=== PATIENT | female | born 1985 | race African-American/Black ===

== ENCOUNTER → 2022-03-29 14:30 | Outpatient (BNVA) | payer OTHER, SELFPAY | PROVIDERS: PCP Physician Assistant Medical; Visit Provider Nurse Practitioner Family | DX: G47.19 Other hypersomnia (principal); R06.83 Snoring; G47.9 Sleep disorder, unspecified; G43.709 Chronic migraine without aura, not intractable, without status migrainosus | CPT/HCPCS: 99202 ==

== ENCOUNTER → 2022-04-18 13:45 | Outpatient (REF) | payer OTHER, SELFPAY | LOC: HO.SL 13:45 | PROVIDERS: PCP Physician Assistant Medical; Visit Provider Nurse Practitioner Family | DX: Z13.89 Encounter for screening for other disorder (principal) ==

== ENCOUNTER → 2022-07-05 14:36 | Outpatient (BNVA) | payer OTHER, SELFPAY | PROVIDERS: PCP Physician Assistant Medical; Visit Provider Nurse Practitioner Family | DX: G43.709 Chronic migraine without aura, not intractable, without status migrainosus (principal); G47.9 Sleep disorder, unspecified; G47.19 Other hypersomnia; R06.83 Snoring | CPT/HCPCS: 99212 ==

== ENCOUNTER 2022-07-12 10:15 | Outpatient (RCR) | payer OTHER, SELFPAY ==
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
[2022-07-05 12:34] VITALS: BP 138/90; PULSE 96; TEMP 37.3
[2022-07-05 12:39] VITALS: BMI 38.0
--- NOTE | 2022-07-05 13:18 | PC.ADMIT ---
Patient is a 36 year old single female who identifies as a black [place] of [employer]. She was referred to PHP by her prescriber d/t increased depression with passive SI, increased anxiety, and OCD sxs. She is currently unemployed d/t mental health issues. See integrative assessment for more information. Patient denied any substance use. Reports she has been withdrawing from others. Currently live with her parents who she reports are, somewhat supportive and her 8 siblings. Patient reports many health issues including diabetes which she stated is being monitored with appointments every two weeks at a diabetes clinic as she is using newer technology. Reports she is using a Thompson 2 sensor(previously used Thompson 1) to manage her diabetes. Reports BS range from 100's-200's. She also stated her blood pressure is being monitored as well as she stated her blood pressures have been running high. She also goes to PT twice a week and is currently awaiting for results today of a sleep study she had done. Patient is alert and oriented x4. Calm and cooperative. Presented with depressed mood, anxious affect. Denied SI or thoughts to harm self. Medications reconciled with patient and patient's pharmacy. reports taking medications as prescribed.
--- NOTE | 2022-07-06 15:57 | HO.PHP ---
The client case was reviewed and opened in treatment team
--- NOTE | 2022-07-11 10:58 | HO.PHP ---
The client called out because she over slept. She is safe and will be here tomorrow
--- NOTE | 2022-07-12 11:15 | HO.PHPPROGNO ---
Subjective Subjective Date of Service: 07/12/22 Reason For Visit: PTSD,OCD,depression,anxiety,panic d/o Medical Problems Affecting Mental Status: No Interim History: Continues with depressed, anxious mood/affect. Finding program helpful. No SI, no safety concerns. Poor sleep, difficulty falling asleep, with multiple awakenings. History of using a CPAP in the past, last use 2016 after adenoid removal. Providers are planning for a new sleep study. Medication Compliance: Yes Side effects from medications: No Attending Groups: Yes Review of Systems Acute medical concerns: No Medical Review of Systems: changed Review of Systems: poor sleep Review of Systems Review of Systems Yes all other systems are reviewed and are negative Constitutional: Reports difficulty sleeping Mental Status Exam Mental Status Exam Narrative: Well-developed, well-nourished, in NAD. 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 in Activity, Feelings of Worthlessness, Increased Fatigue, Low Self Esteem, Loss of Energy and Difficulty Concentrating Judgement: Fair Diagnostics Vital Signs (24Hr): BMI result Body Mass Index 38.0 Assessment & Plan Assessment & Plan (1) Major depressive disorder, recurrent severe without psychotic features: Status: Acute Code(s): F33.2 - Major depressive disorder, recurrent severe without psychotic features Assessment and Plan: Continues with depressed, anxious mood an affect. No SI, no safety concerns. Reports having a difficult morning, feeling better now. No SI/HI, no safety concerns. Does report having some sleep difficulties, which she feels is adding to her mood. Working with medical providers, plan is to have repeat sleep study. Review of sleep hygiene and anxiety reduction techniques reviewed with patient. No concerns with current medication, satisfied with current medication regimen. Discussed possibility of adding low-dose trazodone or hydroxyzine to assist with sleep. Patient given information regarding both medications, will rule research both before making any type of decision. (2) Anxiety: Status: Acute Code(s): F41.9 - Anxiety disorder, unspecified (3) OCD (obsessive compulsive disorder): Status: Acute Code(s): F42.9 - Obsessive-compulsive disorder, unspecified (4) Post-traumatic stress disorder, unspecified: Status: Acute Code(s): F43.10 - Post-traumatic stress disorder, unspecified Plan 1. Continue with current PHP plan of care. 2. Continue with current medication regimen as prescribed. 3. Follow-up as per protocol. Patient educated on: diagnosis, medication risk/benefits and therapeutic strategies Informed Consent: understands Reason for contiued partial hosp. stay Substantial Risk for: inability to function, rapid decompensation and med/psych decompensation Certification I certify that partial hospital treatment is medically necessary due to the symptoms and problems resulting from the patient's mental illness and the failure to treat the patient at the partial hospital level of care would likely result in the patient requiring inpatient psychiatric care which could not be prevented at a less intensive level of care. Total time managing care of this patient today __20__ minutes. Discharge Plan Discharge Attending provider: Paddy Adhikari Medications: No Action multivitamin with folic acid [Daily-Devon (with folic acid)] 400 mcg tablet 1 tab PO DAILY oxcarbazepine 300 mg tablet 1 tab PO BID estradiol 2 mg tablet 1 tab PO QAM diclofenac sodium 75 mg tablet,delayed release (DR/EC) 1 tab PO BID PRN (Reason: pain) albuterol sulfate [Ventolin HFA] 90 mcg/actuation HFA aerosol inhaler 2 puff inhalation Q6H PRN (Reason: wheezing) duloxetine 60 mg capsule,delayed release(DR/EC) 1 cap PO DAILY Jardiance 10 mg tablet 10 mg PO QAM insulin glargine [Lantus Solostar U-100 Insulin] 100 unit/mL (3 mL) insulin pen 25 unit subcut BEDTIME Label Comments: Patient stated her dose decreased to 25 units at bedtime. fexofenadine 60 mg tablet 60 mg PO DAILY (DME) FreeStyle Thompson 2 Sensor Kit See Rx Instructions .ROUTE DIRECTED Qty: 1 Rx Instructions: As directed (DME) lancets [FreeStyle Lancets] 28 gauge misc See Rx Instructions .ROUTE .MEDSUPPLY Qty: 100 Rx Instructions: As directed buspirone 15 mg tablet 15 mg PO BID fluticasone propionate [Flovent HFA] 220 mcg/actuation HFA aerosol inhaler 1 puff inhalation BID Label Comments: Patient stated she tried Advair inhaler however was getting oral thrush thus was changed back to Flovent inhaler. atorvastatin 10 mg tablet 10 mg PO DAILY fluticasone propionate 50 mcg/actuation spray,suspension 1 spray intranasal BID (DME) pen needle, diabetic [BD Ultra-Fine Mini Pen Needle] 31 gauge x 3/16 needle See Rx Instructions .ROUTE .MEDSUPPLY Qty: 50 Rx Instructions: As directed (DME) FreeStyle Lite Strips Strip See Rx Instructions .ROUTE BID Qty: 10 Rx Instructions: As directed Humalog U-100 Insulin 100 unit/mL cartridge 60 unit subcut DAILY insulin aspart U-100 100 unit/mL (3 mL) insulin pen See Rx Instructions .ROUTE .COMPLEX Label Comments: Patient stated she alternates with Humalog insulin (does not use Insulin Aspart and Humalog insulin at the same time) depending if she is staying at home or leaving her home. Rx Instructions: Sliding scale TID before meals SQ with maximum 24 units daily. omeprazole 40 mg capsule,delayed release(DR/EC) 40 mg PO DAILY cholecalciferol (vitamin D3) 50 mcg (2,000 unit) capsule 50 mcg PO DAILY magnesium oxide 400 mg (241.3 mg magnesium) tablet 400 mg PO BEDTIME 30 Days Qty: 30 6RF Rx Instructions: may hold for loose stools melatonin 5 mg tablet 10 mg PO DAILY PRN (Reason: insomnia) Label Comments: Patient stated she was told to take 1-2 tabs prn at bedtime. diclofenac sodium 1 % gel topical Ubrelvy 100 mg tablet 100 mg PO PRN Botox 200 unit recon soln 155 unit IM ONCE 84 Days Qty: 1 3RF Rx Instructions: inject 155 units IM across forehead, scalp, and neck
--- NOTE | 2022-07-13 11:40 | PC.NURSE ---
Patient did not show up to the program this morning. Spoke to her at 11:40 and she stated she just woke up and she overslept. Plans on coming to the program tomorrow.
--- NOTE | 2022-07-14 09:37 | HO.PHP ---
I called Sonya to check in after she called out. She states that she has been having difficulty sleeping at night and overslept again this morning. We discussed how participating in group has impacted her and she states that she is going to be here on Sunday. She reports that she is safe.
--- NOTE | 2022-07-17 16:18 | HO.PHP ---
I spoke with the client after she had called out. She states that she finds groups too difficult because she feels guilty when she speaks about her family and feels that she knows coping skills already. She has decided that she will just continue with her outpatient therapist.
--- NOTE | 2022-07-18 15:32 | HO.PHP ---
Addendum entered by Reina Hernandez [facility] 07/18/22 15:48: The clients therapist requested a fax of her meds and I faxed it over. Original Note: A call was made to the clients therapist to inform of discharge
== END 2022-07-14 23:59 | disposition home or self-care (01) ==
LOC: HO.PHPA 10:15
PROVIDERS: Visit Provider Psychiatry & Neurology Psychiatry
DX: F33.2 Major depressive disorder, recurrent severe without psychotic features (principal); F42.9 Obsessive-compulsive disorder, unspecified; F43.10 Post-traumatic stress disorder, unspecified; F41.9 Anxiety disorder, unspecified
CPT/HCPCS: 90791; 90853

== ENCOUNTER → 2022-09-26 13:29 | Outpatient (BNVA) | payer OTHER, SELFPAY | PROVIDERS: PCP Physician Assistant Medical; Visit Provider Nurse Practitioner Family | DX: G43.709 Chronic migraine without aura, not intractable, without status migrainosus (principal); G47.19 Other hypersomnia; R06.83 Snoring; E11.9 Type 2 diabetes mellitus without complications; Z79.4 Long term (current) use of insulin | CPT/HCPCS: 99212 ==

== ENCOUNTER → 2022-10-19 14:33 | Outpatient (REF) | payer OTHER, SELFPAY | LOC: HO.SL 14:33 | PROVIDERS: PCP Physician Assistant Medical; Visit Provider Nurse Practitioner Family | DX: G47.19 Other hypersomnia (principal); G47.9 Sleep disorder, unspecified; R06.83 Snoring | CPT/HCPCS: 95806 ==

== ENCOUNTER 2023-01-08 14:57 | Outpatient (AMB) | payer MEDICAID, SELFPAY ==
--- NOTE | 2023-01-08 14:59 | MHC.OFFVIS ---
Intake Vital Signs 01/08/23 15:00 Height 5 ft 7 in Weight 242 lb 8 oz BMI 38.0 Position Sitting Pulse 92 Pulse Source Pulse Oximeter Pulse Oximetry (%) 97 Oxygen Delivery Method Room Air Intake Visit Reasons: 3m follow up headaches/sleep issues Intake Note: Pt presents as a 3 month f/u for headaches and sleep issues. Pt states Things are pretty much the same. Utilization Reviewer Required: No Allergies dulaglutide [From [facility]] Allergy (Unknown, Verified 01/08/23 15:05) Unknown lisinopril Allergy (Unknown, Verified 01/08/23 15:05) Cough metformin Allergy (Unknown, Verified 01/08/23 15:05) Stomach Upset enviromental Allergy (Mild, Uncoded 01/08/23 15:05) Unknown Medication List - Last Reconciled 01/08/23 by WILLIAM Agrawal albuterol sulfate 90 mcg/actuation (Ventolin HFA) 2 puffs inhalation Q6H PRN atorvastatin 10 mg PO DAILY blood sugar diagnostic (FreeStyle Lite Strips) As directed buspirone 15 mg PO BID cholecalciferol (vitamin D3) 50 mcg PO DAILY diclofenac sodium 1% grams topical duloxetine 1 cap PO DAILY empagliflozin (Jardiance) 10 mg PO QAM estradiol 1 tab PO QAM flash glucose sensor (FreeStyle Thompson 2 Sensor kit) As directed fluconazole 75 mg PO BID PRN fluticasone propionate 220 mcg/actuation (Flovent HFA) 1 puff inhalation BID hydrocortisone 2.5% topical insulin aspart U-100 Sliding scale TID before meals SQ with maximum 24 units daily. insulin glargine (Lantus Solostar U-100 Insulin) 24 units subcut BEDTIME insulin lispro 1 sliding scale dose subcut USEASDIRECTD lancets (FreeStyle Lancets) As directed loratadine 10 mg PO DAILY magnesium oxide 400 mg PO BEDTIME 30 days melatonin 5 mg PO DAILY PRN montelukast 10 mg PO QPM multivitamin with folic acid 400 mcg (Daily-Devon (with folic acid)) 1 tab PO DAILY omeprazole 40 mg PO DAILY onabotulinumtoxinA (Botox) 155 units IM ONCE 12 weeks oxcarbazepine 1 tab PO BID oxcarbazepine 150 mg PO BID trazodone 50 mg PO BEDTIME ubrogepant (Ubrelvy) 100 mg PO PRN HPI HPI Comments History of Present Illness Details 37-yr-old female presents for f/u visit. Pt denies any significant interval medical changes. She was not able to complete her partial day program d/t transportation issues- but she plans to resume later this month. She reports a daily mild-moderate headcahe, with 3 moderate-severe headache days per week w/ one w/ increased severity per week. She is noticing more mid-frontal pressure- wonders if this is r/t allergies but denies any other allergy s/s- no watery eyes. More prone to dry eyes. The Ubrelvy is helpful as needed. HST revealed AHI 0.5/hr and O2 ximena She is still having snoring, fragmented sleep, leg cramps, restless sleep. She is taking Magnesium - not helping leg cramps. She has a h/o anemia- ued to take iron but not now. She also concerned about risk for pituitary adenoma as her sister had a symptomatic pituitary adenoma requiring surgical intervention. Pt endorses diplopia- neida with vision changing from distance to near or when driving; bilateral facial droop, difficulty swallowing liquids/saliva, bilateral hands and feet paresthesias, hot/cold intolerance- . Denies peripheral vision loss or nipple discharge. [facility] Medical History (Updated 01/08/23 @ 16:02 by WILLIAM Agrawal) Anemia Arthritis Asthma Carpal tunnel syndrome Depression Eczema Fibromyalgia GERD (gastroesophageal reflux disease) HTN (hypertension) IBS (irritable bowel syndrome) Migraines Mobitz (type) I (Wenckebach's) atrioventricular block Osteoporosis Psoriasis Type II diabetes mellitus Surgical History H/O adenoidectomy History of hysterectomy History of nasal septoplasty Social History Household Members: Family Alcohol intake: never Patient Tobacco Use Status: Former Tobacco user Tobacco use type: Pipe Years Smoked: 15 years ago. Review of Systems Const All systems reviewed & are unremarkable except as noted in HPI and below Physical Exam Vital Signs: Last Vital Signs Pulse 92 01/08/23 15:00 Pulse Ox 97 01/08/23 15:00 Oxygen Delivery Method Room Air 01/08/23 15:00 BMI result Body Mass Index 38.0 Const General: cooperative and no acute distress Orientation/consciousness: patient oriented x3 HEENT Head: Yes normocephalic Resp Effort & Inspection: normal respiratory effort and able to speak in complete sentences Neuro Other: EOM intact Sustained upward eye gaze- no fatigability observed. General: patient oriented x3, gait normal and CN's II-XI intact bilaterally Cognition (Neuro): normal cognition Motor exam (neuro): 5/5 motor strength present throughout Psych Appearance: grossly normal Mental Status: mental status grossly normal Speech and movement: Normal speech and movement present Affect: normal affect Attitude: cooperative Thought process: Normal thought process present Assessment & Plan Assessment & Plan (1) Chronic migraine: (2) Sleep disorder: Code(s): G47.9 - Sleep disorder, unspecified (3) Excessive daytime sleepiness: Comment: ESS 12 Code(s): G47.19 - Other hypersomnia (4) Snoring: Code(s): R06.83 - Snoring Plan Pt advised to undergo brain MRI w/wo- to assess for etiologies of worsening headcahe, diplopia, swallowing diff, facial weakness- such as any pituitary or posterior fossa processes Monitor swallowing, diplopia- consider dilplopia/dysphagi eval, MG work-up. For sleep- Reviewed HST- inconclusive. Pt advised to undergo in-lab PSG. Continue Magnesium for leg cramps/RLS. Will check labs for common etiologies RLS/restlessness/cramps. Future considerations- referral for CBTi For chronic migraine- Will schedule pt to resume Botox tx- PA has been approved. Try tear gtts for dry eyes- dry eyes may exacerbate headcahes/diplopia/eey strain. Previous preventative medication use: amitriptyline, nortriptyline- ineffective, topamax- ineffective, propranolol- caused hypotension For acute migraine tx: Continue prn Ubrelvy. Previous acute medication use: sumatriptan- ineffective, naratriptan- ineffective Orders: Orders RT PSG in-lab sleep study Today G47.19 - Other hypersomnia, G47.9 - Sleep disorder, unspecified, R06.83 - Snoring Comprehensive Met. Panel Today D64.9 - Anemia, unspecified, E11.9 - Type 2 diabetes mellitus without complications, F41.9 - Anxiety disorder, unspecified Complete Blood Count Auto Diff Today D64.9 - Anemia, unspecified, E11.9 - Type 2 diabetes mellitus without complications, F41.9 - Anxiety disorder, unspecified Vitamin B12 and Folate Today D64.9 - Anemia, unspecified, E11.9 - Type 2 diabetes mellitus without complications, F41.9 - Anxiety disorder, unspecified TSH reflex Free T4 Today D64.9 - Anemia, unspecified, E11.9 - Type 2 diabetes mellitus without complications, F41.9 - Anxiety disorder, unspecified Ferritin Today D64.9 - Anemia, unspecified, E11.9 - Type 2 diabetes mellitus without complications, F41.9 - Anxiety disorder, unspecified IRON PROFILE Today D64.9 - Anemia, unspecified, E11.9 - Type 2 diabetes mellitus without complications, F41.9 - Anxiety disorder, unspecified Transferrin Today D64.9 - Anemia, unspecified, E11.9 - Type 2 diabetes mellitus without complications, F41.9 - Anxiety disorder, unspecified Erythrocyte Sedimentation Rate Today D64.9 - Anemia, unspecified, E11.9 - Type 2 diabetes mellitus without complications, F41.9 - Anxiety disorder, unspecified MR head/brain wo/w con Today H53.2 - Diplopia, R20.2 - Paresthesia of skin, R29.810 - Facial weakness, R51.9 - Headache, unspecified Medications: New propylene glycol (PF) 0.6% (Systane Complete PF) 2 drops into the eye(s) to each eye BID; 30 days 20 mL 3RF Coding Level of Care Code Est Pt Level 4 (23205) Diagnoses Chronic migraine Sleep disorder G47.9 Excessive daytime sleepiness G47.19 Snoring R06.83
[2023-01-08 15:00] VITALS: PULSE 92; O2SAT 97; BMI 38.0
== END 2023-01-08 16:07 | disposition home or self-care (01) ==
PROVIDERS: Visit Provider Nurse Practitioner Family
DX: G47.9 Sleep disorder, unspecified (principal); G47.19 Other hypersomnia; R06.83 Snoring
CPT/HCPCS: 99214

== ENCOUNTER → 2023-01-08 14:57 | Outpatient (BNVA) | payer OTHER, SELFPAY | PROVIDERS: Visit Provider Nurse Practitioner Family | DX: G43.809 Other migraine, not intractable, without status migrainosus (principal); G47.19 Other hypersomnia; R06.83 Snoring; Z79.899 Other long term (current) drug therapy | CPT/HCPCS: 99212 ==

== ENCOUNTER 2023-01-15 13:01 | Outpatient (AMB) | payer OTHER, SELFPAY ==
--- NOTE | 2023-01-15 13:04 | A.OFFVIS_ITS ---
Intake Vital Signs 01/15/23 13:09 BP 114/98 H Blood Pressure Location Rt brachial Position Sitting Pulse 95 Pulse Source Pulse Oximeter Pulse Oximetry (%) 98 Oxygen Delivery Method Room Air Intake Visit Reasons: botox-confirmed Intake Note: Patient presents for botox injection . Allergies dulaglutide [From [facility]] Allergy (Unknown, Verified 01/15/23 13:06) Unknown lisinopril Allergy (Unknown, Verified 01/15/23 13:06) Cough metformin Allergy (Unknown, Verified 01/15/23 13:06) Stomach Upset enviromental Allergy (Mild, Uncoded 01/15/23 13:06) Unknown Medication List - Last Reconciled 01/15/23 by Bessie Ramirez MD albuterol sulfate 90 mcg/actuation (Ventolin HFA) 2 puffs inhalation Q6H PRN ascorbate calcium (vitamin C) 500 mg PO DAILY 30 days ascorbic acid (vitamin C) 500 mg PO DAILY atorvastatin 10 mg PO DAILY blood sugar diagnostic (FreeStyle Lite Strips) As directed buspirone 15 mg PO BID cholecalciferol (vitamin D3) 50 mcg PO DAILY diclofenac sodium 1% grams topical duloxetine 1 cap PO DAILY empagliflozin (Jardiance) 10 mg PO QAM estradiol 1 tab PO QAM ferrous sulfate 325 mg PO DAILY 30 days ferrous sulfate 300 mg PO DAILY flash glucose sensor (FreeStyle Thompson 2 Sensor kit) As directed fluconazole 75 mg PO BID PRN fluticasone propionate 220 mcg/actuation (Flovent HFA) 1 puff inhalation BID hydrocortisone 2.5% topical insulin aspart U-100 Sliding scale TID before meals SQ with maximum 24 units daily. insulin glargine (Lantus Solostar U-100 Insulin) 24 units subcut BEDTIME insulin lispro 1 sliding scale dose subcut USEASDIRECTD lancets (FreeStyle Lancets) As directed loratadine 10 mg PO DAILY magnesium oxide 400 mg PO BEDTIME 30 days melatonin 5 mg PO DAILY PRN montelukast 10 mg PO QPM multivitamin with folic acid 400 mcg (Daily-[place] (with folic acid)) 1 tab PO DAILY omeprazole 40 mg PO DAILY onabotulinumtoxinA (Botox) 155 units IM ONCE 12 weeks oxcarbazepine 1 tab PO BID oxcarbazepine 150 mg PO BID propylene glycol (PF) 0.6% (Systane Complete PF) 2 drops into the eye(s) to each eye BID; 30 days trazodone 50 mg PO BEDTIME ubrogepant (Ubrelvy) 100 mg PO PRN HPI HPI Comments History of Present Illness Details ? 37y/o female comes for treatment of migraines with botox. ??? Most frequent reported adverse reactions following injection of botox for chronic migraine include neck pain (9%), headache(5%), eyelid ptosis(4%), migraine(4%), muscular weakness(4%), musculuskeletal stiffness(4%), bronchitis(3%), injection site pain (3%), musculoskeletal pain(3%), myalgia(3%), facial paresis(2%), HTN(2%) and muscle spasms(2%) were discussed in detail. ??? Botulinum toxin typeA 200units Lot no [id number] expiration Jul 2025 was diluted with 4 cc of normal saline . ??? Muscles injected- ??? Frontalis 4 sites ??? Procerus 1 site ??? Dipper Clock And Watch Hands- 2 sites ??? Temporalis- 8 sites ??? Occipitalis- 6 sites ??? Cervical paraspinals- 4 sites ??? Trapezius- 6 sites- 10 units each ??? 5 units each in 31 site ??? Total use- 185units ??? Discarded-15units [facility] Medical History Anemia Arthritis Asthma Carpal tunnel syndrome Depression Eczema Fibromyalgia GERD (gastroesophageal reflux disease) HTN (hypertension) IBS (irritable bowel syndrome) Migraines Mobitz (type) I (Wenckebach's) atrioventricular block Osteoporosis Psoriasis Type II diabetes mellitus Surgical History H/O adenoidectomy History of hysterectomy History of nasal septoplasty Family History Mother Heart disease Lupus Diabetes Father Diabetes Social History Household Members: Family Alcohol intake: never Patient Tobacco Use Status: Former Tobacco user Tobacco use type: Pipe Years Smoked: 15 years ago. Physical Exam Vital Signs: Last Vital Signs Pulse 95 01/15/23 13:09 BP 114/98 H 01/15/23 13:09 Pulse Ox 98 01/15/23 13:09 Oxygen Delivery Method Room Air 01/15/23 13:09 Const General: cooperative and no acute distress Orientation/consciousness: patient oriented x3 HEENT Head: Yes normocephalic Resp Effort & Inspection: normal respiratory effort and able to speak in complete sentences Neuro Other: EOM intact Sustained upward eye gaze- no fatigability observed. General: patient oriented x3, gait normal and CN's II-XI intact bilaterally Cognition (Neuro): normal cognition Motor exam (neuro): 5/5 motor strength present throughout Psych Appearance: grossly normal Mental Status: mental status grossly normal Speech and movement: Normal speech and movement present Affect: normal affect Attitude: cooperative Thought process: Normal thought process present Office Procedures Botulinum toxin Injection 78069 - Migraine Procedure code (CPT) selection complete Office Meds onabotulinumtoxinA Performing Provider: Bessie Ramirez MD Administered by: Bessie Ramirez MD on 01/15/23 14:42 Dose Route Admin Location Lot Number Expiration Date NDC [employer] 185 unit subcut [id number] 07/05/25 0745-8768-58 [employer]ER[employer]/BOTOX Comments: see HPI Assessment & Plan Assessment & Plan (1) Chronic migraine without aura, not intractable, without status migrainosus: Code(s): G43.709 - Chronic migraine without aura, not intractable, without status migrainosus Plan Patient tolerated the procedure well She will call with any side effects Orders: Orders AMB Botulinum toxin Injection Today G43.709 - Chronic migraine without aura, not intractable, without status migrainosus Coding Level of Care Code Est Pt Level 1 (29769) Diagnoses Chronic migraine without aura, not intractable, without status migrainosus G43.709 CPT Codes Botox Injection - Botox 3: 78120 - Migraine ([id number])
[2023-01-15 13:09] VITALS: BP 114/98; PULSE 95; O2SAT 98
== END 2023-01-15 13:26 | disposition home or self-care (01) ==
PROVIDERS: PCP Physician Assistant Medical; Visit Provider Psychiatry & Neurology Neurology
DX: G43.709 Chronic migraine without aura, not intractable, without status migrainosus (principal)
CPT/HCPCS: 64615

== ENCOUNTER → 2023-01-15 13:01 | Outpatient (BNVA) | payer OTHER, SELFPAY | PROVIDERS: PCP Physician Assistant Medical; Visit Provider Psychiatry & Neurology Neurology | DX: G43.709 Chronic migraine without aura, not intractable, without status migrainosus (principal); M79.7 Fibromyalgia | CPT/HCPCS: 64615; 99211; J0585 ==

== ENCOUNTER → 2023-01-21 20:30 | Outpatient (REF) | payer OTHER, SELFPAY | LOC: HO.SL 20:30 | PROVIDERS: PCP Physician Assistant Medical; Visit Provider Nurse Practitioner Family | DX: G47.19 Other hypersomnia (principal); G47.9 Sleep disorder, unspecified; R06.83 Snoring | CPT/HCPCS: 95810 ==

== ENCOUNTER → 2023-01-21 22:40 | Outpatient (BNV) | payer OTHER, SELFPAY | PROVIDERS: PCP Physician Assistant Medical; Visit Provider Psychiatry & Neurology Neurology | DX: G47.61 Periodic limb movement disorder (principal) | CPT/HCPCS: 95810 ==

== ENCOUNTER 2023-02-01 16:08 | Outpatient (REF) | payer OTHER, SELFPAY ==
--- NOTE | ~2023-02-01 | MR_ITS ---
EXAMINATION: MR BRAIN WITHOUT AND WITH CONTRAST MR CERVICAL SPINE WITHOUT AND WITH CONTRAST CLINICAL INFORMATION: Headaches. Facial weakness. COMPARISON: None available. TECHNIQUE: Multiplanar, multisequence imaging of the brain and cervical spine was performed before and after the intravenous administration of 10 mL of Gadavist. Slightly limited study with motion artifacts. FINDINGS: BRAIN: No diffusion abnormalities are identified to suggest an acute or subacute infarct. The ventricles are normal in size. No mass effect or midline shift is seen. No brain parenchymal signal abnormality is noted. No extra-axial fluid collections are seen. The brainstem and cerebellum are normal. On postcontrast imaging, there is no abnormal parenchymal or leptomeningeal enhancement. The gradient refocused acquisition demonstrates no pathologic magnetic susceptibility artifact to indicate underlying acute or chronic blood products. The craniovertebral junction, marrow signal, and midline structures are normal. The major intracranial flow voids at the level of the [place] are preserved. The dural venous sinus flow voids are maintained. The mastoid air cells and paranasal sinuses are well aerated. CERVICAL SPINE: The marrow signal is homogeneous. No abnormal enhancement is seen. There are no compression fractures or subluxations. The discs are well hydrated. No cord signal abnormality or syrinx is seen. The central canal and neural foramina are widely patent. At the C6-C7 level, there is a small central disc protrusion and mild disc bulge without central canal stenosis or foraminal narrowing. The remaining disc spaces are normal. The facet joints are normal. The paraspinal soft tissues are unremarkable. The vertebral artery flow voids are maintained. The imaged lung apices are grossly clear. MR/MR cervical spine wo/w con IMPRESSION: Normal MRI of the brain. Small central disc protrusion and mild disc bulge at the C6-C7 level. No central canal stenosis or foraminal narrowing. No abnormal enhancement. No cord signal abnormality.
--- NOTE | ~2023-02-01 | MR_ITS ---
EXAMINATION: MR BRAIN WITHOUT AND WITH CONTRAST MR CERVICAL SPINE WITHOUT AND WITH CONTRAST CLINICAL INFORMATION: Headaches. Facial weakness. COMPARISON: None available. TECHNIQUE: Multiplanar, multisequence imaging of the brain and cervical spine was performed before and after the intravenous administration of 10 mL of Gadavist. Slightly limited study with motion artifacts. FINDINGS: BRAIN: No diffusion abnormalities are identified to suggest an acute or subacute infarct. The ventricles are normal in size. No mass effect or midline shift is seen. No brain parenchymal signal abnormality is noted. No extra-axial fluid collections are seen. The brainstem and cerebellum are normal. On postcontrast imaging, there is no abnormal parenchymal or leptomeningeal enhancement. The gradient refocused acquisition demonstrates no pathologic magnetic susceptibility artifact to indicate underlying acute or chronic blood products. The craniovertebral junction, marrow signal, and midline structures are normal. The major intracranial flow voids at the level of the [place] are preserved. The dural venous sinus flow voids are maintained. The mastoid air cells and paranasal sinuses are well aerated. CERVICAL SPINE: The marrow signal is homogeneous. No abnormal enhancement is seen. There are no compression fractures or subluxations. The discs are well hydrated. No cord signal abnormality or syrinx is seen. The central canal and neural foramina are widely patent. At the C6-C7 level, there is a small central disc protrusion and mild disc bulge without central canal stenosis or foraminal narrowing. The remaining disc spaces are normal. The facet joints are normal. The paraspinal soft tissues are unremarkable. The vertebral artery flow voids are maintained. The imaged lung apices are grossly clear. MR/MR head/brain wo/w con IMPRESSION: Normal MRI of the brain. Small central disc protrusion and mild disc bulge at the C6-C7 level. No central canal stenosis or foraminal narrowing. No abnormal enhancement. No cord signal abnormality.
[2023-02-01] MEDS: gadobutroL 10 ML VIAL IVPUSH (17:23)
== END 2023-02-01 16:09 | disposition home or self-care (01) ==
LOC: HO.MRI 16:08
PROVIDERS: PCP Physician Assistant Medical; Visit Provider Nurse Practitioner Family
DX: R29.810 Facial weakness (principal); H53.2 Diplopia; F41.9 Anxiety disorder, unspecified; R51.9 Headache, unspecified; R20.2 Paresthesia of skin
CPT/HCPCS: 70553; 72156; A9585

== ENCOUNTER 2023-02-19 11:30 | Outpatient (RCR) | payer OTHER, SELFPAY ==
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
[2023-02-19 13:27] VITALS: BP 118/78; PULSE 92; TEMP 36.9
[2023-02-19 13:31] VITALS: BMI 37.6
--- NOTE | 2023-02-19 14:14 | PC.ADMIT ---
Patient is a 37 year old female who identified as a black [place]. She was referred to [facility] by Jakob crisis advised by her therapist who wanted her to be evaluated d/t increased depression with passive SI and struggling with poor eating habits as patient has Type II insulin dependent diabetes. Patient told this procedure writer that her appetite fluctuates as she sometimes does not eat or overeats. Patient told this procedure writer she is struggling with a lot of depressive sxs and anxiety. Patient presented with depressed mood and affect. Reports passive SI denied plan or intent to kill herself. She is calm and cooperative. I gave her a copy of her safety plan and I reviewed this with her. 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 Medications reconciled with patient at this time. Awaiting for faxed information from pharmacy to complete reconciliation.
--- NOTE | 2023-02-21 17:10 | HO.PHP ---
[facility] staff contacted Sonya and encouraged her to take care of her health at this time by following up with a PCP. [facility] staff noted that we will be discharging her from services at this time and when she is feeling well, she can call [facility] to schedule an intake. Sonya was receptive.
== END 2023-02-21 23:59 | disposition home or self-care (01) ==
LOC: HO.PHPA 11:30
PROVIDERS: Visit Provider Psychiatry & Neurology Psychiatry
DX: F33.2 Major depressive disorder, recurrent severe without psychotic features (principal); F42.9 Obsessive-compulsive disorder, unspecified; Z79.899 Other long term (current) drug therapy
CPT/HCPCS: 90791; 90853

== ENCOUNTER → 2023-02-19 11:30 | Outpatient (BNV) | payer OTHER, SELFPAY | PROVIDERS: Visit Provider Psychiatry & Neurology Psychiatry | DX: F33.2 Major depressive disorder, recurrent severe without psychotic features (principal); F42.9 Obsessive-compulsive disorder, unspecified | CPT/HCPCS: 90792 ==

== ENCOUNTER 2023-04-24 14:26 | Outpatient (AMB) | payer OTHER, SELFPAY ==
--- NOTE | 2023-04-24 14:30 | MHC.OFFVIS ---
Intake Vital Signs 04/24/23 14:32 Height 5 ft 7 in Weight 245 lb 4 oz BMI 38.4 BP 128/76 Blood Pressure Location Rt brachial Position Sitting Respiration 7 L Pulse 95 Pulse Source Pulse Oximeter Pulse Oximetry (%) 100 Oxygen Delivery Method Room Air Intake Visit Reasons: botox - Conf t/CW Intake Note: Pt presents to the office for Botox injections. Car Groomer Required: No Allergies dulaglutide [From Trulicity] Allergy (Unknown, Verified 04/24/23 14:35) Unknown lisinopril Allergy (Unknown, Verified 04/24/23 14:35) Cough metformin Allergy (Unknown, Verified 04/24/23 14:35) Stomach Upset enviromental Allergy (Mild, Uncoded 04/24/23 14:35) Unknown Medication List - Last Reconciled 04/24/23 by Bessie Ramirez MD albuterol sulfate 90 mcg/actuation (Ventolin HFA) 2 puffs inhalation Q6H PRN ascorbate calcium (vitamin C) 500 mg PO DAILY 30 days atorvastatin 10 mg PO BEDTIME blood sugar diagnostic (FreeStyle Lite Strips) As directed buspirone 15 mg PO BID carboxymethylcellulose sodium 1% (Artificial Tears (carboxymethylcellulose)) 1 drp ophthalmic (eye) BID 14 days cholecalciferol (vitamin D3) 50 mcg PO DAILY diclofenac sodium 75 mg PO BID diclofenac sodium 1% 1 - 2 grams topical BID docusate sodium 100 - 200 mg (1 - 2 x 100 mg) PO DAILY PRN 30 days duloxetine 1 cap PO DAILY duloxetine 40 mg PO DAILY empagliflozin (Jardiance) 10 mg PO QAM estradiol 1 tab PO QAM ferrous sulfate 325 mg PO DAILY 30 days flash glucose sensor (FreeStyle Thompson 2 Sensor kit) As directed fluoxetine 20 mg PO BID gabapentin 100 - 300 mg (1 - 3 x 100 mg) PO BEDTIME 30 days hydroxyzine HCl 25 mg PO BID PRN ibuprofen 800 mg PO BID PRN insulin aspart U-100 Sliding scale TID before meals SQ with maximum 24 units daily. insulin glargine (Lantus Solostar U-100 Insulin) 40 units subcut BEDTIME lancets (FreeStyle Lancets) As directed loratadine 10 mg PO DAILY magnesium oxide 400 mg PO BEDTIME 30 days melatonin 5 mg PO DAILY PRN metoprolol succinate ER 12.5 mg PO DAILY metoprolol tartrate 12.5 mg PO BID montelukast 10 mg PO QPM multivitamin with folic acid 400 mcg (Daily-Devon (with folic acid)) 1 tab PO DAILY omeprazole 40 mg PO DAILY onabotulinumtoxinA (Botox) 155 units IM ONCE 12 weeks oxcarbazepine 1 tab PO BID oxcarbazepine 150 mg PO BID polyethylene glycol 3350 (Miralax) 17 grams PO DAILY PRN 30 days propylene glycol (PF) 0.6% (Systane Complete PF) 2 drops into the eye(s) to each eye BID; 30 days trazodone 200 mg PO BEDTIME tretinoin 0.05% (Retin-A) Apply peas sized amount to skin nightly. ubrogepant (Ubrelvy) Take one tab for migraine h/a. If ineffective in one hour take another tab. HPI HPI Comments History of Present Illness Details ? 37y/o female comes for treatment of migraines with botox. SHe had a good response after her last treatment with botox. He headaches /migraine shave decreased from daily migraines to 1-4.month and the headaches are less intense and lasts less than 2 hrs ??? Most frequent reported adverse reactions following injection of botox for chronic migraine include neck pain (9%), headache(5%), eyelid ptosis(4%), migraine(4%), muscular weakness(4%), musculuskeletal stiffness(4%), bronchitis(3%), injection site pain (3%), musculoskeletal pain(3%), myalgia(3%), facial paresis(2%), HTN(2%) and muscle spasms(2%) were discussed in detail. ??? Botulinum toxin typeA 200units Lot no [id number] expiration September 2025 was diluted with 4 cc of normal saline . ??? Muscles injected- ??? Frontalis 4 sites ??? Procerus 1 site ??? Hot Pond Operator- 2 sites ??? Temporalis- 8 sites ??? Occipitalis- 6 sites ??? Cervical paraspinals- 4 sites ??? Trapezius- 6 sites- 10 units each ??? 5 units each in 31 site ??? Total use- 185units ??? Discarded-15units PFSH Medical History Restless leg syndrome Eczema Psoriasis IBS (irritable bowel syndrome) Carpal tunnel syndrome Mobitz (type) I (Wenckebach's) atrioventricular block Migraines Fibromyalgia Type II diabetes mellitus Anemia Arthritis Asthma HTN (hypertension) GERD (gastroesophageal reflux disease) Osteoporosis Depression Surgical History H/O adenoidectomy History of hysterectomy History of nasal septoplasty Family History Mother Heart disease Lupus Diabetes Father Diabetes Household Members: Family Alcohol intake: never Patient Tobacco Use Status: Former Tobacco user Tobacco use type: Pipe Years Smoked: 15 years ago. Physical Exam Vital Signs: Last Vital Signs Pulse 95 04/24/23 14:32 Resp 7 L 04/24/23 14:32 BP 128/76 04/24/23 14:32 Pulse Ox 100 04/24/23 14:32 Oxygen Delivery Method Room Air 04/24/23 14:32 BMI result Body Mass Index 38.4 Const General: cooperative and no acute distress Orientation/consciousness: patient oriented x3 HEENT Head: Yes normocephalic Resp Effort & Inspection: normal respiratory effort and able to speak in complete sentences Neuro Other: EOM intact Sustained upward eye gaze- no fatigability observed. General: patient oriented x3, gait normal and CN's II-XI intact bilaterally Cognition (Neuro): normal cognition Motor exam (neuro): 5/5 motor strength present throughout Psych Appearance: grossly normal Mental Status: mental status grossly normal Speech and movement: Normal speech and movement present Affect: normal affect Attitude: cooperative Thought process: Normal thought process present Office Procedures Botulinum toxin Injection 30451 - Migraine Procedure code (CPT) selection complete Office Meds onabotulinumtoxinA 200 unit solution for injection Performing Provider: Bessie Ramirez MD Performing Location: [facility] Administered by: Bessie Ramirez MD on 04/24/23 15:46 Dose Route Admin Location Dispensed Lot Number Expiration Date [facility] [place] [employer] Chair 185 unit subcut 200 units [id number] 09/02/25 0322-3053-98 ALLERGAN/BOTOX Comments: see HPI Assessment & Plan Assessment & Plan (1) Chronic migraine without aura, not intractable, without status migrainosus: Code(s): G43.709 - Chronic migraine without aura, not intractable, without status migrainosus Plan Patient tolerated the procedure well She will call with any side effects Orders: Orders AMB Botulinum toxin Injection Today G43.709 - Chronic migraine without aura, not intractable, without status migrainosus Coding Level of Care Code Est Pt Level 1 (77015) Diagnoses Chronic migraine without aura, not intractable, without status migrainosus G43.709 CPT Codes Botox Injection - Botox 3: 22513 - Migraine ([id number])
[2023-04-24 14:32] VITALS: BP 128/76; PULSE 95; RESP 7; O2SAT 100; BMI 38.4
== END 2023-04-24 14:56 | disposition home or self-care (01) ==
PROVIDERS: PCP Physician Assistant Medical; Visit Provider Psychiatry & Neurology Neurology
DX: G43.709 Chronic migraine without aura, not intractable, without status migrainosus (principal)
CPT/HCPCS: 64615

== ENCOUNTER → 2023-04-24 14:26 | Outpatient (BNVA) | payer OTHER, SELFPAY | PROVIDERS: PCP Physician Assistant Medical; Visit Provider Psychiatry & Neurology Neurology | DX: G43.709 Chronic migraine without aura, not intractable, without status migrainosus (principal) | CPT/HCPCS: 64615; 99211; J0585 ==

== ENCOUNTER 2023-05-02 13:01 | Outpatient (AMB) | payer OTHER, SELFPAY ==
[2023-05-02 13:14] VITALS: BP 134/88; PULSE 83; O2SAT 100; BMI 38.1
--- NOTE | 2023-05-02 13:14 | MHC.OFFVIS ---
Intake Vital Signs 05/02/23 13:14 Height 5 ft 7 in Weight 243 lb 2 oz BMI 38.1 BP 134/88 Blood Pressure Location Rt brachial Position Sitting Pulse 83 Pulse Source Pulse Oximeter Pulse Oximetry (%) 100 Oxygen Delivery Method Room Air Intake Visit Reasons: 3m f/u headaches/sleep issues - conf Intake Note: Pt presents to the office today for a 3 month follow up for headaches and sleep issues. Allergies [facility] Allergy (Unknown, Verified 05/02/23 13:15) Unknown lisinopril Allergy (Unknown, Verified 05/02/23 13:15) Cough metformin Allergy (Unknown, Verified 05/02/23 13:15) Stomach Upset enviromental Allergy (Mild, Uncoded 05/02/23 13:15) Unknown Medication List - Last Reconciled 05/02/23 by WILLIAM Agrawal albuterol sulfate 90 mcg/actuation (Ventolin HFA) 2 puffs inhalation Q6H PRN ascorbate calcium (vitamin C) 500 mg PO DAILY 30 days atorvastatin 10 mg PO BEDTIME blood sugar diagnostic (FreeStyle Lite Strips) As directed buspirone 15 mg PO BID cholecalciferol (vitamin D3) 50 mcg PO DAILY diclofenac sodium 75 mg PO BID diclofenac sodium 1% 1 - 2 grams topical BID docusate sodium 100 - 200 mg (1 - 2 x 100 mg) PO DAILY PRN 30 days duloxetine 1 cap PO DAILY duloxetine 40 mg PO DAILY empagliflozin (Jardiance) 10 mg PO QAM estradiol 1 tab PO QAM ferrous sulfate 325 mg PO DAILY 30 days flash glucose sensor (FreeStyle Thompson 2 Sensor kit) As directed fluoxetine 20 mg PO BID gabapentin 100 - 300 mg (1 - 3 x 100 mg) PO BEDTIME 30 days hydroxyzine HCl 25 mg PO BID PRN ibuprofen 800 mg PO BID PRN insulin aspart U-100 Sliding scale TID before meals SQ with maximum 24 units daily. insulin glargine (Lantus Solostar U-100 Insulin) 40 units subcut BEDTIME lancets (FreeStyle Lancets) As directed loratadine 10 mg PO DAILY magnesium oxide 400 mg PO BEDTIME 30 days melatonin 5 mg PO DAILY PRN metoprolol succinate ER 12.5 mg PO DAILY metoprolol tartrate 12.5 mg PO BID montelukast 10 mg PO QPM multivitamin with folic acid 400 mcg (Daily-Devon (with folic acid)) 1 tab PO DAILY omeprazole 40 mg PO DAILY onabotulinumtoxinA (Botox) 155 units IM ONCE 12 weeks oxcarbazepine 1 tab PO BID oxcarbazepine 150 mg PO BID trazodone 200 mg PO BEDTIME tretinoin 0.05% (Retin-A) Apply peas sized amount to skin nightly. ubrogepant (Ubrelvy) Take one tab for migraine h/a. If ineffective in one hour take another tab. HPI HPI Comments History of Present Illness Details 37-yr-old female presents for f/u visit. Pt reports she had not been feeling as well in the last week. Denies fever, ear pain, congestion, cold/flu s/s. However she has been more tired, nauseous, low grade headaches, more dizzy (lightheaded, spinning) especially with head turn and getting up quickly and scroolling/looking down at her phone. Her sleep study did not show sleep apnea, but rather PLMS w/ an arousal index of 15/hr. She continues to have restlessness in her legs- even when trying to go to sleep. Gabapentin 100mg does not seem to help, but taking more makes it too difficult to wake up in the am. Her ferritin was 75. She is still taking iron supplement. She recently resumed Trazodone 100mg- per psychiatry, she can take both Gabapentin and Trazodone. She previously did try Pregabalin- did not help her sleep or fibromyalgia. Migraines are reduced on Botox. [facility] Medical History (Updated 05/02/23 @ 18:52 by WILLIAM Agrawal) Restless leg syndrome Eczema Psoriasis IBS (irritable bowel syndrome) Carpal tunnel syndrome Mobitz (type) I (Wenckebach's) atrioventricular block Migraines Fibromyalgia Type II diabetes mellitus Anemia Arthritis Asthma HTN (hypertension) GERD (gastroesophageal reflux disease) Osteoporosis Depression Surgical History H/O adenoidectomy History of hysterectomy History of nasal septoplasty Family History Mother Heart disease Lupus Diabetes Father Diabetes Social History Household Members: Family Alcohol intake: never Patient Tobacco Use Status: Former Tobacco user Tobacco use type: Pipe Years Smoked: 15 years ago. Review of Systems Const All systems reviewed & are unremarkable except as noted in HPI and below Physical Exam Vital Signs: Last Vital Signs Pulse 83 05/02/23 13:14 BP 134/88 05/02/23 13:14 Pulse Ox 100 05/02/23 13:14 Oxygen Delivery Method Room Air 05/02/23 13:14 BMI result Body Mass Index 38.1 Const General: cooperative and no acute distress Orientation/consciousness: patient oriented x3 HEENT Head: Yes normocephalic Resp Effort & Inspection: normal respiratory effort and able to speak in complete sentences Neuro General: patient oriented x3, gait normal and CN's II-XI intact bilaterally Cognition (Neuro): normal cognition Motor exam (neuro): 5/5 motor strength present throughout Psych Appearance: grossly normal Mental Status: mental status grossly normal Speech and movement: Normal speech and movement present Affect: normal affect Attitude: cooperative Thought process: Normal thought process present Thought content: Normal thought content present Insight: Good insight present (Psych) Judgement: Good judgement present (Psych) Assessment & Plan Assessment & Plan (1) Vertigo: Code(s): R42 - Dizziness and giddiness (2) Restless leg syndrome: Code(s): G25.81 - Restless legs syndrome (3) Chronic migraine: (4) Periodic limb movement disorder (PLMD): Code(s): G47.61 - Periodic limb movement disorder Plan Brain MRI w/wo- normal Monitor swallowing, diplopia- consider dilplopia/dysphagi eval, MG work-up. For dizziness- PT for vestibular tx- order slip given to pt ? For sleep, RLS, PLMS- Reviewed in-lab PSG- results c/w PLMS Continue Magnesium for leg cramps/RLS. Will recheck iron studies- if WNL, hold iron. Trial Horizant 300mg qhs. Once available, hold Gabapentin- ineffective and not tolerated at higher dose. Pregabalin- previously ineffective x's yrs. I would advsie holding Trazodone again- may worsen headcahe and RLS/PLMS s/s- and has not helped sleep. Future considerations- referral for CBTi ? For chronic migraine- Continue Botox tx as pt has good clinical effect from use. Try tear gtts for dry eyes- dry eyes may exacerbate headcahes/diplopia/eey strain. Previous preventative medication use: amitriptyline, nortriptyline- ineffective, topamax- ineffective, propranolol- caused hypotension ? For acute migraine tx: Continue prn Ubrelvy. Previous acute medication use: sumatriptan- ineffective, naratriptan- ineffective f/u in 3-4 months ro sooner prn. Orders: Orders PT Evaluation and Treatment Today R42 - Dizziness and giddiness Medications: New gabapentin enacarbil ER (Horizant ER) 300 mg PO DAILY 30 days 30 tabs 3RF G25.81 - Restless legs syndrome Coding Level of Care Code Est Pt Level 4 (46924) Diagnoses Vertigo R42 Restless leg syndrome G25.81 Chronic migraine Periodic limb movement disorder (PLMD) G47.61
== END 2023-05-02 14:00 | disposition home or self-care (01) ==
PROVIDERS: PCP Physician Assistant Medical; Visit Provider Nurse Practitioner Family
DX: G43.709 Chronic migraine without aura, not intractable, without status migrainosus (principal); R42 Dizziness and giddiness; G25.81 Restless legs syndrome; G47.61 Periodic limb movement disorder
CPT/HCPCS: 99024

== ENCOUNTER → 2023-05-02 13:01 | Outpatient (BNVA) | payer OTHER, SELFPAY | PROVIDERS: PCP Physician Assistant Medical; Visit Provider Nurse Practitioner Family | DX: G43.809 Other migraine, not intractable, without status migrainosus (principal); R42 Dizziness and giddiness; G25.81 Restless legs syndrome; G47.61 Periodic limb movement disorder | CPT/HCPCS: 99212 ==

== ENCOUNTER 2023-08-07 11:25 | Outpatient (AMB) | payer OTHER, SELFPAY ==
--- NOTE | 2023-08-07 11:32 | MHC.OFFVIS ---
Intake Vital Signs 08/07/23 11:33 Height 5 ft 7 in Weight 240 lb BMI 37.6 BP 136/76 Blood Pressure Location Rt brachial Position Sitting Respiration 17 Pulse 94 Pulse Source Pulse Oximeter Pulse Oximetry (%) 99 Oxygen Delivery Method Room Air Intake Visit Reasons: Botox-Conf Intake Note: Pt presents to the office for Botox injecions. Import Export Clerk Required: No Allergies dulaglutide [From Trulicity] Allergy (Unknown, Verified 08/07/23 11:33) Unknown lisinopril Allergy (Unknown, Verified 08/07/23 11:33) Cough metformin Allergy (Unknown, Verified 08/07/23 11:33) Stomach Upset enviromental Allergy (Mild, Uncoded 08/07/23 11:33) Unknown Medication List - Last Reconciled 08/07/23 by Bessie Ramirez MD albuterol sulfate 90 mcg/actuation (Ventolin HFA) 2 puffs inhalation Q6H PRN ascorbic acid (vitamin C) (Vitamin C) 500 mg PO DAILY 90 days atorvastatin 10 mg PO BEDTIME blood sugar diagnostic (FreeStyle Lite Strips) As directed buspirone 15 mg PO BID cholecalciferol (vitamin D3) 50 mcg PO DAILY diclofenac sodium 75 mg PO BID diclofenac sodium 1% 1 - 2 grams topical BID docusate sodium 100 - 200 mg (1 - 2 x 100 mg) PO DAILY PRN 30 days duloxetine 1 cap PO DAILY duloxetine 40 mg PO DAILY empagliflozin (Jardiance) 10 mg PO QAM estradiol 1 tab PO QAM ferrous sulfate 325 mg PO DAILY 30 days flash glucose sensor (FreeStyle Thompson 2 Sensor kit) As directed fludrocortisone 0.1 mg PO DAILY fluoxetine 20 mg PO BID gabapentin 100 - 300 mg (1 - 3 x 100 mg) PO BEDTIME 30 days gabapentin enacarbil ER (Horizant ER) 300 mg PO DAILY 30 days hydroxyzine HCl 25 mg PO BID PRN ibuprofen 800 mg PO BID PRN insulin aspart U-100 Sliding scale TID before meals SQ with maximum 24 units daily. insulin glargine (Lantus Solostar U-100 Insulin) 40 units subcut BEDTIME lancets (FreeStyle Lancets) As directed loratadine 10 mg PO DAILY magnesium oxide 400 mg PO BEDTIME 30 days melatonin 5 mg PO DAILY PRN metoprolol succinate ER 12.5 mg PO DAILY metoprolol tartrate 12.5 mg PO BID midodrine 2.5 mg PO BID montelukast 10 mg PO QPM multivitamin with folic acid 400 mcg (Daily-Devon (with folic acid)) 1 tab PO DAILY omeprazole 40 mg PO DAILY onabotulinumtoxinA (Botox) 155 units IM ONCE 12 weeks oxcarbazepine 1 tab PO BID oxcarbazepine 150 mg PO BID pramipexole 1 tab 1 hr before bed, and 1-2 tabs at bedtime orally .; 90 days MDD 3 tabs trazodone 200 mg PO BEDTIME tretinoin 0.05% (Retin-A) Apply peas sized amount to skin nightly. ubrogepant (Ubrelvy) 50 - 100 mg (0.5 - 1 x 100 mg) PO ONCE PRN 30 days HPI HPI Comments History of Present Illness Details ? 37y/o female comes for treatment of migraines with botox. How many migraine days prior to botox- 20 days How long do the migraines last- 1-2 days Intensity of migraine 5-03/13 ER visits related to migraine - none Effectiveness of botox from last two treatment(s) How many migraine days since receiving treatment: 4-5 days Change? in intensity of migraine?decreased Change in frequency of migraine?decreased Change in use of acute medication for migraine?decreased Change in quality of life?improved ER visits related to migraine? none Have at least three months elapsed since last treatment (Last botox date - frequency of injections) 04/24/23 SHe had a good response after her last treatment with botox. He headaches /migraine shave decreased from daily migraines to 1-4.month and the headaches are less intense and lasts less than 2 hrs ??? Most frequent reported adverse reactions following injection of botox for chronic migraine include neck pain (9%), headache(5%), eyelid ptosis(4%), migraine(4%), muscular weakness(4%), musculuskeletal stiffness(4%), bronchitis(3%), injection site pain (3%), musculoskeletal pain(3%), myalgia(3%), facial paresis(2%), HTN(2%) and muscle spasms(2%) were discussed in detail. ??? Botulinum toxin typeA 200units Lot no [id number] expiration November 2025 was diluted with 4 cc of normal saline . ??? Muscles injected- ??? Frontalis 4 sites ??? Procerus 1 site ??? Business Management Specialist- 2 sites ??? Temporalis- 8 sites ??? Occipitalis- 6 sites ??? Cervical paraspinals- 4 sites ??? Trapezius- 6 sites- 10 units each ??? 5 units each in 31 site ??? Total use- 185units ??? Discarded-15units [facility] Medical History Restless leg syndrome Eczema Psoriasis IBS (irritable bowel syndrome) Carpal tunnel syndrome Mobitz (type) I (Wenckebach's) atrioventricular block Migraines Fibromyalgia Type II diabetes mellitus Anemia Arthritis Asthma HTN (hypertension) GERD (gastroesophageal reflux disease) Osteoporosis Depression Surgical History H/O adenoidectomy History of hysterectomy History of nasal septoplasty Family History Mother Heart disease Lupus Diabetes Father Diabetes Social History Household Members: Family Alcohol intake: never Patient Tobacco Use Status: Former Tobacco user Tobacco use type: Pipe Years Smoked: 15 years ago. Physical Exam Vital Signs: Last Vital Signs Pulse 94 08/07/23 11:33 Resp 17 08/07/23 11:33 BP 136/76 08/07/23 11:33 Pulse Ox 99 08/07/23 11:33 Oxygen Delivery Method Room Air 08/07/23 11:33 BMI result Body Mass Index 37.6 Const General: cooperative and no acute distress Orientation/consciousness: patient oriented x3 HEENT Head: Yes normocephalic Resp Effort & Inspection: normal respiratory effort and able to speak in complete sentences Neuro Other: EOM intact Sustained upward eye gaze- no fatigability observed. General: patient oriented x3, gait normal and CN's II-XI intact bilaterally Cognition (Neuro): normal cognition Motor exam (neuro): 5/5 motor strength present throughout Psych Appearance: grossly normal Mental Status: mental status grossly normal Speech and movement: Normal speech and movement present Affect: normal affect Attitude: cooperative Thought process: Normal thought process present Office Procedures Botulinum toxin Injection 11503 - Migraine Procedure code (CPT) selection complete Office Meds onabotulinumtoxinA 200 unit solution for injection Performing Provider: Bessie Ramirez MD Per[place] [facility] Administered by: Bessie Ramirez MD on 08/07/23 12:02 Dose Route Admin Location Dispensed Lot Number Expiration Date [facility] Strategic Communications Specialist 200 unit subcut 200 units [id number] 11/02/25 9897-9718-91 ALLERGAN/BOTOX Assessment & Plan Assessment & Plan (1) Chronic migraine without aura, not intractable, without status migrainosus: Code(s): G43.709 - Chronic migraine without aura, not intractable, without status migrainosus Plan Patient tolerated the procedure well She will call with any side effects Orders: Orders AMB Botulinum toxin Injection Today G43.709 - Chronic migraine without aura, not intractable, without status migrainosus Coding Level of Care Code Est Pt Level 1 (26164) Diagnoses Chronic migraine without aura, not intractable, without status migrainosus G43.709 CPT Codes Botox Injection - Botox 3: 22615 - Migraine ([id number])
[2023-08-07 11:33] VITALS: BP 136/76; PULSE 94; RESP 17; O2SAT 99; BMI 37.6
== END 2023-08-07 11:57 | disposition home or self-care (01) ==
LOC: HO.HSMS 11:26
PROVIDERS: PCP Physician Assistant Medical; Visit Provider Psychiatry & Neurology Neurology
DX: G43.709 Chronic migraine without aura, not intractable, without status migrainosus (principal)
CPT/HCPCS: 64615

== ENCOUNTER → 2023-08-07 11:25 | Outpatient (BNVA) | payer OTHER, SELFPAY | PROVIDERS: PCP Physician Assistant Medical; Visit Provider Psychiatry & Neurology Neurology | DX: G43.709 Chronic migraine without aura, not intractable, without status migrainosus (principal) | CPT/HCPCS: 64615; 99211; J0585 ==

== ENCOUNTER 2023-08-28 13:58 | Outpatient (AMB) | payer OTHER, SELFPAY ==
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
[2023-08-28 14:06] VITALS: BMI 37.6
== END 2023-08-28 15:01 | disposition home or self-care (01) ==
PROVIDERS: PCP Physician Assistant Medical; Visit Provider Nurse Practitioner Family
DX: G43.709 Chronic migraine without aura, not intractable, without status migrainosus (principal); G47.61 Periodic limb movement disorder; G25.81 Restless legs syndrome; G90.A Postural orthostatic tachycardia syndrome [POTS]
CPT/HCPCS: 99214

== ENCOUNTER → 2023-08-28 13:58 | Outpatient (BNVA) | payer OTHER, SELFPAY | PROVIDERS: PCP Physician Assistant Medical; Visit Provider Nurse Practitioner Family | DX: G43.709 Chronic migraine without aura, not intractable, without status migrainosus (principal); G47.61 Periodic limb movement disorder; G25.81 Restless legs syndrome; G90.A Postural orthostatic tachycardia syndrome [POTS] | CPT/HCPCS: 99212 ==

== ENCOUNTER 2023-11-08 07:35 | Outpatient (AMB) | payer OTHER, SELFPAY ==
--- NOTE | 2023-11-08 07:36 | A.OFFVIS_ITS ---
Vital Signs 11/08/23 07:37 Height 5 ft 7 in Weight 239 lb BMI 37.4 BP 146/90 H Blood Pressure Location Rt brachial Position Sitting Respiration 16 Pulse 104 H Pulse Source Pulse Oximeter Pulse Oximetry (%) 96 Oxygen Delivery Method Room Air Intake Visit Reasons: Botox - LVM w/add Intake Note: Pt presents to the office for Botox injections. Clinical Orthoptist Required: No Allergies dulaglutide [From Trulicity] Allergy (Unknown, Verified 11/08/23 07:37) Unknown lisinopril Allergy (Unknown, Verified 11/08/23 07:37) Cough metformin Allergy (Unknown, Verified 11/08/23 07:37) Stomach Upset enviromental Allergy (Mild, Uncoded 11/08/23 07:37) Unknown Medication List - Last Reconciled 11/08/23 by Bessie Ramirez MD albuterol sulfate 90 mcg/actuation (Ventolin HFA) 2 puffs inhalation Q6H PRN atorvastatin 10 mg PO BEDTIME blood sugar diagnostic (FreeStyle Lite Strips) As directed buspirone 15 mg PO BID cholecalciferol (vitamin D3) 50 mcg PO DAILY diclofenac sodium 75 mg PO BID diclofenac sodium 1% 1 - 2 grams topical BID duloxetine 1 cap PO DAILY duloxetine 40 mg PO DAILY empagliflozin (Jardiance) 10 mg PO QAM estradiol 1 tab PO QAM flash glucose sensor (FreeStyle Thompson 2 Sensor kit) As directed fludrocortisone 0.1 mg PO DAILY ibuprofen 800 mg PO BID PRN insulin aspart U-100 Sliding scale TID before meals SQ with maximum 24 units daily. insulin glargine (Lantus Solostar U-100 Insulin) 40 units subcut BEDTIME lancets (FreeStyle Lancets) As directed loratadine 10 mg PO DAILY lurasidone (Latuda) 40 mg PO DAILY melatonin 5 mg PO DAILY PRN metoprolol succinate ER 12.5 mg PO DAILY metoprolol tartrate 12.5 mg PO BID midodrine 2.5 mg PO BID montelukast 10 mg PO QPM multivitamin with folic acid 400 mcg (Daily-Devon (with folic acid)) 1 tab PO DAILY omeprazole 40 mg PO DAILY onabotulinumtoxinA (Botox) 155 units IM ONCE 12 weeks oxcarbazepine 1 tab PO BID tretinoin 0.05% (Retin-A) Apply peas sized amount to skin nightly. ubrogepant (Ubrelvy) 50 - 100 mg (0.5 - 1 x 100 mg) PO ONCE PRN 30 days HPI Comments Details: ? 38y/o female comes for treatment of migraines with botox. How many migraine days prior to botox- 20 days How long do the migraines last- 1-2 days Intensity of migraine 5-10/10 ER visits related to migraine - none Effectiveness of botox from last two treatment(s) How many migraine days since receiving treatment: 4-5 days Change? in intensity of migraine?decreased Change in frequency of migraine?decreased Change in use of acute medication for migraine?decreased Change in quality of life?improved ER visits related to migraine? none Have at least three months elapsed since last treatment- yes SHe had a good response after her last treatment with botox. He headaches /migraine shave decreased from daily migraines to 1-4.month and the headaches are less intense and lasts less than 2 hrs ??? Most frequent reported adverse reactions following injection of botox for chronic migraine include neck pain (9%), headache(5%), eyelid ptosis(4%), migraine(4%), muscular weakness(4%), musculuskeletal stiffness(4%), bronchitis(3%), injection site pain (3%), musculoskeletal pain(3%), myalgia(3%), facial paresis(2%), HTN(2%) and muscle spasms(2%) were discussed in detail. ??? Botulinum toxin typeA 200units Lot no [id number] expiration November 2025 was diluted with 4 cc of normal saline . ??? Muscles injected- ??? Frontalis 4 sites ??? Procerus 1 site ??? Larry Operator- 2 sites ??? Temporalis- 8 sites ??? Occipitalis- 6 sites ??? Cervical paraspinals- 4 sites ??? Trapezius- 6 sites- 10 units each ??? 5 units each in 31 site ??? Total use- 185units ??? Discarded-15units [facility] Medical History Restless leg syndrome Eczema Psoriasis IBS (irritable bowel syndrome) Carpal tunnel syndrome Mobitz (type) I (Wenckebach's) atrioventricular block Migraines Fibromyalgia Type II diabetes mellitus Anemia Arthritis Asthma HTN (hypertension) GERD (gastroesophageal reflux disease) Osteoporosis Depression Surgical History H/O adenoidectomy History of hysterectomy History of nasal septoplasty Family History Mother Heart disease Lupus Diabetes Father Diabetes Social History Household Members: Family Alcohol intake: never Patient Tobacco Use Status: Former Tobacco user Tobacco use type: Pipe Years Smoked: 15 years ago. Physical Exam Vital Signs: Last Vital Signs Pulse 104 H 11/08/23 07:37 Resp 16 11/08/23 07:37 BP 146/90 H 11/08/23 07:37 Pulse Ox 96 11/08/23 07:37 Oxygen Delivery Method Room Air 11/08/23 07:37 BMI result Body Mass Index 37.4 Const General: cooperative and no acute distress Orientation/consciousness: patient oriented x3 Resp Effort & Inspection: normal respiratory effort and able to speak in complete sentences Neuro General: patient oriented x3 Cranial nerves: Yes CN's II-XII intact bilaterally Cognition (Neuro): normal cognition Psych Appearance: grossly normal Mental Status: mental status grossly normal Speech and movement: Normal speech and movement present Affect: normal affect Attitude: cooperative Office Procedures Botulinum toxin Injection 83555 - Migraine Procedure code (CPT) selection complete Office Meds onabotulinumtoxinA 200 unit solution for injection Performing Provider: Bessie Ramirez MD Performing Location: [facility] [place] [facility] Administered by: Bessie Ramirez MD on 11/08/23 08:15 2 Dose Route Admin Location Dispensed Lot Number Expiration Date [facility] Transactional Attorney 185 unit IM 200 units [id number] 11/02/25 1262-1903-48 ALLERGAN/BOTOX Comments: see HPI Assessment & Plan Assessment & Plan (1) Chronic migraine without aura, not intractable, without status migrainosus: Code(s): G43.709 - Chronic migraine without aura, not intractable, without status migrainosus Category: Medical Plan Patient tolerated the procedure well She will call with any side effects Orders: Orders AMB Botulinum toxin Injection Today G43.709 - Chronic migraine without aura, not intractable, without status migrainosus Medications: New onabotulinumtoxinA 200 units IM ONCE 1 ea 0RF migraine G43.709 - Chronic migraine without aura, not intractable, without status migrainosus Coding Level of Care Code Est Pt Level 1 (66635) Diagnoses Chronic migraine without aura, not intractable, without status migrainosus G43.709 CPT Codes Botox Injection - Botox 3: 57320 - Migraine ([id number])
[2023-11-08 07:37] VITALS: BP 146/90; PULSE 104; RESP 16; O2SAT 96; BMI 37.4
== END 2023-11-08 08:05 | disposition home or self-care (01) ==
PROVIDERS: PCP Physician Assistant Medical; Visit Provider Psychiatry & Neurology Neurology
DX: G43.709 Chronic migraine without aura, not intractable, without status migrainosus (principal)
CPT/HCPCS: 64615

== ENCOUNTER → 2023-11-08 07:35 | Outpatient (BNVA) | payer OTHER, SELFPAY | PROVIDERS: PCP Physician Assistant Medical; Visit Provider Psychiatry & Neurology Neurology | DX: G43.709 Chronic migraine without aura, not intractable, without status migrainosus (principal) | CPT/HCPCS: 64615; 99211; J0585 ==

== ENCOUNTER → 2024-01-22 09:30 | Outpatient (BNV) | payer OTHER, SELFPAY | PROVIDERS: Visit Provider Psychiatry & Neurology Psychiatry | DX: F31.30 Bipolar disorder, current episode depressed, mild or moderate severity, unspecified (principal); R41.89 Other symptoms and signs involving cognitive functions and awareness; F45.42 Pain disorder with related psychological factors; F43.10 Post-traumatic stress disorder, unspecified; F41.9 Anxiety disorder, unspecified; Z86.59 Personal history of other mental and behavioral disorders; M79.7 Fibromyalgia | CPT/HCPCS: 90837; 99213; 99214 ==

== ENCOUNTER 2024-01-29 13:49 | Outpatient (AMB) | payer OTHER, SELFPAY ==
--- NOTE | 2024-01-29 13:58 | MHC.OFFVIS ---
Vital Signs 01/29/24 13:59 Height 5 ft 7 in Weight 238 lb BMI 37.3 BP 122/76 Blood Pressure Location Rt brachial Position Sitting Respiration 16 Pulse 102 H Pulse Source Pulse Oximeter Pulse Oximetry (%) 97 Oxygen Delivery Method Room Air Intake Visit Reasons: follow up Headaches-LVM Intake Note: Pt presents to the office for a 2 month follow up for migraines. Filling Machine Operator Required: No Allergies dulaglutide [[facility]] Allergy (Unknown, Verified 01/29/24 13:59) Unknown lisinopril Allergy (Unknown, Verified 01/29/24 13:59) Cough metformin Allergy (Unknown, Verified 01/29/24 13:59) Stomach Upset enviromental Allergy (Mild, Uncoded 01/29/24 13:59) Unknown Medication List - Last Reconciled 01/29/24 by WILLIAM Agrawal albuterol sulfate 90 mcg/actuation (Ventolin HFA) 2 puffs inhalation Q6H PRN atorvastatin 10 mg PO BEDTIME blood sugar diagnostic (FreeStyle Lite Strips) As directed buspirone 15 mg PO BID cholecalciferol (vitamin D3) 50 mcg PO DAILY diclofenac sodium 75 mg PO BID diclofenac sodium 1% 1 - 2 grams topical BID estradiol 1 tab PO QAM fludrocortisone 0.1 mg PO DAILY insulin aspart U-100 Sliding scale TID before meals SQ with maximum 24 units daily. insulin glargine (Lantus Solostar U-100 Insulin) 30 units subcut BEDTIME lancets (FreeStyle Lancets) As directed loratadine 10 mg PO DAILY meclizine 25 mg PO TID melatonin 5 mg PO DAILY PRN metoprolol succinate ER 25 mg PO DAILY midodrine 2.5 mg PO BID montelukast 10 mg PO QPM multivitamin with folic acid 400 mcg (Daily-Devon (with folic acid)) 1 tab PO DAILY omeprazole 40 mg PO DAILY onabotulinumtoxinA (Botox) 155 units IM ONCE 12 weeks risperidone 3 mg PO DAILY semaglutide (Ozempic) 0.25 mg subcut QWEEK ubrogepant (Ubrelvy) 50 - 100 mg (0.5 - 1 x 100 mg) PO ONCE PRN 30 days HPI Comments Details: 38-yr-old female presents for f/u visit. Pt reports she has been feeling not right in space dizziness, increased heaviness, soreness, fatigue, and needing to put effort into talking (more so saying the words, her thoughts feel slower. The speech issues started prior to the dizziness and other s/s. This started about 1 month ago. She had an ER eval- labs, CXR- WNL except potassium was low. Dx- dizziness. Given prn Meclizine. Saw her PCP yesterday who ordered a head CT and advised her to discuss w/ us- ? if r/t migraine. She states she has not been having migraines. Has had some right neck tension- feels it r/t's to her recent body posture. She continues to have bothersome RLS s/s and hypersomnia. She did not start Horizant, insurance required a new trial of Gabapentin. Pt tried Gabapentin 1200mg per day x's > 6 weeks, without significant benefit. She reports she can feel weak- facial lag- w/ strong emtion. Denies h/o early onset REM. [facility] Medical History Restless leg syndrome Eczema Psoriasis IBS (irritable bowel syndrome) Carpal tunnel syndrome Mobitz (type) I (Wenckebach's) atrioventricular block Migraines Fibromyalgia Type II diabetes mellitus Anemia Arthritis Asthma HTN (hypertension) GERD (gastroesophageal reflux disease) Osteoporosis Depression Surgical History H/O adenoidectomy History of hysterectomy History of nasal septoplasty Family History Mother Heart disease Lupus Diabetes Father Diabetes Social History Household Members: Family Alcohol intake: never Comment: Pt will be extended until 02-06-23 Patient Tobacco Use Status: Former Tobacco user Tobacco use type: Pipe Years Smoked: 15 years ago. Physical Exam Vital Signs: Last Vital Signs Pulse 102 H 01/29/24 13:59 Resp 16 01/29/24 13:59 BP 122/76 01/29/24 13:59 Pulse Ox 97 01/29/24 13:59 Oxygen Delivery Method Room Air 01/29/24 13:59 BMI result Body Mass Index 37.3 Const General: cooperative and no acute distress Orientation/consciousness: patient oriented x3 Resp Effort & Inspection: normal respiratory effort and able to speak in complete sentences Neuro Other: Bilateral posterior cervical tightness. DTRs dulled, symmetric throughout. General: patient oriented x3 Cranial nerves: Yes CN's II-XII intact bilaterally Cognition (Neuro): normal cognition Coordination: [id number] test normal Romberg Test: Negative Psych Appearance: grossly normal Mental Status: mental status grossly normal Speech and movement: Normal speech and movement present Affect: normal affect Attitude: cooperative Assessment & Plan Assessment & Plan (1) Vertigo: Code(s): R42 - Dizziness and giddiness Category: Medical (2) Restless leg syndrome: Code(s): G25.81 - Restless legs syndrome Category: Medical (3) Chronic migraine without aura, not intractable, without status migrainosus: Code(s): G43.709 - Chronic migraine without aura, not intractable, without status migrainosus Category: Medical Plan For dizziness- Vestibular eval & tx. For sleep, RLS, PLMS- Reviewed in-lab PSG- results c/w PLMS Magnesium Ferrous sulfate supplement. Stop Gabapentin 1200mg/day- ineffective. Again trial Horizant 300mg qhs. Once available, hold Previous trials- Gabapentin- ineffective. Pregabalin- previously ineffective x's yrs. Pramipexole 0/375mg/day- ineffective after months of tx- and dose should not be elevated d/t POTs dx. Future considerations- referral for CBTi, MSLT/CSF orexin level. ? For chronic migraine- Continue Botox tx as pt has good clinical effect from use. Try tear gtts for dry eyes- dry eyes may exacerbate headaches/diplopia/eye strain. Previous preventative medication use: amitriptyline, nortriptyline- ineffective, topamax- ineffective, propranolol- caused hypotension ? For acute migraine tx: Continue prn Ubrelvy. Previous acute medication use: sumatriptan- ineffective, naratriptan- ineffective ? ? f/u in 3-4 months ro sooner prn. Orders: Orders PT Evaluation and Treatment 01/29/24 R42 - Dizziness and giddiness Medications: New magnesium oxide may hold for loose stools 400 mg PO BEDTIME 30 days 30 tabs 6RF Coding Level of Care Code Est Pt Level 4 (64318) Diagnoses Vertigo R42 Restless leg syndrome G25.81 Chronic migraine without aura, not intractable, without status migrainosus G43.152
[2024-01-29 13:59] VITALS: BP 122/76; PULSE 102; RESP 16; O2SAT 97; BMI 37.3
== END 2024-01-29 15:07 | disposition home or self-care (01) ==
PROVIDERS: PCP Physician Assistant Medical; Visit Provider Nurse Practitioner Family
DX: R42 Dizziness and giddiness (principal); G25.81 Restless legs syndrome; G43.709 Chronic migraine without aura, not intractable, without status migrainosus
CPT/HCPCS: 99214

== ENCOUNTER → 2024-01-29 13:49 | Outpatient (BNVA) | payer OTHER, SELFPAY | PROVIDERS: PCP Physician Assistant Medical; Visit Provider Nurse Practitioner Family | DX: G25.81 Restless legs syndrome (principal); G43.709 Chronic migraine without aura, not intractable, without status migrainosus; R42 Dizziness and giddiness | CPT/HCPCS: 99212 ==

== ENCOUNTER 2024-02-07 08:41 | Outpatient (REF) | payer OTHER, SELFPAY ==
[2024-02-07 09:28] LABS: MANUAL DIFF FLAG NO
[2024-02-07 09:34] LABS: Basophils Percent Auto 0.1 % (0-2); Hematocrit 42.8 % (37.0-47.0); Hemoglobin 14.4 g/dl (12.0-16.0); Imm Gran Abs Auto 0.11 X10*3/uL (0.00-0.03); Imm Gran Pct Auto 0.6 % (0.0-0.4); Lymphocytes Absolute Auto 1.8 X10*3/uL (1.2-4.9); Lymphocytes Percent Auto 10.3 % (20-40); Mean Corpuscular HGB Conc 33.6 g/dl (31.0-35.0); Mean Corpuscular Hemoglobin 31.7 pg (27.0-33.0); Mean Corpuscular Volume 94.3 fL (80.0-98.0); Mean Platelet Volume 10.3 fL (9.4-12.3); Monocytes Absolute Auto 0.5 X10*3/uL (0.1-1.2); Neutrophils Absolute Auto 14.8 x10*3/uL (2.0-8.3); Platelet Count 215 X10*3/uL (160-400); Red Blood Count 4.54 X10*6/uL (4.20-5.50); Red Cell Distribution Width 13.2 % (11.0-16.0); White Blood Count 17.2 X10*3/uL (4.8-10.8)
[2024-02-07 09:41] LABS: Ammonia 48 umol/L (13-55)
[2024-02-07 09:49] LABS: Estimated Average Glucose 220 mg/dL; Hemoglobin A1c % 9.3 % (<6.0)
[2024-02-07 10:22] LABS: Erythrocyte Sedimentation Rate 4 MM/HR (0-20)
[2024-02-07 10:23] LABS: Parathyroid Hormone Intact 52.5 pg/mL (8.7-77.1)
[2024-02-07 10:36] LABS: HIV AB/AG Nonreactive (Nonreactive); HIV Num 1 0.04 S/CO (0.00-0.99)
[2024-02-07 10:37] LABS: Syphilis Screen Nonreactive (Nonreactive)
[2024-02-07 10:37] LABS: Appearance Urine Cloudy; Color Urine Dark Yellow; Glucose Urine UA 100 mg/dL (Negative); Leukocyte Esterase Urine Trace (Negative); Nitrite Urine Negative (Negative); PH 6.5 (5.0-9.0); Specific Gravity - Urine >= 1.030 (1.005-1.025); UMIC TRIGGER UA YES; Urine Blood Negative (Negative); Urine Ketones 15 mg/dL (Negative); Urine Protein 30 (1+) mg/dL (Neg-Trace)
[2024-02-07 10:53] LABS: Folate 13.6 ng/mL (> or = 4.0); Vitamin B12 > 2000 pg/mL (200-900)
[2024-02-07 11:04] LABS: Rheumatoid Factor < 13.0 IU/mL (<15.0)
[2024-02-07 11:09] LABS: Bacteria Urine 2+ (None Seen); RBC Urine 0-2 /HPF (0-2); WBC Urine 0-5 /HPF (0-5)
[2024-02-07 13:56] LABS: Alanine Aminotransferase 69 U/L (0-31); Albumin Level 3.8 g/dL (3.5-5.0); Alkaline Phosphatase 71 U/L (39-117); Anion Gap 15 (12-20); Aspartate Amino Transferase 49 U/L (5-31); Bilirubin Total 0.7 mg/dL (0.0-1.0); Blood Urea Nitrogen 8 mg/dL (9-16); C Reactive Protein 0.47 mg/dL (< or = 0.50); Calcium 9.7 mg/dL (8.4-10.2); Carbon Dioxide 22 mmol/L (22-29); Chloride 104 mmol/L (96-108); Cholesterol 178 mg/dL (<200); Estimated Glomerular Filt Rate > 60; Gamma Glutamyl Transpeptidase 234 U/L (7-33); Glucose Fasting 241 mg/dL (60-99); HDL Cholesterol 52 mg/dL (>40); Iron 100 mcg/dL (30-160); LDL Cholesterol Calculated 113 mg/dL (<100); Lactate Dehydrogenase 202 U/L (122-220); Magnesium 1.7 mg/dL (1.6-2.6); Percent Iron Saturation 34 % (15-50); Phosphorus 2.6 mg/dL (2.7-4.5); Potassium 4.1 mmol/L (3.3-5.1); Sodium 137 mmol/L (135-145); Total Iron Binding Capacity 297 mcg/dL (228-428); Total Protein 6.5 g/dL (6.5-8.0); Triglycerides 65 mg/dL (<150); Unsaturated Iron Binding 197 ug/dL
[2024-02-07 14:11] LABS: Ferritin 114 ng/mL (10-122); Free T4 (Free Thyroxine) 1.12 ng/dL (0.71-1.85); Thyroid Stimulating Hormone 0.38 uIU/mL (0.32-4.0)
[2024-02-08 07:43] LABS: Prolactin 122.9 ng/mL; Triiodothyronine T3 Total 127 ng/dL (76-181)
[2024-02-08 09:33] LABS: Thyroid Peroxidase Antibodies <1 IU/mL (<9)
[2024-02-08 16:47] LABS: Lyme Abs Screen <0.90 index
[2024-02-08 20:44] LABS: Homocysteine 3.1 umol/L (<10.4)
[2024-02-13 10:38] LABS: Anti Nuclear Antibody Screen POSITIVE (NEGATIVE)
[2024-02-15 12:38] LABS: Vitamin B1 10 nmol/L (8-30)
== END 2024-02-07 08:42 | disposition home or self-care (01) ==
LOC: HO.LAB 08:41
PROVIDERS: PCP Physician Assistant Medical; Visit Provider Psychiatry & Neurology Psychiatry
DX: F33.2 Major depressive disorder, recurrent severe without psychotic features (principal); R41.89 Other symptoms and signs involving cognitive functions and awareness; D64.9 Anemia, unspecified
CPT/HCPCS: 36415; 80053; 80061; 81001; 82140; 82550; 82607; 82728; 82746; 82977; 83036; 83090; 83540; 83615; 83735; 83970; 84100; 84146; 84425; 84439; 84443; 84480; 84481; 85025; 85652; 86038; 86039; 86140; 86376; 86431; 86617; 86618; 86780; 87389

== ENCOUNTER 2024-02-11 12:25 | Outpatient (AMB) | payer OTHER, SELFPAY ==
--- NOTE | 2024-02-11 12:28 | A.OFFVIS_ITS ---
Vital Signs 02/11/24 12:30 Height 5 ft 7 in Weight 238 lb BMI 37.3 BP 128/78 Blood Pressure Location Rt brachial Position Sitting Respiration 16 Pulse 85 Pulse Source Pulse Oximeter Pulse Oximetry (%) 98 Oxygen Delivery Method Room Air Intake Visit Reasons: Botox Intake Note: Pt presents to the office for Botox injections for chronic migraines. Contact Center Rep Required: No Allergies dulaglutide [From Trulicity] Allergy (Unknown, Verified 02/11/24 12:29) Unknown lisinopril Allergy (Unknown, Verified 02/11/24 12:29) Cough metformin Allergy (Unknown, Verified 02/11/24 12:29) Stomach Upset enviromental Allergy (Mild, Uncoded 02/11/24 12:29) Unknown Medication List - Last Reconciled 02/11/24 by Bessie Ramirez MD albuterol sulfate 90 mcg/actuation (Ventolin HFA) 2 puffs inhalation Q6H PRN atorvastatin 10 mg PO BEDTIME blood sugar diagnostic (FreeStyle Lite Strips) As directed buspirone 15 mg PO BID cholecalciferol (vitamin D3) 50 mcg PO DAILY diclofenac sodium 75 mg PO BID diclofenac sodium 1% 1 - 2 grams topical BID estradiol 1 tab PO QAM fludrocortisone 0.1 mg PO DAILY insulin aspart U-100 Sliding scale TID before meals SQ with maximum 24 units daily. insulin glargine (Lantus Solostar U-100 Insulin) 30 units subcut BEDTIME lamotrigine 25 mg PO DAILY 14 days lancets (FreeStyle Lancets) As directed loratadine 10 mg PO DAILY magnesium oxide 400 mg PO BEDTIME 30 days meclizine 25 mg PO TID 15 days melatonin 5 mg PO DAILY PRN midodrine 2.5 mg PO BID montelukast 10 mg PO QPM multivitamin with folic acid 400 mcg (Daily-Devon (with folic acid)) 1 tab PO DAILY omeprazole 40 mg PO DAILY onabotulinumtoxinA (Botox) 155 units IM ONCE 12 weeks propranolol 20 mg PO BID risperidone 1 mg PO BID risperidone 3 mg PO DAILY semaglutide (Ozempic) 0.25 mg subcut QWEEK ubrogepant (Ubrelvy) 50 - 100 mg (0.5 - 1 x 100 mg) PO ONCE PRN 30 days HPI Comments Details: ? 38y/o female comes for treatment of migraines with botox. How many migraine days prior to botox- 20 days How long do the migraines last- 1-2 days Intensity of migraine 5-10/10 ER visits related to migraine - none Effectiveness of botox from last two treatment(s) How many migraine days since receiving treatment: 4-5 days Change? in intensity of migraine?decreased Change in frequency of migraine?decreased Change in use of acute medication for migraine?decreased Change in quality of life?improved ER visits related to migraine? none Have at least three months elapsed since last treatment- yes SHe had a good response after her last treatment with botox. He headaches /migraine shave decreased from daily migraines to 1-4.month and the headaches are less intense and lasts less than 2 hrs ??? Most frequent reported adverse reactions following injection of botox for chronic migraine include neck pain (9%), headache(5%), eyelid ptosis(4%), migraine(4%), muscular weakness(4%), musculuskeletal stiffness(4%), bronchitis(3%), injection site pain (3%), musculoskeletal pain(3%), myalgia(3%), facial paresis(2%), HTN(2%) and muscle spasms(2%) were discussed in detail. ??? Botulinum toxin typeA 200units Lot no [id number] expiration November 2025 was diluted with 4 cc of normal saline . ??? Muscles injected- ??? Frontalis 4 sites ??? Procerus 1 site ??? Food Service Associate- 2 sites ??? Temporalis- 8 sites ??? Occipitalis- 6 sites ??? Cervical paraspinals- 4 sites ??? Trapezius- 6 sites- 10 units each ??? 5 units each in 31 site ??? Total use- 185units ??? Discarded-15units [facility] Medical History (Updated 02/11/24 @ 13:42 by Bessie Ramirez MD) Chronic migraine without aura, intractable, without status migrainosus Restless leg syndrome Eczema Psoriasis IBS (irritable bowel syndrome) Carpal tunnel syndrome Mobitz (type) I (Wenckebach's) atrioventricular block Migraines Fibromyalgia Type II diabetes mellitus Anemia Arthritis Asthma HTN (hypertension) GERD (gastroesophageal reflux disease) Osteoporosis Depression Surgical History H/O adenoidectomy History of hysterectomy History of nasal septoplasty Family History Mother Heart disease Lupus Diabetes Father Diabetes Social History Household Members: Family Alcohol intake: never Comment: Pt's discharge date has been extended until 02/11/24. Patient Tobacco Use Status: Former Tobacco user Tobacco use type: Pipe Years Smoked: 15 years ago. Physical Exam Vital Signs: Last Vital Signs Pulse 85 02/11/24 12:30 Resp 16 02/11/24 12:30 BP 128/78 02/11/24 12:30 Pulse Ox 98 02/11/24 12:30 Oxygen Delivery Method Room Air 02/11/24 12:30 BMI result Body Mass Index 37.3 Const General: cooperative and no acute distress Orientation/consciousness: patient oriented x3 Resp Effort & Inspection: normal respiratory effort and able to speak in complete sentences Neuro Other: Bilateral posterior cervical tightness. DTRs dulled, symmetric throughout. General: patient oriented x3 Cranial nerves: Yes CN's II-XII intact bilaterally Cognition (Neuro): normal cognition Coordination: [id number] test normal Romberg Test: Negative Psych Appearance: grossly normal Mental Status: mental status grossly normal Speech and movement: Normal speech and movement present Affect: normal affect Attitude: cooperative Office Procedures Botulinum toxin Injection 23577 - Migraine Procedure code (CPT) selection complete Office Meds onabotulinumtoxinA 200 unit solution for injection Performing Provider: Bessie Ramirez MD Performing Location: [facility] Administered by: Bessie Ramirez MD on 02/11/24 13:48 Dose Route Admin Location Dispensed Lot Number Expiration Date [facility] Bilingual Nanny 185 unit subcut 200 units [id number] 05/04/26 4789-8148-01 ALLERGAN/BOTOX Comments: see HPI Assessment & Plan Assessment & Plan (1) Chronic migraine without aura, intractable, without status migrainosus: Code(s): G43.719 - Chronic migraine without aura, intractable, without status migrainosus Category: Medical Plan Patient is tolerated the procedure well SHe will call with any side effects Orders: Orders AMB Botulinum toxin Injection Today G43.719 - Chronic migraine without aura, intractable, without status migrainosus Medications: New onabotulinumtoxinA 200 units subcut ONCE 1 ea 0RF migraine G43.719 - Chronic migraine without aura, intractable, without status migrainosus Coding Level of Care Code Est Pt Level 1 (48448) Diagnoses Chronic migraine without aura, intractable, without status migrainosus G43.719 CPT Codes Botox Injection - Botox 3: 94783 - Migraine ([id number])
[2024-02-11 12:30] VITALS: BP 128/78; PULSE 85; RESP 16; O2SAT 98; BMI 37.3
== END 2024-02-11 13:01 | disposition home or self-care (01) ==
PROVIDERS: PCP Physician Assistant Medical; Visit Provider Psychiatry & Neurology Neurology
DX: G43.719 Chronic migraine without aura, intractable, without status migrainosus (principal)
CPT/HCPCS: 64615

== ENCOUNTER → 2024-02-11 12:25 | Outpatient (BNVA) | payer OTHER, SELFPAY | PROVIDERS: PCP Physician Assistant Medical; Visit Provider Psychiatry & Neurology Neurology | DX: G43.719 Chronic migraine without aura, intractable, without status migrainosus (principal) | CPT/HCPCS: 64615; 99211; J0585 ==

== ENCOUNTER 2024-02-14 08:00 | Outpatient (RCR) | payer OTHER, SELFPAY ==
[2024-01-22 16:12] VITALS: BP 139/92; PULSE 88; RESP 14; TEMP 36.1
--- NOTE | 2024-01-22 16:34 | PC.NURSE ---
Patient is a 38 y/o female, A&O x 4, pleasant, calm and cooperative. She is attentive with clear speech. PMH includes depression, anxiety, OCD, SI, SIB, IDDM, fibromyalgia , POTS, asthma. She reports recent ER visit for vertigo and dehydration where she received IV fluids and states potassium level is low. She reports increased depression and anxiety. She has a new psychiatric provider who started her on Risperdal 3mg approx 6 mo. ago with some effect. She denies SI/HI and no plan or intent. She reports compliance with medications but has a lot of medications which causes anxiety and her medical diagnosis have been affecting her mental health. She states I'm here for my mental well being and I want to feel like myself again . Safety plan reviewed and copy provided. VS 139/92, P-88, RR- 14, T-97.0
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
--- NOTE | 2024-01-24 15:02 | HO.PHP ---
Pt's case has been opened and reviewed in treatment team.
--- NOTE | 2024-01-24 16:46 | HO.PHP ---
Sonya was called at about 9:15 after not showing up at community meeting at 9am. She stated that she overslept and just woke up. Staff asked her if she would be able to make it by 9:30, and she stated that would not be possible. She told staff she would return to program tomorrow.
--- NOTE | 2024-01-31 10:48 | PC.NURSE ---
Patient c/o nausea and dizziness. She stated she went to [facility] ER on 01/16/24 for the same complaints and was dx with vertigo and was given a prescription of Meclizine. She stated she was also treated in the ER for low potassium. She stated she forgot to take the Meclizine this morning. She stated she feels a little better after drinking water. VS 140/92 P 80. She reports history of hypertension. BP on admission 139/92 P 88. No facial droop, no arm weakness or numbness, speech not slurred. She is alert and oriented x4. She stated she is able to get a ride home if needed. Dr Murguia is aware of above mentioned information.
--- NOTE | 2024-01-31 22:04 | P.PNPSP_ITS ---
Subjective Subjective Date of Service: 01/31/24 Reason For Visit: depression,PTSD,OCD,anxiety Interim History: I'm having a harder time letting loose and connecting . Complains of brain fog, forgetfulness, thougths are scattered, exective dysfunction. SHe notes this is not her baseline. She has a number of medical issues including being discharged from the ED in September and told to follow up with her therapeutic strategy lead Dr. Faheem Meeks however she has reportedly called and left messages in the interim and has not heard back form them. We tried calling during our appointment today [phone] but was put on hold for over 10 min before leaving the call. Risperdal had been helpful for OCD a bit better but is unclear if this dose is causing any cognitive blunting. She is exhausted but also says she can not sleep. I suggest moving the Buspar back from bedtime dosing to 5om, and She is agreeable to lowering the dose to 2 mg and starting on Lamcital. She may conitnue the 1 mg of risperidone on a PRN basis. Also conducted a MoCA today - patient scored 24/30 (particularly struggled with word fluency, calculations. DId not lose points on copying cube but took inefficient approach to drawing, also did not know date today Medication Compliance: Yes Side effects from medications: No Attending Groups: Yes Review of Systems Acute medical concerns: No Mental Status Exam Mental Status Exam Narrative: Alert, oriented, in no acute distress. Calm, cooperative, engaged. No psychomotor agitation or neurovegetative retardation. Eye contact maintained. Mood anxious, affect variable, mood congruent. Speech normal. Thought process linear, coherent. Thought content related to stressors, denies any hopelessness or SI. Denies any aggressive ideation or HI. No paranoia or delusional content elicited. No evidence of psychosis. Insight and judgment - fair but adequate. Assessment & Plan Assessment & Plan (1) Bipolar disorder: Status: Acute Code(s): F31.9 - Bipolar disorder, unspecified (2) Post-traumatic stress disorder, unspecified: Status: Acute Code(s): F43.10 - Post-traumatic stress disorder, unspecified (3) Anxiety disorder, unspecified: Status: Acute Code(s): F41.9 - Anxiety disorder, unspecified (4) History of OCD (obsessive compulsive disorder): Status: Acute Code(s): Z86.59 - Personal history of other mental and behavioral disorders Plan start lamotrigine 25 mg qd decrease Risperdal from 3 mg to 2 mg qhs patient stopped duloxetine 60 mg BID continue buspirone 15 mg BID (move HS dose to 5pm) continue other medications:meclizine 25 mg TID, midodrine 2.5 mg BID, atorvastatin 10 mg, metoprolol ER 25 mg, magnesium 400 mg, Vit D3 2000 mg, Lantus 30 units, Ozempic 0.25 mg subq, ubrogepant 100 mg, montelukast 10 mg, omeprazole DR 40 mg, estradiol, Ventolin inhaler ,diclofenac, melatonin fludrocortisone 0.1 mg qd (this was recently discontinued) discontinued: fluticosone, duloxetine, oxcarbazapine, MoCA 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 stay Substantial Risk for: inability to function and med/psych decompensation Certification I certify that partial hospital treatment is medically necessary due to the symptoms and problems resulting from the patient's mental illness and the failure to treat the patient at the partial hospital level of care would likely result in the patient requiring inpatient psychiatric care which could not be prevented at a less intensive level of care. Total time managing care of this patient today _40___ minutes. Discharge Plan Discharge Attending provider: Ofelia Murguia Medications: New lamotrigine 25 mg tablet 25 mg PO DAILY 14 Days Qty: 14 0RF risperidone 1 mg tablet 1 mg PO BID Qty: 30 0RF Continued Ubrelvy 100 mg tablet 50 - 100 mg PO ONCE PRN (Reason: migraine headache) 30 Days Qty: 16 6RF Rx Instructions: take at onset of migraine, may repeat in 2hrs (may take w/ Ibuprofen) estradiol 2 mg tablet 1 tab PO QAM albuterol sulfate [Ventolin HFA] 90 mcg/actuation HFA aerosol inhaler 2 puff inhalation Q6H PRN (Reason: wheezing) diclofenac sodium 75 mg tablet,delayed release (DR/EC) 75 mg PO BID risperidone 3 mg Tablet 3 mg PO DAILY Ozempic 0.25 mg or 0.5 mg (2 mg/3 mL) Pen Injector 0.25 mg SUBCUT QWEEK Rx Instructions: weekly meclizine 25 mg Tablet 25 mg PO TID 15 Days Qty: 45 0RF Rx Instructions: PRN (DME) lancets [FreeStyle Lancets] 28 gauge misc See Rx Instructions .ROUTE .MEDSUPPLY Qty: 100 Rx Instructions: As directed buspirone 15 mg tablet 15 mg PO BID atorvastatin 10 mg tablet 10 mg PO BEDTIME (DME) FreeStyle Lite Strips Strip See Rx Instructions .ROUTE BID Qty: 10 Rx Instructions: As directed insulin aspart U-100 100 unit/mL (3 mL) insulin pen See Rx Instructions .ROUTE .COMPLEX Patient Comments: Patient stated she alternates with Humalog insulin (does not use Insulin Aspart and Humalog insulin at the same time) depending if she is staying at home or leaving her home. Rx Instructions: Sliding scale TID before meals SQ with maximum 24 units daily. omeprazole 40 mg capsule,delayed release(DR/EC) 40 mg PO DAILY melatonin 5 mg tablet 5 mg PO DAILY PRN (Reason: insomnia) Patient Comments: Patient stated she was told to take 1-2 tabs prn at bedtime. Botox 200 unit recon soln 155 unit IM ONCE 84 Days Qty: 1 3RF Rx Instructions: inject 155 units IM across forehead, scalp, and neck metoprolol succinate 25 mg tablet extended release 24 hr 25 mg PO DAILY magnesium oxide 400 mg (241.3 mg magnesium) tablet 400 mg PO BEDTIME 30 Days Qty: 30 6RF Rx Instructions: may hold for loose stools loratadine 10 mg tablet 10 mg PO DAILY montelukast 10 mg tablet 10 mg PO QPM fludrocortisone 0.1 mg tablet 0.1 mg PO DAILY midodrine 2.5 mg tablet 2.5 mg PO BID Rx Instructions: do not give last dose of day after 6PM or within 4 hrs of bedtime No Action multivitamin with folic acid [Daily-Devon (with folic acid)] 400 mcg tablet 1 tab PO DAILY insulin glargine [Lantus Solostar U-100 Insulin] 100 unit/mL (3 mL) insulin pen 30 unit subcut BEDTIME diclofenac sodium 1 % gel 1 - 2 g topical BID cholecalciferol (vitamin D3) 50 mcg (2,000 unit) capsule 50 mcg PO DAILY Print Language: Yakut
--- NOTE | 2024-02-01 09:39 | PC.ADMIT ---
Sonya did not show up to the program this morning. I called and spoke to Sonya. She stated she overslept and she woke up several times during the night. She sounded like I just woke her up. She denied SI, no thoughts to harm herself. She stated she will be here on Sunday.
--- NOTE | 2024-02-01 09:58 | PC.NURSE ---
Sonya has an appointment with her forming process line worker Faheem Meeks at [address] 02/05/24 at 1:00pm to f/u after her ER visit on 01/16/24 after an episode of vertigo. Office #[phone]
--- NOTE | 2024-02-05 15:46 | HO.PHP ---
Sonya is not scheduled for program today due to having a medical appointment.
--- NOTE | 2024-02-06 09:56 | PC.NURSE ---
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 She stated Metoprolol was discontinued and Propranolol was started in relation to her heart rate. She was also told to increase her salt intake.
--- NOTE | 2024-02-08 14:34 | HO.PHP ---
Sonya was not scheduled due to a medical appointment and will be in attendance to program on Sunday.
--- NOTE | 2024-02-11 22:03 | HO.PHPPROGNO ---
Subjective Subjective Date of Service: 02/11/24 Reason For Visit: depression,PTSD,OCD,anxiety Interim History: Patient see for follow up today. She was last seen 01/30 and was unable to be seen last week due to not attending program 3 out of 5 days last week. We reviewed lab results which is noted for elevated FBS and HbA1c as well as elevated WBC which presumably is to hyperglycemia (neida since CRP, ESR are low and there's no other indications of active infection). She recently got a new glucometer and has started to get her blood sugars under control, noting it has been almost 2 months she has been neglecting this and her blood sugars which have been out of control for several weeks. She reports cutting back on the risperidone from 3 mg as planned, but realizes she has only been taking 1 mg at night (instead of 2 mg). She denies any worsening in anxiety or mood. In fact she feels it helped with feeling less tired and sluggish, that heavy feeling abated . She also adds that my OCD also seems to have improved , now at a 4 out of 10 in severity. She does seem to be mentating better today, she was more engageable and better able to provide medication and treatment history (previously was only able to recognize Wellbutrin as a previous medication, was unable to recall/recognize any other meds). Was recently seen by wood processing worker who switched her off metoprolol and onto propranolol (which she is only taking once a day - in the afternoon - although is prescribed twice a day). She is also on Buspar, which she also takes once daily in AM. She forgot to move her 2nd dose which she neglects to take at night due to causing insomnia, and is reminded to move this HS dose to 5 pm instead. She reports no major changes in mood, still feeling depressed, lack of motivation, denies any SI but still reporting ongoing cognitive and functional impairment. Today her main complaints centered around chronic pain and pain management, specifically fibromyalgia. She reports previously been treated with Cymbalta, Lyrica and gabapentin none of which helped with the fibromyalgia. She recalled our previous discussion about treatment options and says she is most eager to start on the Savella since she identifies pain as her main issue right now, and feels it is a huge part of her presentation and complicates her mood and negatively affects sleep and functioning. Attending Groups: Yes Review of Systems Acute medical concerns: No Mental Status Exam Mental Status Exam Narrative: Alert, oriented, in no acute distress. Calm, cooperative, engaged. No psychomotor agitation or neurovegetative retardation. Eye contact maintained. Mood depressed, anxious, affect flat. Speech normal. Thought process linear, coherent. Thought content related to stressors, transient hopelessness, denies SI. Denies any aggressive ideation or HI. No paranoia or delusional content elicited. No evidence of psychosis. Cognition noted for memory impairment, although mentating better today than last week. Insight and judgment - fair but adequate. Assessment & Plan Assessment & Plan (1) Bipolar affect, depressed: Status: Acute Code(s): F31.30 - Bipolar disorder, current episode depressed, mild or moderate severity, unspecified (2) Cognitive impairment: Status: Acute Code(s): R41.89 - Other symptoms and signs involving cognitive functions and awareness Assessment and Plan: r/o cognitive changes due to general medical condition vs other neurocognitive disorder r/o ADHD vs OCD (3) Pain disorder associated with psychological factors and medical condition: Status: Acute Code(s): F45.42 - Pain disorder with related psychological factors Assessment and Plan: Fibromyalgia per history (4) Post-traumatic stress disorder, unspecified: Status: Acute Code(s): F43.10 - Post-traumatic stress disorder, unspecified (5) Anxiety disorder, unspecified: Status: Acute Code(s): F41.9 - Anxiety disorder, unspecified (6) History of OCD (obsessive compulsive disorder): Status: Acute Code(s): Z86.59 - Personal history of other mental and behavioral disorders (7) Fibromyalgia: Status: Acute Code(s): M79.7 - Fibromyalgia Plan continue lamotrigine 25 mg qd, increase by 25 mg/d q2 weeks until 100 mg/d continue risperidone at 1 mg qhs start milnacipran 12.5 mg qd, if tolerated with increase to 25 mg qd continue buspirone 15 mg BID (patient taking only once daily in AM, but encouraged to take BID moving HS dose to 5pm) metoprolol ER 25 mg discontinued by cardiology switched to propranolol 20 mg BID (patient taking only once daily, but is encouraged to take BID) patient requests switching back to ibuprofen 800 mg as diclofenac is ineffective and she is struggling with managing pain continue other medications: meclizine 25 mg TID, midodrine 2.5 mg BID, atorvastatin 10 mg, magnesium 400 mg, Vit D3 2000 mg, Lantus 30 units, Ozempic 0.25 mg subq, ubrogepant 100 mg, montelukast 10 mg, omeprazole DR 40 mg, estradiol, Ventolin inhaler, melatonin discontinued: fluticosone, duloxetine, oxcarbazapine, fludrocortisone, metoprolol (per cardiology) [facility] (01/31/24) 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 stay Substantial Risk for: inability to function, rapid decompensation and med/psych decompensation Certification I certify that partial hospital treatment is medically necessary due to the symptoms and problems resulting from the patient's mental illness and the failure to treat the patient at the partial hospital level of care would likely result in the patient requiring inpatient psychiatric care which could not be prevented at a less intensive level of care. Total time managing care of this patient today ____ minutes. Discharge Plan Discharge Attending provider: Ofelia Murguia Medications: New lamotrigine 25 mg tablet 25 mg PO DAILY 14 Days Qty: 14 0RF milnacipran 25 mg tablet 25 mg PO DAILY Qty: 30 0RF Rx Instructions: *Take as directed* lorazepam 1 mg tablet 1 mg PO BEDTIME PRN (Reason: sleep) Qty: 14 0RF ibuprofen 800 mg tablet 800 mg PO Q8H PRN (Reason: pain, moderate-severe) Qty: 14 0RF lamotrigine 25 mg tablet See Rx Instructions .ROUTE .COMPLEX 30 Days Qty: 80 0RF Rx Instructions: take 2 tablets po daily for 2 weeks, then increase to 3 tablet po daily Continued Ubrelvy 100 mg tablet 50 - 100 mg PO ONCE PRN (Reason: migraine headache) 30 Days Qty: 16 6RF Rx Instructions: take at onset of migraine, may repeat in 2hrs (may take w/ Ibuprofen) estradiol 2 mg tablet 1 tab PO QAM albuterol sulfate [Ventolin HFA] 90 mcg/actuation HFA aerosol inhaler 2 puff inhalation Q6H PRN (Reason: wheezing) Ozempic 0.25 mg or 0.5 mg (2 mg/3 mL) Pen Injector 0.25 mg SUBCUT QWEEK Rx Instructions: weekly meclizine 25 mg Tablet 25 mg PO TID 15 Days Qty: 45 0RF Rx Instructions: PRN (DME) lancets [FreeStyle Lancets] 28 gauge misc See Rx Instructions .ROUTE .MEDSUPPLY Qty: 100 Rx Instructions: As directed buspirone 15 mg tablet 15 mg PO BID atorvastatin 10 mg tablet 10 mg PO BEDTIME (DME) FreeStyle Lite Strips Strip See Rx Instructions .ROUTE BID Qty: 10 Rx Instructions: As directed insulin aspart U-100 100 unit/mL (3 mL) insulin pen See Rx Instructions .ROUTE .COMPLEX Patient Comments: Patient stated she alternates with Humalog insulin (does not use Insulin Aspart and Humalog insulin at the same time) depending if she is staying at home or leaving her home. Rx Instructions: Sliding scale TID before meals SQ with maximum 24 units daily. omeprazole 40 mg capsule,delayed release(DR/EC) 40 mg PO DAILY melatonin 5 mg tablet 5 mg PO DAILY PRN (Reason: insomnia) Patient Comments: Patient stated she was told to take 1-2 tabs prn at bedtime. Botox 200 unit recon soln 155 unit IM ONCE 84 Days Qty: 1 3RF Rx Instructions: inject 155 units IM across forehead, scalp, and neck magnesium oxide 400 mg (241.3 mg magnesium) tablet 400 mg PO BEDTIME 30 Days Qty: 30 6RF Rx Instructions: may hold for loose stools loratadine 10 mg tablet 10 mg PO DAILY montelukast 10 mg tablet 10 mg PO QPM fludrocortisone 0.1 mg tablet 0.1 mg PO DAILY midodrine 2.5 mg tablet 2.5 mg PO BID Rx Instructions: do not give last dose of day after 6PM or within 4 hrs of bedtime Changed risperidone 1 mg tablet 1 mg PO DAILY Qty: 30 0RF Discontinued diclofenac sodium 75 mg tablet,delayed release (DR/EC) 75 mg PO BID risperidone 3 mg Tablet 3 mg PO DAILY No Action multivitamin with folic acid [Daily-Devon (with folic acid)] 400 mcg tablet 1 tab PO DAILY insulin glargine [Lantus Solostar U-100 Insulin] 100 unit/mL (3 mL) insulin pen 30 unit subcut BEDTIME diclofenac sodium 1 % gel 1 - 2 g topical BID propranolol 20 mg Tablet 20 mg PO BID cholecalciferol (vitamin D3) 50 mcg (2,000 unit) capsule 50 mcg PO DAILY Stand Alone Forms: Patient Portal Discharge page Print Language: Vietnamese
--- NOTE | 2024-02-14 22:33 | HO.PHPPROGNO ---
Subjective Subjective Date of Service: 02/14/24 Reason For Visit: depression,PTSD,OCD,anxiety Interim History: Patient seen for follow-up, anticipating discharge at the end of program today.? I'm doing a little better . Still having some depression but feeling more level and a little more hopeful. Energy still low. Chronic pain. She is tolerating the Savella and we discussed plan to continue totrating toward 50 mg/d. She has an upcoming with her psych provider Lynne Villegas on 02/20. Therapist on 02/18. She denies any acute issues or concerns. Medication compliant, medications well-tolerated. Denies any adverse effects.? Mood is still on the low side but improved.?Fatigue persists, but anxiety a little better. Denies any hopelessness or SI. Denies thoughts of harming self or others at this time. Denies any aggressive ideation or HI. Denies any paranoia or AH or VH. Sleep, appetite, energy stable. Medication Compliance: Yes Side effects from medications: No Attending Groups: Yes Review of Systems Acute medical concerns: No Mental Status Exam Mental Status Exam Narrative: Alert, oriented, in no acute distress. Calm, cooperative, engaged. Mood still depressed but stable, affect less constricted. Speech normal. Thought process linear, coherent. Thought content related to stressors, denies SI/i/u/p. Denies any aggressive ideation or HI. No paranoia or delusional content elicited. No evidence of psychosis. Cognition noted for memory impairment, although mentation improved. Insight and judgment - fair but adequate. Assessment & Plan Assessment & Plan (1) Bipolar affect, depressed: Status: Acute Code(s): F31.30 - Bipolar disorder, current episode depressed, mild or moderate severity, unspecified (2) Pain disorder associated with psychological factors and medical condition: Status: Acute Code(s): F45.42 - Pain disorder with related psychological factors Assessment and Plan: Fibromyalgia per history (3) Fibromyalgia: Status: Acute Code(s): M79.7 - Fibromyalgia (4) Cognitive impairment: Status: Acute Code(s): R41.89 - Other symptoms and signs involving cognitive functions and awareness Assessment and Plan: multifactorial contributions including medication side effects (improved with decrease in dose of risperidone from 3mg to 1 mg) and as related to general medical condition (metabolic/uncontrolled DM) r/o other neurocognitive disorder, inflammatory process or autoimmune disease r/o ADHD vs OCD (5) Post-traumatic stress disorder, unspecified: Status: Acute Code(s): F43.10 - Post-traumatic stress disorder, unspecified (6) Anxiety disorder, unspecified: Status: Acute Code(s): F41.9 - Anxiety disorder, unspecified (7) History of OCD (obsessive compulsive disorder): Status: Acute Code(s): Z86.59 - Personal history of other mental and behavioral disorders Plan [facility]charge from [facility] continue lamotrigine 25 mg qd, increase by 25 mg/d q2 weeks until 100 mg/d continue risperidone at 1 mg qhs continue milnacipran, currently at 25 mg qd, (plan to increase to BID in 4 days) continue buspirone 15 mg BID (in AM and 6pm) continue propranolol 20 mg BID (with buspirone) patient switched back to ibuprofen 800 mg (pt agrees to update PCP re: change in case any concerns) continue other medications: meclizine 25 mg TID, midodrine 2.5 mg BID, atorvastatin 10 mg, magnesium 400 mg, Vit D3 2000 mg, Lantus 30 units, Ozempic 0.25 mg subq, ubrogepant 100 mg, montelukast 10 mg, omeprazole DR 40 mg, estradiol, Ventolin inhaler, melatonin discontinued: fluticosone, duloxetine, oxcarbazapine, fludrocortisone, metoprolol (per cardiology) [facility] (01/31/24) Lab work reviewed with patient will defer further treatment management to outpatient provider Safety plan reviewed *Discharge diagnoses, treatment course, discharge plan have been reviewed with patient (including medication regime, medication management, potential side effects) as well as treatment rationale were also revisited *Discharge paperwork signed and given to patient, copy sent for scanning to chart Patient educated on: diagnosis and medication risk/benefits Informed Consent: understands Reason for contiued partial hosp. stay Substantial Risk for: stable for discharge Certification I certify that partial hospital treatment is medically necessary due to the symptoms and problems resulting from the patient's mental illness and the failure to treat the patient at the partial hospital level of care would likely result in the patient requiring inpatient psychiatric care which could not be prevented at a less intensive level of care. Total time managing care of this patient today _40___ minutes. Discharge Plan Discharge Attending provider: Ofelia Murguia Medications: New lamotrigine 25 mg tablet 25 mg PO DAILY 14 Days Qty: 14 0RF lorazepam 1 mg tablet 1 mg PO BEDTIME PRN (Reason: sleep) Qty: 14 0RF ibuprofen 800 mg tablet 800 mg PO Q8H PRN (Reason: pain, moderate-severe) Qty: 14 0RF lamotrigine 25 mg tablet See Rx Instructions .ROUTE .COMPLEX 30 Days Qty: 80 0RF Rx Instructions: take 2 tablets po daily for 2 weeks, then increase to 3 tablet po daily Continued Ubrelvy 100 mg tablet 50 - 100 mg PO ONCE PRN (Reason: migraine headache) 30 Days Qty: 16 6RF Rx Instructions: take at onset of migraine, may repeat in 2hrs (may take w/ Ibuprofen) multivitamin with folic acid [Daily-Devon (with folic acid)] 400 mcg tablet 1 tab PO DAILY estradiol 2 mg tablet 1 tab PO QAM albuterol sulfate [Ventolin HFA] 90 mcg/actuation HFA aerosol inhaler 2 puff inhalation Q6H PRN (Reason: wheezing) insulin glargine [Lantus Solostar U-100 Insulin] 100 unit/mL (3 mL) insulin pen 30 unit subcut BEDTIME Ozempic 0.25 mg or 0.5 mg (2 mg/3 mL) Pen Injector 0.25 mg SUBCUT QWEEK Rx Instructions: weekly meclizine 25 mg Tablet 25 mg PO TID 15 Days Qty: 45 0RF Rx Instructions: PRN propranolol 20 mg Tablet 20 mg PO BID (DME) lancets [FreeStyle Lancets] 28 gauge misc See Rx Instructions .ROUTE .MEDSUPPLY Qty: 100 Rx Instructions: As directed buspirone 15 mg tablet 15 mg PO BID atorvastatin 10 mg tablet 10 mg PO BEDTIME (DME) FreeStyle Lite Strips Strip See Rx Instructions .ROUTE BID Qty: 10 Rx Instructions: As directed insulin aspart U-100 100 unit/mL (3 mL) insulin pen See Rx Instructions .ROUTE .COMPLEX Patient Comments: Patient stated she alternates with Humalog insulin (does not use Insulin Aspart and Humalog insulin at the same time) depending if she is staying at home or leaving her home. Rx Instructions: Sliding scale TID before meals SQ with maximum 24 units daily. omeprazole 40 mg capsule,delayed release(DR/EC) 40 mg PO DAILY cholecalciferol (vitamin D3) 50 mcg (2,000 unit) capsule 50 mcg PO DAILY melatonin 5 mg tablet 5 mg PO DAILY PRN (Reason: insomnia) Patient Comments: Patient stated she was told to take 1-2 tabs prn at bedtime. Botox 200 unit recon soln 155 unit IM ONCE 84 Days Qty: 1 3RF Rx Instructions: inject 155 units IM across forehead, scalp, and neck magnesium oxide 400 mg (241.3 mg magnesium) tablet 400 mg PO BEDTIME 30 Days Qty: 30 6RF Rx Instructions: may hold for loose stools loratadine 10 mg tablet 10 mg PO DAILY montelukast 10 mg tablet 10 mg PO QPM fludrocortisone 0.1 mg tablet 0.1 mg PO DAILY midodrine 2.5 mg tablet 2.5 mg PO BID Rx Instructions: do not give last dose of day after 6PM or within 4 hrs of bedtime Changed risperidone 1 mg tablet 1 mg PO DAILY Qty: 30 0RF milnacipran 25 mg tablet 25 mg PO BID Qty: 30 0RF Rx Instructions: *Take as directed* Discontinued diclofenac sodium 75 mg tablet,delayed release (DR/EC) 75 mg PO BID risperidone 3 mg Tablet 3 mg PO DAILY No Action Horizant 300 mg tablet extended release 300 mg PO DAILY 30 Days Qty: 30 3RF diclofenac sodium 1 % gel 1 - 2 g topical BID Stand Alone Forms: Patient Portal Discharge page Patient Education: Bipolar Disorder (DC) Print Language: Moroccan
--- NOTE | 2024-02-15 11:01 | HO.PHPPROGNO ---
Subjective Subjective Date of Service: 02/15/24 Reason For Visit: depression,PTSD,OCD,anxiety Assessment & Plan Certification I certify that partial hospital treatment is medically necessary due to the symptoms and problems resulting from the patient's mental illness and the failure to treat the patient at the partial hospital level of care would likely result in the patient requiring inpatient psychiatric care which could not be prevented at a less intensive level of care. Total time managing care of this patient today ____ minutes. Discharge Plan Discharge Attending provider: Ofelia Murguia Medications: New lamotrigine 25 mg tablet 25 mg PO DAILY 14 Days Qty: 14 0RF lorazepam 1 mg tablet 1 mg PO BEDTIME PRN (Reason: sleep) Qty: 14 0RF ibuprofen 800 mg tablet 800 mg PO Q8H PRN (Reason: pain, moderate-severe) Qty: 14 0RF lamotrigine 25 mg tablet See Rx Instructions .ROUTE .COMPLEX 30 Days Qty: 80 0RF Rx Instructions: take 2 tablets po daily for 2 weeks, then increase to 3 tablet po daily Continued Ubrelvy 100 mg tablet 50 - 100 mg PO ONCE PRN (Reason: migraine headache) 30 Days Qty: 16 6RF Rx Instructions: take at onset of migraine, may repeat in 2hrs (may take w/ Ibuprofen) multivitamin with folic acid [Daily-Devon (with folic acid)] 400 mcg tablet 1 tab PO DAILY estradiol 2 mg tablet 1 tab PO QAM albuterol sulfate [Ventolin HFA] 90 mcg/actuation HFA aerosol inhaler 2 puff inhalation Q6H PRN (Reason: wheezing) insulin glargine [Lantus Solostar U-100 Insulin] 100 unit/mL (3 mL) insulin pen 30 unit subcut BEDTIME Ozempic 0.25 mg or 0.5 mg (2 mg/3 mL) Pen Injector 0.25 mg SUBCUT QWEEK Rx Instructions: weekly meclizine 25 mg Tablet 25 mg PO TID 15 Days Qty: 45 0RF Rx Instructions: PRN propranolol 20 mg Tablet 20 mg PO BID (DME) lancets [FreeStyle Lancets] 28 gauge misc See Rx Instructions .ROUTE .MEDSUPPLY Qty: 100 Rx Instructions: As directed buspirone 15 mg tablet 15 mg PO BID atorvastatin 10 mg tablet 10 mg PO BEDTIME (DME) FreeStyle Lite Strips Strip See Rx Instructions .ROUTE BID Qty: 10 Rx Instructions: As directed insulin aspart U-100 100 unit/mL (3 mL) insulin pen See Rx Instructions .ROUTE .COMPLEX Patient Comments: Patient stated she alternates with Humalog insulin (does not use Insulin Aspart and Humalog insulin at the same time) depending if she is staying at home or leaving her home. Rx Instructions: Sliding scale TID before meals SQ with maximum 24 units daily. omeprazole 40 mg capsule,delayed release(DR/EC) 40 mg PO DAILY cholecalciferol (vitamin D3) 50 mcg (2,000 unit) capsule 50 mcg PO DAILY melatonin 5 mg tablet 5 mg PO DAILY PRN (Reason: insomnia) Patient Comments: Patient stated she was told to take 1-2 tabs prn at bedtime. Botox 200 unit recon soln 155 unit IM ONCE 84 Days Qty: 1 3RF Rx Instructions: inject 155 units IM across forehead, scalp, and neck magnesium oxide 400 mg (241.3 mg magnesium) tablet 400 mg PO BEDTIME 30 Days Qty: 30 6RF Rx Instructions: may hold for loose stools loratadine 10 mg tablet 10 mg PO DAILY montelukast 10 mg tablet 10 mg PO QPM fludrocortisone 0.1 mg tablet 0.1 mg PO DAILY midodrine 2.5 mg tablet 2.5 mg PO BID Rx Instructions: do not give last dose of day after 6PM or within 4 hrs of bedtime Changed risperidone 1 mg tablet 1 mg PO DAILY Qty: 30 0RF milnacipran 25 mg tablet 25 mg PO BID Qty: 30 0RF Rx Instructions: *Take as directed* Discontinued diclofenac sodium 75 mg tablet,delayed release (DR/EC) 75 mg PO BID risperidone 3 mg Tablet 3 mg PO DAILY No Action diclofenac sodium 1 % gel 1 - 2 g topical BID Stand Alone Forms: Patient Portal Discharge page Patient Education: Bipolar Disorder (DC) Print Language: Albanian
== END 2024-02-14 23:59 | disposition home or self-care (01) ==
LOC: HO.PHPA 08:00
PROVIDERS: Visit Provider Psychiatry & Neurology Psychiatry
DX: F31.30 Bipolar disorder, current episode depressed, mild or moderate severity, unspecified (principal); F45.42 Pain disorder with related psychological factors; F43.10 Post-traumatic stress disorder, unspecified; F41.9 Anxiety disorder, unspecified; R41.89 Other symptoms and signs involving cognitive functions and awareness; M79.7 Fibromyalgia; Z86.59 Personal history of other mental and behavioral disorders; Z79.899 Other long term (current) drug therapy
CPT/HCPCS: 90791; 90853

== ENCOUNTER 2024-05-19 15:01 | Outpatient (AMB) | payer OTHER, SELFPAY ==
--- OUTSIDE RECORDS SUMMARY | 2024-05-19 15:03 | XMS_ITS ---
Author Name [facility] Organization Unknown History of Medication Use Medication Directions Dispensed Refills Start Date End Date [facility] guanFACINE (INTUNIV) 1 MG 24 hr tablet Take 1 tablet (1 mg total) by mouth nightly. 04/07/2024 9 active meclizine (ANTIVERT) 25 MG tablet TAKE 1 TABLET BY MOUTH 3 TIMES A DAY NEEDED FOR DIZZINESS FOR 14 DAYS 02/09/2024 active propranolol (INDERAL) 20 MG tablet Take 1 tablet (20 mg total) by mouth 2 (two) times a day. Dose one upon waking then dose 2 after 8 hours 02/09/2024 active nitrofurantoin monohydrate (MACROBID) 100 MG capsule Take 1 capsule (100 mg total) by mouth 2 (two) times a day. 06/01/2023 active Trulicity 0.75 MG/0.5ML prefilled pen injection PLEASE SEE ATTACHED FOR DETAILED DIRECTIONS 06/01/2023 aborted Asmanex HFA 50 MCG/ACT Aerosol INHALE 2 PUFFS BY MOUTH TWICE A DAY RINSE MOUTH AND THROAT AFTER USE 07/28/2023 active metoPROLOL TARTRATE (LOPRESSOR) 25 MG tablet TAKE 0.5 TABLET BY MOUTH 2 TIMES A DAY,X30 DAYS, TAKE A HALF TABLET BY MOUTH TWICE A DAY. 06/01/2023 aborted Continuous Blood Gluc Sensor (FreeStyle Thompson 3 Sensor) [facility] [place] USE DIRECTED. CHANGE EVERY 14 DAYS 04/08/2023 active midodrine (ProAmatine) 2.5 MG tablet Take 1 tablet (2.5 mg total) by mouth 3 (three) times a day. Take during daytime hours. 06/01/2023 active fluticasone (Flonase Allergy Relief) 50 mcg/spray nasal spray into each nostril. 06/01/2023 active semaglutide (Ozempic, 0.25 or 0.5 MG/DOSE,) (0.25 mg or 0.5 mg/dose pen) prefilled pen injection See Instructions, 0.25 mg Subcutaneous Injection Every week x 4 wks then .5 wkly x 4 wks, # 1 each, 1 Refills, Maintenance, 02/22/23 15:54:00 EDT, Solution, [facility]/pharmacy #[id number], Partial fill upon patient request if the prescription is for a schedule II... 06/01/2023 active Trulicity 3 MG/0.5ML prefilled pen injection 07/28/2023 active insulin lispro (HumaLOG/ADMELOG) 100 units/mL injection See Instructions, for pump 100 units a day , 3 fials a month, # 3 each, 12 Refills, Maintenance, 03/29/23 11:07:00 EDT, [facility]/pharmacy #[id number], Partial fill upon patient request if the prescription is for a schedule II opioid drug., 170, cm, 03/13/23 10:2... 06/01/2023 active lidocaine (LIDODERM) 5 % patch APPLY 1 PATCH TOPICALLY ONCE A DAY TO AFFECTED AREA. REMOVER AFTER 12 HOURS AND LEAVE OFF FOR 12 HRS 06/01/2023 active hydrocortisone 2.5 % cream Apply topically. 06/01/2023 active celeCOXIB (CeleBREX) 200 MG capsule DIRECTED TAKE ONE CAPSULE BY MOUTH DAILY. 06/01/2023 active FLUoxetine (PROzac) 20 MG capsule Take 1 capsule (20 mg total) by mouth. 06/01/2023 active OXcarbazepine (TRILEPTAL) 300 MG tablet Take 1 tablet (300 mg total) by mouth 2 (two) times a day. 06/01/2023 active diclofenac (VOLTAREN) 1 % gel 04/08/2023 active famotidine (PEPCID) 10 MG tablet Take 1 tablet (10 mg total) by mouth 2 (two) times a day. 06/01/2023 active ascorbic acid (VITAMIN C) 500 MG tablet TAKE 1 TABLET BY MOUTH DAILY FOR 30 DAYS TAKE WITH FERROUS SULFATE 04/08/2023 active fluconazole (diFLUcan) 100 MG tablet TAKE 1 TABLET BY MOUTH EVERY DAY FOR 5 DAYS 06/01/2023 active hydrocortisone 2.5 % cream Apply topically. 06/01/2023 active D3 Super Strength 50 MCG (2000 UT) Cap capsule Take by mouth daily. 04/08/2023 active atorvastatin (LIPITOR) 10 MG tablet Take 1 tablet (10 mg total) by mouth daily. 04/08/2023 active clotrimazole-betameth asone (LOTRISONE) cream APPLY 0.5 GRAM THREE TIMES A DAY TO AFFECTED AREA NEEDED FOR ITCHING 06/01/2023 active ubrogepant (Ubrelvy) 100 MG tablet Take 0.1 tablets (10 mg total) by mouth. 06/01/2023 active fludrocortisone (FLORINEF) 0.1 MG tablet Take 1 tablet (0.1 mg total) by mouth daily. 07/28/2023 active traZODone (DESYREL) 100 MG tablet TAKE 2 TABLET BY MOUTH AT BEDTIME MAY TAKE 1-2 TABS 06/01/2023 active magnesium oxide 400 (240 Mg) MG Tab tablet TAKE 1 TABLET BY MOUTH EVERY DAY BEDTIME FOR 30 DAYS MAY HOLD FOR LOOSE STOOLS 06/01/2023 active Ventolin HFA 108 (90 Base) MCG/ACT inhaler PLEASE SEE ATTACHED FOR DETAILED DIRECTIONS 07/28/2023 active estradiol (ESTRACE) 0.01 % vaginal cream PLEASE SEE ATTACHED FOR DETAILED DIRECTIONS 06/01/2023 active Lantus SoloStar 100 UNIT/ML prefilled pen injection INJECT 40 UNITS SUBCUTANEOUSLY DAILY 06/01/2023 active busPIRone (BUSPAR) 15 MG tablet Take 1 tablet (15 mg total) by mouth 2 (two) times a day. 04/08/2023 active fexofenadine (BHAVNA) 60 MG tablet Take 1 tablet (60 mg total) by mouth. 06/01/2023 active metoPROLOL SUCCINATE (TOPROL-XL) 25 MG 24 hr tablet Take 1 tablet (25 mg total) by mouth daily. 07/28/2023 active DULoxetine (CYMBALTA) 20 MG capsule Take 2 capsules (40 mg total) by mouth daily. 06/01/2023 active Multiple Vitamin (Daily-Devon Multivitamin) Tab Take 1 tablet by mouth daily. 06/01/2023 active melatonin 5 MG Tab tablet TAKE 1 TABLET BY MOUTH EVERY DAY NEEDED FOR INSOMNIA 06/01/2023 active Jardiance 10 MG tablet TAKE 1 TABLET BY MOUTH DAILY IN AM, TO PRELACE THE DDP MED - SITAGLIPTIN 06/01/2023 active pramipexole (miraPEx) 0.125 MG tablet 07/28/2023 active PEG 3350 17 GM/SCOOP powder 06/01/2023 active docusate sodium (COLACE) 100 MG capsule TAKE 1-2 CAPSULES ORALLY DAILY NEEDED FOR CONSTIPATION FOR 30 DAYS 04/08/2023 active DentaGel 1.1 % Gel APPLY THIN FILM TO ALL TEETH BEFORE BED. NO EATING OR RINSING FOR 30 MINUTES 06/01/2023 active OMEprazole (PriLOSEC) 40 MG capsule Take by mouth daily. 06/01/2023 active hydrOXYzine HCl (ATARAX) 10 MG tablet Take 1 tablet (10 mg total) by mouth 3 (three) times a day as needed. 06/01/2023 active ferrous sulfate 325 (65 FE) MG tablet TAKE 1 TABLET ORALLY DAILY FOR 30 DAYS TAKE W/ VITAMIN C 06/01/2023 active diclofenac enteric coated (VOLTAREN) 75 MG EC tablet Take 1 tablet (75 mg total) by mouth 2 (two) times a day. 06/01/2023 active DULoxetine (CYMBALTA) 60 MG capsule Take by mouth daily. 04/08/2023 active fluvoxaMINE (LUVOX) 50 MG tablet Take 1 tablet (50 mg total) by mouth 2 (two) times a day. 06/01/2023 active albuterol (PROAIR RESPICLICK) 108 (90 Base) MCG/ACT inhaler Inhale. 04/08/2023 act neo gabapentin (NEURONTIN) 100 MG capsule TAKE 1-3 CAPSULES ORALLY BEDTIME FOR 30 DAYS 06/01/2023 active OXcarbazepine (TRILEPTAL) 600 MG tablet Take 1 tablet (600 mg total) by mouth 2 (two) times a day. 07/28/2023 active ibuprofen (MOTRIN) 800 mg tablet Take 1 tablet (800 mg total) by mouth. 06/01/2023 active estradiol (ESTRACE) 2 MG tablet Take 1 tablet (2 mg total) by mouth every morning. 06/01/2023 active montelukast (Singulair) 10 MG tablet Take 1 tablet (10 mg total) by mouth. 06/01/2023 active loratadine (CLARITIN) 10 MG tablet Take 1 tablet (10 mg total) by mouth. 06/01/2023 active Problems Problem Status Onset Date Problem Type Date of Resoluti on Source Hyperlipidemia active 2018-01-[address] Fibromyalgia active 2018-03-01 ProblemAct [facility] Sleep paralysis active 2017-12-07 ProblemAct [facility] PCOS (polycystic ovarian syndrome) active 2023-06-22 ProblemAct [facility] Restless legs syndrome active 2017-12-07 ProblemAct [facility] GERD (gastroesophageal reflux disease) active 2018-03-01 ProblemAct [facility] Disorder of iron metabolism active 2023-06-22 ProblemAct [facility] Carpal tunnel syndrome, bilateral active 2020-06-27 ProblemAct [facility] Family history of breast cancer active 2023-06-22 ProblemAct [facility] Second degree AV block, Mobitz type I active 2017-12-07 ProblemAct [facility] Asthma active 2023-06-22 ProblemAct [facility] Orthostatic lightheadedness active 2023-07-24 ProblemAct [facility] Controlled type 2 diabetes mellitus without complication, with long-term current use of insulin active 2019-01-10 ProblemAct [facility] HTN (hypertension) active 2018-03-01 ProblemAct [facility] Anxiety active 2018-03-28 ProblemAct [facility] Mixed anxiety depressive disorder active 2023-06-22 ProblemAct [facility]
--- NOTE | 2024-05-19 15:05 | MHC.OFFVIS ---
Vital Signs 05/19/24 15:06 Height 5 ft 7 in Weight 262 lb BMI 41.0 BP 120/86 Blood Pressure Location Lt brachial Position Sitting Pulse 101 H Pulse Source Pulse Oximeter Pulse Oximetry (%) 98 Oxygen Delivery Method Room Air Intake Visit Reasons: Botox General Counsel Required: No Accompanied by: Self / Same As Patient Allergies [facility] Allergy (Unknown, Verified 05/19/24 15:11) Unknown lisinopril Allergy (Unknown, Verified 05/19/24 15:11) Cough metformin Allergy (Unknown, Verified 05/19/24 15:11) Stomach Upset enviromental Allergy (Mild, Uncoded 02/11/24 12:29) Unknown Medication List - Last Reconciled 05/19/24 by Bessie Ramirez MD albuterol sulfate 90 mcg/actuation (Ventolin HFA) 2 puffs inhalation Q6H PRN atorvastatin 10 mg PO BEDTIME blood sugar diagnostic (FreeStyle Lite Strips) As directed buspirone 15 mg PO BID cholecalciferol (vitamin D3) 50 mcg PO DAILY diclofenac sodium 1% 1 - 2 grams topical BID estradiol 1 tab PO QAM fludrocortisone 0.1 mg PO DAILY gabapentin enacarbil ER (Horizant ER) 300 mg PO DAILY 30 days ibuprofen 800 mg PO Q8H PRN insulin aspart U-100 Sliding scale TID before meals SQ with maximum 24 units daily. insulin glargine (Lantus Solostar U-100 Insulin) 30 units subcut BEDTIME lamotrigine take 2 tablets po daily for 2 weeks, then increase to 3 tablet po daily 30 days lamotrigine 100 mg PO DAILY lancets (FreeStyle Lancets) As directed loratadine 10 mg PO DAILY lorazepam 1 mg PO BEDTIME PRN magnesium oxide 400 mg PO BEDTIME 30 days meclizine 25 mg PO TID 15 days melatonin 5 mg PO DAILY PRN midodrine 2.5 mg PO BID milnacipran 25 mg PO BID montelukast 10 mg PO QPM multivitamin with folic acid 400 mcg (Daily-Devon (with folic acid)) 1 tab PO DAILY omeprazole 40 mg PO DAILY onabotulinumtoxinA (Botox) 155 units IM ONCE 12 weeks propranolol 20 mg PO BID risperidone 1 mg PO DAILY semaglutide (Ozempic) 0.25 mg subcut QWEEK ubrogepant (Ubrelvy) 50 - 100 mg (0.5 - 1 x 100 mg) PO ONCE PRN 30 days HPI Comments Details: ? 38y/o female comes for treatment of migraines with botox. How many migraine days prior to botox- 20 days How long do the migraines last- 1-2 days Intensity of migraine 5-10/10 ER visits related to migraine - none Effectiveness of botox from last two treatment(s) How many migraine days since receiving treatment: 4-5 days Change? in intensity of migraine?decreased Change in frequency of migraine?decreased Change in use of acute medication for migraine?decreased Change in quality of life?improved ER visits related to migraine? none Have at least three months elapsed since last treatment- yes SHe had a good response after her last treatment with botox. He headaches /migraine shave decreased from daily migraines to 1-4.month and the headaches are less intense and lasts less than 2 hrs ??? Most frequent reported adverse reactions following injection of botox for chronic migraine include neck pain (9%), headache(5%), eyelid ptosis(4%), migraine(4%), muscular weakness(4%), musculuskeletal stiffness(4%), bronchitis(3%), injection site pain (3%), musculoskeletal pain(3%), myalgia(3%), facial paresis(2%), HTN(2%) and muscle spasms(2%) were discussed in detail. ??? Botulinum toxin typeA 200units Lot no [id number] expiration Feb 2026 was diluted with 4 cc of normal saline . ??? Muscles injected- ??? Frontalis 4 sites ??? Procerus 1 site ??? Commercial Intelligence Manager- 2 sites ??? Temporalis- 8 sites ??? Occipitalis- 6 sites ??? Cervical paraspinals- 4 sites ??? Trapezius- 6 sites- 10 units each ??? 5 units each in 31 site ??? Total use- 185units ??? Discarded-15units [facility] Medical History Chronic migraine without aura, intractable, without status migrainosus Restless leg syndrome Eczema Psoriasis IBS (irritable bowel syndrome) Carpal tunnel syndrome Mobitz (type) I (Wenckebach's) atrioventricular block Migraines Fibromyalgia Type II diabetes mellitus Anemia Arthritis Asthma HTN (hypertension) GERD (gastroesophageal reflux disease) Osteoporosis Depression Surgical History H/O adenoidectomy History of hysterectomy History of nasal septoplasty Family History Mother Heart disease Lupus Diabetes Father Diabetes Social History Household Members: Family Alcohol intake: never Comment: Pt's discharge date has been extended until 02/11/24. Patient Tobacco Use Status: Former Tobacco user Tobacco use type: Pipe Years Smoked: 15 years ago. Physical Exam Vital Signs: Last Vital Signs Pulse 101 H 05/19/24 15:06 BP 120/86 05/19/24 15:06 Pulse Ox 98 05/19/24 15:06 Oxygen Delivery Method Room Air 05/19/24 15:06 BMI result Body Mass Index 41.0 Const General: cooperative and no acute distress Orientation/consciousness: patient oriented x3 Resp Effort & Inspection: normal respiratory effort and able to speak in complete sentences Neuro Other: Bilateral posterior cervical tightness. DTRs dulled, symmetric throughout. General: patient oriented x3 Cranial nerves: Yes CN's II-XII intact bilaterally Cognition (Neuro): normal cognition Coordination: [id number] test normal Romberg Test: Negative Psych Appearance: grossly normal Mental Status: mental status grossly normal Speech and movement: Normal speech and movement present Affect: normal affect Attitude: cooperative Office Procedures Botulinum toxin Injection 38953 - Migraine Procedure code (CPT) selection complete Office Meds onabotulinumtoxinA 200 unit solution for injection Performing Provider: Bessie Ramirez MD Performing Location: [facility] [facility] Administered by: Bessie Ramirez MD on 05/19/24 15:30 Dose Route Admin Location Dispensed Lot Number Expiration Date [facility] Salmon [place] Vessel Operator 185 unit IM 200 units [id number] ALLERGAN/BOTOX Comments: see hpi Assessment & Plan Assessment & Plan (1) Chronic migraine without aura, intractable, without status migrainosus: Code(s): G43.719 - Chronic migraine without aura, intractable, without status migrainosus Category: Medical Plan Patient is tolerated the procedure well SHe will call with any side effects Orders: Orders AMB Botulinum toxin Injection Today Bessie Ramirez MD G43.719 - Chronic migraine without aura, intractable, without status migrainosus Medications: New onabotulinumtoxinA 200 units IM ONCE 1 ea 0RF migraine Bessie Ramirez MD G43.719 - Chronic migraine without aura, intractable, without status migrainosus Changed From lamotrigine 25 mg PO DAILY 14 days 14 tabs 0RF To lamotrigine 100 mg PO DAILY Ofelia Murguia MD Coding Level of Care Code Est Pt Level 1 (59993) Diagnoses Chronic migraine without aura, intractable, without status migrainosus G43.719 CPT Codes Botox Injection - Botox 3: 58633 - Migraine ([id number])
[2024-05-19 15:06] VITALS: BP 120/86; PULSE 101; O2SAT 98; BMI 41.0
== END 2024-05-19 15:29 | disposition home or self-care (01) ==
PROVIDERS: PCP Physician Assistant Medical; Visit Provider Psychiatry & Neurology Neurology
DX: G43.719 Chronic migraine without aura, intractable, without status migrainosus (principal)
CPT/HCPCS: 64615

== ENCOUNTER → 2024-05-19 15:01 | Outpatient (BNVA) | payer OTHER, SELFPAY | PROVIDERS: PCP Physician Assistant Medical; Visit Provider Psychiatry & Neurology Neurology | DX: G43.719 Chronic migraine without aura, intractable, without status migrainosus (principal) | CPT/HCPCS: 64615; 99211; J0585 ==

== ENCOUNTER 2024-08-07 13:54 | Outpatient (AMB) | payer OTHER, SELFPAY ==
--- NOTE | 2024-08-07 13:59 | A.OFFVIS_ITS ---
Vital Signs 08/07/24 14:00 Height 5 ft 7 in Weight 270 lb BMI 42.3 BP 140/100 H Blood Pressure Location Rt brachial Position Sitting Pulse 97 Pulse Source Pulse Oximeter Pulse Oximetry (%) 97 Oxygen Delivery Method Room Air Intake Visit Reasons: Follow Up Intake Note: Patient presents follow up Vertigo/Migraine medication. PT eval in chart Anode Machine Operator Required: No Accompanied by: Self / Same As Patient Allergies dulaglutide [From [facility]] Allergy (Unknown, Verified 08/07/24 14:02) Unknown lisinopril Allergy (Unknown, Verified 08/07/24 14:02) Cough metformin Allergy (Unknown, Verified 08/07/24 14:02) Stomach Upset enviromental Allergy (Mild, Uncoded 02/11/24 12:29) Unknown Medication List - Last Reconciled 08/07/24 by WILLIAM Agrawal albuterol sulfate 90 mcg/actuation (Ventolin HFA) 2 puffs inhalation Q6H PRN atorvastatin 10 mg PO BEDTIME blood sugar diagnostic (FreeStyle Lite Strips) As directed buspirone 15 mg PO BID cholecalciferol (vitamin D3) 50 mcg PO DAILY diclofenac sodium 1% 1 - 2 grams topical BID estradiol 1 tab PO QAM fludrocortisone 0.1 mg PO DAILY gabapentin enacarbil ER (Horizant ER) 600 mg PO QPM 30 days ibuprofen 800 mg PO Q8H PRN insulin aspart U-100 Sliding scale TID before meals SQ with maximum 24 units daily. insulin glargine (Lantus Solostar U-100 Insulin) 30 units subcut BEDTIME lamotrigine take 2 tablets po daily for 2 weeks, then increase to 3 tablet po daily 30 days lamotrigine 100 mg PO DAILY lancets (FreeStyle Lancets) As directed loratadine 10 mg PO DAILY lorazepam 1 mg PO BEDTIME PRN magnesium oxide 400 mg PO BEDTIME 30 days meclizine 25 mg PO TID 15 days melatonin 5 mg PO DAILY PRN midodrine 2.5 mg PO BID milnacipran 25 mg PO BID montelukast 10 mg PO QPM multivitamin with folic acid 400 mcg (Daily-Devon (with folic acid)) 1 tab PO DAILY omeprazole 40 mg PO DAILY onabotulinumtoxinA (Botox) 155 units IM ONCE 12 weeks propranolol 20 mg PO BID risperidone 1 mg PO DAILY semaglutide (Ozempic) 0.25 mg subcut QWEEK ubrogepant (Ubrelvy) 50 - 100 mg (0.5 - 1 x 100 mg) PO ONCE PRN 30 days HPI Comments Details: The patient is a 39-year-old female presenting with a follow-up for migraines and restless leg syndrome. Interval History - Recent episodes of bronchitis led to hypoxia; patient hospitalized. - Experienced flu last month along with pneumonia; symptoms now resolved. - Botox treatment ongoing for migraines; which continues to be effective. - When she has an increase in headache frequency, it is often linked to stress and disrupted sleep. - Hydration: Patient ensures intake of fluids. - Fasting: Engaged in intermittent fasting during . - No specific reports on the presence of focal neurological symptoms. - however, she requests referral for Rheumatology consult, as she has been having rashes and joint pain. She has a family history of lupus. - Horizon for restless legs was not very effective. [facility] Medical History (Updated 08/07/24 @ 14:48 by WILLIAM Agrawal) Elevated CPK Low serum triiodothyronine (T3) Low phosphate levels Chronic migraine without aura, intractable, without status migrainosus Restless leg syndrome Eczema Psoriasis IBS (irritable bowel syndrome) Carpal tunnel syndrome Mobitz (type) I (Wenckebach's) atrioventricular block Migraines Fibromyalgia Type II diabetes mellitus Anemia Arthritis Asthma HTN (hypertension) GERD (gastroesophageal reflux disease) Osteoporosis Depression Surgical History H/O adenoidectomy History of hysterectomy History of nasal septoplasty Family History Mother Heart disease Lupus Diabetes Father Diabetes Social History Household Members: Family Alcohol intake: never Comment: Pt's discharge date has been extended until 02/11/24. Patient Tobacco Use Status: Former Tobacco user Tobacco use type: Pipe Years Smoked: 15 years ago. Physical Exam Vital Signs: Last Vital Signs Pulse 97 08/07/24 14:00 BP 140/100 H 08/07/24 14:00 Pulse Ox 97 08/07/24 14:00 Oxygen Delivery Method Room Air 08/07/24 14:00 BMI result Body Mass Index 42.3 Const General: cooperative and no acute distress Orientation/consciousness: patient oriented x3 Resp Effort & Inspection: normal respiratory effort and able to speak in complete sentences Neuro Other: Bilateral posterior cervical tightness. DTRs dulled, symmetric throughout. General: patient oriented x3 Cranial nerves: Yes CN's II-XII intact bilaterally Cognition (Neuro): normal cognition Coordination: clarxn-ue-ygnh test normal Psych Appearance: grossly normal Mental Status: mental status grossly normal Speech and movement: Normal speech and movement present Affect: normal affect Attitude: cooperative Assessment & Plan Assessment & Plan (1) Restless leg syndrome: Code(s): G25.81 - Restless legs syndrome Category: Medical (2) Vertigo: Code(s): R42 - Dizziness and giddiness Category: Medical (3) Chronic migraine without aura, not intractable, without status migrainosus: Code(s): G43.709 - Chronic migraine without aura, not intractable, without status migrainosus Category: Medical Plan Discussion Notes I discussed the management of migraines and restless leg syndrome with the patient. To manage migraines, continuation with Botox was confirmed as beneficial. We addressed lifestyle factors, including the impact of fasting during Ramadan, and emphasized pacing and adequate hydration to manage symptoms. For restless legs, I noted the previous ineffectiveness of Horizon and considered timing and dosing adjustments as potential strategies. I reviewed a study indicating increased migraines during Ramadan and discussed this with the patient for her awareness. We discussed ways to accommodate her fasting without exacerbating symptoms further. Additional discussions included the patient?s recent past health episodes of bronchitis and flu affecting her overall con dition. I encouraged the patient to maintain self-monitoring of symptoms and liaised options if symptoms exacerbate. Patient was informed and verbally consented to the use of an ambient scribe for clinic note documentation during this visit.Plan Plan: For dizziness- Monitor For sleep, RLS, PLMS- Reviewed in-lab PSG- results c/w PLMS Magnesium Ferrous sulfate supplement. Increase Horizant from 300mg to 600 mg daily at 17:00 with food- note this may need to be adjusted during Ramadan. Patient may benefit from reading ?navigating life with restless leg? by Dr. Das. Check labs to assess status of common etiologies We will request rheumatology consult, as joint pain and rash are present, and if autoimmune process is present, this may be exacerbating RLS symptoms Previous trials- Gabapentin- ineffective. Pregabalin- previously ineffective x's yrs. Pramipexole 0/375mg/day- ineffective after months of tx- and dose should not be elevated d/t POTs dx. Future considerations- referral for CBTi, MSLT/CSF orexin level. ? For chronic migraine- Continue Botox tx as pt has good clinical effect from use. Tear gtts for dry eyes- dry eyes may exacerbate headaches/diplopia/eye strain. Previous preventative medication use: amitriptyline, nortriptyline- ineffective, topamax- ineffective, propranolol- caused hypotension ? For acute migraine tx: Continue prn Ubrelvy. Previous acute medication use: sumatriptan- ineffective, naratriptan- ineffective ? Will follow-up upon review of above and patient to follow-up in clinic in 6 months or sooner prn. Orders: Orders Complete Blood Count Auto Diff 08/07/24 D64.9 - Anemia, unspecified, E11.9 - Type 2 diabetes mellitus without complications, E83.39 - Other disorders of phosphorus metabolism, F41.9 - Anxiety disorder, unspecified, R20.2 - Paresthesia of skin, R41.89 - Other symptoms and signs involving cognitive functions and awareness, R74.8 - Abnormal levels of other serum enzymes, R79.89 - Other specified abnormal findings of blood chemistry Vitamin B6 08/07/24 D64.9 - Anemia, unspecified, E11.9 - Type 2 diabetes mellitus without complications, E83.39 - Other disorders of phosphorus metabolism, F41.9 - Anxiety disorder, unspecified, R20.2 - Paresthesia of skin, R41.89 - Other symptoms and signs involving cognitive functions and awareness, R74.8 - Abnormal levels of other serum enzymes, R79.89 - Other specified abnormal findings of blood chemistry TSH reflex Free T4 08/07/24 D64.9 - Anemia, unspecified, E11.9 - Type 2 diabetes mellitus without complications, E83.39 - Other disorders of phosphorus metabolism, F41.9 - Anxiety disorder, unspecified, R20.2 - Paresthesia of skin, R41.89 - Other symptoms and signs involving cognitive functions and awareness, R74.8 - Abnormal levels of other serum enzymes, R79.89 - Other specified a bnormal findings of blood chemistry Triiodothyronine T3 Total 08/07/24 D64.9 - Anemia, unspecified, E11.9 - Type 2 diabetes mellitus without complications, E83.39 - Other disorders of phosphorus metabolism, F41.9 - Anxiety disorder, unspecified, R20.2 - Paresthesia of skin, R41.89 - Other symptoms and signs involving cognitive functions and awareness, R74.8 - Abnormal levels of other serum enzymes, R79.89 - Other specified abnormal findings of blood chemistry Prolactin 08/07/24 D64.9 - Anemia, unspecified, E11.9 - Type 2 diabetes mellitus without complications, E83.39 - Other disorders of phosphorus metabolism, F41.9 - Anxiety disorder, unspecified, R20.2 - Paresthesia of skin, R41.89 - Other symptoms and signs involving cognitive functions and awareness, R74.8 - Abnormal levels of other serum enzymes, R79.89 - Other specified abnormal findings of blood chemistry Erythrocyte Sedimentation Rate 08/07/24 D64.9 - Anemia, unspecified, E11.9 - Type 2 diabetes mellitus without complications, E83.39 - Other disorders of phosphorus metabolism, F41.9 - Anxiety disorder, unspecified, R20.2 - Paresthesia of skin, R41.89 - Other symptoms and signs involving cognitive functions and awareness, R74.8 - Abnormal levels of other serum enzymes, R79.89 - Other specified abnormal findings of blood chemistry Homocysteine 08/07/24 D64.9 - Anemia, unspecified, E11.9 - Type 2 diabetes mellitus without complications, E83.39 - Other disorders of phosphorus metabolism, F41.9 - Anxiety disorder, unspecified, R20.2 - Paresthesia of skin, R41.89 - Other symptoms and signs involving cognitive functions and awareness, R74.8 - Abnormal levels of other serum enzymes, R79.89 - Other specified abnor mal findings of blood chemistry Creatine Kinase Total 08/07/24 D64.9 - Anemia, unspecified, E11.9 - Type 2 diabetes mellitus without complications, E83.39 - Other disorders of phosphorus metabolism, F41.9 - Anxiety disorder, unspecified, R20.2 - Paresthesia of skin, R41.89 - Other symptoms and signs involving cognitive functions and awareness, R74.8 - Abnormal levels of other serum enzymes, R79.89 - Other specified abnormal findings of blood chemistry CRP High Sensitivity 08/07/24 D64.9 - Anemia, unspecified, E11.9 - Type 2 diabetes mellitus without complications, E83.39 - Other disorders of phosphorus metabolism, F41.9 - Anxiety disorder, unspecified, R20.2 - Paresthesia of skin, R41.89 - Other symptoms and signs involving cognitive functions and awareness, R74.8 - Abnormal levels of other serum enzymes, R79.89 - Other specified abnormal findings of blood chemistry Vitamin D 25-OH (D2 and D3) 08/07/24 D64.9 - Anemia, unspecified, E11.9 - Type 2 diabetes mellitus without complications, E83.39 - Other disorders of phosphorus metabolism, F41.9 - Anxiety disorder, unspecified, R20.2 - Paresthesia of skin, R41.89 - Other symptoms and signs involving cognitive functions and awareness, R74.8 - Abnormal levels of other serum enzymes, R79.89 - Other specified abnormal findings of blood chemistry Parathyroid Hormone Intact 08/07/24 D64.9 - Anemia, unspecified, E11.9 - Type 2 diabetes mellitus without complications, E83.39 - Other disorders of phosphorus metabolism, F41.9 - Anxiety disorder, unspecified, R20.2 - Paresthesia of skin, R41.89 - Other symptoms and signs involving cognitive functions and awareness, R74.8 - Abnormal levels of other serum enzymes, R79.89 - Other specified abnormal findings of blood chemistry Comprehensive Met. Panel 08/07/24 D64.9 - Anemia, unspecified, E11.9 - Type 2 diabetes mellitus without complications, E83.39 - Other disorders of phosphorus metabolism, F41.9 - Anxiety disorder, unspecified, R20.2 - Paresthesia of skin, R41.89 - Other symptoms and signs involving cognitive functions and awareness, R74.8 - Abnormal levels of other serum enzymes, R79.89 - Other specified abnormal findings of blood chemistry Vitamin B12 and Folate 08/07/24 D64.9 - Anemia, unspecified, E11.9 - Type 2 diabetes mellitus without complications, E83.39 - Other disorders of phosphorus metabolism, F41.9 - Anxiety disorder, unspecified, R20.2 - Paresthesia of skin, R41.89 - Other symptoms and signs involving cognitive functions and awareness, R74.8 - Abnormal levels of other serum enzymes, R79.89 - Other specified abnormal findings of blood chemistry Folate 08/07/24 D64.9 - Anemia, unspecified, E11.9 - Type 2 diabetes mellitus without complications, E83.39 - Other disorders of phosphorus metabolism, F41.9 - Anxiety disorder, unspecified, R20.2 - Paresthesia of skin, R41.89 - Other symptoms and signs involving cognitive functions and awareness, R74.8 - Abnormal levels of other serum enzymes, R79.89 - Other specified abnormal findings of blood chemistry Vitamin B1 08/07/24 D64.9 - Anemia, unspecified, E11.9 - Type 2 diabetes mellitus without complications, E83.39 - Other disorders of phosphorus metabolism, F41.9 - Anxiety disorder, unspecified, R20.2 - Paresthesia of skin, R41.89 - Other symptoms and signs involving cognitive functions and awareness, R74.8 - Abnormal levels of other serum enzymes, R79.89 - Other specified abnormal findings of blood chemistry Ferritin 08/07/24 D64.9 - Anemia, unspecified, E11.9 - Type 2 diabetes mellitus without complications, E83.39 - Other disorders of phosphorus metabolism, F41.9 - Anxiety disorder, unspecified, R20.2 - Paresthesia of skin, R41.89 - Other symptoms and signs involving cognitive functions and awareness, R74.8 - Abnormal levels of other serum enzymes, R79.89 - Other specified abnormal findings of blood chemistry Methylmalonic Acid 08/07/24 D64.9 - Anemia, unspecified, E11.9 - Type 2 diabetes mellitus without complications, E83.39 - Other disorders of phosphorus metabolism, F41.9 - Anxiety disorder, unspecified, R20.2 - Paresthesia of skin, R41.89 - Other symptoms and signs involving cognitive functions and awareness, R74.8 - Abnormal levels of other serum enzymes, R79.89 - Other specified abnormal findings of blood chemistry IRON PROFILE 08/07/24 D64.9 - Anemia, unspecified, E11.9 - Type 2 diabetes mellitus without complications, E83.39 - Other disorders of phosphorus metabolism, F41.9 - Anxiety disorder, unspecified, R20.2 - Paresthesia of skin, R41.89 - Other symptoms and signs involving cognitive functions and awareness, R74.8 - Abnormal levels of other serum enzymes, R79.89 - Other specified abnormal findings of blood chemistry Phosphorus 08/07/24 D64.9 - Anemia, unspecified, E11.9 - Type 2 diabetes mellitus without complications, E83.39 - Other disorders of phosphorus metabolism, F41.9 - Anxiety disorder, unspecified, R20.2 - Paresthesia of skin, R41.89 - Other symptoms and signs involving cognitive functions and awareness, R74.8 - Abnormal levels of other serum enzymes, R79.89 - Other specified abnormal findings of blood chemistry Referrals Rheumatology Referral M25.50 - Pain in unspecified joint, R21 - Rash and other nonspecific skin eruption Medications: New gabapentin enacarbil ER (Horizant ER) administer daily at approximately 5 PM with food/evening meal 600 mg PO QPM 30 days 30 tabs 6RF gabapentin enacarbil ER (Horizant ER) administer daily at approximately 5 PM with food/evening meal 600 mg PO QPM 30 days 30 tabs 6RF gabapentin enacarbil ER (Horizant ER) administer daily at approximately 5 PM with food/evening meal 600 mg PO QPM 30 days 30 tabs 6RF Discontinued gabapentin enacarbil ER Discontinued Reason: Doctor's Order 300 mg PO DAILY 30 days 30 tabs 3RF G25.81 - Restless legs syndrome Coding Level of Care Code Est Pt Level 4 (86594) Diagnoses Restless leg syndrome G25.81 Vertigo R42 Chronic migraine without aura, not intractable, without status migrainosus G43.709
[2024-08-07 14:00] VITALS: BP 140/100; PULSE 97; O2SAT 97; BMI 42.3
--- OUTSIDE RECORDS SUMMARY | 2024-08-07 16:57 | XMS_ITS | Encounter Summary ---
Author Organization [facility] Address [address] [place] [address] Care Team Providers Care Adventure Challenge Instructor Name Role Phone Easton Connor MD Primary Care Provider [phone] Lisa Post Primary Care Provider Unavailabl e Eliezer Carlson MD Primary Care Provider Unavaila ble Encounter Details Date Type Department Care Team Description 01/19/2020 Orders Only Adult Medicine - [address] [address] Trung Chu MD Social History Tobacco Use Types Packs/Day Years Used Date Smoking Tobacco: Never Smokeless Tobacco: Never Alcohol Use Standard Drinks/Week Comments No 0 (1 standard drink = 0.6 oz pur e alcohol) never Sex Assigned at Date Recorded Female 10/06/2021 10:12 AM EDT Job Start Date Occupation Industry Not on file Not on file Not on file documented as of this encounter Plan of Treatment Not on file documented as of this encounter Visit Diagnoses Not on filedocumented in this encounter Care Teams Adventure Challenge Instructor Relationship Specialty Start Date End Date Easton Connor MD PCP - General Internal Medicine 07/09/18 04/07/20 Lisa Post PCP - General Internal Medicine 04/08/20 04/26/20 Eliezer Carlson MD PCP - General Internal Medicine 04/27/20 documented as of this encounter
--- OUTSIDE RECORDS SUMMARY | 2024-08-07 16:57 | XMS_ITS | Clinical Summary ---
Author Organization [facility], Address [address] [place] [address] [place] [address] Phone Care Team Providers Care Deputy Building Guard Name Role Phone Lisa Post PA-C Primary Care Provider [phone] Allergies Active Allergy Reactions Criticality Noted Date Comments Lisinopril 09/12/2023 Metformin 09/12/2023 Liraglutide 09/12/2023 Medications midodrine (PROAMATINE) 10 MG tablet Take 1 tablet (10 mg total) by mouth in the morning and 1 tablet (10 mg total) in the evening and 1 tablet (10 mg total) before bedtime. 270 tablet 3 4 Active fludrocortisone 0.1 MG tablet Take 1 tablet (0.1 mg total) by mouth in the morning and 1 tablet (0.1 mg total) in the evening. 180 tablet 3 4 Active atorvastatin (LIPITOR) 10 MG tablet Take 10 mg by mouth 1 (one) time each day Active Trulicity 3 MG/0.5ML solution pen-injector INJECT 0.5 ML SUBCUTANEOUS INJECTION EVERY WEEK FOR 30 DAYS, ROTATE INJECTION SITES Active Insulin Lispro 100 UNIT/ML solution FOR PUMP 100 UNITS A DAY , 3 VIALS A MONTH Active Semaglutide,0.2 5 or 0.5MG/DOS, (Ozempic, 0.25 or 0.5 MG/DOSE,) 2 MG/1.5ML solution pen-injector See Instructions, 0.25 mg Subcutaneous Injection Every week x 4 wks then .5 wkly x 4 wks, # 1 each, 1 Refills, Maintenance, 02/22/23 15:54:00 EDT, Bernard, DAJA/pharmacy #[id number], Partial fill upon patient request if the prescription is for a schedule II... 3 Active omeprazole (PriLOSEC) [address] capsule TAKE 1 CAPSULE (40 MG TOTAL) BY MOUTH IN THE MORNING AND 1 CAPSULE (40 MG TOTAL) IN THE EVENING. DO NOT CRUSH OR CHEW.. 180 capsule 1 4 Active Active Problems Problem Noted Date Diagnosed Date History of decompression of median nerve 021 Overview (10/17/2023): Last Assessment & Plan: She is about 9 days out from left open carpal tunnel release. She is recovering well. Symptoms seem to be gradually improving. She is pleased with her progress. And function is good. I do not see the need for occupational therapy at this time. She may gradually increase activities as tolerated. In 2 weeks there will be no specific restrictions. Follow-up on a as needed basis for the left hand. Type 2 diabetes mellitus without complication Hypertensive disorder 03/01/2018 Hyperlipidemia 01/18/2018 Migraine 01/02/2018 Polycystic ovarian syndrome 12/07/2017 Obstructive sleep apnea syndrome 12/07/2017 Encounters Date Type Department Care Team Description 07/01/2024 3:20 PM EST Office Visit [facility] [address] [place] [address] Octavio Rangel MD Hypertensive disorder (Primary Dx) from Last 3 Months Social History Tobacco Use Types Packs/Day Years Used Date Smoking Tobacco: Never Assessed Comments Unknown Sex and Gender Information Value Date Recorded Sex Assigned at Not on file Legal Sex Female 1:15 PM EDT Gender Identity Not on file Sexual Orientation Not on file Plan of Treatment Health Maintenance Due Date Last Done Comments Pneumococcal Vaccine: Pediat rics (0 to 5 Years) and At-Risk Patients (6 to 64 Years) (2 of 2 - PCV) 01/29/2016 01/28/2015 Diabetes: Hemoglobin A1C 09/12/2023 Diabetes: Ophthalmology Exam 09/12/2023 01/29/2007 Diabetes: Pedal Pulse Checked 09/12/2023 Diabetes: Sensory Foot Exam 09/12/2023 Diabetes: Visual Foot Exam 09/12/2023 Influenza Vaccine (#1) 2024 2, 09/15/2021, 03/03/2020, Additional history exists Hepatitis B Vaccine Completed 01/26/1997, 08/28/1996, 07/31/1996 Procedures Procedure Name Priority Date/Time Associated Diagnosis Comments BASIC METABOLIC PANEL Routine 07/01/2024 3:58 PM EST Hypertensive disorder from Last 3 Months Results * (ABNORMAL) Basic metabolic panel (07/01/2024 3:58 PM EST) BUN 10 6 - 20 mg/dL [facility] Creatinine 1.02(H) 0.57 - 1.00 mg/dL [facility] eGFR CKD-EPI CR 2020 72 >59 mL/min/1.7 3 [facility] BUN/Creatinine Ratio 10 9 - 23 [facility] Sodium 140 134 - 144 mmol/L [facility] Potassium 4.2 3.5 - 5.2 mmol/L [facility] Chloride 100 96 - 106 mmol/L [facility] Bicarbonate (CO2) 23 20 - 29 mmol/L [facility] Calcium 9.2 8.7 - 10.2 mg/dL [facility] Glucose 136(H) 70 - 99 mg/dL [facility] Blood (Blood, Venous) 07/01/2024 3:58 PM EST 07/01/2024 us Octavio Rangel MD LAB BLOOD ORDERABLES Final Re sult [facility] [address] [place] [address] from Last 3 Months Insurance [employer] Care Teams Deputy Building Guard Relationship Specialty Start Date End Date Lisa Post PA-C [place] PCP - General Physician Electric Range Assembler 09/12/23
--- OUTSIDE RECORDS SUMMARY | 2024-08-07 16:57 | XMS_ITS | Encounter Summary ---
Author Organization [facility]ly [facility] Address [address] [place] [address] Care Team Providers Care Chemist Name Role Phone Easton Connor MD Primary Care Provider [phone] Lisa Post Primary Care Provider UnavailEliezer Franklin MD Primary Care Provider Unavaila ble Reason for Visit * Reason Onset Date Comments Faxed Order 12/26/2019 Encounter Details Date Type Department Care Team Description 12/26/2019 Refill Adult Med - [place] [address] [place] [address] Easton Connor MD [address] [place], [place] [id number] Faxed Order Social History Tobacco Use Types Packs/Day Years Used Date Smoking Tobacco: Never Smokeless Tobacco: Never Alcohol Use Standard Drinks/Week Comments No 0 (1 standard drink = 0.6 oz pur e alcohol) never Sex Assigned at Date Recorded Female 10/06/2021 10:12 AM EDT Job Start Date Occupation Industry Not on file Not on file Not on file documented as of this encounter Miscellaneous Notes * Telephone Encounter - Ashanti Hamilton - 12/31/2019 11:56 AM EDT esomeprazole (NEXIUM) 40 MG capsule was sent to the pharmacy. Patient needs Omeprazole sent * Telephone Encounter - Mary Ann Gee - 12/30/2019 2:18 PM EDT Patient needs omeprazole as Nexium is too expensive, please advise * Telephone Encounter - Anel Nevarez M.A. - 12/26/2019 3:40 PM EDT Lab Results Component Value Date NA 140 08/01/2019 K 3.8 08/01/2019 CO2 25 08/01/2019 CL 106 08/01/2019 BUN 10 08/01/2019 CREAT 0.70 08/01/2019 GLU 113 08/01/2019 ALB 3.6 01/13/2019 SGOT 13 01/13/2019 SGPT 15 01/13/2019 TBILI 0.4 01/13/2019 ALKPHOS 56 01/13/2019 TP 6.5 01/13/2019 CA 9.0 08/01/2019 GFR > 60 08/01/2019 * Telephone Encounter - Danna Florian - 12/26/2019 2:02 PM EDT GENARO: 12/10/19 NOV: lm for patient to call back and schedule 30day documented in this encounter Plan of Treatment Not on file documented as of this encounter Visit Diagnoses Not on filedocumented in this encounter Care Teams Chemist Relationship Specialty Start Date End Date Easton Connor MD PCP - General Internal Medicine 07/09/18 04/07/20 Lisa Post PCP - General Internal Medicine 04/08/20 04/26/20 Eliezer Carlson MD PCP - General Internal Medicine 04/27/20 documented as of this encounter
--- OUTSIDE RECORDS SUMMARY | 2024-08-07 16:57 | XMS_ITS | Encounter Summary ---
Author Organization [facility] Address [address] [place] [address] Care Team Providers Care Marketing Communications Specialist Name Role Phone Easton Connor MD Primary Care Provider Lisa Post Primary Care Provider Unavailabl e Eliezer Carlson MD Primary Care Provider Unavaila ble Encounter Details Date Type Department Care Team Description 06/13/2019 Cloth Colorer Report Medical Records [address] [place] [id number] Andrei Hall MD Social History Tobacco Use Types Packs/Day [...] on filedocumented in this encounter Care Teams Marketing Communications Specialist Relationship Specialty Start Date End Date Easton Connor MD PCP - General Internal Medicine 07/09/18 04/07/20 Lisa Post PCP - General Internal Medicine 04/08/20 04/26/20 Eliezer Carlson MD PCP - General Internal Medicine 04/27/20 documented as of this encounter
--- OUTSIDE RECORDS SUMMARY | 2024-08-07 16:57 | XMS_ITS | Encounter Summary ---
Author Organization [facility] Address [address] [place] [address] Care Team Providers Care Him Analyst Name Role Phone Easton Connor MD Primary Care Provider [phone] Lisa Post Primary Care Provider Unavailabl e Eilezer Carlson MD Primary Care Provider Unavaila ble Reason for Visit * Reason Onset Date Comments Error 10/22/2019 Encounter Details Date Type Department Care Team Description 10/22/2019 Refill Internal Medicine [address], [address] [place] [address] Easton Connor MD [address] [place], [place] [id number] Error Social History Tobacco Use Types Packs/Day Years [...] on filedocumented in this encounter Care Teams Him Analyst Relationship Specialty Start Date End Date Easton Connor MD PCP - General Internal Medicine 07/09/18 04/07/20 Lisa Post PCP - General Internal Medicine 04/08/20 04/26/20 Eliezer Carlson MD PCP - General Internal Medicine 04/27/20 documented as of this encounter
--- OUTSIDE RECORDS SUMMARY | 2024-08-07 16:57 | XMS_ITS | Clinical Summary ---
Author Organization [facility] Address [address] [place] [address] Care Team Providers Care Biological Technical Officer Name Role Phone Eliezer Carlson MD Primary Care Provider Unavaila ble Allergies Active Allergy Reactions Severity Noted Date Comments Liraglutide Hives/Urticaria Medium 04/08/2020 Lisinopril Cough 12/07/2017 Medications Medication Sig Dispensed Refills Start Date End Date Status hydrocortisone 2.5 % cream Apply topically 2 times daily. 0 Active Ascorbic Acid (VITAMIN C) 500 MG tablet Take 1 Tab by mouth daily. 30 Tab 11 04/11/2019 Active Melatonin 10 MG Tab Take 10 mg by mouth at bedtime. 90 Tab 2 09/05/2019 Active Glucose Blood (FREESTYLE LITE) Strip Check tid 100 Strip 5 10/01/2019 Active omeprazole (PRILOSEC) 40 MG capsule Take 1 Cap by mouth daily. 90 Cap 1 01/02/2020 Active Cholecalciferol (VITAMIN D3) 2000 units Tab Take 2,000 Units by mouth daily. 90 Tab 2 01/19/2020 Active Insulin Pen Needle 31G X 8 MM Misc Use one needle to inject BID for insulin Dx E11.9 180 Each 2 02/02/2020 Active Multiple Vitamins-Iron (MULTI-VITAMIN/IRON OR) Take by mouth. 0 Active insulin lispro (HUMALOG) 100 UNIT/ML injection HUMALOG or NOVOLOG SLIDING SCALE FOR GLUCOSE: INSULIN 100-149--> 2 UNITS 150-199--> 6 200-249--> 8 250-299--> 10 300-349--> 12 350-400--> 14 =/> 401-->16 Call MD for glucose > 401 10 mL 0 04/08/2020 Active Polysacchar Iron-FA-B12 (FERREX 150 FORTE) 150-1-25 MG-MG-MCG Cap Take 1 Tab by mouth daily. 90 Cap 1 07/26/2020 Active Insulin Glargine 100 UNIT/ML Solution Pen-injector Inject 34 Units into the skin at bedtime. Basaglar 45 mL 1 07/27/2020 Active sitagliptan (JANUVIA) 100 MG tablet Take 1 Tab by mouth daily. 30 Tab 5 07/27/2020 Active Fexofenadine HCl (BHAVNA ALLERGY OR) Take by mouth. 0 Active ibuprofen (ADVIL,MOTRIN) 800 MG tablet Take 800 mg by mouth at bedtime. 0 Active fluoxetine (PROZAC) 20 MG capsule Take 20 mg by mouth daily. 0 Active Ubrogepant 100 MG Tab Take 10 mg by mouth as needed for Migraine. 0 Active Albuterol Sulfate 108 (90 Base) MCG/ACT AEROSOL POWDER,BREATH ACTIVATED Inhale into the lungs. 0 Active Fluticasone Propionate HFA (FLOVENT HFA IN) Inhale into the lungs. 0 Active OnabotulinumtoxinA (BOTOX IJ) Inject as directed. 0 Active baclofen (LIORESAL) 10 MG tablet Take 1 tablet by mouth 2 times daily as needed (muscle spasm, may cause sedation). 60 tablet 3 12/16/2020 Active pregabalin (LYRICA) 225 MG capsule Take 1 capsule by mouth 2 times daily. 60 capsule 3 12/29/2020 Active triamcinolone acetonide (KENALOG-40) 40 MG/ML injection Inject 1 mL into the articular space once for 1 dose. 1 mL 0 11/28/2021 Active Active Problems Problem Noted Date Status post carpal tunnel release - LEFT 11/12/2020 Last Assessment & Plan: She is about [...] as needed basis for the left hand. Right carpal tunnel syndrome 11/12/2020 Last Assessment & Plan: She has right carpal tunnel syndrome. The symptoms are sufficiently severe to merit surgical intervention. She is due to have some gynecological surgery within the next couple of months. She wants to put off decisions about timing of surgery on the right until that surgical procedure is complete and she has recovered fully. She is not sure exactly how soon thereafter she might want to have the right hand treated. I think that this is perfectly acceptable. She should follow up with me on a as needed basis about the right hand when she is ready to start planning surgery on that side or if she has any issues/questions/problems of any sort. Carpal tunnel syndrome, bilateral 2020 Controlled type 2 diabetes m ellitus without complication, with long-term current use of insulin 01/10/2019 Anxiety 03/28/2018 Arthritis 03/01/2018 HTN (hypertension) 03/01/2018 GERD (gastroesophageal reflux disease) 0 03/01/2018 Fibromyalgia 03/01/2018 Iron deficiency anemia 02/12/2018 Acne 02/07/2018 Hyperlipidemia 01/18/2018 Low vitamin D level 01/18/2018 Migraine 01/02/2018 Allergic rhinitis 12/07/2017 Depression 12/07/2017 SEVERO (obstructive sleep apnea) 12/07/2017 PCOS (polycystic ovarian syndrome) 12/07 Restless legs syndrome 12/07/2017 Second degree AV block, Mobitz type I Uterine leiomyoma 12/07/2017 Sleep paralysis 12/07/2017 Immunizations Name Administration Dates Next Due COVID-19 (Moderna) PT Reported 09/13/2020 DTP 06/18/1986, 5,02/16/1985,10/07 Dt 02/24/1993 HIB 11/30/1986 Hepatitis A-2 dose (<19yrs) 04/19/1999, 9 Hepatitis B-3 Dose (<19yrs) 01/26/1997, 7,07/31/1996 Influenza Vaccine-preservati ve Free-quadrivalent 4 Years 03/03/2020 MMR (Abxqqql-Mybqz-Avalwvu) 03/01/1995, 6 Meningococcal (Menactra) 03/27/2006 PPD-RBMG 02/24/1993,06/18/1986,05/29/1985 Polio (OPV) 02/24/1993, 7,05/29/1985,02/16,1984 TETANUS/DIPTHERIA (ADULT) 03/28/2004 Typhoid 11/18/1998,10/18/1998 Family History Medical History Relation Name Comments heart problems Mother lupus Mother CAD Paternal Grandmother lupus Sister 1 pituitary tumor Sister 1 Diabetes Sister 2 cyclic vomiting Sister 2 Relation Name Status Comments Brother Alive x3 - G6PD defic iency Father Alive 1956 - DMII, Maternal Grandfather (Age 50s) L randi [place] Maternal Grandmother (Age 84) Br [place] Mother Alive b.1956 - DMII, HTN Paternal Grandfather (Age 70s) u nknown Paternal Grandmother (Age 82) he art problem - had pacemaker Sister 1 Alive x7 - DMII, Thierry rgies Sister 2 Social History Tobacco Use Types Packs/Day Years Used Date Smoking Tobacco: Never Smokeless Tobacco: Never Alcohol Use Standard Drinks/Week Comments No 0 (1 standard drink = 0.6 oz pur e alcohol) never Sex Assigned at Date Recorded Female 10/06/2021 10:12 AM EDT Job Start Date Occupation Industry Not on file Not on file Not on file Last Filed Vital Signs Vital Sign Reading Time Taken Comments Blood Pressure 126/80 11/21/2021 1:57 PM EDT Pulse 92 11/21/2021 1:57 PM EDT Temperature 36.6 ??C (97.9 ??F) 11/28/2021 11:32 AM E DT Respiratory Rate 17 11/28/2021 11:32 AM EDT Oxygen Saturation 98% 12/31/2019 10:44 AM EDT Inhaled Oxygen Concentration - - Weight 114.3 kg (252 lb) 11/28/2021 11:32 AM EDT Height 170.2 cm (5' 7 ) 11/28/2021 11:32 AM EDT Body Mass Index 39.47 11/28/2021 11:32 AM EDT Plan of Treatment Health Maintenance Due Date Last Done Comments DTAP/TDAP/TD (5 - Tdap) 08/08/1995 06/18/18 87, 05/29/1985, 02/16/1985, Additional history exists DIABETES: ANNUAL FOOT EXAM 2002 PNEUMOCOCCAL VACCINE FOR HIG H RISK PATIENTS (#1) 08/08/2003 CERVICAL CANCER SCREENING 2005 DIABETES: BLOOD SUGAR CONTRO L TEST (HGBA1C) 05/03/2020 02/02/2020, 08/01/2019, 01/13/2019, Additional history exists DIABETES/HEART DISEASE: KADI AL CHOLESTEROL (LDL) 02/01/2021 02/02/2020, 08/01/2019, 01/13/2019, Additional history exists DIABETES: ANNUAL URINE PROTE IN TEST (MICROALBUMIN) 03/03/2021 03/03/2020, 02/02/2020, 08/01/2019 DIABETES: ANNUAL EYE EXAM 05/05/20222020, 05/04/2020, 02/05/2019, Additional history exists Covid-19 Vaccine (2022-07 4 season) 2024 09/13/2020 INFLUENZA (#1) 2024 03/03/2020 BMI CHECK/ADVISE 06/04/2024 11/28/2021, , 07/18/2021, Additional history exists Care Teams Biological Technical Officer Relationship Specialty Start Date End Date Eliezer Carlson MD PCP - General Internal Medicine 04/27/20
--- OUTSIDE RECORDS SUMMARY | 2024-08-07 16:57 | XMS_ITS | Encounter Summary ---
Author Organization [facility] Address [address] [place] [address] Care Team Providers Care Executive Community Planning Name Role Phone Easton Connor MD Primary Care Provider [phone] Lisa Post Primary Care Provider Unavailabl Eliezer Pitts MD Primary Care Provider Unavaila ble Encounter Details Date Type Department Care Team Description 02/03/2020 Orders Only Internal Medicine - [address], [address] [place] [address] Easton Connor MD [address] [place], [place] [id number] Social History Tobacco Use Types Packs/Day Years [...] on filedocumented in this encounter Care Teams Executive Community Planning Relationship Specialty Start Date End Date Easton Connor MD PCP - General Internal Medicine 07/09/18 04/07/20 Lisa Post PCP - General Internal Medicine 04/08/20 04/26/20 Eliezer Carlson MD PCP - General Internal Medicine 04/27/20 documented as of this encounter
--- OUTSIDE RECORDS SUMMARY | 2024-08-07 16:57 | XMS_ITS | Encounter Summary ---
Author Organization [facility] Address [address] [place] [address] Care Team Providers Care Veterinary Poultry Inspector Name Role Phone Easton Connor MD Primary Care Provider Lisa Post Primary Care Provider Unavailabl e Eliezer Carlson MD Primary Care Provider Unavaila ble Encounter Details Date Type Department Care Team Description 01/31/2019 Single End Sewer Report Medical Records [address] [place] [id number] Andrei Hall MD Social History Tobacco Use [...] on filedocumented in this encounter Care Teams Veterinary Poultry Inspector Relationship Specialty Start Date End Date Easton Connor MD PCP - General Internal Medicine 07/09/18 04/07/20 Lisa Post PCP - General Internal Medicine 04/08/20 04/26/20 Eliezer Carlson MD PCP - General Internal Medicine 04/27/20 documented as of this encounter
--- OUTSIDE RECORDS SUMMARY | 2024-08-07 16:57 | XMS_ITS | Encounter Summary ---
Author Organization [facility] Address [address] [place] [address] Care Team Providers Care Design Painter Name Role Phone Eliezer Carlson MD Primary Care Provider Unavaila ble Reason for Visit * Reason Comments E-prescribe Rx Request Encounter Details Date Type Department Care Team Description 07/31/2020 Refill Internal Medicine - [address], [address] [place] [address] Easton Connor MD [address] [place] [address] E-prescribe Rx Request Social History Tobacco Use Types Packs/Day Years [...] on filedocumented in this encounter Care Teams Design Painter Relationship Specialty Start Date End Date Eliezer Carlson MD PCP - General Internal Medicine 04/27/20 documented as of this encounter
--- OUTSIDE RECORDS SUMMARY | 2024-08-07 16:57 | XMS_ITS | Encounter Summary ---
Author Organization [facility] Address [address] [place] [address] Care Team Providers Care Insurance Verifier Name Role Phone Easton Connor MD Primary Care Provider [phone] Lisa Post Primary Care Provider UnavailEliezer Franklin MD Primary Care Provider Unavaila amalia Encounter Details Date Type Department Care Team Description 02/10/2019 Stone Crusher Operator Report Medical Records [address] [place] [address] Yun Lara, PA-C [address] [place] [address] Social History Tobacco Use Types Packs/Day Years [...] on filedocumented in this encounter Care Teams Insurance Verifier Relationship Specialty Start Date End Date Easton Connor MD PCP - General Internal Medicine 07/09/18 04/07/20 Lisa Post PCP - General Internal Medicine 04/08/20 04/26/20 Eliezer Carlson MD PCP - General Internal Medicine 04/27/20 documented as of this encounter
--- OUTSIDE RECORDS SUMMARY | 2024-08-07 16:57 | XMS_ITS | Encounter Summary ---
Author Organization [facility] Address [address] [place] [address] Care Team Providers Care Public Health Program Manager Name Role Phone [place], [facility] Primary Care Provider + Derrick Sheriff PA-C Unavailable [phone] Encounter Details Date Type Department Care Team (Late st Contact Info) Description 07/17/2024 Refill [facility] Heart & Vascular [place] at [facility] - Cardiology [address] [place] [address] Derrick Sheriff PA-C [address] [place] [address] Social History Tobacco Use Types Packs/Day Years Used Date Smoking Tobacco: Never Smokeless Tobacco: Never Sex and Gender Information Value Date Recorded Sex Assigned at Female 03/19/2023 3:06 PM EDT Gender Identity Female 03/19/2023 3:06 PM EDT Sexual Orientation Heterosexual (straight) 04/03 10:25 PM EDT documented as of this encounter Miscellaneous Notes * Telephone Encounter - Laquita Dimas RN - 07/17/2024 12:01 PM EST Refill request Propranolol 20 mg, Guanfacine 1 mg. Review of patient chart completed. LV 07/04/24 [place] No appt scheduled documented in this encounter Plan of Treatment Not on file documented as of this encounter Visit Diagnoses Diagnosis Orthostatic lightheadedness documented in this encounter Care Teams Public Health Program Manager Relationship Specialty Start Date End Date [facility] [address] [place] [address] PCP - General 03/19/23 Derrick Sheriff PA-C [address] [place] [address] Physician Flower Grader Cardiac Electrophysiology 09/28/23 documented as of this encounter
--- OUTSIDE RECORDS SUMMARY | 2024-08-07 16:57 | XMS_ITS | Encounter Summary ---
Author Organization [facility] Address [address] [place] [address] Care Team Providers Care Racking Machine Operator Name Role Phone Easton Connor MD Primary Care Provider [phone] Lisa Post Primary Care Provider Unavailabl Eliezer Pitts MD Primary Care Provider Unavaila ble Reason for Visit * Reason Comments E-prescribe Rx Request Encounter Details Date Type Department Care Team Description 07/23/2019 Refill Adult Med - [place] [address] [place] [address] Nallely Estevez PA-C E-prescribe Rx Request Social History Tobacco Use [...] encounter Miscellaneous Notes * Telephone Encounter - Bhavna Maria - 07/25/2019 12:54 PM EST Patient calling about this medication * Telephone Encounter - Joya Acosta - 07/24/2019 10:46 AM EST Spoke to pharmacist Adrianne and she said the have not received the medication Lyrica you sent 07/21/2019. Can you resend. * Telephone Encounter - Bhavna Maria - 07/23/2019 12:55 PM EST Patient would like script to be: E-PRESCRIBED/FAXED TO PHARMACY WHEN WAS THE PATIENT'S LAST APPOINTMENT IN ADULT MEDICINE? 03/13/19 WHEN WAS THE LAST TIME THE PATIENT SAW THEIR PCP? Same as above Does patient have an upcoming appointment? Yes 08/01/2019 (THE MEDICATION REQUESTED IS ON THE MED LIST ABOVE) All of the medications requested were on the CURRENT MEDS list Did you check the Pharmacy information above?: YES Patient wants: 90 -day supply Is this a mail order prescription request ? NO If the refill is from a FAXED refill request what is the RX # listed on the fax? N/A Patients current insurance carrier is: Payor: A[employer]VIND / Plan: POS $20 WANDA [id number] / Product Type: POS [id number] documented in this encounter Plan of Treatment Not on file documented as of this encounter Visit Diagnoses Not on filedocumented in this encounter Care Teams Racking Machine Operator Relationship Specialty Start Date End Date Easton Connor MD PCP - General Internal Medicine 07/09/18 04/07/20 Lisa Post PCP - General Internal Medicine 04/08/20 04/26/20 Eliezer Carlson MD PCP - General Internal Medicine 04/27/20 documented as of this encounter
--- OUTSIDE RECORDS SUMMARY | 2024-08-07 16:57 | XMS_ITS | Encounter Summary ---
Author Organization [facility] Address [address] [place] [address] Care Team Providers Care Db2 Developer Name Role Phone Easton Connor MD Primary Care Provider [phone] Lisa Post Primary Care Provider UnavailEliezer Franklin MD Primary Care Provider Unavaila ble Encounter Details Date Type Department Care Team Description 03/10/2019 [facility] Medical Records [address] [place] [address] Abstract, Provider Social History Tobacco Use Types Packs/Day Years [...] on filedocumented in this encounter Care Teams Db2 Developer Relationship Specialty Start Date End Date Easton Connor MD PCP - General Internal Medicine 07/09/18 04/07/20 Lsia Post PCP - General Internal Medicine 04/08/20 04/26/20 Eliezer Carlson MD PCP - General Internal Medicine 04/27/20 documented as of this encounter
--- OUTSIDE RECORDS SUMMARY | 2024-08-07 16:57 | XMS_ITS | Encounter Summary ---
Author Organization [facility] Address [address] [place] [address] Care Team Providers Care Wood Experimental Mechanic Name Role Phone Easton Connor MD Primary Care Provider [phone] Lisa Post Primary Care Provider UnavailEliezer Franklin MD Primary Care Provider Unavaila amalia Encounter Details Date Type Department Care Team Description 03/27/2019 Welder Fitter Helper Report Medical Records [address] [place] [address] Yun Lara, PA-C [address] [place] [address] Social History Tobacco Use Types Packs/Day Years [...] on filedocumented in this encounter Care Teams Wood Experimental Mechanic Relationship Specialty Start Date End Date Easton Connor MD PCP - General Internal Medicine 07/09/18 04/07/20 Lisa Post PCP - General Internal Medicine 04/08/20 04/26/20 Eliezer Carlson MD PCP - General Internal Medicine 04/27/20 documented as of this encounter
--- OUTSIDE RECORDS SUMMARY | 2024-08-07 16:57 | XMS_ITS | Encounter Summary ---
Author Organization [facility] Address [address] [place] [address] Care Team Providers Care Assistant Oceanographer Name Role Phone Eliezer Carlson MD Primary Care Provider Yasir holland Encounter Details Date Type Department Care Team Description 06/06/2020 Pt. Non Urgent Medical Question Rheumatology - [address] [address] Micky Shah PA Social History Tobacco Use Types Packs/Day Years Used Date Smoking Tobacco: Never Smokeless Tobacco: Never Alcohol Use Standard Drinks/Week Comments No 0 (1 standard drink = 0.6 oz pur e alcohol) never Sex Assigned at Date Recorded Female 10/06/2021 10:12 AM EDT Job Start Date Occupation Industry Not on file Not on file Not on file documented as of this encounter Progress Notes * Janessa Calderón M.A. - 06/07/2020 11:44 AM ESTFrom: Silviabrian Siomara Bronson To: Micky Shah PA-C Sent: 06/06/2020 9:00 PM EST Subject: medication change follow up Chana, I wanted to follow up on what we discussed last time we spoke. I would like to start the increased dose of Lyrica. When we last spoke I said I wanted to wait to see the effectiveness of the muscle relaxer before making that change. I was wondering if it could be prescribed as a slow release or something I could take once a day? I've been using the muscle relaxer and while it hasn't stopped the neck spasms or pain completely it has decreased both. You said to reach out if I would like to continue using this medication and I would. I only used it at night since you warned it could cause drowsiness, maybe it would be more effective if I had used it the three times a day? Thank you and happy new year! documented in this encounter Plan of Treatment Not on file documented as of this encounter Visit Diagnoses Not on filedocumented in this encounter Care Teams Assistant Oceanographer Relationship Specialty Start Date End Date Eliezer Carlson MD PCP - General Internal Medicine 04/27/20 documented as of this encounter
--- OUTSIDE RECORDS SUMMARY | 2024-08-07 16:57 | XMS_ITS | Clinical Summary ---
Author Organization [facility] Address [address] [place] [address] Care Team Providers Care General Duty Nurse Name Role Phone [facility] Primary Care Provider + Derrick Sheriff PA-C Unavailable [phone] Allergies Active Allergy Reactions Criticality Noted Date Comments Liraglutide Hives Medium 04/08/2020 Lisinopril Cough Low 12/07/2017 Metformin GI Intolerance/Nausea/Vomiting Low 05/29 Medications Medication Sig Dispensed Refills Start Date End Date Status albuterol (PROAIR RESPICLICK) 108 (90 Base) MCG/ACT inhaler Inhale. Active ascorbic acid (VITAMIN C) 500 MG tablet TAKE 1 TABLET BY MOUTH DAILY FOR 30 DAYS TAKE WITH FERROUS SULFATE 01/19/20 Active atorvastatin (LIPITOR) 10 MG tablet Take 1 tablet (10 mg total) by mouth daily. 01/29/20 23 Active busPIRone (BUSPAR) 15 MG tablet Take 1 tablet (15 mg total) by mouth 2 (two) times a day. 03/13/20 23 Active D3 Super Strength 50 MCG (2000 UT) Cap capsule Take by mouth daily. 01/19/20 23 Active Continuous Blood Gluc Sensor (FreeStyle Thompson 3 Sensor) Misc USE DIRECTED. CHANGE EVERY 14 DAYS 03/12/20 23 Active diclofenac (VOLTAREN) 1 % gel 04/02/20 Active docusate sodium (COLACE) 100 MG capsule TAKE 1-2 CAPSULES ORALLY DAILY NEEDED FOR CONSTIPATION FOR 30 DAYS 03/06/20 23 Active DULoxetine (CYMBALTA) 60 MG capsule Take by mouth daily. 10/10/20 23 Active celeCOXIB (CeleBREX) 200 MG capsule DIRECTED TAKE ONE CAPSULE BY MOUTH DAILY. 05/15/20 Active clotrimazole-betam ethasone (LOTRISONE) cream APPLY 0.5 GRAM THREE TIMES A DAY TO AFFECTED AREA NEEDED FOR ITCHING 05/08/20 Active diclofenac enteric coated (VOLTAREN) 75 MG EC tablet Take 1 tablet (75 mg total) by mouth 2 (two) times a day. 05/20/20 Active DULoxetine (CYMBALTA) 20 MG capsule Take 2 capsules (40 mg total) by mouth daily. 05/07/20 Active Jardiance 10 MG tablet TAKE 1 TABLET BY MOUTH DAILY IN AM, TO PRELACE THE DDP MED - SITAGLIPTIN 05/15/20 Active estradiol (ESTRACE) 0.01 % vaginal cream PLEASE SEE ATTACHED FOR DETAILED DIRECTIONS 04/23/20 Active estradiol (ESTRACE) 2 MG tablet Take 1 tablet (2 mg total) by mouth every morning. 03/27/20 Active famotidine (PEPCID) 10 MG tablet Take 1 tablet (10 mg total) by mouth 2 (two) times a day. 05/17/20 Active ferrous sulfate 325 (65 FE) MG tablet TAKE 1 TABLET ORALLY DAILY FOR 30 DAYS TAKE W/ VITAMIN C 04/09/20 Active fexofenadine (BHAVNA) 60 MG tablet Take 1 tablet (60 mg total) by mouth. 11/07/19 Active fluconazole (diFLUcan) 100 MG tablet TAKE 1 TABLET BY MOUTH EVERY DAY FOR 5 DAYS 04/23/20 Active FLUoxetine (PROzac) 20 MG capsule Take 1 capsule (20 mg total) by mouth. Active fluticasone (Flonase Allergy Relief) 50 mcg/spray nasal spray into each nostril. 10/27/19 Active fluvoxaMINE (LUVOX) 50 MG tablet Take 1 tablet (50 mg total) by mouth 2 (two) times a day. 04/18/20 Active gabapentin (NEURONTIN) 100 MG capsule TAKE 1-3 CAPSULES ORALLY BEDTIME FOR 30 DAYS 04/29/20 Active FREESTYLE LITE strip CHECK BLOOD SUGAR 4 X A DAY 05/07/20 Active hydrocortisone 2.5 % cream Apply topically. Active hydrOXYzine HCl (ATARAX) 10 MG tablet Take 1 tablet (10 mg total) by mouth 3 (three) times a day as needed. 05/15/20 Active ibuprofen (MOTRIN) 800 mg tablet Take 1 tablet (800 mg total) by mouth. Active Lantus SoloStar 100 UNIT/ML prefilled pen injection INJECT 40 UNITS SUBCUTANEOUSLY DAILY 04/10/20 Active insulin lispro (HumaLOG/ADMELOG) 100 units/mL injection See Instructions, for pump 100 units a day , 3 fials a month, # 3 each, 12 Refills, Maintenance, 03/29/23 11:07:00 EDT, [facility]/pharmacy #[id number], Partial fill upon patient request if the prescription is for a schedule II opioid drug., 170, cm, 03/13/23 10:2... 03/22/20 Active lidocaine (LIDODERM) 5 % patch APPLY 1 PATCH TOPICALLY ONCE A DAY TO AFFECTED AREA. REMOVER AFTER 12 HOURS AND LEAVE OFF FOR 12 HRS 05/01/20 Active loratadine (CLARITIN) 10 MG tablet Take 1 tablet (10 mg total) by mouth. 11/07/19 Active magnesium oxide 400 (240 Mg) MG Tab tablet TAKE 1 TABLET BY MOUTH EVERY DAY BEDTIME FOR 30 DAYS MAY HOLD FOR LOOSE STOOLS 05/07/20 Active melatonin 5 MG Tab tablet TAKE 1 TABLET BY MOUTH EVERY DAY NEEDED FOR INSOMNIA 05/15/20 Active montelukast (Singulair) 10 MG tablet Take 1 tablet (10 mg total) by mouth. 11/07/19 Active Multiple Vitamin (Daily-Devon Multivitamin) Tab Take 1 tablet by mouth daily. 05/06/20 Active nitrofurantoin monohydrate (MACROBID) 100 MG capsule Take 1 capsule (100 mg total) by mouth 2 (two) times a day. 04/09/20 Active OMEprazole (PriLOSEC) 40 MG capsule Take by mouth daily. 04/07/20 Active OXcarbazepine (TRILEPTAL) 300 MG tablet Take 1 tablet (300 mg total) by mouth 2 (two) times a day. 05/17/20 23 Active PEG 3350 17 GM/SCOOP powder 04/03/20 Active semaglutide (Ozempic, 0.25 or 0.5 MG/DOSE,) (0.25 mg or 0.5 mg/dose pen) prefilled pen injection See Instructions, 0.25 mg Subcutaneous Injection Every week x 4 wks then .5 wkly x 4 wks, # 1 each, 1 Refills, Maintenance, 02/22/23 15:54:00 EDTBernard, [facility]/pharmacy #[id number], Partial fill upon patient request if the prescription is for a schedule II... 02/23/20 Active DentaGel 1.1 % Gel APPLY THIN FILM TO ALL TEETH BEFORE BED. NO EATING OR RINSING FOR 30 MINUTES 04/23/20 23 Active traZODone (DESYREL) 100 MG tablet TAKE 2 TABLET BY MOUTH AT BEDTIME MAY TAKE 1-2 TABS 04/18/20 23 Active ubrogepant (Ubrelvy) 100 MG tablet Take 0.1 tablets (10 mg total) by mouth. Active Medical Compression StockingsIndicatio ns:Autonomic dysfunction Level of Compression: 20-30 mmHg 2 each 05/29/20 23 Active Ventolin HFA 108 (90 Base) MCG/ACT inhaler PLEASE SEE ATTACHED FOR DETAILED DIRECTIONS 07/03/19 24 Active Trulicity 3 MG/0.5ML prefilled pen injection 07/19/19 24 Active Asmanex HFA 50 MCG/ACT Aerosol INHALE 2 PUFFS BY MOUTH TWICE A DAY RINSE MOUTH AND THROAT AFTER USE 05/25/20 23 Active OXcarbazepine (TRILEPTAL) 600 MG tablet Take 1 tablet (600 mg total) by mouth 2 (two) times a day. 07/02/19 24 Active pramipexole (miraPEx) 0.125 MG tablet 07/18/19 24 Active meclizine (ANTIVERT) 25 MG tablet TAKE 1 TABLET BY MOUTH 3 TIMES A DAY NEEDED FOR DIZZINESS FOR 14 DAYS 01/18/20 24 Active Misc. Devices (Steel Rolling Walker) MiscIndications:Po stural orthostatic tachycardia syndrome (POTS),Syncope and collapse Please administer rolling walker to assist with ambulation. Please measure for appropriate height 1 each 02/05/20 24 Active fludrocortisone (FLORINEF) 0.1 MG tabletIndications: Orthostatic lightheadedness Take 1 tablet (0.1 mg total) by mouth daily. 30 tablet 06/10/19 25 07/06/2 025 Active midodrine (ProAmatine) 10 MG tabletIndications: Autonomic dysfunction Take 1.5 tablets (15 mg total) by mouth 3 (three) times a day. Take during daytime hours. 135 tablet 2 07/04/19 25 025 Active guanFACINE (INTUNIV) 1 MG 24 hr tabletIndications: Orthostatic lightheadedness Take 1 tablet (1 mg total) by mouth nightly. 90 tablet 3 07/17/19 25 Active propranolol (INDERAL) 20 MG tabletIndications: Orthostatic lightheadedness Take 1 tablet (20 mg total) by mouth 2 (two) times a day. Dose one upon waking then dose 2 after 8 hours 180 tablet 3 07/17/19 25 Active metoPROLOL TARTRATE (LOPRESSOR) 25 MG tablet TAKE 0.5 TABLET BY MOUTH 2 TIMES A DAY,X30 DAYS, TAKE A HALF TABLET BY MOUTH TWICE A DAY. 04/27/20 23 024 Discontinued propranolol (INDERAL) 20 MG tabletIndications: Orthostatic lightheadedness Take 1 tablet (20 mg total) by mouth 2 (two) times a day. Dose one upon waking then dose 2 after 8 hours 60 tablet 5 02/05/20 24 025 Discontinued(Re order) guanFACINE (INTUNIV) 1 MG 24 hr tabletIndications: Orthostatic lightheadedness Take 1 tablet (1 mg total) by mouth nightly. 30 tablet 5 04/04/20 24 025 Discontinued(Re order) Active Problems Problem Noted Date Diagnosed Date Orthostatic lightheadedness 07/24/2023 Family history of breast cancer 06/22/2023 06/22/2023 Overview (06/22/2023): seen by genetics counciler see note from 09/22 seen by genetics counciler see note from 09/22 PCOS (polycystic ovarian syndrome) 06/22/2023 06/22/2023 Asthma 06/22/2023 06/22/2023 Mixed anxiety depressive disorder 06/22/2023 06/22/2023 Disorder of iron metabolism 06/22/202306/04 Carpal tunnel syndrome, bilateral 06/27/2020 06/22/2023 Overview (06/22/2023): Last Assessment & Plan: She has right [...] she has any issues/questions/problems of any sort. Controlled type 2 diabetes m ahmet without complication, with long-term current use of insulin 01/10/2019 06/22/2023 Anxiety 03/28/2018 06/22/2023 Fibromyalgia 03/01/2018 06/22/2023 GERD (gastroesophageal reflux disease) 8 06/22/2023 HTN (hypertension) 03/01/2018 06/22/2023 Hyperlipidemia 01/18/2018 06/22/2023 Sleep paralysis 12/07/2017 06/22/2023 Second degree AV block, Mobitz type I 12/07/2017 06/22/2023 Restless legs syndrome 12/07/2017 Resolved Problems Problem Noted Date Diagnosed Date Resolved Date Severe acute respiratory syn drome coronavirus 2 (SARS-CoV-2) detected 08/09/2021 06/22/2023 08/15/2023 Encounters Date Type Department Care Team Description 07/17/2024 Refill [facility] [place] at [address] [phone] Derrick Sheriff PA-C 07/04/2024 12:12 PM EST - 07/04/2024 11:59 PM EST Hospital Encounter [facility] [place] at [address] [phone] Derrick Sheriff PA-C Left without seen Discharge Disposition: Home or Self Care 06/10/2024 Refill [facility] [place] at [address] [phone] Derrick Sheriff PA-C from Last 3 Months Social History Tobacco Use Types Packs/Day Years Used Date Smoking Tobacco: Never Smokeless Tobacco: Never Tobacco Cessation:Counseling Given: Not Answered Sex and Gender Information Value Date Recorded Sex Assigned at Female 03/19/2023 3:06 PM EDT Gender Identity Female 03/19/2023 3:06 PM EDT Sexual Orientation Heterosexual (straight) 04/03 10:25 PM EDT Last Filed Vital Signs Vital Sign Reading Time Taken Comments Blood Pressure 123/86 02/05/2024 1:14 PM EDT Pulse 100 02/05/2024 1:14 PM EDT Temperature - - Respiratory Rate - - Oxygen Saturation 99% 02/05/2024 1:14 PM EDT Inhaled Oxygen Concentration - - Weight 107 kg (235 lb) 02/05/2024 1:14 PM EDT Height 170.2 cm (5' 7 ) 02/05/2024 1:14 PM EDT Body Mass Index 36.81 02/05/2024 1:14 PM EDT Plan of Treatment Health Maintenance Due Date Last Done Comments Hepatitis C Virus Screening 1984 Creatinine with GFR 1994 Foot Exam 1994 Hemoglobin A1C 1994 Lipid Panel 1994 Ophthalmology Exam 1994 HIV Screening 1997 Microalbumin/Creatinine Ratio Urine 2002 DTaP/Tdap/Td Vaccines (1 - Tdap) 08/08/2003 Hepatitis B Vaccines (1 of 3 - 19+ 3-dose series) 08/08/2003 Pneumococcal Vaccine: Pediatric (0-5 Years) and At-Risk Patients (6 to 49 Years) (1 of 2 - PCV) 08/08/2003 Pap Smear (Ages 21-65) 2005 Influenza Vaccine 01/03/2024 04/26/2022, , 09/15/2021, Additional history exists COVID-19 Vaccine (2023- season) 2024 11/17/2021, 02/08/2021, 09/13/2020 HPV Vaccines Aged Out No longer eligi ble based on patient's age to complete this topic Care Teams General Duty Nurse Relationship Specialty Start Date End Date [facility] [address] [place] [id number] PCP - General 03/19/23 Derrick Sheriff PA-C [address] [place] [id number] Physician Cane Burner Cardiac Electrophysiology 09/28/23
--- OUTSIDE RECORDS SUMMARY | 2024-08-07 16:57 | XMS_ITS | Encounter Summary ---
Author Organization [facility] Address [address] [place] [address] Care Team Providers Care Command Center Analyst Name Role Phone Easton Connor MD Primary Care Provider [phone] Lisa Post Primary Care Provider UnavailEliezer Franklin MD Primary Care Provider Unavaila amalia Encounter Details Date Type Department Care Team Description 03/04/2020 Telephone Adult Medicine [address] [address] Trung Chu MD Social History Tobacco Use Types Packs/Day Years Used Date Smoking Tobacco: Never Smokeless Tobacco: Never Alcohol Use Standard Drinks/Week Comments No 0 (1 standard drink = 0.6 oz pur e alcohol) never Sex Assigned at Date Recorded Female 10/06/2021 10:12 AM EDT Job Start Date Occupation Industry Not on file Not on file Not on file COVID-19 Exposure Response Date Recorded In the last month, have you been in contact with someone who was confirmed or suspected to have Coronavirus / COVID-19? No / Unsure 03/03/2020 8:08 AM EDT documented as of this encounter Plan of Treatment Not on file documented as of this encounter Visit Diagnoses Not on filedocumented in this encounter Care Teams Command Center Analyst Relationship Specialty Start Date End Date Easton Connor MD PCP - General Internal Medicine 07/09/18 04/07/20 Lisa Post PCP - General Internal Medicine 04/08/20 04/26/20 Eliezer Carlson MD PCP - General Internal Medicine 04/27/20 documented as of this encounter
--- OUTSIDE RECORDS SUMMARY | 2024-08-07 16:57 | XMS_ITS | Encounter Summary ---
Author Organization [facility] Address [address] [place] [address] Care Team Providers Care Skein Winder Name Role Phone Easton Connor MD Primary Care Provider [phone] Lisa Post Primary Care Provider Unavailabl Eliezer Pitts MD Primary Care Provider Unavaila ble Encounter Details Date Type Department Care Team Description 10/01/2019 Orders Only Internal Medicine - [address], [address] [place] [address] Easton Connor MD [address] [place], [place] [id number] Social History Tobacco Use Types Packs/Day Years [...] on filedocumented in this encounter Care Teams Skein Winder Relationship Specialty Start Date End Date Easton Connor MD PCP - General Internal Medicine 07/09/18 04/07/20 Lisa Post PCP - General Internal Medicine 04/08/20 04/26/20 Eliezer Carlson MD PCP - General Internal Medicine 04/27/20 documented as of this encounter
--- OUTSIDE RECORDS SUMMARY | 2024-08-07 16:57 | XMS_ITS | Encounter Summary ---
Author Organization [facility] Address [address] [place] [address] Care Team Providers Care Department Of Mathematics Chair Name Role Phone Easton Connor MD Primary Care Provider [phone] Lisa Post Primary Care Provider Eliezer Patel MD Primary Care Provider Unavaila ble Encounter Details Date Type Department Care Team Description 03/04/2020 Pt. Non Urgent Medical Question Adult Urgent Care - [address] [address] Trung Chu MD Social History Tobacco Use [...] AM EDT documented as of this encounter Progress Notes * Felicity Rodriguez M.A. - 03/04/2020 12:13 PM EDTFrom: Sonya Gastonelisa To: Trung Chu MD Sent: 03/04/2020 11:23 AM EDT Subject: A1C Hello Dr Chu, I went to see my PCP and my A1C is 8.0. On 9\18 I got cortisone injections in both knees which usually raises my blood sugar level but never this much. It's in the high 200s fasting and high 300s after meals. My PCP was concerned about leaving things as is until my appt with you on and change d my metformin to 500mg 2x daily and added humalog 5 units with dinner. documented in this encounter Plan of Treatment Not on file documented as of this encounter Visit Diagnoses Not on filedocumented in this encounter Care Teams Department Of Mathematics Chair Relationship Specialty Start Date End Date Easton Connor MD PCP - General Internal Medicine 07/09/18 04/07/20 Lisa Post PCP - General Internal Medicine 04/08/20 04/26/20 Eliezer Carlson MD PCP - General Internal Medicine 04/27/20 documented as of this encounter
--- OUTSIDE RECORDS SUMMARY | 2024-08-07 16:57 | XMS_ITS | Encounter Summary ---
Author Organization [facility] Address [address] [place] [address] Care Team Providers Care Field Engineer Name Role Phone Easton Connor MD Primary Care Provider [phone] Lisa Post Primary Care Provider Unavailabl e Eliezer Carlson MD Primary Care Provider Unavaila ble Encounter Details Date Type Department Care Team Description 01/08/2020 Flanger Report Medical Records [address] [place] [id number] Tana Rodriguez MD Social History Tobacco Use Types Packs/Day [...] on filedocumented in this encounter Care Teams Field Engineer Relationship Specialty Start Date End Date Easton Connor MD PCP - General Internal Medicine 07/09/18 04/07/20 Lisa Post PCP - General Internal Medicine 04/08/20 04/26/20 Eliezer Carlson MD PCP - General Internal Medicine 04/27/20 documented as of this encounter
--- OUTSIDE RECORDS SUMMARY | 2024-08-07 16:57 | XMS_ITS | Encounter Summary ---
Author Organization [facility] Address [address] [place] [address] Care Team Providers Care Animal Pathology Teacher Name Role Phone Easton Connor MD Primary Care Provider [phone] Lisa Post Primary Care Provider Unavailabl Eliezer Pitts MD Primary Care Provider Unavaila ble Encounter Details Date Type Department Care Team Description 01/13/2019 Telephone Adult Med - [place] [address] [place] [address] Easton Connor MD [address] [place], [place] [id number] Social History Tobacco Use Types Packs/Day Years [...] on filedocumented in this encounter Care Teams Animal Pathology Teacher Relationship Specialty Start Date End Date Easton Connor MD PCP - General Internal Medicine 07/09/18 04/07/20 Lisa Post PCP - General Internal Medicine 04/08/20 04/26/20 Eliezer Carlson MD PCP - General Internal Medicine 04/27/20 documented as of this encounter
--- OUTSIDE RECORDS SUMMARY | 2024-08-07 16:57 | XMS_ITS | Encounter Summary ---
Author Organization [facility] Address [address] [place] [address] Care Team Providers Care Invoice Classification Clerk Name Role Phone Eliezer Carlson MD Primary Care Provider [phone] Encounter Details Date Type Department Care Team (Latest Contact Info) Description 05/27/2024 Lab Requisition [facility] - Main Lab [address] [place] [phone] Becky Le MD [address] [phone] Encounter for gynecological examination (general) (routine) without abnormal findings Social History Tobacco Use Types Packs/Day Years Used Date Smoking Tobacco: Never Smokeless Tobacco: Never Alcohol Use Standard Drinks/Week Comments No 0 (1 standard drink = 0.6 oz pur e alcohol) Comments Unknown Sex and Gender Information Value Date Recorded Sex Assigned at Not on file Legal Sex Female 9:22 AM EST Gender Identity Not on file Sexual Orientation Not on file documented as of this encounter Plan of Treatment Not on file documented as of this encounter Procedures Procedure Name Priority Date/Time Associated Diagnosis Comments PAP SMEAR Routine 05/26/2024 12:00 AM EST Encounter for gynecological examination (general) (routine) without abnormal findings documented in this encounter Results * Pap smear (05/26/2024 12:00 AM EST) Interpretation Negative for intraepithelial lesion or malignancy 06/02/2024 8:27 AM [facility] General Categorization Negative 06/02/2024 8:27 AM [facility] Specimen Adequacy Satisfactory for evaluation, endocervical/celis sformation zone component absent 06/02/2024 8:27 AM [facility] Pap Methodology Liquid Based Pap Test 06/02/2024 8:27 AM [facility] Disclaimer The Pap test is a screening test which carries an inherent false negative rate. These test results should be correlated with the patient's clinical findings and history. This Pap test was processed using an automated screening system. Technical cytopathology services provided by [facility], at [address] [place] [id number] (CLIA # [id number]/Genna Bui MD, Shaker Operator.) 06/02/2024 8:27 AM [facility] Console Pap Interpretation Reported 06/02/2024 8:27 AM [facility] Brushing/Spatula Cervix uteri structure / Unknown 05/26/2024 05/27/2024 8:24 AM EST us Becky Le MD LAB CYTOLOGY ORDERABLES Final Result [facility] [address] [place] [address], documented in this encounter Visit Diagnoses Diagnosis Encounter for gynecological examination (general) (routine) without abnormal findings documented in this encounter Care Teams Invoice Classification Clerk Relationship Specialty Start Date End Date Eliezer Carlson MD [address] [place] [address] PCP - General Internal Medicine 04/27/20 documented as of this encounter
--- OUTSIDE RECORDS SUMMARY | 2024-08-07 16:58 | XMS_ITS | Encounter Summary ---
Author Organization [facility] Address [address] [place] [address] Care Team Providers Care Sales And Marketing Vice President Name Role Phone Easton Connor MD Primary Care Provider [phone] Lisa Post Primary Care Provider UnavailEliezer Franklin MD Primary Care Provider Unavaila amalia Encounter Details Date Type Department Care Team Description 11/07/2018 Sr. Director Report Medical Records [address] [place] [address] Yun Lara, PA-C [address] [place] [address] Social History Tobacco Use Types Packs/Day Years [...] on filedocumented in this encounter Care Teams Sales And Marketing Vice President Relationship Specialty Start Date End Date Easton Connor MD PCP - General Internal Medicine 07/09/18 04/07/20 Lisa Post PCP - General Internal Medicine 04/08/20 04/26/20 Eliezer Carlson MD PCP - General Internal Medicine 04/27/20 documented as of this encounter
--- OUTSIDE RECORDS SUMMARY | 2024-08-07 16:58 | XMS_ITS | Clinical Summary ---
Author Organization [address] Address [address] [place] [address] Phone Care Team Providers Care Aboriginal Community Council Member Name Role Phone Eliezer Carlson MD Primary Care Provider [phone] Encounters Date Type Department Care Team Description 05/27/2024 Lab Requisition [facility] - Main Lab [address] [place] [address] Becky Le MD Encounter for gynecological examination (general) (routine) without abnormal findings from Last 3 Months Surgical History Surgery Date Site/Laterality Comments KNEE SURGERY 2018 Right PROCEDURE: HISTORICAL KNEE SURGERY; COMMENT: Arthroscopy OTHER SURGICAL HISTORY PROCEDURE: HISTORY OTHER; COMMENT: septoplasty NOSE SURGERY PROCEDURE: [place] UNLISTED PROCEDURE NOSE; COMMENT: septoplasty and turbinate reduction Medical History Medical History Date Comments Varicella without mention of complication DX:Varicella without mention of complication Acne 02/07/2018 DX:Acne Allergic rhinitis 12/07/2017 DX:Allergic rh initis Arthritis 03/01/2018 DX:Arthritis Depression 12/07/2017 DX:Depression Fibromyalgia 03/01/2018 DX:Fibromyalgia GERD (gastroesophageal reflux disease) 03/01/2018 DX:GERD (gastroesophageal reflux disease) HTN (hypertension) 03/01/2018 DX:HTN (hyper tension) Hyperlipidemia 01/18/2018 DX:Hyperlipidemi a Iron deficiency anemia 02/12/2018 DX:Iron d eficiency anemia Low vitamin D level 01/18/2018 DX:Low vitam in D level Migraine 01/02/2018 DX:Migraine SEVERO (obstructive sleep apnea) 12/07/2017 DX :SEVERO (obstructive sleep apnea) PCOS (polycystic ovarian syndrome) 12/07/2017 DX:PCOS (polycystic ovarian syndrome) Polymyalgia (CMS/HCC) 02/07/2018 DX:Polymya lgia ([facility]) Restless legs syndrome 12/07/2017 DX:Restle ss legs syndrome Second degree AV block, Mobitz type I 12/07/2017 DX:Second degree AV block, Mobitz type I Sleep paralysis 12/07/2017 DX:Sleep paralys is Uterine leiomyoma 12/07/2017 DX:Uterine lei omyoma Anxiety 03/28/2018 DX:Anxiety Diabetes mellitus type 2, co ntrolled, with complications (CMS/HCC) DX:Diabetes mellitus type 2, controlled, with complications ([facility]); COMMENT: on insulin Asthma DX:Asthma Family History Medical History Relation Name Comments Other: heart problems Mother Other: lupus Mother Coronary artery disease Paternal Grandmother Other: lupus Sister 1 Other: pituitary tumor Sister 1 Diabetes Sister 2 Other: cyclic vomiting Sister 2 Relation Name Status [...] on file Sexual Orientation Not on file Obstetrics History Last Filed Vital Signs Vital Sign Reading Time Taken Comments Blood Pressure 126/80 11/21/2021 1:57 PM EDT Pulse 92 11/21/2021 1:57 PM EDT Temperature - - Respiratory Rate - - Oxygen Saturation - - Inhaled Oxygen Concentration - - Weight 114 kg (252 lb) 11/28/2021 11:32 AM EDT Height 170.2 cm (5' 7 ) 11/28/2021 11:32 AM EDT Body Mass Index 39.47 11/28/2021 11:32 AM EDT Plan of Treatment Health Maintenance Due Date Last Done Comments DTaP,Tdap,and Td Vaccines (6 - Tdap) 08/08/1995 02/24/1993, 11/30/1986, 06/18/1986, Additional history exists Cholesterol Screening (Lipid Panel) 05/01/2022 Depression Screening 05/01/2022 HIV Screening 05/01/2022 Hepatitis C Screening 05/01/2022 Social Influencers of Health Screening 05/01/2022 Hypertension/CHF/CAD Annual BMP Blood Test 05/18/2022 COVID-19 Vaccine ( season) 2024 09/13/2020 Influenza Vaccine (#1) 2024 03/03/2020 Cervical Cancer Screening: Pap Smear 05/26/2027 05/26/2024 HIB Vaccines Completed 11/30/1986 IPV Vaccines Completed 02/24/1993, 11/03, 06/18/1986, Additional history exists MMR Vaccines Completed 03/01/1995, 11/19/1985 Hepatitis B Vaccines Completed 01/26/1997, 08/28/1996, 07/31/1996 Hepatitis A Vaccines Completed 04/19/1999, 10/18/18 99 Meningococcal ACWY Vaccine Aged Out 03/27/2006 N o longer eligible based on patient's age to complete this topic HPV Vaccines Aged Out No longer eligi ble based on patient's age to complete this topic Meningococcal B Vacine Aged Out No lo nger eligible based on patient's age to complete this topic Pneumococcal Vaccine: Pediatrics (0 to 5 Years) and At-Risk Patients (6 to 64 Years) Aged Out No longer eligible based on patient's age to complete this topic RSV Immunization Patients Under 20 months Aged Out No longer eligible based on patient's age to complete this topic Varicella Vaccines Aged Out No longer eligible based on patient's age to complete this topic Procedures Procedure Name Priority Date/Time Associated Diagnosis Comments PAP SMEAR Routine 05/26/2024 12:00 AM EST Encounter for gynecological examination (general) (routine) without abnormal findings from Last 3 Months Results * Pap smear (05/26/2024 12:00 AM EST) Interpretation Negative for intraepithelial lesion or malignancy 06/02/2024 8:27 AM [facility] General Categorization Negative 06/02/2024 8:27 AM [facility] Specimen Adequacy Satisfactory for evaluation, endocervical/celis sformation zone component absent 06/02/2024 8:27 AM [facility] Pap Methodology Liquid Based Pap Test 06/02/2024 8:27 AM [facility] Disclaimer The Pap test is a screening test which carries an inherent false negative rate. These test results should be correlated with the patient's clinical findings and history. This Pap test was processed using an automated screening system. Technical cytopathology services provided by [facility], at [address] [place] [address] (CLIA # [id number]/Genna Bui MD, Roll Hauler.) 06/02/2024 8:27 AM [facility] Console Pap Interpretation Reported 06/02/2024 8:27 AM [facility] Brushing/Spatula Cervix uteri structure / Unknown 05/26/2024 05/27/2024 8:24 AM EST us Becky Le MD LAB CYTOLOGY ORDERABLES Final Result [facility] [address] [place] [address], from Last 3 Months Insurance [employer] [place] [employer] [place] MEDICAID - [place] [id number] Advance Directives Documents on File Type Date Recorded Patient Park Naturalist Expl anation Health Care Decision (hx) 01/29/2021 AD MALDONADO DIRECTIVE Health Care Decision (hx) 01/29/2021 AD MALDONADO DIRECTIVE Health Care Decision (hx) 01/26/2021 AD MALDONADO DIRECTIVE Health Care Decision (hx) 01/26/2021 AD MALDONADO DIRECTIVE Health Care Decision (hx) 01/26/2021 AD MALDONADO DIRECTIVE Care Teams Aboriginal Community Council Member Relationship Specialty Start Date End Date Eliezer Carlson MD [address] [place] [address] PCP - General Internal Medicine 04/27/20
--- OUTSIDE RECORDS SUMMARY | 2024-08-07 16:58 | XMS_ITS | Encounter Summary ---
Author Organization [facility] Address [address] [place] [address] Care Team Providers Care Plan Coordinator Name Role Phone Nallely Estevez PA-C Primary Care Provider Easton Hernandez MD Primary Care Provider [phone] Lisa Post Primary Care Provider UnavailEliezer Franklin MD Primary Care Provider Unavaila ble Reason for Visit * Reason Onset Date Comments Faxed Refill 06/19/2018 Encounter Details Date Type Department Care Team Description 06/19/2018 Refill Adult [facility] [address] [place] [address] Nallely Estevez PA-C Faxed Refill Social History Tobacco Use Types Packs/Day Years [...] Miscellaneous Notes * Telephone Encounter - Laquita Gordon C.M.A. - 06/20/2018 3:07 PM EST Refill request for Ibuprofen 800 mgs GENARO: 03/27/2018 NOV: 10/17/2018 * Telephone Encounter - Miguel Ángel Winslow - 06/19/2018 3:19 PM EST Patient would like script to be: E-PRESCRIBED/FAXED TO PHARMACY WHEN WAS THE PATIENT'S LAST APPOINTMENT IN ADULT MEDICINE? 03/27/18 WHEN WAS THE LAST TIME THE PATIENT SAW THEIR PCP? Same as above Does patient have an upcoming appointment? No-[facility] due to refill request. Appt was due 05/27/18 (THE MEDICATION REQUESTED IS ON THE MED LIST ABOVE) All of the medications requested were on the CURRENT MEDS list Did you check the Pharmacy information above?: NO Patient wants: 90 -day supply Is this a mail order prescription request ? NO If the refill is from a FAXED refill request what is the RX # listed on the fax? N/A Patients current insurance carrier is: Payor: ARAVIND / Plan: POS $20 JENNIFERTONJA [id number] / Product Type: POS [id number] documented in this encounter Plan of Treatment Not on file documented as of this encounter Visit Diagnoses Not on filedocumented in this encounter Care Teams Plan Coordinator Relationship Specialty Start Date End Date Nallely Estevez PA-C PCP - General Internal Medicine 06/19/18 07/08/18 Easton Connor MD PCP - General Internal Medicine 07/09/18 04/07/20 Lisa Post PCP - General Internal Medicine 04/08/20 04/26/20 Eliezer Carlson MD PCP - General Internal Medicine 04/27/20 documented as of this encounter
--- OUTSIDE RECORDS SUMMARY | 2024-08-07 16:58 | XMS_ITS | Encounter Summary ---
Author Organization [facility] Address [address] [place] [address] Care Team Providers Care Hand Decorator Name Role Phone Eliezer Carlson MD Primary Care Provider Unavaila ble Encounter Details Date Type Department Care Team Description 06/11/2020 [facility] Medical Records [address] [place] [address] Abstract, Provider Social History Tobacco Use Types [...] on filedocumented in this encounter Care Teams Hand Decorator Relationship Specialty Start Date End Date Eliezer Carslon MD PCP - General Internal Medicine 04/27/20 documented as of this encounter
--- OUTSIDE RECORDS SUMMARY | 2024-08-07 16:58 | XMS_ITS | Encounter Summary ---
Author Organization [facility] Address [address] [place] [address] Care Team Providers Care Certified Physical Therapist Assistant Name Role Phone Garland Guerra MD Primary Care Provider Nallely Vasquez PA-C Primary Care Provider Unava ilable Easton Connor MD Primary Care Provider [phone] Lisa Post Primary Care Provider UnavailEliezer Franklin MD Primary Care Provider Unavaila ble Encounter Details Date Type Department Care Team Description 05/14/2018 Release of Information Medical Records [address] [place] [address] Abstract, Provider Social History Tobacco Use Types [...] on filedocumented in this encounter Care Teams Certified Physical Therapist Assistant Relationship Specialty Start Date End Date Garland Guerra MD PCP - General Internal Medicine 02/12/18 06/18/18 Nallely Estevez PA-C PCP - General Internal Medicine 06/19/18 07/08/18 Easton Connor MD PCP - General Internal Medicine 07/09/18 04/07/20 Lisa Post PCP - General Internal Medicine 04/08/20 04/26/20 Eliezer Carlson MD PCP - General Internal Medicine 04/27/20 documented as of this encounter
--- OUTSIDE RECORDS SUMMARY | 2024-08-07 16:58 | XMS_ITS | Encounter Summary ---
Author Organization [facility] Address [address] [place] [address] Care Team Providers Care Bid Analyst Name Role Phone Eliezer Carlson MD Primary Care Provider Unavaila ble Reason for Visit * Reason Comments E-prescribe Rx Request Encounter Details Date Type Department Care Team Description 07/26/2020 Refill Adult Medicine [address] [address] Trung Chu MD E-prescribe Rx Request Social History Tobacco Use [...] encounter Miscellaneous Notes * Telephone Encounter - Milagrosyamileth Beth - 07/26/2020 10:22 AM EST Patient would like script to be: E-PRESCRIBED/FAXED TO PHARMACY WHEN WAS THE PATIENT'S LAST APPOINTMENT ? 04/08/20 WHEN WAS THE LAST TIME THE PATIENT SAW THEIR PCP? N/a Does patient have an upcoming appointment? Yes 07/27/20 (THE MEDICATION REQUESTED IS ON THE MED [...] N/A Patients current insurance carrier is: Payor: [facility] MEDICAID / Plan: [place] MED[place]ID HMO $0 [place] / Product Type: HMO [id number] documented in this encounter Plan of Treatment Not on file documented as of this encounter Visit Diagnoses Not on filedocumented in this encounter Care Teams Bid Analyst Relationship Specialty Start Date End Date Eliezer Carlson MD PCP - General Internal Medicine 04/27/20 documented as of this encounter
--- OUTSIDE RECORDS SUMMARY | 2024-08-07 16:58 | XMS_ITS | Encounter Summary ---
Author Organization [facility] Address [address] [place] [address] Care Team Providers Care Ruby On Rails Consultant Name Role Phone Eliezer Carlson MD Primary Care Provider Unavaila ble Encounter Details Date Type Department Care Team Description 11/01/2021 Orders Only [facility] [address] [id number] Leta Henley MD [address] [address] Social History Tobacco Use Types Packs/Day Years [...] on filedocumented in this encounter Care Teams Ruby On Rails Consultant Relationship Specialty Start Date End Date Eliezer Carlson MD PCP - General Internal Medicine 04/27/20 documented as of this encounter
--- OUTSIDE RECORDS SUMMARY | 2024-08-07 16:58 | XMS_ITS | Encounter Summary ---
Author Organization [facility] Address [address] [place] [address] Care Team Providers Care Biological Inspector Name Role Phone Garland Guerra MD Primary Care Provider Nallely Vasquez PA-C Primary Care Provider Unava ilable Easton Connor MD Primary Care Provider [phone] Lisa Post Primary Care Provider UnavailEliezer Franklin MD Primary Care Provider Unavaila ble Encounter Details Date Type Department Care Team Description 05/16/2018 Transfer Records Medical Records [address] [place] [address] Abstract, Provider Social History Tobacco Use Types [...] on filedocumented in this encounter Care Teams Biological Inspector Relationship Specialty Start Date End Date Garland [...]
--- OUTSIDE RECORDS SUMMARY | 2024-08-07 16:58 | XMS_ITS | Encounter Summary ---
Author Organization [facility] Address [address] [place] [address] Care Team Providers Care Eggs Inspector Name Role Phone Easton Connor MD Primary Care Provider [phone] Lisa Post Primary Care Provider Unavailabl e Eliezer Carlson MD Primary Care Provider Unavaila amalia Encounter Details Date Type Department Care Team Description 11/26/2018 [facility] Medical Records [address] [place] [address] Andrei Hall MD Social History Tobacco Use [...] on filedocumented in this encounter Care Teams Eggs Inspector Relationship Specialty Start Date End Date Easton Connor MD PCP - General Internal Medicine 07/09/18 04/07/20 Lisa Post PCP - General Internal Medicine 04/08/20 04/26/20 Eliezer Carlson MD PCP - General Internal Medicine 04/27/20 documented as of this encounter
--- OUTSIDE RECORDS SUMMARY | 2024-08-07 16:58 | XMS_ITS | Encounter Summary ---
Author Organization [facility] Address [address] [place] [address] Care Team Providers Care Electronic Health Records Specialist Name Role Phone Eliezer Carlson MD Primary Care Provider Unavaila ble Encounter Details Date Type Department Care Team Description 07/26/2020 Telephone Adult Medicine [address] [address] Trung Chu MD Social History Tobacco Use [...] on filedocumented in this encounter Care Teams Electronic Health Records Specialist Relationship Specialty Start Date End Date Eliezer Carlson MD PCP - General Internal Medicine 04/27/20 documented as of this encounter
== END 2024-08-07 14:56 | disposition home or self-care (01) ==
PROVIDERS: PCP Physician Assistant Medical; Visit Provider Nurse Practitioner Family
DX: G25.81 Restless legs syndrome (principal); R42 Dizziness and giddiness; G43.709 Chronic migraine without aura, not intractable, without status migrainosus
CPT/HCPCS: 99214

== ENCOUNTER 2024-08-07 13:54 | Outpatient (REF) | payer OTHER, SELFPAY ==
[2024-08-07 17:42] LABS: MANUAL DIFF FLAG NO
[2024-08-07 17:59] LABS: Basophils Percent Auto 0.3 % (0-2); Eosinophils Absolute Auto 0.1 X10*3/uL (0.0-0.4); Eosinophils Percent Auto 0.5 % (0-4); Hematocrit 42.7 % (37.0-47.0); Imm Gran Abs Auto 0.06 X10*3/uL (0.00-0.03); Imm Gran Pct Auto 0.6 % (0.0-0.4); Mean Corpuscular HGB Conc 32.8 g/dl (31.0-35.0); Mean Corpuscular Hemoglobin 31.2 pg (27.0-33.0); Mean Corpuscular Volume 95.1 fL (80.0-98.0); Mean Platelet Volume 9.8 fL (9.4-12.3); Monocytes Absolute Auto 0.8 X10*3/uL (0.1-1.2); Monocytes Percent Auto 7.6 % (2-11); Neutrophils Absolute Auto 7.1 x10*3/uL (2.0-8.3); Platelet Count 291 X10*3/uL (160-400); Red Blood Count 4.49 X10*6/uL (4.20-5.50); Red Cell Distribution Width 14.1 % (11.0-16.0)
[2024-08-07 18:25] LABS: Alanine Aminotransferase 19 U/L (0-31); Albumin Level 4.2 g/dL (3.5-5.0); Alkaline Phosphatase 57 U/L (39-117); Anion Gap 14 (12-20); Aspartate Amino Transferase 24 U/L (5-31); Bilirubin Total 0.5 mg/dL (0.0-1.0); Blood Urea Nitrogen 8 mg/dL (9-16); Calcium 9.4 mg/dL (8.4-10.2); Carbon Dioxide 23 mmol/L (22-29); Chloride 106 mmol/L (96-108); Estimated Glomerular Filt Rate > 60; Glucose Random 179 mg/dL (60-115); Iron 70 mcg/dL (30-160); Percent Iron Saturation 24 % (15-50); Phosphorus 3.1 mg/dL (2.7-4.5); Potassium 4.2 mmol/L (3.3-5.1); Sodium 139 mmol/L (135-145); Total Iron Binding Capacity 295 mcg/dL (228-428); Total Protein 7.2 g/dL (6.5-8.0); Unsaturated Iron Binding 225 ug/dL
--- OUTSIDE RECORDS SUMMARY | 2024-08-07 18:32 | XMS_ITS | Encounter Summary ---
Author Organization [facility] Address [address] [place] [address] Care Team Providers Care Automatic Silk Screen Printer Name Role Phone Eliezer Carlson MD Primary Care Provider [phone] Encounter Details Date Type Department Care Team (Latest Contact Info) Description 05/27/2024 Lab Requisition [facility] - Main Lab [address] [place] [phone] Becky Le MD [address] [phone] Encounter for gynecological examination (general) (routine) without [...] intraepithelial lesion or malignancy 06/02/2024 8:27 AM [facility] General Categorization Negative 06/02/2024 8:27 AM [facility] Specimen Adequacy Satisfactory for evaluation, endocervical/celis sformation zone component absent 06/02/2024 8:27 AM [facility] Pap Methodology Liquid Based Pap Test 06/02/2024 8:27 AM [facility] Disclaimer The Pap test is a screening test which carries an inherent false negative rate. These test results should be correlated with the patient's clinical findings and history. This Pap test was processed using an automated screening system. Technical cytopathology services provided by [facility], at [address] [place] [address] (CLIA # [id number]/Genna Bui MD, Research Computing Specialist.) 06/02/2024 8:27 AM [facility] Console Pap Interpretation Reported 06/02/2024 8:27 AM [facility] Brushing/Spatula Cervix uteri structure / Unknown 05/26/2024 05/27/2024 8:24 AM EST us Becky Le MD LAB CYTOLOGY ORDERABLES Final Result [facility] [address] [place] [address], documented in this encounter Visit Diagnoses Diagnosis Encounter for gynecological examination (general) (routine) without abnormal findings documented in this encounter Care Teams Automatic Silk Screen Printer Relationship Specialty Start Date End Date Eliezer Carlson MD [address] [place] [address] PCP - General Internal Medicine 04/27/20 documented as of this encounter
--- OUTSIDE RECORDS SUMMARY | 2024-08-07 18:32 | XMS_ITS | Clinical Summary ---
Author Organization [facility], Address [address] [place] [address] [place] [address] Phone Care Team Providers Care Seed Packer Name Role Phone Lisa Post PA-C Primary Care Provider [phone] Allergies Active Allergy Reactions Criticality Noted Date [...] Refills, Maintenance, 02/22/23 15:54:00 EDT, Bernard, DAJA/pharmacy #[id number], Partial fill upon patient request if the [...] Visit [facility] [address] [place] [address] Octavio Rangel MD Hypertensive disorder (Primary Dx) [...] BUN 10 6 - 20 mg/dL [facility] Creatinine 1.02(H) 0.57 - 1.00 mg/dL [facility] eGFR CKD-EPI CR 2020 72 >59 mL/min/1.7 3 [facility] BUN/Creatinine Ratio 10 9 - 23 [facility] Sodium 140 134 - 144 mmol/L [facility] Potassium 4.2 3.5 - 5.2 mmol/L [facility] Chloride 100 96 - 106 mmol/L [facility] Bicarbonate (CO2) 23 20 - 29 mmol/L [facility] Calcium 9.2 8.7 - 10.2 mg/dL [facility] Glucose 136(H) 70 - 99 mg/dL [facility] Blood (Blood, Venous) 07/01/2024 3:58 PM EST 07/01/2024 us Octavio Rangel MD LAB BLOOD ORDERABLES Final Re sult [facility] [address] [place] [address] from Last 3 Months Insurance [facility] MEDICAID Care Teams Seed Packer Relationship Specialty Start Date End Date Lisa Post PA-C [place] PCP - General Physician Life Guard 09/12/23
--- OUTSIDE RECORDS SUMMARY | 2024-08-07 18:32 | XMS_ITS | Encounter Summary ---
Author Organization [facility] Address [address] [place] [address] Care Team Providers Care Java Application Engineer Name Role Phone Peculiar, [facility] Primary Care Provider + Derrick Sheriff PA-C Unavailable [phone] Encounter Details Date Type Department Care Team (Late st Contact Info) Description 07/17/2024 Refill [facility] - Cardiology [address] [place] [address] Derrick Sheriff PA-C [address] [place] [address] Social History Tobacco Use Types Packs/Day Years [...] lightheadedness documented in this encounter Care Teams Java Application Engineer Relationship Specialty Start Date End Date [facility] [address] [place] [address] PCP - General 03/19/23 Derrick Sheriff PA-C [address] [place] [address] Physician Foam Caster Cardiac Electrophysiology 09/28/23 documented as of this encounter
--- OUTSIDE RECORDS SUMMARY | 2024-08-07 18:32 | XMS_ITS | Clinical Summary ---
Author Organization [address] Address [address] [place] [address] Phone Care Team Providers Care Cloth Shrinking Tester Name Role Phone Eliezer Carlson MD Primary Care Provider [phone] Encounters Date Type Department Care Team Description 05/27/2024 Lab Requisition [facility] - Main Lab [address] [place] [address] Becky Le MD Encounter for gynecological examination (general) (routine) without abnormal findings from Last 3 Months Surgical History Surgery Date Site/Laterality Comments KNEE SURGERY 2018 Right PROCEDURE: HISTORICAL KNEE SURGERY; COMMENT: Arthroscopy OTHER SURGICAL HISTORY PROCEDURE: HISTORY OTHER; COMMENT: septoplasty NOSE SURGERY PROCEDURE: [place] UNLISTED PROCEDURE NOSE; COMMENT: septoplasty and turbinate [...] ovarian syndrome) Polymyalgia (CMS/HCC) 02/07/2018 DX:Polymya lgia ([facility]) Restless legs syndrome 12/07/2017 DX:Restle ss legs syndrome Second degree AV block, Mobitz type I 12/07/2017 DX:Second degree AV block, Mobitz type I Sleep paralysis 12/07/2017 DX:Sleep paralys is Uterine leiomyoma 12/07/2017 DX:Uterine lei omyoma Anxiety 03/28/2018 DX:Anxiety Diabetes mellitus type 2, co ntrolled, with complications (CMS/HCC) DX:Diabetes mellitus type 2, controlled, with complications ([facility]); COMMENT: on insulin Asthma DX:Asthma Family History [...] intraepithelial lesion or malignancy 06/02/2024 8:27 AM [facility] General Categorization Negative 06/02/2024 8:27 AM [facility] Specimen Adequacy Satisfactory for evaluation, endocervical/celis sformation zone component absent 06/02/2024 8:27 AM [facility] Pap Methodology Liquid Based Pap Test 06/02/2024 8:27 AM [facility] Disclaimer The Pap test is a screening test which carries an inherent false negative rate. These test results should be correlated with the patient's clinical findings and history. This Pap test was processed using an automated screening system. Technical cytopathology services provided by [facility], at [address] [place] [address] (CLIA # [id number]/Genna Bui MD, Quality Improvement Consultant.) 06/02/2024 8:27 AM [facility] Console Pap Interpretation Reported 06/02/2024 8:27 AM [facility] Brushing/Spatula Cervix uteri structure / Unknown 05/26/2024 05/27/2024 8:24 AM EST us Becky Le MD LAB CYTOLOGY ORDERABLES Final Result [facility] [address] [place] [address], from Last 3 Months Insurance [employer] [place] ADVANT[place] MEDICAID - [place] [id number] Advance Directives Documents on File Type Date Recorded Patient Sales Support Consultant Expl anation Health Care Decision (hx) 01/29/2021 AD MALDONADO DIRECTIVE Health Care Decision (hx) 01/29/2021 AD MALDONADO DIRECTIVE Health Care Decision (hx) 01/26/2021 AD MALDONADO DIRECTIVE Health Care Decision (hx) 01/26/2021 AD MALDONADO DIRECTIVE Health Care Decision (hx) 01/26/2021 AD MALDONADO DIRECTIVE Care Teams Cloth Shrinking Tester Relationship Specialty Start Date End Date Eliezer Carlson MD [address] [place] [address] PCP - General Internal Medicine 04/27/20
--- OUTSIDE RECORDS SUMMARY | 2024-08-07 18:32 | XMS_ITS | Clinical Summary ---
Author Organization [facility] Address [address] [place] [address] Care Team Providers Care Gas Meter Checker Name Role Phone [facility] Primary Care Provider + Derrick Sheriff PA-C Unavailable [phone] Allergies Active Allergy Reactions Criticality Noted Date [...] each, 12 Refills, Maintenance, 03/29/23 11:07:00 EDT, [facility]/pharmacy #[id number], Partial fill upon patient request if the [...] each, 1 Refills, Maintenance, 02/22/23 15:54:00 EDTBernard, [facility]/pharmacy #[id number], Partial fill upon patient request if the [...] Type Department Care Team Description 07/17/2024 Refill [facility] Heart & [facility] [place] at [address] [phone] Derrick Sheriff PA-C 07/04/2024 12:12 PM EST - 07/04/2024 11:59 PM EST Hospital Encounter [facility] [place] at [address] [phone] Derrick Sheriff PA-C Left without seen Discharge Disposition: Home or Self Care 06/10/2024 Refill [facility] [place] at [address] [phone] Derrick Sheriff PA-C from Last 3 Months [...] age to complete this topic Care Teams Gas Meter Checker Relationship Specialty Start Date End Date [facility] [address] [place] [address] PCP - General 03/19/23 Derrick Sheriff PA-C [address] [place] [address] Physician Firer Diesel Locomotive Cardiac Electrophysiology 09/28/23
[2024-08-07 18:39] LABS: Ferritin 48 ng/mL (10-250); TSH reflex Free T4 0.93 uIU/mL (0.32-4.0)
[2024-08-07 18:48] LABS: Parathyroid Hormone Intact 65.5 pg/mL (8.7-77.1)
[2024-08-07 18:53] LABS: Vitamin B12 1078 pg/mL (200-900)
[2024-08-07 19:27] LABS: Erythrocyte Sedimentation Rate 8 MM/HR (0-20)
[2024-08-08 06:53] LABS: Prolactin 51.3 ng/mL; Triiodothyronine T3 Total 126 ng/dL (76-181)
[2024-08-09 01:28] LABS: CRP High Sensitivity 4.1 mg/L
[2024-08-11 06:34] LABS: Methylmalonic Acid 83 nmol/L (55-335)
[2024-08-12 12:47] LABS: Vitamin D 25-OH, D2 <4 ng/mL; Vitamin D 25-OH, D3 33 ng/mL; Vitamin D 25-OH, Total 33 ng/mL (30-100)
[2024-08-13 18:04] LABS: Vitamin B6 9.9 ng/mL (2.1-21.7)
[2024-08-16 16:08] LABS: Vitamin B1 12 nmol/L (8-30)
== END 2024-08-07 13:55 | disposition home or self-care (01) ==
LOC: HO.HKASLDS 13:54
PROVIDERS: PCP Physician Assistant Medical; Visit Provider Nurse Practitioner Family
DX: D64.9 Anemia, unspecified (principal); R20.2 Paresthesia of skin; E83.39 Other disorders of phosphorus metabolism; R79.89 Other specified abnormal findings of blood chemistry; F41.9 Anxiety disorder, unspecified; E11.9 Type 2 diabetes mellitus without complications; R41.89 Other symptoms and signs involving cognitive functions and awareness; R74.8 Abnormal levels of other serum enzymes
CPT/HCPCS: 36415; 80053; 82306; 82550; 82607; 82728; 82746; 83540; 83921; 83970; 84100; 84146; 84207; 84425; 84443; 84480; 85025; 85652; 86141; 99212

== ENCOUNTER 2024-08-07 15:45 | Outpatient (REF) | payer OTHER, SELFPAY ==
[2024-08-07 18:08] LABS: Folate 14.8 ng/mL (> or = 4.0)
--- OUTSIDE RECORDS SUMMARY | 2024-08-07 19:09 | XMS_ITS | Encounter Summary ---
Author Organization [facility] Address [address] [place] [address] Care Team Providers Care Footwear Factory Worker Name Role Phone Easton Connor MD Primary Care Provider [phone] Lisa Post Primary Care Provider UnavailEliezer Franklin MD Primary Care Provider Unavaila amalia Encounter Details Date Type Department Care Team Description 02/10/2019 Tin Worker Report Medical Records [address] [place] [address] Yun Lara, PA-C [address] [place] [address] Social History Tobacco Use Types Packs/Day Years [...] on filedocumented in this encounter Care Teams Footwear Factory Worker Relationship Specialty Start Date End Date Easton Connor MD PCP - General Internal Medicine 07/09/18 04/07/20 Lisa Post PCP - General Internal Medicine 04/08/20 04/26/20 Eliezer Carlson MD PCP - General Internal Medicine 04/27/20 documented as of this encounter
--- OUTSIDE RECORDS SUMMARY | 2024-08-07 19:09 | XMS_ITS | Encounter Summary ---
Author Organization [facility] Address [address] [place] [address] Care Team Providers Care Chief Recordist Name Role Phone Easton Connor MD Primary Care Provider [phone] Lisa Post Primary Care Provider Unavailabl Eliezer Pitts MD Primary Care Provider Unavaila ble Encounter Details Date Type Department Care Team Description 01/13/2019 Telephone Adult Med - [place] 98 [address] [place] [address] Easton Connor MD [address] [place], [place] [id number] Social History Tobacco Use Types Packs/Day Years [...] on filedocumented in this encounter Care Teams Chief Recordist Relationship Specialty Start Date End Date Easton Connor MD PCP - General Internal Medicine 07/09/18 04/07/20 Lisa Post PCP - General Internal Medicine 04/08/20 04/26/20 Eliezer Carlson MD PCP - General Internal Medicine 04/27/20 documented as of this encounter
--- OUTSIDE RECORDS SUMMARY | 2024-08-07 19:09 | XMS_ITS | Encounter Summary ---
Author Organization [facility] Address [address] [place] [address] Care Team Providers Care Hvac/R Instructor Name Role Phone Easton Connor MD Primary Care Provider Lisa Post Primary Care Provider Unavailabl e Eliezer Carlson MD Primary Care Provider Unavaila ble Encounter Details Date Type Department Care Team Description 01/31/2019 Arcade Technician Report Medical Records [address] [place] [address] Andrei Hall MD Social History Tobacco Use [...] on filedocumented in this encounter Care Teams Hvac/R Instructor Relationship Specialty Start Date End Date Easton Connor MD PCP - General Internal Medicine 07/09/18 04/07/20 Lisa Post PCP - General Internal Medicine 04/08/20 04/26/20 Eliezer Carlson MD PCP - General Internal Medicine 04/27/20 documented as of this encounter
--- OUTSIDE RECORDS SUMMARY | 2024-08-07 19:09 | XMS_ITS | Encounter Summary ---
Author Organization [facility] Address [address] [place] [address] Care Team Providers Care Travel Services Professional Name Role Phone Easton Connor MD Primary Care Provider [phone] Lisa Post Primary Care Provider Unavailabl e Eliezer Carlson MD Primary Care Provider Unavaila ble Encounter Details Date Type Department Care Team Description 06/23/2019 Library Clerk Talking Books Report Medical Records [address] [place] [address] Yuki Aponte PA-C Social History Tobacco Use Types Packs/Day Years [...] on filedocumented in this encounter Care Teams Travel Services Professional Relationship Specialty Start Date End Date Easton Connor MD PCP - General Internal Medicine 07/09/18 04/07/20 Lisa Post PCP - General Internal Medicine 04/08/20 04/26/20 Eliezer Carlson MD PCP - General Internal Medicine 04/27/20 documented as of this encounter
--- OUTSIDE RECORDS SUMMARY | 2024-08-07 19:09 | XMS_ITS | Clinical Summary ---
Author Organization [facility], Address [address] [place] [address] [place] [address] Phone Care Team Providers Care Brooch Maker Novelty Name Role Phone Lisa Post PA-C Primary Care Provider [phone] Allergies Active Allergy Reactions Criticality Noted Date [...] Refills, Maintenance, 02/22/23 15:54:00 EDT, [place], [facility]/pharmacy #[id number], Partial fill upon patient request if the [...] Visit [facility] [address] [place] [address] Octavio Rangel MD Hypertensive disorder (Primary Dx) [...] BUN 10 6 - 20 mg/dL [facility] Creatinine 1.02(H) 0.57 - 1.00 mg/dL [facility] eGFR CKD-EPI CR 2020 72 >59 mL/min/1.7 3 [facility] BUN/Creatinine Ratio 10 9 - 23 [facility] Sodium 140 134 - 144 mmol/L [facility] Potassium 4.2 3.5 - 5.2 mmol/L [facility] Chloride 100 96 - 106 mmol/L [facility] Bicarbonate (CO2) 23 20 - 29 mmol/L [facility] Calcium 9.2 8.7 - 10.2 mg/dL [facility] Glucose 136(H) 70 - 99 mg/dL [facility] Blood (Blood, Venous) 07/01/2024 3:58 PM EST 07/01/2024 us Octavio Rangel MD LAB BLOOD ORDERABLES Final Re sult [facility] [address] [place] [address] from Last 3 Months Insurance [facility] MEDICA[employer] Care Teams Brooch Maker Novelty Relationship Specialty Start Date End Date Lisa Post PA-C [place] PCP - General Physician Nascar Pit Crew Person 09/12/23
--- OUTSIDE RECORDS SUMMARY | 2024-08-07 19:09 | XMS_ITS | Clinical Summary ---
Author Organization [facility] Address [address] [place] [address] Care Team Providers Care Kit Planner Name Role Phone Eliezer Carlson MD Primary [...] Vaccine-preservati ve Free-quadrivalent 4 Years 03/03/2020 MMR (Owpdqfm-Lhwro-Uncvdsl) 03/01/1995, 6 Meningococcal (Menactra) 03/27/2006 PPD-RBMG 02/24/1993,06/18/1986,05/29/1985 [...] , 07/18/2021, Additional history exists Care Teams Kit Planner Relationship Specialty Start Date End Date Eliezer Carlson MD PCP - General Internal Medicine 04/27/20
--- OUTSIDE RECORDS SUMMARY | 2024-08-07 19:09 | XMS_ITS | Encounter Summary ---
Author Organization [facility] Address [address] [place] [address] Care Team Providers Care Auto Rental Clerk Name Role Phone [place], [facility] Primary Care Provider + Derrick Sheriff PA-C Unavailable [phone] Encounter Details Date Type Department Care Team (Late st Contact Info) Description 07/17/2024 Refill [facility] Heart & Vascular [place] at [facility] - Cardiology [address] [place] [address] Derrick Sheriff PA-C [address] [place] [address] Social History Tobacco Use Types Packs/Day Years [...] lightheadedness documented in this encounter Care Teams Auto Rental Clerk Relationship Specialty Start Date End Date [facility] [address] [place] [address] PCP - General 03/19/23 Derrick Sheriff PA-C [address] [place] [address] Physician Peoplesoft Cardiac Electrophysiology 09/28/23 documented as of this encounter
--- OUTSIDE RECORDS SUMMARY | 2024-08-07 19:09 | XMS_ITS | Encounter Summary ---
Author Organization [facility] Address [address] [place] [address] Care Team Providers Care Stoneworking Belt Sander Name Role Phone Easton Connor MD Primary Care Provider [phone] Lisa Post Primary Care Provider UnavailEliezer Franklin MD Primary Care Provider Unavaila amalia Encounter Details Date Type Department Care Team Description 01/13/2019 Refill Adult Med - [place] 98 [address] [place] [address] Easton Connor MD [address] [place], [place] [id number] Social History Tobacco Use Types Packs/Day Years [...] encounter Miscellaneous Notes * Telephone Encounter - Destinee Mayo - 01/13/2019 1:00 PM EDT Entered in error documented in this encounter Plan of Treatment Not on file documented as of this encounter Visit Diagnoses Not on filedocumented in this encounter Care Teams Stoneworking Belt Sander Relationship Specialty Start Date End Date Easton Connor MD PCP - General Internal Medicine 07/09/18 04/07/20 Lisa Post PCP - General Internal Medicine 04/08/20 04/26/20 Eliezer Carlson MD PCP - General Internal Medicine 04/27/20 documented as of this encounter
--- OUTSIDE RECORDS SUMMARY | 2024-08-07 19:09 | XMS_ITS | Encounter Summary ---
Author Organization [facility] Address [address] [place] [address] Care Team Providers Care Sewing Machine Attachment Tester Name Role Phone Easton Connor MD Primary Care Provider [phone] Lisa Post Primary Care Provider UnavailEliezer Franklin MD Primary Care Provider Unavaila ble Encounter Details Date Type Department Care Team Description 03/10/2019 [facility] Medical Records [address] [place] [address] Abstract, Provider Social History Tobacco Use Types [...] on filedocumented in this encounter Care Teams Sewing Machine Attachment Tester Relationship Specialty Start Date End Date Easton Connor MD PCP - General Internal Medicine 07/09/18 04/07/20 Lisa Post PCP - General Internal Medicine 04/08/20 04/26/20 Eliezer Carlson MD PCP - General Internal Medicine 04/27/20 documented as of this encounter
--- OUTSIDE RECORDS SUMMARY | 2024-08-07 19:10 | XMS_ITS | Encounter Summary ---
Author Organization [facility] Address [address] [place] [address] Care Team Providers Care Slice Cutting Machine Operator Name Role Phone Easton Cnonor MD Primary Care Provider [phone] Lisa Post Primary Care Provider Unavailabl Eliezer Pitts MD Primary Care Provider Unavaila ble Reason for Visit * Reason Comments E-prescribe Rx Request Encounter Details Date Type Department Care Team Description 07/23/2019 Refill Adult Med - [place] 98 [address] [place] [address] Nallely Estevez PA-C E-prescribe Rx Request Social [...] Payor: ARAVIND / Plan: POS $20 WANDA [id number] / Product Type: POS [id number] documented in this encounter Plan of Treatment Not on file documented as of this encounter Visit Diagnoses Not on filedocumented in this encounter Care Teams Slice Cutting Machine Operator Relationship Specialty Start Date End Date Easton Connor MD PCP - General Internal Medicine 07/09/18 04/07/20 Lisa Post PCP - General Internal Medicine 04/08/20 04/26/20 Eliezer Carlson MD PCP - General Internal Medicine 04/27/20 documented as of this encounter
--- OUTSIDE RECORDS SUMMARY | 2024-08-07 19:10 | XMS_ITS | Clinical Summary ---
Author Organization [address] Address [address] [place] [address] Phone Care Team Providers Care Coal Deliverer Name Role Phone Eliezer Carlson MD Primary Care Provider [phone] Encounters Date Type Department Care Team Description 05/27/[address] [facility] - Main Lab [address] [place] [address] Becky Le MD Encounter for gynecological examination (general) (routine) without abnormal findings from Last 3 Months Surgical History Surgery Date Site/Laterality Comments KNEE SURGERY 2018 Right PROCEDURE: HISTORICAL KNEE SURGERY; COMMENT: Arthroscopy OTHER SURGICAL HISTORY PROCEDURE: HISTORY OTHER; COMMENT: septoplasty NOSE SURGERY PROCEDURE: [place] UNLISTED PROCEDURE NOSE; COMMENT: septoplasty and turbinate [...] DX:Migraine SEVERO (obstructive sleep apnea) 12/07/2017 DX :SEVEOR (obstructive sleep apnea) PCOS (polycystic ovarian syndrome) 12/07/2017 DX:PCOS (polycystic ovarian syndrome) Polymyalgia (CMS/HCC) 02/07/2018 DX:Polymya lgia ([facility]) Restless legs syndrome 12/07/2017 DX:Restle ss legs syndrome Second degree AV block, Mobitz type I 12/07/2017 DX:Second degree AV block, Mobitz type I Sleep paralysis 12/07/2017 DX:Sleep paralys is Uterine leiomyoma 12/07/2017 DX:Uterine lei omyoma Anxiety 03/28/2018 DX:Anxiety Diabetes mellitus type 2, co ntrolled, with complications (CMS/HCC) DX:Diabetes mellitus type 2, controlled, with complications ([facility]); COMMENT: on insulin Asthma [...] screening system. Technical cytopathology services provided by [facility], at [address] [place] [address] (CLIA # [id number]/Genna Bui MD, Bark Grinder.) 06/02/2024 8:27 AM [facility] Console Pap Interpretation Reported 06/02/2024 8:27 AM [facility] Brushing/Spatula Cervix uteri structure / Unknown 05/26/2024 05/27/2024 8:24 AM EST us Becky Le MD LAB CYTOLOGY ORDERABLES Final Result [facility] [address] [place] [address], from Last 3 Months Insurance [employer] [place] [employer] ADVANTAGE MEDICAID - [place] [id number] Advance Directives Documents on File Type Date Recorded Patient Water Registrar Expl anation Health Care Decision (hx) 01/29/2021 AD MALDONADO DIRECTIVE Health Care Decision (hx) 01/29/2021 AD MALDONADO DIRECTIVE Health Care Decision (hx) 01/26/2021 AD MALDONADO DIRECTIVE Health Care Decision (hx) 01/26/2021 AD MALDONADO DIRECTIVE Health Care Decision (hx) 01/26/2021 AD MALDONADO DIRECTIVE Care Teams Coal Deliverer Relationship Specialty Start Date End Date Eliezer Carlson MD [address] [place] [address] PCP - General Internal Medicine 04/27/20
--- OUTSIDE RECORDS SUMMARY | 2024-08-07 19:10 | XMS_ITS | Encounter Summary ---
Author Organization [facility] Address [address] [place] [address] Care Team Providers Care Ssis Etl Developer Name Role Phone Easton Connor MD Primary Care Provider [phone] Lisa Post Primary Care Provider Eliezer Patel MD Primary Care Provider Yasir holland Encounter Details Date Type Department Care Team Description 02/13/2020 Pt. Non Urgent Medical Question Internal Medicine - [address], [address] [place] [address] Easton Connor MD [address] [place] [address] Social History Tobacco Use Types Packs/Day Years [...] as of this encounter Progress Notes * Anel Nevarez M.A. - 02/13/2020 2:48 PM EDTFrom: Sonya Bronson To: Easton Connor MD Sent: 02/13/2020 2:30 PM EDT Subject: insurance change Chana Connor, I just wanted to let you know that my insurance changed and I'll have to find a new PCP. I've only been your patient for a short time but I've appreciated all your help. All the best, Sonya documented in this encounter Plan of Treatment Not on file documented as of this encounter Visit Diagnoses Not on filedocumented in this encounter Care Teams Ssis Etl Developer Relationship Specialty Start Date End Date Easton Connor MD PCP - General Internal Medicine 07/09/18 04/07/20 Lisa Post PCP - General Internal Medicine 04/08/20 04/26/20 Eliezer Carlson MD PCP - General Internal Medicine 04/27/20 documented as of this encounter
--- OUTSIDE RECORDS SUMMARY | 2024-08-07 19:10 | XMS_ITS | Encounter Summary ---
Author Organization [facility] Address [address] [place] [address] Care Team Providers Care Histotechnologist Supervisor Name Role Phone Easton Connor MD Primary Care Provider [phone] Lisa Post Primary Care Provider UnavailEliezer Franklin MD Primary Care Provider Unavaila amalia Encounter Details Date Type Department Care Team Description 02/20/2020 News Technical Director Report Medical Records [address] [place] [address] Yun Lara, PA-C [address] [place] [address] Social History Tobacco Use Types Packs/Day Years [...] on filedocumented in this encounter Care Teams Histotechnologist Supervisor Relationship Specialty Start Date End Date Easton Connor MD PCP - General Internal Medicine 07/09/18 04/07/20 Lisa Post PCP - General Internal Medicine 04/08/20 04/26/20 Eliezer Carlson MD PCP - General Internal Medicine 04/27/20 documented as of this encounter
--- OUTSIDE RECORDS SUMMARY | 2024-08-07 19:10 | XMS_ITS | Encounter Summary ---
Author Organization [facility] Address [address] [place] [address] Care Team Providers Care Stone Setter Apprentice Name Role Phone Easton Connor MD Primary Care Provider Lisa Post Primary Care Provider Unavailabl e Eliezer Carlson MD Primary Care Provider Unavaila ble Encounter Details Date Type Department Care Team Description 10/09/2018 Galvanizer Zinc Report Medical Records [address] [place] [address] Andrei Hall MD Social History Tobacco Use [...] on filedocumented in this encounter Care Teams Stone Setter Apprentice Relationship Specialty Start Date End Date Easton Connor MD PCP - General Internal Medicine 07/09/18 04/07/20 Lisa Post PCP - General Internal Medicine 04/08/20 04/26/20 Eliezer Carlson MD PCP - General Internal Medicine 04/27/20 documented as of this encounter
--- OUTSIDE RECORDS SUMMARY | 2024-08-07 19:10 | XMS_ITS | Encounter Summary ---
Author Organization [facility] Address [address] [place] [address] Care Team Providers Care Ambulance Operations Supervisor Name Role Phone Nallely Estevez PA-C Primary Care Provider Easton Hernandez MD Primary Care Provider [phone] Lisa Post Primary Care Provider UnavailEliezer Franklin MD Primary Care Provider Unavaila ble Reason for Visit * Reason Onset Date Comments Faxed Refill 06/19/2018 Encounter Details Date Type Department Care Team Description 06/19/2018 Refill Adult [facility] [place] [address] [place] [address] Nallely Estevez PA-C Faxed Refill Social History [...] an upcoming appointment? No-unable to [facility] due to refill [...] Payor: ARAVIND / Plan: POS $20 [id number] [id number] / Product Type: POS [id number] documented in this encounter Plan of Treatment Not on file documented as of this encounter Visit Diagnoses Not on filedocumented in this encounter Care Teams Ambulance Operations Supervisor Relationship Specialty Start Date End Date Nallely Estevez PA-C PCP - General Internal Medicine 06/19/18 07/08/18 Easton Connor MD PCP - General Internal Medicine 07/09/18 04/07/20 Lisa Post PCP - General Internal Medicine 04/08/20 04/26/20 Eliezer Carlson MD PCP - General Internal Medicine 04/27/20 documented as of this encounter
--- OUTSIDE RECORDS SUMMARY | 2024-08-07 19:10 | XMS_ITS | Encounter Summary ---
Author Organization [facility] Address [address] [place] [address] Care Team Providers Care Fishing Rod Mechanic Name Role Phone Easton Connor MD Primary Care Provider [phone] Lisa Post Primary Care Provider Unavailabl e Eliezer Carlson MD Primary Care Provider Unavaila amalia Encounter Details Date Type Department Care Team Description 11/26/2018 [facility] Medical Records [address] [place] [address] Andrei Hall MD Social History Tobacco Use [...] on filedocumented in this encounter Care Teams Fishing Rod Mechanic Relationship Specialty Start Date End Date Easton Connor MD PCP - General Internal Medicine 07/09/18 04/07/20 Lisa Post PCP - General Internal Medicine 04/08/20 04/26/20 Eliezer Carlson MD PCP - General Internal Medicine 04/27/20 documented as of this encounter
--- OUTSIDE RECORDS SUMMARY | 2024-08-07 19:10 | XMS_ITS | Clinical Summary ---
Author Organization [facility] Address [address] [place] [address] Care Team Providers Care Mammography Technician Name Role Phone [facility] Primary Care Provider + Derrick Sheriff PA-C Unavailable [phone] Allergies Active Allergy Reactions Criticality Noted Date [...] each, 12 Refills, Maintenance, 03/29/23 11:07:00 EDT, [facility]/pharmacy #[id number], Partial fill upon patient request if the [...] each, 1 Refills, Maintenance, 02/22/23 15:54:00 EDTBernard, [facility]/pharmacy #[id number], Partial fill upon patient request if the [...] Type Department Care Team Description 07/17/2024 Refill [facility] Heart & Vascular [place] at [address] [phone] Derrick Sheriff PA-C 07/04/2024 12:12 PM EST - 07/04/2024 11:59 PM EST Hospital Encounter [facility] Heart & Vascular [place] at [address] [phone] Derrick Sheriff PA-C Left without seen Discharge Disposition: Home or Self Care 06/10/2024 Refill [facility] Heart & Vascular [place] at [address] [phone] Derrick Sheriff PA-C from Last 3 Months [...] age to complete this topic Care Teams Mammography Technician Relationship Specialty Start Date End Date [facility] [address] [place] [address] PCP - General 03/19/23 Derrick Sheriff PA-C [address] [place] [address] Physician Blood Bank Technologist Cardiac Electrophysiology 09/28/23
--- OUTSIDE RECORDS SUMMARY | 2024-08-07 19:10 | XMS_ITS | Encounter Summary ---
Author Organization [facility] Address [address] [place] [address] Care Team Providers Care Vmware Architect Name Role Phone Easton Connor MD Primary Care Provider [phone] Lisa Post Primary Care Provider Unavailabl Eliezer Pitts MD Primary Care Provider Unavaila ble Encounter Details Date Type Department Care Team Description 10/01/2019 Orders Only Internal Medicine - [address], [address] [place] [address] Easton Connor MD [address] [place], [place] [id number] Social History Tobacco Use Types Packs/Day Years [...] on filedocumented in this encounter Care Teams Vmware Architect Relationship Specialty Start Date End Date Easton Connor MD PCP - General Internal Medicine 07/09/18 04/07/20 Lisa Post PCP - General Internal Medicine 04/08/20 04/26/20 Eliezer Carlson MD PCP - General Internal Medicine 04/27/20 documented as of this encounter
--- OUTSIDE RECORDS SUMMARY | 2024-08-07 19:10 | XMS_ITS | Encounter Summary ---
Author Organization [facility] Address [address] [place] [address] Care Team Providers Care Finance Assistant Name Role Phone Easton Connor MD Primary Care Provider [phone] Lisa Post Primary Care Provider Unavailbrayan e Eliezer Carlson MD Primary Care Provider Unavaila ble Encounter Details Date Type Department Care Team Description 08/29/2018 [facility] Medical Records [address] [place] [address] Abstract, Provider Social History Tobacco Use Types [...] on filedocumented in this encounter Care Teams Finance Assistant Relationship Specialty Start Date End Date Easton Connor MD PCP - General Internal Medicine 07/09/18 04/07/20 Lisa Post PCP - General Internal Medicine 04/08/20 04/26/20 Eliezer Carlson MD PCP - General Internal Medicine 04/27/20 documented as of this encounter
--- OUTSIDE RECORDS SUMMARY | 2024-08-07 19:10 | XMS_ITS | Encounter Summary ---
Author Organization [facility] Address [address] [place] [address] Care Team Providers Care Cover Marker Name Role Phone Eliezer Carlson MD Primary Care Provider Unavaila ble Encounter Details Date Type Department Care Team Description 11/01/2021 Orders Only [facility] [address] [phone] Leta Henley MD [address] [address] Social History Tobacco Use Types Packs/Day Years [...] on filedocumented in this encounter Care Teams Cover Marker Relationship Specialty Start Date End Date Eliezer Carlson MD PCP - General Internal Medicine 04/27/20 documented as of this encounter
--- OUTSIDE RECORDS SUMMARY | 2024-08-07 19:10 | XMS_ITS | Encounter Summary ---
Author Organization [facility] Address [address] [place] [address] Care Team Providers Care Marketing Underwriter Name Role Phone Easton Connor MD Primary Care Provider [phone] Lisa Post Primary Care Provider Eliezer Patel MD Primary Care Provider Unavaila ble Encounter Details Date Type Department Care Team Description 03/04/2020 Pt. Non Urgent Medical Question Adult Urgent Care - [address] [address] Trung Chu MD Social History Tobacco Use [...] filedocumented in this encounter Care Teams Marketing Underwriter Relationship Specialty Start Date End Date Easton Connor MD PCP - General Internal Medicine 07/09/18 04/07/20 Lisa Post PCP - General Internal Medicine 04/08/20 04/26/20 Eliezer Carlson MD PCP - General Internal Medicine 04/27/20 documented as of this encounter
--- OUTSIDE RECORDS SUMMARY | 2024-08-07 19:10 | XMS_ITS | Encounter Summary ---
Author Organization [facility] Address [address] [place] [address] Care Team Providers Care Concrete Bucket Hooker Name Role Phone Eliezer Carlson MD Primary Care Provider Unavaila ble Reason for Visit * Reason Comments E-prescribe Rx Request Encounter Details Date Type Department Care Team Description 07/31/2020 Refill Internal Medicine - [address], [address] [place] [address] Easton Connor MD [address] [place] [address] E-prescribe Rx Request Social History Tobacco Use [...] on filedocumented in this encounter Care Teams Concrete Bucket Hooker Relationship Specialty Start Date End Date Eliezer Carlson MD PCP - General Internal Medicine 04/27/20 documented as of this encounter
--- OUTSIDE RECORDS SUMMARY | 2024-08-07 19:10 | XMS_ITS | Encounter Summary ---
Author Organization [facility] Address [address] [place] [address] Care Team Providers Care Pool Servicer Name Role Phone Garland Guerra MD Primary Care Provider Nallely Vasquez PA-C Primary Care Provider Unava ilable Easton Connor MD Primary Care Provider [phone] Lisa Post Primary Care Provider UnavailEliezer Franklin MD Primary Care Provider Unavaila ble Encounter Details Date Type Department Care Team Description 05/16/2018 Transfer Records Medical Records [address] [place] [address] Abstract, Provider Social History Tobacco Use Types [...] on filedocumented in this encounter Care Teams Pool Servicer Relationship Specialty Start Date End Date Garland [...]
--- OUTSIDE RECORDS SUMMARY | 2024-08-07 19:10 | XMS_ITS | Encounter Summary ---
Author Organization [facility] Address [address] [place] [address] Care Team Providers Care Junior Accountant Name Role Phone Eliezer Carlson MD Primary Care Provider Unavaila ble Encounter Details Date Type Department Care Team Description 07/26/2020 Orders Only Adult Medicine B - [address] [address] Trung Chu MD Social History Tobacco Use [...] on filedocumented in this encounter Care Teams Junior Accountant Relationship Specialty Start Date End Date Eliezer Carlson MD PCP - General Internal Medicine 04/27/20 documented as of this encounter
--- OUTSIDE RECORDS SUMMARY | 2024-08-07 19:10 | XMS_ITS | Encounter Summary ---
Author Organization [facility] Address [address] [place] [address] Care Team Providers Care Drawbench Operator Name Role Phone Garland Guerra MD Primary Care Provider Nallely Vasquez PA-C Primary Care Provider Unava ilable Easton Connor MD Primary Care Provider Lisa Post Primary Care Provider UnavailEliezer Franklin MD Primary Care Provider Unavaila ble Encounter Details Date Type Department Care Team Description 05/14/2018 Release of Information Medical Records [address] [place] [address] Abstract, Provider Social History Tobacco Use Types [...] on filedocumented in this encounter Care Teams Drawbench Operator Relationship Specialty Start Date End Date Garland [...]
--- OUTSIDE RECORDS SUMMARY | 2024-08-07 19:10 | XMS_ITS | Encounter Summary ---
Author Organization [facility] Address [address] [place] [address] Care Team Providers Care Flexible Nanny Name Role Phone Easton Connor MD Primary Care Provider [phone] Lisa Post Primary Care Provider UnavailEliezer Franklin MD Primary Care Provider Unavaila ble Reason for Visit * Reason Onset Date Comments Red Eye 09/05/2019 Encounter Details Date Type Department Care Team Description 09/05/2019 Telephone Adult Med - [place] [address] [place], [place] [phone] Easton Connor MD [address] [place], [place] [phone] Red Eye Social History Tobacco Use Types Packs/Day Years [...] encounter Miscellaneous Notes * Telephone Encounter - Kelsae Morales - 09/09/2019 2:58 PM EDT Spoke to patient who declined to schedule an appointment to see Dr Connor due to her red eye. Patient stated an appt is unnecessary because her eye is better now. * Telephone Encounter - Easton Connor MD - 09/05/2019 10:57 AM EDT possibly benign. I can see her today If needed * Telephone Encounter - Kaden Delvalle - 09/05/2019 10:29 AM EDT Patient states she was vomiting on Sunday and the next morning she states it looks like she poppeda vessel in her eye. Please advise documented in this encounter Plan of Treatment Not on file documented as of this encounter Visit Diagnoses Not on filedocumented in this encounter Care Teams Flexible Nanny Relationship Specialty Start Date End Date Easton Connor MD PCP - General Internal Medicine 07/09/18 04/07/20 Lisa Post PCP - General Internal Medicine 04/08/20 04/26/20 Eliezer Carlson MD PCP - General Internal Medicine 04/27/20 documented as of this encounter
--- OUTSIDE RECORDS SUMMARY | 2024-08-07 19:10 | XMS_ITS | Encounter Summary ---
Author Organization [facility] Address [address] [place] [address] Care Team Providers Care Power And Recovery Superintendent Name Role Phone Easton Connor MD Primary Care Provider [phone] Lisa Post Primary Care Provider UnavailEliezer Franklin MD Primary Care Provider Unavaila ble Reason for Visit * Reason Onset Date Comments Faxed Order 12/26/2019 Encounter Details Date Type Department Care Team Description 12/26/2019 Refill Adult Med - [place] [address] [place] [address] Easton Connor MD [address] [place], [place] [phone] Faxed Order Social History Tobacco Use Types [...] on filedocumented in this encounter Care Teams Power And Recovery Superintendent Relationship Specialty Start Date End Date Easton Connor MD PCP - General Internal Medicine 07/09/18 04/07/20 Lisa Post PCP - General Internal Medicine 04/08/20 04/26/20 Eliezer Carlson MD PCP - General Internal Medicine 04/27/20 documented as of this encounter
--- OUTSIDE RECORDS SUMMARY | 2024-08-07 19:10 | XMS_ITS | Encounter Summary ---
Author Organization [facility] Address [address] [place] [address] Care Team Providers Care Studio Operations Manager Name Role Phone Eliezer Carlson MD Primary Care Provider Unavaila ble Encounter Details Date Type Department Care Team Description 06/11/2020 [facility] Medical Records [address] [place] [address] Abstract, Provider Social History Tobacco Use Types [...] on filedocumented in this encounter Care Teams Studio Operations Manager Relationship Specialty Start Date End Date Eliezer Carlson MD PCP - General Internal Medicine 04/27/20 documented as of this encounter
--- OUTSIDE RECORDS SUMMARY | 2024-08-07 19:10 | XMS_ITS | Encounter Summary ---
Author Organization [facility] Address [address] [place] [address] Care Team Providers Care Motor Adjuster Name Role Phone Easton Connor MD Primary Care Provider [phone] Lisa Post Primary Care Provider Unavailabl Eliezer Pitts MD Primary Care Provider Unavaila ble Reason for Visit * Reason Comments E-prescribe Rx Request Encounter Details Date Type Department Care Team Description 01/29/2020 Refill Internal Medicine - [address], [address] [place] [address] Easton Connor MD [address] [place] [address] E-prescribe Rx Request Social History Tobacco Use [...] encounter Miscellaneous Notes * Telephone Encounter - Anel Nevarez M.A. - 01/30/2020 10:01 AM EDT No results found for: URBENZO, UROPIATES, URBARBITUATE, PAINAMPHETAM, PAINCOCAINE, PAINCANNABIN Lab Results Component Value Date NA 140 08/01/2019 K 3.8 08/01/2019 CO2 25 08/01/2019 CL 106 08/01/2019 BUN 10 08/01/2019 CREAT 0.70 08/01/2019 GLU 113 08/01/2019 ALB 3.6 01/13/2019 SGOT 13 01/13/2019 SGPT 15 01/13/2019 TBILI 0.4 01/13/2019 ALKPHOS 56 01/13/2019 TP 6.5 01/13/2019 CA 9.0 08/01/2019 GFR > 60 08/01/2019 * Telephone Encounter - Laurel Hinkle - 01/30/2020 8:53 AM EDT GENARO 12.10.19 NOV 02.10.20 90 day supply documented in this encounter Plan of Treatment Not on file documented as of this encounter Visit Diagnoses Not on filedocumented in this encounter Care Teams Motor Adjuster Relationship Specialty Start Date End Date Easton Connor MD PCP - General Internal Medicine 07/09/18 04/07/20 Lisa Post PCP - General Internal Medicine 04/08/20 04/26/20 Eliezer Carlson MD PCP - General Internal Medicine 04/27/20 documented as of this encounter
--- OUTSIDE RECORDS SUMMARY | 2024-08-07 19:10 | XMS_ITS | Encounter Summary ---
Author Organization [facility] Address [address] [place] [address] Care Team Providers Care Marriage Counselor Minister Name Role Phone Easton Connor MD Primary Care Provider [phone] Lisa Post Primary Care Provider UnavailEliezer Franklin MD Primary Care Provider Unavaila amalia Encounter Details Date Type Department Care Team Description 03/04/2020 Telephone Adult Medicine [address] [address] Trung Chu MD Social History Tobacco Use [...] on filedocumented in this encounter Care Teams Marriage Counselor Minister Relationship Specialty Start Date End Date Easton Connor MD PCP - General Internal Medicine 07/09/18 04/07/20 Lisa Post PCP - General Internal Medicine 04/08/20 04/26/20 Eliezer Carlson MD PCP - General Internal Medicine 04/27/20 documented as of this encounter
--- OUTSIDE RECORDS SUMMARY | 2024-08-07 19:10 | XMS_ITS | Encounter Summary ---
Author Organization [facility] Address [address] [place] [address] Care Team Providers Care Credit Professional Name Role Phone Eliezer Carlson MD Primary Care Provider [phone] Encounter Details Date Type Department Care Team (Latest Contact Info) Description 05/27/2024 Lab Requisition [facility] - Main Lab [address] [place] [phone] Becky Le MD [address] [phone] Encounter for gynecological examination (general) (routine) without [...] intraepithelial lesion or malignancy 06/02/2024 8:[address] [facility] General Categorization Negative 06/02/2024 8:[address] [facility] Specimen Adequacy Satisfactory for evaluation, endocervical/celis sformation zone component absent 06/02/2024 8:[address] [facility] Pap Methodology Liquid Based Pap Test 06/02/2024 8:[address] [facility] Disclaimer The Pap test is a screening test which carries an inherent false negative rate. These test results should be correlated with the patient's clinical findings and history. This Pap test was processed using an automated screening system. Technical cytopathology services provided by [facility], at [address] [place] [address] (CLIA # [id number]/Genna Bui MD, Machine Quilt Stuffer.) 06/02/2024 8:[address] [facility] Console Pap Interpretation Reported 06/02/2024 8:[address] [facility] Brushing/Spatula Cervix uteri structure / Unknown 05/26/2024 05/27/2024 8:24 AM EST us Becky Le MD LAB CYTOLOGY ORDERABLES Final Result [facility] [address] [place] [address], documented in this encounter Visit Diagnoses Diagnosis Encounter for gynecological examination (general) (routine) without abnormal findings documented in this encounter Care Teams Credit Professional Relationship Specialty Start Date End Date Eliezer Carlson MD [address] [place] [address] PCP - General Internal Medicine 04/27/20 documented as of this encounter
--- OUTSIDE RECORDS SUMMARY | 2024-08-07 19:10 | XMS_ITS | Encounter Summary ---
Author Organization [facility] Address [address] [place] [address] Care Team Providers Care Medical Affairs Manager Name Role Phone Easton Connor MD Primary Care Provider [phone] Lisa Post Primary Care Provider Unavailabl Eliezer Pitts MD Primary Care Provider Unavaila ble Reason for Visit * Reason Onset Date Comments refill request 01/06/2019 Encounter Details Date Type Department Care Team Description 01/06/2019 Refill Adult Med - [place] [address] [place], [place] [phone] Easton Connor MD [address] [place], [place] [phone] refill request Social History Tobacco Use Types Packs/Day Years [...] encounter Miscellaneous Notes * Telephone Encounter - Haily Schwartz PA-C - 01/07/2019 3:31 PM EDT Please confirm these all need to be refilled as looks like had quite of few filled recently that should have available refills. Thanks * Telephone Encounter - Amparo Harley 01/07/2019 3:18 PM EDT GENARO:09/19/2018 NOV:01/10/2019 Orders Only on 08/08/2018 Component Date Value Ref Range Status ??? WHITE BLOOD COUNT 08/08/2018 7.5 4.8 - 10.8 x10-3/uL Final ??? RED BLOOD COUNT 08/08/2018 4.1 3.8 - 4.8 x10-6/uL Final ??? Hemoglobin 08/08/2018 12.2 11.5 - 16.0 g/dL Final ??? Hematocrit 08/08/2018 37.2 35 - 47 % Final ??? MEAN CORPUSCULAR VOLUME 08/08/2018 91.0 79 - 98 fL Final ??? MEAN CORPUSCULAR HEMOGLOBIN 08/08/2018 29.8 27 - 32 pg Final ??? MEAN CORPUSCULAR HGB CONC 08/08/2018 32.8 32 - 37 g/dL Final ??? RED CELL DISTRIBUTION WIDTH 08/08/2018 13.3 11 - 15 % Final ??? PLT COUNT 08/08/2018 351 130 - 400 x10-3/uL Final ??? MEAN PLATELET VOLUME 08/08/2018 9.3 7 - 11 fL Final ? ? NRBC % AUTO 08/08/2018 0.0 <1 % Final ??? NEUTROPHILS % 08/08/2018 51.1 % Final ??? LYMPH % 08/08/2018 38.9 % Final ??? MONO % 08/08/2018 7.2 % Final ??? EOS % 08/08/2018 2.1 % Final ??? BASO % 08/08/2018 0.3 % Final ??? IMMATURE GRANULOCYTES % 08/08/2018 0.4 % Final ? ? NRBC # AUTO 08/08/2018 0.00 <0.1 x10-3/uL Final ??? NEUT # 08/08/2018 3.84 1.5 - 7.0 x10-3/uL Final ??? LYMPH # 08/08/2018 2.92 1 - 5.0 x10-3/uL Final ??? MONO # 08/08/2018 0.54 0.2 - 1.0 x10-3/uL Final ??? EOS # 08/08/2018 0.16 0 - 0.5 x10-3/uL Final ??? BASO # 08/08/2018 0.02 0 - 0.2 x10-3/uL Final ??? IMMATURE GRANULOCYTES # 08/08/2018 0.03 0 - 0.03 x10-3/uL Final * Telephone Encounter - Danna Florian - 01/06/2019 4:26 PM EDT Patient would like script to be: E-PRESCRIBED/FAXED TO PHARMACY WHEN WAS THE PATIENT'S LAST APPOINTMENT IN ADULT MEDICINE? 09/19/18 WHEN WAS THE LAST TIME THE PATIENT SAW THEIR PCP? Same as above Does patient have an upcoming appointment? Yes 01/10/19 (THE MEDICATION REQUESTED IS ON THE MED LIST ABOVE) All of the medications requested were on the CURRENT MEDS list Did you check the Pharmacy information above?: YES Patient wants: 90 -day supply-needed as 90 day for insurance purposes Is this a mail order prescription request ? NO If the refill is from a FAXED refill request what is the RX # listed on the fax? N/A Patients current insurance carrier is: Payor: [employer] / Plan: POS $20 [id number] / Product Type: POS [id number] documented in this encounter Plan of Treatment Not on file documented as of this encounter Visit Diagnoses Not on filedocumented in this encounter Care Teams Medical Affairs Manager Relationship Specialty Start Date End Date Easton Connor MD PCP - General Internal Medicine 07/09/18 04/07/20 Lisa Post PCP - General Internal Medicine 04/08/20 04/26/20 Eliezer Carlson MD PCP - General Internal Medicine 04/27/20 documented as of this encounter
--- OUTSIDE RECORDS SUMMARY | 2024-08-07 19:10 | XMS_ITS | Encounter Summary ---
Author Organization [facility] Address [address] [place] [address] Care Team Providers Care Bookkeeping Service Sales Agent Name Role Phone Easton Connor MD Primary Care Provider [phone] Lisa Post Primary Care Provider Unavailabl Eliezer Pitts MD Primary Care Provider Unavaila ble Reason for Visit * Reason Comments E-prescribe Rx Request Encounter Details Date Type Department Care Team Description 07/29/2019 Refill Adult Med - [place] [address] [place] [address] Nallely Estevez PA-C E-prescribe Rx Request Social [...] encounter Miscellaneous Notes * Telephone Encounter - Joya Acosta - 07/30/2019 1:19 PM EST Lab Results Component Value Date HGBA1C 6.5 01/13/2019 CHOL 195 01/13/2019 LDL 130 01/13/2019 HDL 36 01/13/2019 TRIG 146 01/13/2019 GLU 121 01/13/2019 CREAT 0.85 01/13/2019 * Telephone Encounter - Kaden Delvalle - 07/29/2019 1:49 PM EST Patient would like script to [...] the Pharmacy information above?: YES Patient wants: 30 -day supply Is this a mail order prescription request ? NO If the refill is from a FAXED refill request what is the RX # listed on the fax? N/A Patients current insurance carrier is: Payor: [employer] / Plan: POS $20 [id number] / Product Type: POS [id number] documented in this encounter Plan of Treatment Not on file documented as of this encounter Visit Diagnoses Not on filedocumented in this encounter Care Teams Bookkeeping Service Sales Agent Relationship Specialty Start Date End Date Easton Connor MD PCP - General Internal Medicine 07/09/18 04/07/20 Lisa Post PCP - General Internal Medicine 04/08/20 04/26/20 Eliezer Carlson MD PCP - General Internal Medicine 04/27/20 documented as of this encounter
[2024-08-09 16:59] LABS: Homocysteine 7.7 umol/L (<10.4)
== END 2024-08-07 15:46 | disposition home or self-care (01) ==
LOC: HO.LAB 15:45
PROVIDERS: PCP Physician Assistant Medical; Visit Provider Nurse Practitioner Family
DX: R20.2 Paresthesia of skin (principal); E83.39 Other disorders of phosphorus metabolism; D64.9 Anemia, unspecified; R79.89 Other specified abnormal findings of blood chemistry; F41.9 Anxiety disorder, unspecified; E11.9 Type 2 diabetes mellitus without complications; R41.89 Other symptoms and signs involving cognitive functions and awareness; R74.8 Abnormal levels of other serum enzymes
CPT/HCPCS: 36415; 82746; 83090

== ENCOUNTER 2024-08-19 14:44 | Outpatient (AMB) | payer OTHER, SELFPAY ==
--- NOTE | 2024-08-19 14:45 | A.OFFVIS_ITS ---
Vital Signs 08/19/24 14:46 Height 5 ft 7 in Weight 270 lb BMI 42.3 Intake Visit Reasons: Botox Intake Note: Patient presents for botox injection Practice supplied Allergies dulaglutide [From [facility]] Allergy (Unknown, Verified 08/19/24 14:48) Unknown lisinopril Allergy (Unknown, Verified 08/19/24 14:48) Cough metformin Allergy (Unknown, Verified 08/19/24 14:48) Stomach Upset enviromental Allergy (Mild, Uncoded 08/19/24 14:48) Unknown Medication List - Last Reconciled 08/19/24 by Bessie Ramirez MD albuterol sulfate 90 mcg/actuation (Ventolin HFA) 2 puffs inhalation Q6H PRN atorvastatin 10 mg PO BEDTIME blood sugar diagnostic (FreeStyle Lite Strips) As directed buspirone 15 mg PO BID cholecalciferol (vitamin D3) 50 mcg PO DAILY diclofenac sodium 1% 1 - 2 grams topical BID estradiol 1 tab PO QAM fludrocortisone 0.1 mg PO DAILY gabapentin enacarbil ER (Horizant ER) 600 mg PO QPM 30 days ibuprofen 800 mg PO Q8H PRN insulin aspart U-100 Sliding scale TID before meals SQ with maximum 24 units daily. insulin glargine (Lantus Solostar U-100 Insulin) 30 units subcut BEDTIME lamotrigine take 2 tablets po daily for 2 weeks, then increase to 3 tablet po d aily 30 days lamotrigine 100 mg PO DAILY lancets (FreeStyle Lancets) As directed loratadine 10 mg PO DAILY lorazepam 1 mg PO BEDTIME PRN magnesium oxide 400 mg PO BEDTIME 30 days meclizine 25 mg PO TID 15 days melatonin 5 mg PO DAILY PRN midodrine 2.5 mg PO BID milnacipran 25 mg PO BID montelukast 10 mg PO QPM multivitamin with folic acid 400 mcg (Daily-Devon (with folic acid)) 1 tab PO DAILY omeprazole 40 mg PO DAILY onabotulinumtoxinA (Botox) 155 units IM ONCE 12 weeks propranolol 20 mg PO BID risperidone 1 mg PO DAILY semaglutide (Ozempic) 0.25 mg subcut QWEEK ubrogepant (Ubrelvy) 50 - 100 mg (0.5 - 1 x 100 mg) PO ONCE PRN 30 days HPI Comments Details: ? 39y/o female comes for treatment of migraines with botox. How many migraine days prior to botox- 20 days How long do the migraines last- 1-2 days Intensity of migraine 5-10/10 ER visits related to migraine - none Effectiveness of botox from last two treatment(s) How many migraine days since receiving treatment: 4-5 days Change? in intensity of migraine?decreased Change in frequency of migraine?decreased Change in use of acute medication for migraine?decreased Change in quality of life?improved ER visits related to migraine? none Have at least three months elapsed since last treatment- yes SHe had a good response after her last treatment with botox. He headaches /migraine shave decreased from daily migraines to 1-4.month and the headaches are less intense and lasts less than 2 hrs ??? Most frequent reported adverse reactions following injection of botox for chronic migraine include neck pain (9%), headache(5%), eyelid ptosis(4%), migraine(4%), muscular weakness(4%), musculuskeletal stiffness(4%), bronchitis(3%), injection site pain (3%), musculoskeletal pain(3%), myalgia(3%), facial paresis(2%), HTN(2%) and muscle spasms(2%) were discussed in detail. ??? Botulinum toxin typeA 200units Lot no [id number] expiration September 2026 was diluted with 4 cc of normal saline . ??? Muscles injected- ??? Frontalis 4 sites ??? Procerus 1 site ??? Chief Vendor Quality- 2 sites ??? Temporalis- 8 sites ??? Occipitalis- 6 sites ??? Cervical paraspinals- 4 sites ??? Trapezius- 6 sites- 10 units each ??? 5 units each in 31 site ??? Total use- 185units ??? Discarded-15units [facility] Medical History Elevated CPK Low serum triiodothyronine (T3) Low phosphate levels Chronic migraine without aura, intractable, without status migrainosus Restless leg syndrome Eczema Psoriasis IBS (irritable bowel syndrome) Carpal tunnel syndrome Mobitz (type) I (Wenckebach's) atrioventricular block Migraines Fibromyalgia Type II diabetes mellitus Anemia Arthritis Asthma HTN (hypertension) GERD (gastroesophageal reflux disease) Osteoporosis Depression Surgical History H/O adenoidectomy History of hysterectomy History of nasal septoplasty Family History Mother Heart disease Lupus Diabetes Father Diabetes Social History Household Members: Family Alcohol intake: never Comment: Pt's discharge date has been extended until 02/11/24. Patient Tobacco Use Status: Former Tobacco user Tobacco use type: Pipe Years Smoked: 15 years ago. Physical Exam Vital Signs: BMI result Body Mass Index 42.3 Const General: cooperative and no acute distress Orientation/consciousness: patient oriented x3 Resp Effort & Inspection: normal respiratory effort and able to speak in complete sentences Neuro Other: Bilateral posterior cervical tightness. DTRs dulled, symmetric throughout. General: patient oriented x3 Cranial nerves: Yes CN's II-XII intact bilaterally Cognition (Neuro): normal cognition Coordination: wcprjb-oj-[id number] test normal Romberg Test: Negative Psych Appearance: grossly normal Mental Status: mental status grossly normal Speech and movement: Normal speech and movement present Affect: normal affect Attitude: cooperative Office Procedures Botulinum toxin Injection 89444 - Migraine Procedure code (CPT) selection complete Office Meds onabotulinumtoxinA 200 unit solution for injection Performing Provider: Bessie Ramirez MD Performing Location: [facility] Administered by: Bessie Ramirez MD on 08/19/24 15:07 Dose Route Admin Location Dispensed Lot Number Expiration Date [facility] Feed Weigher 185 unit subcut 200 units [id number] ALLERGAN/BOTOX Comments: see HPI Assessment & Plan Assessment & Plan (1) Chronic migraine without aura, intractable, without status migrainosus: Code(s): G43.719 - Chronic migraine without aura, intractable, without status migrainosus Category: Medical Plan Patient is tolerated the procedure well SHe will call with any side effects Orders: Orders AMB Botulinum toxin Injection Today G43.719 - Chronic migraine without aura, intractable, without status migrainosus Medications: New onabotulinumtoxinA 200 units subcut ONCE 1 ea 0RF migraine G43.719 - Chronic migraine without aura, intractable, without status migrainosus Coding Level of Care Code Est Pt Level 1 (60555) Diagnoses Chronic migraine without aura, intractable, without status migrainosus G43.719 CPT Codes Botox Injection - Botox 3: 83061 - Migraine ([id number])
[2024-08-19 14:46] VITALS: BMI 42.3
== END 2024-08-19 15:05 | disposition home or self-care (01) ==
LOC: HO.HSMS 14:44
PROVIDERS: PCP Physician Assistant Medical; Visit Provider Psychiatry & Neurology Neurology
DX: G43.719 Chronic migraine without aura, intractable, without status migrainosus (principal)
CPT/HCPCS: 64615

== ENCOUNTER → 2024-08-19 14:44 | Outpatient (BNVA) | payer OTHER, SELFPAY | PROVIDERS: PCP Physician Assistant Medical; Visit Provider Psychiatry & Neurology Neurology | DX: G43.719 Chronic migraine without aura, intractable, without status migrainosus (principal) | CPT/HCPCS: 64615; 99211; J0585 ==

== ENCOUNTER 2024-11-25 15:01 | Outpatient (AMB) | payer OTHER, SELFPAY ==
--- NOTE | 2024-11-25 15:15 | MHC.OFFVIS ---
Intake Visit Reasons: Botox Intake Note: Patient presents for botox injection. pharmacy supplied Allergies dulaglutide (From [facility]) Allergy (Unknown, Verified 11/25/24 15:22) Unknown lisinopril Allergy (Unknown, Verified 11/25/24 15:22) Cough metformin Allergy (Unknown, Verified 11/25/24 15:22) Stomach Upset enviromental Allergy (Mild, Uncoded 11/25/24 15:22) Unknown Medication List - Last Reconciled 11/25/24 by Bessie Ramirez MD albuterol sulfate 90 mcg/actuation (Ventolin HFA) 2 puffs inhalation Q6H PRN atorvastatin 10 mg PO BEDTIME blood sugar diagnostic (FreeStyle Lite Strips) As directed buspirone 30 mg PO BID cholecalciferol (vitamin D3) 50 mcg PO DAILY diclofenac sodium 1% 1 - 2 grams topical BID estradiol 1 tab PO QAM fludrocortisone 0.1 mg PO DAILY ibuprofen 800 mg PO Q8H PRN insulin aspart U-100 Sliding scale TID before meals SQ with maximum 24 units daily. insulin glargine (Lantus Solostar U-100 Insulin) 30 units subcut BEDTIME lancets (FreeStyle Lancets) As directed loratadine 10 mg PO DAILY magnesium oxide 400 mg PO BEDTIME 30 days melatonin 5 mg PO DAILY PRN methylphenidate HCl (Ritalin) 20 mg PO DAILY midodrine 2.5 mg PO BID montelukast 10 mg PO QPM multivitamin with folic acid 400 mcg (Daily-Devon (with folic acid)) 1 tab PO DAILY omeprazole 40 mg PO DAILY onabotulinumtoxinA (Botox) 155 units IM ONCE 12 weeks propranolol 40 mg PO BID risperidone 1 mg PO DAILY semaglutide (Ozempic) 0.25 mg subcut QWEEK ubrogepant (Ubrelvy) 50 - 100 mg (0.5 - 1 x 100 mg) PO ONCE PRN 30 days HPI Comments Details: ? 39y/o female comes for treatment of migraines with botox. How many migraine days prior to botox- 20 days How long do the migraines last- 1-2 days Intensity of migraine 5-10 ER visits related to migraine - none Effectiveness of botox from last two treatment(s) How many migraine days since receiving treatment: 4-5 days Change? in intensity of migraine?decreased Change in frequency of migraine?decreased Change in use of acute medication for migraine?decreased Change in quality of life?improved ER visits related to migraine? none Have at least three months elapsed since last treatment- yes SHe had a good response after her last treatment with botox. He headaches /migraine shave decreased from daily migraines to 1-4.month and the headaches are less intense and lasts less than 2 hrs ??? Most frequent reported adverse reactions following injection of botox for chronic migraine include neck pain (9%), headache(5%), eyelid ptosis(4%), migraine(4%), muscular weakness(4%), musculuskeletal stiffness(4%), bronchitis(3%), injection site pain (3%), musculoskeletal pain(3%), myalgia(3%), facial paresis(2%), HTN(2%) and muscle spasms(2%) were discussed in detail. ??? Botulinum toxin typeA 200units Lot no [id number] expiration March 2027 was diluted with 4 cc of normal saline . ??? Muscles injected- ??? Frontalis 4 sites ??? Procerus 1 site ??? Assistant Director Of Plant Operations- 2 sites ??? Temporalis- 8 sites ??? Occipitalis- 6 sites ??? Cervical paraspinals- 4 sites ??? Trapezius- 6 sites- 10 units each ??? 5 units each in 31 site ??? Total use- 185units ??? Discarded-15units [facility] Medical History Elevated CPK Low serum triiodothyronine (T3) Low phosphate levels Chronic migraine without aura, intractable, without status migrainosus Restless leg syndrome Eczema Psoriasis IBS (irritable bowel syndrome) Carpal tunnel syndrome Mobitz (type) I (Wenckebach's) atrioventricular block Migraines Fibromyalgia Type II diabetes mellitus Anemia Arthritis Asthma HTN (hypertension) GERD (gastroesophageal reflux disease) Osteoporosis Depression Surgical History H/O adenoidectomy History of hysterectomy History of nasal septoplasty Family History Mother Heart disease Lupus Diabetes Father Diabetes Social History Household Members: Family Alcohol intake: never Comment: Pt's discharge date has been extended until 02/11/24. Patient Tobacco Use Status: Former Tobacco user Tobacco use type: Pipe Years Smoked: 15 years ago. Physical Exam Const General: cooperative and no acute distress Orientation/consciousness: patient oriented x3 Resp Effort & Inspection: normal respiratory effort and able to speak in complete sentences Neuro Other: Bilateral posterior cervical tightness. DTRs dulled, symmetric throughout. General: patient oriented x3 Cranial nerves: Yes CN's II-XII intact bilaterally Cognition (Neuro): normal cognition Coordination: fcskca-hz-tmhs test normal Romberg Test: Negative Psych Appearance: grossly normal Mental Status: mental status grossly normal Speech and movement: Normal speech and movement present Affect: normal affect Attitude: cooperative Office Procedures Botulinum toxin Injection 35496 - Migraine Procedure code (CPT) selection complete Office Meds onabotulinumtoxinA 200 unit solution for injection Performing Provider: Bessie Ramirez MD Performing Location: [facility] [place] Administered by: Bessie Ramirez MD on 11/25/24 16:04 Dose Route Admin Location Dispensed Lot Number Expiration Date [facility] Real Estate [employer]or 185 unit subcut 200 units [id number] ALLERGAN/BOTOX Total Dispensed Waste 200 units 7.5 % Comments: see HPI Assessment & Plan Assessment & Plan (1) Chronic migraine without aura, intractable, without status migrainosus: Code(s): G43.719 - Chronic migraine without aura, intractable, without status migrainosus Category: Medical Plan Patient is tolerated the procedure well SHe will call with any side effects Orders: Orders AMB Botulinum toxin Injection Today G43.719 - Chronic migraine without aura, intractable, without status migrainosus Coding Level of Care Code Est Pt Level 1 (29891) Diagnoses Chronic migraine without aura, intractable, without status migrainosus G43.719 CPT Codes Botox Injection - Botox 3: 52690 - Migraine ([id number])
--- OUTSIDE RECORDS SUMMARY | 2024-11-25 18:15 | XMS_ITS | Encounter Summary ---
Author Organization [facility] Address [address] [place] [address] Care Team Providers Care Shredder Picker Name Role Phone Eliezer Carlson MD Primary Care Provider [phone] Encounter Details Date Type Department Care Team (Latest Contact Info) Description 05/27/2024 Lab Requisition [facility] - Main Lab [address] [place] [phone] Becky Le MD [address] [phone] Encounter for gynecological examination (general) (routine) without [...] intraepithelial lesion or malignancy 06/02/2024 8:27 AM [facility] General Categorization Negative 06/02/2024 8:27 AM [facility] Specimen Adequacy Satisfactory for evaluation, endocervical/celis sformation zone component absent 06/02/2024 8:27 AM [facility] Pap Methodology Liquid Based Pap Test 06/02/2024 8:27 AM [facility] Disclaimer The Pap test is a screening test which carries an inherent false negative rate. These test results should be correlated with the patient's clinical findings and history. This Pap test was processed using an automated screening system. Technical cytopathology services provided by [facility], at [address] [place] [id number] (CLIA # [id number]/Genna Bui MD, Business Performance Advisor.) 06/02/2024 8:27 AM [facility] Console Pap Interpretation Reported 06/02/2024 8:27 AM [facility] Brushing/Spatula Cervix uteri structure / Unknown 05/26/2024 05/27/2024 8:24 AM EST us Becky Le MD LAB CYTOLOGY ORDERABLES Final Result Performing Organization Address City/State/[facility] Co de Phone Number [facility] [address] [place] [address], documented in this encounter Visit Diagnoses Diagnosis Encounter for gynecological examination (general) (routine) without abnormal findings documented in this encounter Care Teams Shredder Picker Relationship Specialty Start Date End Date Eliezer Carlson MD [address] [place] [address] PCP - General Internal Medicine 04/27/20 documented as of this encounter
== END 2024-11-25 15:59 | disposition home or self-care (01) ==
LOC: HO.HSMS 15:02
PROVIDERS: PCP Physician Assistant Medical; Visit Provider Psychiatry & Neurology Neurology
DX: G43.719 Chronic migraine without aura, intractable, without status migrainosus (principal)
CPT/HCPCS: 64615

== ENCOUNTER → 2024-11-25 15:01 | Outpatient (BNVA) | payer OTHER, SELFPAY | PROVIDERS: PCP Physician Assistant Medical; Visit Provider Psychiatry & Neurology Neurology | DX: G43.719 Chronic migraine without aura, intractable, without status migrainosus (principal); G25.81 Restless legs syndrome; I44.1 Atrioventricular block, second degree; M79.7 Fibromyalgia; E11.9 Type 2 diabetes mellitus without complications; J45.909 Unspecified asthma, uncomplicated; I10 Essential (primary) hypertension; K21.9 Gastro-esophageal reflux disease without esophagitis; M81.0 Age-related osteoporosis without current pathological fracture; F32.A Depression, unspecified; Z79.4 Long term (current) use of insulin; Z79.899 Other long term (current) drug therapy; Z79.51 Long term (current) use of inhaled steroids; Z87.891 Personal history of nicotine dependence | CPT/HCPCS: 64615; 99211; J0585 ==

== ENCOUNTER 2025-02-03 14:59 | Outpatient (AMB) | payer OTHER, SELFPAY ==
--- NOTE | 2025-02-03 15:07 | MHC.OFFVIS ---
Vital Signs 02/03/25 15:08 Height 5 ft 7 in Weight 264 lb 4 oz BMI 41.4 BP 130/84 Blood Pressure Location Rt brachial Position Sitting Pulse 92 Pulse Source Pulse Oximeter Pulse Oximetry (%) 98 Oxygen Delivery Method Room Air Intake Visit Reasons: 6 mnts f/u appt Intake Note: Follow up care Character Actor Required: No Accompanied by: Self / Same As Patient Allergies dulaglutide (From [facility]) Allergy (Unknown, Verified 02/03/25 15:08) Unknown lisinopril Allergy (Unknown, Verified 02/03/25 15:08) Cough metformin Allergy (Unknown, Verified 02/03/25 15:08) Stomach Upset enviromental Allergy (Mild, Uncoded 11/25/24 15:22) Unknown Medication List - Last Reconciled 02/03/25 by WILLIAM Agrawal albuterol sulfate 90 mcg/actuation (Ventolin HFA) 2 puffs inhalation Q6H PRN atorvastatin 10 mg PO BEDTIME blood sugar diagnostic (FreeStyle Lite Strips) As directed buspirone 30 mg PO BID cholecalciferol (vitamin D3) 50 mcg PO DAILY diclofenac sodium 1% 1 - 2 grams topical BID estradiol 1 tab PO QAM fludrocortisone 0.1 mg PO DAILY ibuprofen 800 mg PO Q8H PRN insulin aspart U-100 Sliding scale TID before meals SQ with maximum 24 units daily. insulin glargine (Lantus Solostar U-100 Insulin) 30 units subcut BEDTIME ketoconazole 2% topical 2XW lancets (FreeStyle Lancets) As directed lidocaine 5% 1 patch topical DAILY PRN loratadine 10 mg PO DAILY magnesium oxide 400 mg PO BEDTIME 30 days melatonin 5 mg PO DAILY PRN methylphenidate HCl (Ritalin) 20 mg PO DAILY midodrine 2.5 mg PO BID mometasone 100 mcg/actuation (Asmanex HFA) 2 puffs inhalation BID montelukast 10 mg PO QPM multivitamin with folic acid 400 mcg (Daily-Devon (with folic acid)) 1 tab PO DAILY omeprazole 40 mg PO DAILY onabotulinumtoxinA (Botox) 155 units IM ONCE 12 weeks propranolol 40 mg PO BID tiotropium bromide (Spiriva with HandiHaler) 1 cap inhalation DAILY tirzepatide (Mounjaro) 2.5 mg subcut QWEEK ubrogepant (Ubrelvy) 50 - 100 mg (0.5 - 1 x 100 mg) PO ONCE PRN 30 days HPI Comments Details: 39-year-old female presenting with a follow-up for migraines and restless leg syndrome. She reports she has experienced URI s/s x's 10 days, which has exacerbated her POTs, dizziness, tachycardia symptoms. She notes that this is typical when she is not feeling well. She has not had medical evaluation for the URI symptoms. As part of her pulmonary workup, she underwent an HST at [facility] which showed mild SEVERO w/ AHI 7/hr and O2 ximena 87%. They advised her to try APAP [id number]. She states it is harder to tell how her RLS s/s are- as she has been anxious and this makes her prone to tap her legs or clench her toes. Patient reports she has not been having a lot of breakthrough migraines. Some occasional tension/neck issues. She is scheduled for the Rheumatology consult on 02/11/25. [facility] Medical History Elevated CPK Low serum triiodothyronine (T3) Low phosphate levels Chronic migraine without aura, intractable, without status migrainosus Restless leg syndrome Eczema Psoriasis IBS (irritable bowel syndrome) Carpal tunnel syndrome Mobitz (type) I (Wenckebach's) atrioventricular block Migraines Fibromyalgia Type II diabetes mellitus Anemia Arthritis Asthma HTN (hypertension) GERD (gastroesophageal reflux disease) Osteoporosis Depression Surgical History H/O adenoidectomy History of hysterectomy History of nasal septoplasty Family History Mother Heart disease Lupus Diabetes Father Diabetes Social History Household Members: Family Alcohol intake: never Comment: Pt's discharge date has been extended until 02/11/24. Patient Tobacco Use Status: Former Tobacco user Tobacco use type: Pipe Years Smoked: 15 years ago. Physical Exam Vital Signs: Last Vital Signs Pulse 92 02/03/25 15:08 BP 130/84 02/03/25 15:08 Pulse Ox 98 09/02/25 15:08 Oxygen Delivery Method Room Air 02/03/25 15:08 BMI result Body Mass Index 41.4 Const General: cooperative and no acute distress Orientation/consciousness: patient oriented x3 Resp Effort & Inspection: normal respiratory effort and able to speak in complete sentences Neuro General: patient oriented x3 Cranial nerves: Yes CN's II-XII intact bilaterally Cognition (Neuro): normal cognition Coordination: alinyo-db-xyvf test normal Psych Appearance: grossly normal Mental Status: mental status grossly normal Speech and movement: Normal speech and movement present Affect: normal affect Attitude: cooperative Assessment & Plan Assessment & Plan (1) Restless leg syndrome: Code(s): G25.81 - Restless legs syndrome Category: Medical (2) Vertigo: Code(s): R42 - Dizziness and giddiness Category: Medical (3) Chronic migraine without aura, not intractable, without status migrainosus: Code(s): G43.709 - Chronic migraine without aura, not intractable, without status migrainosus Category: Medical Plan For URI symptoms over the last 10 days: Advised to reach out to dopster and/or urgent care Ensure sufficient fluid intake For dizziness- Monitor For sleep, RLS, PLMS- Reviewed September 2024 HST performed at [facility], which shows mild obstructive sleep apnea. Patient is amenable to trying PAP therapy. Start APAP 7-20 cmH2O nightly > 4 hours Reviewed interval labs, results notable for elevated high sensitivity CRP 4.1-likely secondary to diabetes. Continue Magnesium Continue Ferrous sulfate supplement. Continue Horizant 600 mg daily around 17:00 with food Patient may benefit from reading ?navigating life with restless leg? by Dr. Das. Rheumatology consult as order, as joint pain and rash are present, and if autoimmune process is present, this may be exacerbating RLS symptoms Previous trials- Gabapentin- ineffective. Pregabalin- previously ineffective x's yrs. Pramipexole 0/375mg/day- ineffective after months of tx- and dose should not be elevated d/t POTs dx. Future considerations- referral for CBTi, MSLT/CSF orexin level. ? For chronic migraine- Continue Botox tx as pt has good clinical effect from use. Tear gtts for dry eyes- dry eyes may exacerbate headaches/diplopia/eye strain. Previous preventative medication use: amitriptyline, nortriptyline- ineffective, topamax- ineffective, propranolol- caused hypotension ? For acute migraine tx: Continue prn Ubrelvy. Previous acute medication use: sumatriptan- ineffective, naratriptan- ineffective ? Will follow-up upon review of above and patient to follow-up in clinic in 6 months or sooner prn. Medications: Refilled ubrogepant (Ubrelvy) take at onset of migraine, may repeat in 2hrs (may take w/ Ibuprofen) 50 - 100 mg (0.5 - 1 x 100 mg) PO ONCE PRN 16 tabs 6RF migraine headache 30 days gabapentin enacarbil ER (Horizant ER) administer daily at approximately 5 PM with food/evening meal 600 mg PO QPM 30 tabs 6RF 30 days Coding Level of Care Code Est Pt Level 4 (40435) Diagnoses Restless leg syndrome G25.81 Vertigo R42 Chronic migraine without aura, not intractable, without status migrainosus G43.704
[2025-02-03 15:08] VITALS: BP 130/84; PULSE 92; O2SAT 98; BMI 41.4
--- OUTSIDE RECORDS SUMMARY | 2025-02-03 16:13 | XMS_ITS | Encounter Summary ---
Author Organization [facility] Address [address] [place] [address] Care Team Providers Care Director Wholesale Name Role Phone [place] Connor MD Primary Care Provider [phone] Lisa Post Primary Care Provider UnavailEliezer Franklin MD Primary Care Provider Unavaila amalia Encounter Details Date Type Department Care Team Description 03/27/2019 Fur Mixer Report Medical Records [address] [place] [address] Yun Lara, PA-C [address] [place] [id number] Social History Tobacco Use Types Packs/Day Years [...] on filedocumented in this encounter Care Teams Director Wholesale Relationship Specialty Start Date End Date [place] Connor MD PCP - General Internal Medicine 07/09/18 04/07/20 Lisa Post PCP - General Internal Medicine 04/08/20 04/26/20 Eliezer Carlson MD PCP - General Internal Medicine 04/27/20 documented as of this encounter
--- OUTSIDE RECORDS SUMMARY | 2025-02-03 16:13 | XMS_ITS | Clinical Summary ---
Author Organization [facility] Address [address] [place] [address] Care Team Providers Care Tank Car Cleaner Name Role Phone Eliezer Carlson MD Primary [...] Vaccine-preservati ve Free-quadrivalent 4 Years 03/03/2020 MMR (Bvrkxiq-Ugrkz-Vcyjeqm) 03/01/1995, 6 Meningococcal (Menactra) 03/27/2006 PPD-RBMG 02/24/1993,06/18/1986,05/29/1985 [...] 92 11/21/2021 1:57 PM EDT Temperature 36.6 C (97.9 F) 11/28/2021 11:32 AM EDT Respiratory Rate 17 11/28/2021 11:32 AM EDT [...] 01/13/2019, Additional history exists DIABETES/HEART DISEASE: KADI JT CHOLESTEROL (LDL) 02/01/2021 02/02/2020, 08/01/2019, 01/13/2019, Additional history exists DIABETES: ANNUAL URINE PROTE IN TEST (MICROALBUMIN) 03/03/2021 03/03/2020, 02/02/2020, 08/01/2019 DIABETES: ANNUAL EYE EXAM 05/05/20222020, 05/04/2020, 02/05/2019, Additional history exists BMI CHECK/ADVISE 06/04/2024 11/28/2021, , 07/18/2021, Additional history exists BASELINE HEALTH EXAM 40-64 08/07/202410/30, 03/27/2006, 03/27/2006, Additional history exists MAMMOGRAM 2024 Covid-19 Vaccine (2022-2 4 season) 2025 09/13/2020 INFLUENZA (#1) 2025 03/03/2020 Care Teams Tank Car Cleaner Relationship Specialty Start Date End Date Eliezer Carlson MD PCP - General Internal Medicine 04/27/20
--- OUTSIDE RECORDS SUMMARY | 2025-02-03 16:13 | XMS_ITS | Encounter Summary ---
Author Organization [facility] Address [address] [place] [address] Care Team Providers Care Overhead Foreman Name Role Phone Easton Connor MD Primary Care Provider [phone] Lisa Post Primary Care Provider Unavailabl Eliezer Pitts MD Primary Care Provider Unavaila ble Reason for Visit * Reason Comments E-prescribe Rx Request Encounter Details Date Type Department Care Team Description 01/29/2020 Refill Internal Medicine - [address], [address] [place] [address] Easton Connor MD [address] [place] [address] E-prescribe Rx Request Social History Tobacco Use [...] on filedocumented in this encounter Care Teams Overhead Foreman Relationship Specialty Start Date End Date Easton Connor MD PCP - General Internal Medicine 07/09/18 04/07/20 Lisa Post PCP - General Internal Medicine 04/08/20 04/26/20 Eliezer Carlson MD PCP - General Internal Medicine 04/27/20 documented as of this encounter
--- OUTSIDE RECORDS SUMMARY | 2025-02-03 16:13 | XMS_ITS | Encounter Summary ---
Author Organization [facility] Address [address] [place] [address] Care Team Providers Care Hot Plate Plywood Press Feeder Name Role Phone Easton Connor MD Primary Care Provider Lisa Post Primary Care Provider Unavailabl e Eliezer Carlson MD Primary Care Provider Unavaila ble Encounter Details Date Type Department Care Team Description 01/08/2020 Whip Sawyer Report Medical Records [address] [place] [address] Tana Rodriguez MD Social History Tobacco Use [...] on filedocumented in this encounter Care Teams Hot Plate Plywood Press Feeder Relationship Specialty Start Date End Date Easton Connor MD PCP - General Internal Medicine 07/09/18 04/07/20 Lisa Post PCP - General Internal Medicine 04/08/20 04/26/20 Eliezer Carlson MD PCP - General Internal Medicine 04/27/20 documented as of this encounter
--- OUTSIDE RECORDS SUMMARY | 2025-02-03 16:13 | XMS_ITS | Encounter Summary ---
Author Organization [facility] Address [address] [place] [address] Care Team Providers Care Gas Appliance Mechanic Name Role Phone Easton Connor MD Primary Care Provider [phone] Lisa Post Primary Care Provider Unavailabl e Eliezer Carlson MD Primary Care Provider Unavaila ble Encounter Details Date Type Department Care Team Description 06/23/2019 Firearms Sales Associate Report Medical Records [address] [place] [address] Yuki Aponte PA-C Social History Tobacco Use [...] on filedocumented in this encounter Care Teams Gas Appliance Mechanic Relationship Specialty Start Date End Date Easton Connor MD PCP - General Internal Medicine 07/09/18 04/07/20 Lisa Post PCP - General Internal Medicine 04/08/20 04/26/20 Eliezer Carlson MD PCP - General Internal Medicine 04/27/20 documented as of this encounter
--- OUTSIDE RECORDS SUMMARY | 2025-02-03 16:13 | XMS_ITS | Encounter Summary ---
Author Organization [facility] Address [address] [place] [address] Care Team Providers Care Cloth Folder Machine Name Role Phone Easton Connor MD Primary Care Provider [phone] Lisa Post Primary Care Provider Unavailabl Eliezer Pitts MD Primary Care Provider Unavaila ble Reason for Visit * Reason Comments E-prescribe Rx Request Encounter Details Date Type Department Care Team Description 07/29/2019 Refill Adult Med - [place] 98 [address] [place] [address] Nallely Estevez PA-C E-prescribe Rx Request Social [...] Payor: ARAVIND / Plan: POS $20 JENNIFERTONJA [id number] / Product Type: POS Cyc-ryo-Zdkhend documented in this encounter Plan of Treatment Not on file documented as of this encounter Visit Diagnoses Not on filedocumented in this encounter Care Teams Cloth Folder Machine Relationship Specialty Start Date End Date Easton Connor MD PCP - General Internal Medicine 07/09/18 04/07/20 Lisa Post PCP - General Internal Medicine 04/08/20 04/26/20 Eliezer Carlson MD PCP - General Internal Medicine 04/27/20 documented as of this encounter
--- OUTSIDE RECORDS SUMMARY | 2025-02-03 16:13 | XMS_ITS | Encounter Summary ---
Author Organization [facility] Address [address] [place] [address] Care Team Providers Care Park Activities Coordinator Name Role Phone Easton Connor MD Primary Care Provider [phone] Lisa Post Primary Care Provider Unavailabl e Eliezer Carlson MD Primary Care Provider Unavaila ble Encounter Details Date Type Department Care Team Description 08/01/2019 Refill Internal Medicine [address], [address] [place] [address] Easton Connor MD [address] [place], [place] [id number] Social History Tobacco Use Types Packs/Day Years [...] on filedocumented in this encounter Care Teams Park Activities Coordinator Relationship Specialty Start Date End Date Easton Connor MD PCP - General Internal Medicine 07/09/18 04/07/20 Lisa Post PCP - General Internal Medicine 04/08/20 04/26/20 Eliezer Carlson MD PCP - General Internal Medicine 04/27/20 documented as of this encounter
--- OUTSIDE RECORDS SUMMARY | 2025-02-03 16:13 | XMS_ITS | Encounter Summary ---
Author Organization [facility] Address [address] [place] [address] Care Team Providers Care Wrapper Caser Name Role Phone Easton Connor MD Primary Care Provider [phone] Lisa Post Primary Care Provider Unavailabl Eliezer Pitts MD Primary Care Provider Unavaila ble Reason for Visit * Reason Onset Date Comments Faxed Refill 01/02/2020 Encounter Details Date Type Department Care Team Description 01/02/2020 Refill Internal Medicine - [address], [address] [place] [address] Easton Connor MD [address] [place] [address] Faxed Refill Social History Tobacco Use Types [...] Telephone Encounter - Anel Nevarez M.A. - 01/02/2020 3:02 PM EDT Lab Results Component Value Date NA 140 08/01/2019 K 3.8 08/01/2019 CO2 25 08/01/2019 CL 106 08/01/2019 BUN 10 08/01/2019 CREAT 0.70 08/01/2019 GLU 113 08/01/2019 ALB 3.6 01/13/2019 SGOT 13 01/13/2019 SGPT 15 01/13/2019 TBILI 0.4 01/13/2019 ALKPHOS 56 01/13/2019 TP 6.5 01/13/2019 CA 9.0 08/01/2019 GFR > 60 08/01/2019 * Telephone Encounter - Venessa Hernandez - 01/02/2020 2:24 PM EDT esomeprazole (NEXIUM) 40 MG capsule was sent but the copay is $200. * Telephone Encounter - Venessa Hernandez - 01/02/2020 2:23 PM EDT Patient would like script to be: E-PRESCRIBED/FAXED TO PHARMACY When was the patients last office visit in Adult Medicine?: 12/10/2019 When was the last time the patient saw their PCP? Same as above Does patient have an upcoming appointment? Yes 02/10/2020 (THE MEDICATION IS NOT ON THE MED LIST AND IS IDENTIFIED BELOW): {MED LIST:04909) Med name: Omeprazole Dosage: 40 mg # of tablets: 90 Local pharmacy with request for 90 -day supply Instructions: Take 1 tablet daily. Did you check the pharmacy information above?: YES Patients current insurance carrier: Payor: ARAVIND / Plan: POS $20 WANDA [id number] / Product Type:POS Jtx-aig-Rbcdcyo * Telephone Encounter - Kelsea Morales - 01/02/2020 2:16 PM EDT Patient would like script to be: E-PRESCRIBED/FAXED TO PHARMACY When was the patients last office visit in Adult Medicine?: 12/10/2019 When was the last time the patient saw their PCP? Same as above Does patient have an upcoming appointment? Patient's phone did not have an answering machine to leave message - answered by empty on the other end (THE MEDICATION IS NOT ON THE MED LIST AND IS IDENTIFIED BELOW): {MED LIST:93230) Med name: VITAMIN D3 Dosage: 50 MCG TABLET # of tablets: 90.0 Local pharmacy with request for 90 -day supply Instructions: TAKE 1 TABLET BY MOUTH EVERY DAY Did you check the pharmacy information above?: YES Patients current insurance carrier: Payor: ARAVIND / Plan: POS $20 WANDA [id number] / Product Type:POS Pvo-lza-Gixkdsm documented in this encounter Plan of Treatment Not on file documented as of this encounter Visit Diagnoses Not on filedocumented in this encounter Care Teams Wrapper Caser Relationship Specialty Start Date End Date Easton Connor MD PCP - General Internal Medicine 07/09/18 04/07/20 Lisa Post PCP - General Internal Medicine 04/08/20 04/26/20 Eliezer Carlson MD PCP - General Internal Medicine 04/27/20 documented as of this encounter
--- OUTSIDE RECORDS SUMMARY | 2025-02-03 16:13 | XMS_ITS | Encounter Summary ---
Author Organization [facility] Address [address] [place] [address] Care Team Providers Care Business Solution Analyst Name Role Phone Easton Connor MD Primary Care Provider Lisa Post Primary Care Provider Unavailabl e Eliezer Carlson MD Primary Care Provider Unavaila ble Encounter Details Date Type Department Care Team Description 01/31/2019 Weave Room Supervisor Report Medical Records [address] [place] [address] Andrei Hall MD Social History Tobacco Use [...] on filedocumented in this encounter Care Teams Business Solution Analyst Relationship Specialty Start Date End Date Easton Connor MD PCP - General Internal Medicine 07/09/18 04/07/20 Lisa Post PCP - General Internal Medicine 04/08/20 04/26/20 Eliezer Carlson MD PCP - General Internal Medicine 04/27/20 documented as of this encounter
--- OUTSIDE RECORDS SUMMARY | 2025-02-03 16:13 | XMS_ITS | Encounter Summary ---
Author Organization [facility] Address [address] [place] [address] Care Team Providers Care Rn Transport Name Role Phone Eliezer Carlson MD Primary Care Provider Encounter Details Date Type Department Care Team (Late st Contact Info) Description 08/21/2024 Lab Requisition [facility] - Main Lab [address] [facility] [place] [phone] Becky Le MD [address] [phone] Urinary tract infection, site not specified; Acute vaginitis Social History Tobacco Use Types Packs/Day Years [...] Procedure Name Priority Date/Time Associated Diagnosis Comments URINALYSIS WITH REFLEX MICROSCOPIC AND CULTURE Routine 08/21/2024 12:00 AM EDT Urinary tract infection, site not specified Acute vaginitis VAGINITIS PATHOGENS BY PCR Routine 08/21/2024 12:00 AM EDT Urinary tract infection, site not specified Acute vaginitis URINALYSIS WITH REFLEX MICROSCOPIC AND CULTURE Routine 08/21/2024 12:00 AM EDT Urinary tract infection, site not specified Acute vaginitis CULTURE URINE Routine 08/21/2024 12:00 AM EDT Urinary tract infection, site not specified Acute vaginitis CULTURE URINE Routine 08/21/2024 12:00 AM EDT Urinary tract infection, site not specified Acute vaginitis documented in this encounter Results * Culture urine (08/21/2024 12:00 AM EDT) Pathologist [facility] Culture, Urine No growth 08/22/2024 10:28 AM EDT [facility] Urine Urine specimen obtained by clean catch procedure / Unknown 08/21/2024 08/21/2024 2:56 PM EDT us Becky Le MD LAB MICROBIOLOGY - GENER AL ORDERABLES Final Result [facility] [address] [place] [address], * (ABNORMAL) Urinalysis with reflex microscopic and culture (08/21/2024 12:00 AM EDT) Pathologist [facility] Specific [place] Urine 1.011 1.003 - 1.030 LAB URINALYSIS - AUTOMATED METHOD 08/21/2024 2:56 PM EDT [facility] pH, Urine 7.5 5.0 - 8.0 pH LAB URINALYSIS - AUTOMATED METHOD 08/21/2024 2:56 PM EDT [facility] Leukocytes, Urine Moderate(A) Negative LAB URINALYSIS - AUTOMATED METHOD 08/21/2024 2:56 PM EDT [facility] Nitrite, Urine Negative Negative LAB URINALYSIS - AUTOMATED METHOD 08/21/2024 2:56 PM EDT [facility] Protein, Urine Negative <=Trace mg/dL LAB URINALYSIS - AUTOMATED METHOD 08/21/2024 2:56 PM [facility] Glucose, Urine Negative Negative mg/dL LAB URINALYSIS - AUTOMATED METHOD 08/21/2024 2:56 PM [facility] Ketones, Urine Negative Negative mg/dL LAB URINALYSIS - AUTOMATED METHOD 08/21/2024 2:56 PM [facility] Urobilinogen , Urine 0.2 0.2 - 1.0 mg/dL LAB URINALYSIS - AUTOMATED METHOD 08/21/2024 2:56 PM [facility] Bilirubin, Urine Negative Negative LAB URINALYSIS - AUTOMATED METHOD 08/21/2024 2:56 PM [facility] Blood, Urine Negative Negative LAB URINALYSIS - AUTOMATED METHOD 08/21/2024 2:56 PM [facility] RBC, Urine 1.8 0 - 4 /HPF LAB URINALYSIS - AUTOMATED METHOD 08/21/2024 2:56 PM [facility] WBC, Urine 2.0 0 - 4 /HPF LAB URINALYSIS - AUTOMATED METHOD 08/21/2024 2:56 PM [facility] Squamous Epithelial, Urine 38 0 - 60 /LPF LAB URINALYSIS - AUTOMATED METHOD 08/21/2024 2:56 PM [facility] Bacteria, Urine Few(A) Negative /HPF LAB URINALYSIS - AUTOMATED METHOD 08/21/2024 2:56 PM [facility] Hyaline Casts, Urine 0.0 0 - 3 /LPF LAB URINALYSIS - AUTOMATED METHOD 08/21/2024 2:56 PM [facility] Urine Urine specimen obtained by clean catch procedure / Unknown 08/21/2024 08/21/2024 2:02 PM EDT us Becky Le MD LAB URINE ORDERABLES Fin al Result Performing Organization Address [facility] Co de Phone Number [facility] [address] [place] [address], [place] [phone] * (ABNORMAL) Vaginitis pathogens molecular study (08/21/2024 12:00 AM EDT) Trichomonas vaginalis Negative Negative 08/22/2024 11:18 AM EDT [facility] Gardnerella vaginalis Negative Negative 08/22/2024 11:18 AM EDT [facility] Alia Species Positive(A) Negative 08/23/19 11:18 AM EDT [facility] Swab Vaginal structure / Unknown 08/21/2024 08/21/2024 2:02 PM EDT us Becky Le MD LAB MICROBIOLOGY - GENER AL ORDERABLES Final Result Performing Organization Address [facility] Co de Phone Number [facility] [address] [place] [address], [place] [phone] * Culture urine (08/21/2024 12:00 AM EDT) Pathologist [facility] Culture, Urine <10,000 CFU/mL gram positive cocci, insignificant count, no further workup 08/22/2024 10:24 AM EDT [facility] Urine Urine specimen obtained by clean catch procedure / Unknown 08/21/2024 08/21/2024 2:02 PM EDT us Becky Le MD LAB MICROBIOLOGY - GENER AL ORDERABLES Final Result Performing Organization Address [facility]/ZIP Co de Phone Number [facility] [address] [place] [address], [place] [phone] documented in this encounter Visit Diagnoses Diagnosis Urinary tract infection, site not specified Acute vaginitis Unspecified vaginitis and vulvovaginitis documented in this encounter Care Teams Rn Transport Relationship Specialty Start Date End Date Eliezer Carlson MD [address] [place] PCP - General Internal Medicine 04/27/20 documented as of this encounter
--- OUTSIDE RECORDS SUMMARY | 2025-02-03 16:13 | XMS_ITS | Encounter Summary ---
Author Organization [facility] Address [address] [place] [address] Care Team Providers Care Load Test Mechanic Name Role Phone Eliezer Carlson MD Primary Care Provider Unavaila ble Reason for Visit * Reason Comments E-prescribe Rx Request Encounter Details Date Type Department Care Team Description 02/22/2022 Refill [facility] [address] [phone] Leta Henley MD [address] [address] E-prescribe Rx Request Social History Tobacco Use [...] on filedocumented in this encounter Care Teams Load Test Mechanic Relationship Specialty Start Date End Date Eliezer Carlson MD PCP - General Internal Medicine 04/27/20 documented as of this encounter
--- OUTSIDE RECORDS SUMMARY | 2025-02-03 16:13 | XMS_ITS | Encounter Summary ---
Author Organization [facility] Address [address] [place] [address] Care Team Providers Care Crossing Watchman Name Role Phone Easton Connor MD Primary Care Provider [phone] Lisa Post Primary Care Provider Unavailabl Eliezer Pitts MD Primary Care Provider Unavaila ble Encounter Details Date Type Department Care Team Description 10/01/2019 Orders Only Internal Medicine - [address], [address] [place] [address] Easton Connor MD [address] [place], [place] [phone] Social History Tobacco Use Types Packs/Day Years [...] on filedocumented in this encounter Care Teams Crossing Watchman Relationship Specialty Start Date End Date Easton Connor MD PCP - General Internal Medicine 07/09/18 04/07/20 Lisa Post PCP - General Internal Medicine 04/08/20 04/26/20 Eliezer Carlson MD PCP - General Internal Medicine 04/27/20 documented as of this encounter
--- OUTSIDE RECORDS SUMMARY | 2025-02-03 16:13 | XMS_ITS | Clinical Summary ---
Author Organization [facility], Address [address] [place] [address] [place] [address] Phone Care Team Providers Care Loss Prevention Supervisor Name Role Phone Lisa Post PA-C Primary Care Provider [phone] Allergies Active Allergy Reactions Criticality Noted Date Comments Lisinopril 09/12/2023 Metformin 09/12/2023 Liraglutide 09/12/2023 Medications fludrocortisone 0.1 MG tablet Take 1 tablet [...] 1 Refills, Maintenance, 02/22/23 15:54:00 EDT, Solution, [id number], Partial fill upon patient request if the prescription is for a schedule II... 3 Active midodrine (PROAMATINE) 10 MG tablet TAKE 1 TABLET (10 MG) BY MOUTH IN THE MORNING IN THE EVENING AND BEFORE BEDTIME 270 tablet 3 5 Active omeprazole (PriLOSEC) [address] capsule TAKE 1 CAPSULE BY MOUTH IN THE MORNING AND 1 CAPSULE IN THE EVENING. DO NOT CRUSH OR CHEW.. 180 capsule 1 5 Active Active Problems Problem Noted Date Diagnosed [...] Encounters Date Type Department Care Team Description 12/09/2024 Refill [facility] [address] [place] [address] Octavio Rangel MD from Last 3 Months Social History Tobacco Use Types Packs/Day Years Used Date Smoking Tobacco: Never Assessed Comments Unknown Sex and Gender Information Value Date Recorded Sex Assigned at Not on file Legal Sex Female 1:15 PM EDT Gender Identity Not on file Sexual Orientation Not on file Plan of Treatment Health Maintenance Due Date Last Done Comments Pneumococcal Vaccine: Peds ( 0 to 5 Years) and At-Risk Patients (6 to 49 Years) (2 of 2 - PCV) 01/29/2016 01/28/2015 Diabetes: Hemoglobin A1C 09/12/2023 Diabetes: Ophthalmology Exam 09/12/2023 01/29/2007 Diabetes: Pedal Pulse Checked 09/12/2023 Diabetes: Sensory Foot Exam 09/12/2023 Diabetes: Visual Foot Exam 09/12/2023 Influenza Vaccine (#1) 2025 2, 09/15/2021, 03/03/2020, Additional history exists Hepatitis B Vaccine Completed 01/26/1997, 08/28/1996, 07/31/1996 Insurance [employer] Medicaid Care Teams Loss Prevention Supervisor Relationship Specialty Start Date End Date Lisa Post PA-C [place], [place] PCP - General Physician Credit Analysis Manager 09/12/23
--- OUTSIDE RECORDS SUMMARY | 2025-02-03 16:13 | XMS_ITS | Encounter Summary ---
Author Organization [facility] Address [address] [place] [address] Care Team Providers Care Oncology Radiation Physician Name Role Phone Easton Connor MD Primary Care Provider [phone] Lisa Post Primary Care Provider UnavailEliezer Franklin MD Primary Care Provider Unavaila ble Encounter Details Date Type Department Care Team Description 03/10/2019 [facility] Medical Records [address] [place] [address] Abstract, Provider Social History Tobacco Use Types [...] on filedocumented in this encounter Care Teams Oncology Radiation Physician Relationship Specialty Start Date End Date Easton Connor MD PCP - General Internal Medicine 07/09/18 04/07/20 Lisa Post PCP - General Internal Medicine 04/08/20 04/26/20 Eliezer Carlson MD PCP - General Internal Medicine 04/27/20 documented as of this encounter
--- OUTSIDE RECORDS SUMMARY | 2025-02-03 16:14 | XMS_ITS | Encounter Summary ---
Author Organization [facility] Address [address] [place] [address] Care Team Providers Care Client Director Name Role Phone Easton Connor MD Primary Care Provider [phone] Lisa Post Primary Care Provider UnavailEliezer Franklin MD Primary Care Provider Unavaila ble Reason for Visit * Reason Onset Date Comments Faxed Order 12/26/2019 Encounter Details Date Type Department Care Team Description 12/26/2019 Refill Adult Med - [place] [address] [place] [address] Easton Connor MD [address] [place], [place] [phone] Faxed Order Social History Tobacco Use Types [...] on filedocumented in this encounter Care Teams Client Director Relationship Specialty Start Date End Date Easton Connor MD PCP - General Internal Medicine 07/09/18 04/07/20 Lisa Post PCP - General Internal Medicine 04/08/20 04/26/20 Eliezer Carlson MD PCP - General Internal Medicine 04/27/20 documented as of this encounter
--- OUTSIDE RECORDS SUMMARY | 2025-02-03 16:14 | XMS_ITS | Encounter Summary ---
Author Organization [facility] Address [address] [place] [address] Care Team Providers Care Mortgage Broker Name Role Phone Easton Connor MD Primary Care Provider [phone] Lisa Post Primary Care Provider Eliezer Patel MD Primary Care Provider Unavaila ble Encounter Details Date Type Department Care Team Description 03/04/2020 Pt. Non Urgent Medical Question Adult Urgent Care - [address] [address] Trung Chu MD Social History Tobacco Use [...] on filedocumented in this encounter Care Teams Mortgage Broker Relationship Specialty Start Date End Date Easton Connor MD PCP - General Internal Medicine 07/09/18 04/07/20 Lisa Post PCP - General Internal Medicine 04/08/20 04/26/20 Eliezer Carlson MD PCP - General Internal Medicine 04/27/20 documented as of this encounter
--- OUTSIDE RECORDS SUMMARY | 2025-02-03 16:14 | XMS_ITS | Encounter Summary ---
Author Organization [facility] Address [address] [place] [address] Care Team Providers Care Clinical Social Work Aide Name Role Phone Eliezer Carlson MD Primary Care Provider Unavaila ble Encounter Details Date Type Department Care Team Description 06/11/2020 [facility] Medical Records [address] [place] [address] Abstract, Provider Social History Tobacco Use Types [...] on filedocumented in this encounter Care Teams Clinical Social Work Aide Relationship Specialty Start Date End Date Eliezer Carlson MD PCP - General Internal Medicine 04/27/20 documented as of this encounter
--- OUTSIDE RECORDS SUMMARY | 2025-02-03 16:14 | XMS_ITS | Encounter Summary ---
Author Organization [facility] Address [address] [place] [address] Care Team Providers Care Industrial Economist Name Role Phone Garland Guerra MD Primary Care Provider Nallely Vasquez PA-C Primary Care Provider Unava ilable Easton Connor MD Primary Care Provider [phone] Lisa Post Primary Care Provider UnavailEliezer Franklin MD Primary Care Provider Unavaila ble Encounter Details Date Type Department Care Team Description 05/14/2018 Release of Information Medical Records [address] [place] [id number] Abstract, Provider Social History Tobacco Use Types [...] on filedocumented in this encounter Care Teams Industrial Economist Relationship Specialty Start Date End Date Garland [...]
--- OUTSIDE RECORDS SUMMARY | 2025-02-03 16:14 | XMS_ITS | Encounter Summary ---
Author Organization [facility] Address [address] [place] [address] Care Team Providers Care Reaming Machine Operator For Plastic Name Role Phone Easton Connor MD Primary Care Provider [phone] Lisa Post Primary Care Provider Unavailabl Eliezer Pitts MD Primary Care Provider Unavaila ble Reason for Referral * Non ELFEGO (Routine) - Closed Specialty Diagnoses / Procedures Referred By Contac t Referred To Contact Rheumatology Procedures REFERRAL TO RHEUMATOLOGY Easton Connor MD [address] [place] [address] Rheum/[address] [address] Referral ID Status Reason Start Date Expiration Date Visits Re quested Visits Authorized [id number] Closed 01/16/2020 01/15/2021 1 1 Reason for Visit * Reason Onset Date Comments Old Coin Dealer Feedback 12/09/2019 Rheumatology Encounter Details Date Type Department Care Team Description 12/09/2019 Telephone Internal Medicine - [place] [address] [facility], [address] [place] [address] Easton Connor MD [address] [place] [address] Old Coin Dealer Feedback (Rheumatology) Social History Tobacco Use Types Packs/Day Years [...] encounter Miscellaneous Notes * Telephone Encounter - Yun Lamone - 01/16/2020 12:34 PM EDT Patient checking on referral to Rheumatology has not been signed * Telephone Encounter - Katelyn Carlin - 12/09/2019 8:[address] Nikolas Matthews Your patient was seen by Yun Lara PA-C at [facility] Orthopedics [facility] who is requesting a secondary referral to rheumatology for multiple joint pain. Pertinent notes, labs and imaging have been received from this specialist and will be scanned into [facility]. Thank you Martha Referral Director Cardiovascular documented in this encounter Plan of Treatment Not on file documented as of this encounter Visit Diagnoses Not on filedocumented in this encounter Care Teams Reaming Machine Operator For Plastic Relationship Specialty Start Date End Date Easton Connor MD PCP - General Internal Medicine 07/09/18 04/07/20 Lisa Post PCP - General Internal Medicine 04/08/20 04/26/20 Eliezer Carlson MD PCP - General Internal Medicine 04/27/20 documented as of this encounter
--- OUTSIDE RECORDS SUMMARY | 2025-02-03 16:14 | XMS_ITS | Encounter Summary ---
Author Organization [facility] Address [address] [place] [address] Care Team Providers Care Commercial Correspondent Name Role Phone Eliezer Carlson MD Primary Care Provider [phone] Encounter Details Date Type Department Care Team (Latest Contact Info) Description 05/27/2024 Lab Requisition [facility] [address] [place] [id number] Becky Le MD [address] [phone] Encounter for gynecological examination (general) (routine) without [...] intraepithelial lesion or malignancy 06/02/2024 8:27 AM [facility] General Categorization Negative 06/02/2024 8:27 AM [facility] Specimen Adequacy Satisfactory for evaluation, endocervical/celis sformation zone component absent 06/02/2024 8:27 AM [facility] Pap Methodology Liquid Based Pap Test 06/02/2024 8:27 AM [facility] Disclaimer The Pap test is a screening test which carries an inherent false negative rate. These test results should be correlated with the patient's clinical findings and history. This Pap test was processed using an automated screening system. Technical cytopathology services provided by [facility], at [address] [place] [id number] (CLIA # [id number]/Genna Bui MD, Hr Business Partner Consultant.) 06/02/2024 8:27 AM [facility] Console Pap Interpretation Reported 06/02/2024 8:27 AM [facility] Brushing/Spatula Cervix uteri structure / Unknown 05/26/2024 05/27/2024 8:24 AM EST us Becky Le MD LAB CYTOLOGY ORDERABLES Final Result Performing Organization Address City/State/[facility] Co de Phone Number [facility] [address] [place] [address], documented in this encounter Visit Diagnoses Diagnosis Encounter for gynecological examination (general) (routine) without abnormal findings documented in this encounter Care Teams Commercial Correspondent Relationship Specialty Start Date End Date Eliezer Carlson MD [address] [place] [address] PCP - General Internal Medicine 04/27/20 documented as of this encounter
--- OUTSIDE RECORDS SUMMARY | 2025-02-03 16:14 | XMS_ITS | Encounter Summary ---
Author Organization [employer] [facility] Address [address] [place] [address] Care Team Providers Care Upholstery Restorer Name Role Phone Eliezer Carlson MD Primary Care Provider Unavaila ble Reason for Visit * Reason Comments E-prescribe Rx Request Encounter Details Date Type Department Care Team Description 07/31/2020 Refill Internal Medicine - [address], [address] [place] [address] Easton Connor MD [address] [place] [address] E-prescribe Rx Request Social History Tobacco Use [...] on filedocumented in this encounter Care Teams Upholstery Restorer Relationship Specialty Start Date End Date Eliezer Carlson MD PCP - General Internal Medicine 04/27/20 documented as of this encounter
--- OUTSIDE RECORDS SUMMARY | 2025-02-03 16:14 | XMS_ITS | Clinical Summary ---
Author Organization [address] Address [address] [place] [address] Phone Care Team Providers Care Convenience Store Clerk Name Role Phone Eliezer Carlson MD Primary Care Provider [phone] Surgical History Surgery Date Site/Laterality Comments KNEE [...] syndrome) 12/07/2017 DX:PCOS (polycystic ovarian syndrome) Polymyalgia (CMS/HCC V24) 02/07/2018 DX:Pedro ymyalgia (HCC) Restless legs syndrome 12/07/2017 DX:Restle ss legs syndrome Second degree AV block, Mobitz type I 12/07/2017 DX:Second degree AV block, Mobitz type I Sleep paralysis 12/07/2017 DX:Sleep paralys is Uterine leiomyoma 12/07/2017 DX:Uterine lei omyoma Anxiety 03/28/2018 DX:Anxiety Diabetes mellitus type 2, co ntrolled, with complications (CMS/HCC V24, CMS/HCC V28) DX:Diabetes mellitus type 2, controlled, with complications (HCC); COMMENT: on insulin Asthma DX:Asthma Family History [...] Health Maintenance Due Date Last Done Comments Breast Cancer Screening 1984 DTaP,Tdap,and Td Vaccines (6 - Tdap) 08/08/1995 02/24/1993, 11/30/1986, 06/18/1986, Additional history exists Cholesterol Screening (Lipid Panel) 05/01/2022 HIV Screening 05/01/2022 Hepatitis C Screening 05/01/2022 Social Influencers of Health Screening 05/01/2022 Hypertension/CHF/CAD Annual BMP Blood Test 05/18/2022 COVID-19 Vaccine ( season) 2024 09/13/2020 Depression Screening 06/04/2024 Influenza Vaccine (#1) 2025 03/03/2020 Cervical Cancer Screening: Pap Smear 05/26/2027 [...] age to complete this topic Meningococcal B Vaccine Aged Out No l onger eligible based on patient's age to complete this topic Pneumococcal Vaccine: Pediatrics (0 to 5 Years) and At-Risk Patients (6 to 49 Years) Aged Out No longer eligible based [...] without abnormal findings from Last 3 Months or Most Recently Relevant to Health Maintenance Results * Pap smear (05/26/2024 12:00 AM EST) Interpretation Negative for intraepithelial lesion or malignancy 06/02/2024 8:27 AM EST [facility] General Categorization Negative [...] screening system. Technical cytopathology services provided by [facility], at [address] [place] [address] (CLIA # [id number]/Genna Bui MD, Director Of Education.) 06/02/2024 8:27 AM [facility] Console Pap Interpretation Reported 06/02/2024 8:27 AM [facility] Brushing/Spatula Cervix uteri structure / Unknown 05/26/2024 05/27/2024 8:24 AM EST Becky Le MD LAB CYTOLOGY ORDERABLES Final Result [facility] [address] [place] [address], from Last 3 Months or Most Recently Relevant to Health Maintenance Insurance [facility] MEDICAID [place]VANT[place] - [place] [facility] Advance Directives Documents on File Type Date Recorded Patient Marina Dry Dock Manager Expl anation Health Care Decision (hx) 01/29/2021 AD MALDONADO DIRECTIVE Health Care Decision (hx) 01/29/2021 AD MALDONADO DIRECTIVE Health Care Decision (hx) 01/26/2021 AD MALDONADO DIRECTIVE Health Care Decision (hx) 01/26/2021 AD MALDONADO DIRECTIVE Health Care Decision (hx) 01/26/2021 AD MALDONADO DIRECTIVE Care Teams Convenience Store Clerk Relationship Specialty Start Date End Date Eliezer Carlson MD [address] [place] [address] PCP - General Internal Medicine 04/27/20
--- OUTSIDE RECORDS SUMMARY | 2025-02-03 16:14 | XMS_ITS | Encounter Summary ---
Author Organization [facility] Address [address] [place] [address] Care Team Providers Care Reconstructive Surgeon Name Role Phone Nallely Estevez PA-C Primary Care Provider Easton Hernandez MD Primary Care Provider [phone] Lisa Post Primary Care Provider UnavailEliezer Franklin MD Primary Care Provider Unavaila ble Reason for Visit * Reason Onset Date Comments Faxed Refill 06/19/2018 Encounter Details Date Type Department Care Team Description 06/19/2018 Refill Adult [facility] - [place] [address] [place] [address] Nallely Estevez PA-C Faxed Refill Social History [...] an upcoming appointment? [facility] to [facility] [...] Payor: ARAVIND / Plan: POS $20 JENNIFERTONJA [id number] / Product Type: POS Gag-quw-Fibbyan documented in this encounter Plan of Treatment Not on file documented as of this encounter Visit Diagnoses Not on filedocumented in this encounter Care Teams Reconstructive Surgeon Relationship Specialty Start Date End Date Nallely Estevez PA-C PCP - General Internal Medicine 06/19/18 07/08/18 Easton Connor MD PCP - General Internal Medicine 07/09/18 04/07/20 Lisa Post PCP - General Internal Medicine 04/08/20 04/26/20 Eliezer Carlson MD PCP - General Internal Medicine 04/27/20 documented as of this encounter
--- OUTSIDE RECORDS SUMMARY | 2025-02-03 16:14 | XMS_ITS | Encounter Summary ---
Author Organization [facility] Address [address] [place] [address] Care Team Providers Care Compensation Business Partner Name Role Phone Easton Connor MD Primary Care Provider Lisa Post Primary Care Provider Unavailabl e Eliezer Carlson MD Primary Care Provider Unavaila amalia Encounter Details Date Type Department Care Team Description 11/26/2018 [facility] Medical Records [address] [place] [address] Andrei Hall MD Social History Tobacco Use [...] on filedocumented in this encounter Care Teams Compensation Business Partner Relationship Specialty Start Date End Date Easton Connor MD PCP - General Internal Medicine 07/09/18 04/07/20 Lisa Post PCP - General Internal Medicine 04/08/20 04/26/20 Eliezer Carlson MD PCP - General Internal Medicine 04/27/20 documented as of this encounter
--- OUTSIDE RECORDS SUMMARY | 2025-02-03 16:14 | XMS_ITS | Encounter Summary ---
Author Organization [facility] Address [address] [place] [address] Care Team Providers Care In Class Special Education Teacher Name Role Phone Easton Connor MD Primary Care Provider [phone] Lisa Post Primary Care Provider UnavailEliezer Franklin MD Primary Care Provider Unavaila amalia Encounter Details Date Type Department Care Team Description 11/07/2018 Vascular Physician Report Medical Records [address] [place] [address] Yun Lara, PA-C [address] [place] [id number] Social History Tobacco Use Types Packs/Day Years [...] on filedocumented in this encounter Care Teams In Class Special Education Teacher Relationship Specialty Start Date End Date Easton Connor MD PCP - General Internal Medicine 07/09/18 04/07/20 Lisa Post PCP - General Internal Medicine 04/08/20 04/26/20 Eliezer Carlson MD PCP - General Internal Medicine 04/27/20 documented as of this encounter
--- OUTSIDE RECORDS SUMMARY | 2025-02-03 16:14 | XMS_ITS ---
Author Name [facility] Organization Unknown History of Medication Use Medication Directions Dispensed Refills Start Date End Date Stat us methylphenidate (RITALIN) 10 MG tablet Take 1 tablet (10 mg total) by mouth 2 (two) times a day before meals. Max Daily Amount: 20 mg 10/31/2024 active midodrine (ProAmatine) 10 MG tablet Take 1 tablet (10 mg total) by mouth 3 (three) times a day. Take during daytime hours. 10/31/2024 active midodrine (ProAmatine) 5 MG tablet Take 1 tablet (5 mg total) by mouth 3 (three) times a day. Take during daytime hours. 10/31/2024 active propranolol (INDERAL) 40 MG tablet Take 1 tablet (40 mg total) by mouth 2 (two) times a day. Dose one upon waking then dose 2 after 8 hours 10/31/2024 active midodrine (ProAmatine) 10 MG tablet Take 1.5 tablets (15 mg total) by mouth 3 (three) times a day. Take during daytime hours. 07/04/2024 active guanFACINE (INTUNIV) 1 MG 24 hr tablet Take 1 tablet (1 mg total) by mouth nightly. 04/04/2024 active propranolol (INDERAL) 20 MG tablet Take 1 tablet (20 mg total) by mouth 2 (two) times a day. Dose one upon waking then dose 2 after 8 hours 02/05/2024 active fludrocortisone (FLORINEF) 0.1 MG tablet Take 1 tablet (0.1 mg total) by mouth daily. 07/24/2023 06/10/2024 active metoPROLOL SUCCINATE (TOPROL-XL) 25 MG 24 hr tablet Take 1 tablet (25 mg total) by mouth daily. 07/24/2023 02/05/2024 aborted Asmanex HFA 50 MCG/ACT Aerosol INHALE 2 PUFFS BY MOUTH TWICE A DAY RINSE MOUTH AND THROAT AFTER USE 05/25/2023 active diclofenac enteric coated (VOLTAREN) 75 MG EC tablet Take 1 tablet (75 mg total) by mouth 2 (two) times a day. 05/20/2023 active famotidine (PEPCID) 10 MG tablet Take 1 tablet (10 mg total) by mouth 2 (two) times a day. 05/17/2023 active Jardiance 10 MG tablet TAKE 1 TABLET BY MOUTH DAILY IN AM, TO PRELACE THE DDP MED - SITAGLIPTIN 05/15/2023 active melatonin 5 MG Tab tablet TAKE 1 TABLET BY MOUTH EVERY DAY NEEDED FOR INSOMNIA 05/15/2023 active magnesium oxide 400 (240 Mg) MG Tab tablet TAKE 1 TABLET BY MOUTH EVERY DAY BEDTIME FOR 30 DAYS MAY HOLD FOR LOOSE STOOLS 05/07/2023 active Multiple Vitamin (Daily-Devon Multivitamin) Tab Take 1 tablet by mouth daily. 05/06/2023 active gabapentin (NEURONTIN) 100 MG capsule TAKE 1-3 CAPSULES ORALLY BEDTIME FOR 30 DAYS 04/29/2023 active DentaGel 1.1 % Gel APPLY THIN FILM TO ALL TEETH BEFORE BED. NO EATING OR RINSING FOR 30 MINUTES 04/23/2023 active fluconazole (diFLUcan) 100 MG tablet TAKE 1 TABLET BY MOUTH EVERY DAY FOR 5 DAYS 04/23/2023 active fluvoxaMINE (LUVOX) 50 MG tablet Take 1 tablet (50 mg total) by mouth 2 (two) times a day. 04/18/2023 active ferrous sulfate 325 (65 FE) MG tablet TAKE 1 TABLET ORALLY DAILY FOR 30 DAYS TAKE W/ VITAMIN C 04/09/2023 active PEG 3350 17 GM/SCOOP powder 04/03/2023 active diclofenac (VOLTAREN) 1 % gel 04/02/2023 active busPIRone (BUSPAR) 15 MG tablet Take 1 tablet (15 mg total) by mouth 2 (two) times a day. 03/13/2023 active atorvastatin (LIPITOR) 10 MG tablet Take 1 tablet (10 mg total) by mouth daily. 01/28/2023 active montelukast (Singulair) 10 MG tablet Take 1 tablet (10 mg total) by mouth. 11/06/2022 05/22/2024 active loratadine (CLARITIN) 10 MG tablet Take 1 tablet (10 mg total) by mouth. 11/06/2022 02/22/2024 active ibuprofen (MOTRIN) 800 mg tablet Take 1 tablet (800 mg total) by mouth. active Allergies Allergen Reaction Severity Comment Documented Date Source Statu s METFORMIN GI INTOLERANCE/NAUSEA/VOMITIN G 05/29/2023 [facility] active LIRAGLUTIDE HIVES 04/08/2020 [facility] active LISINOPRIL COUGH 12/07/2017 [facility] active Problems Problem Status Onset Date Problem Type Date of Resoluti on Source PCOS (polycystic ovarian syndrome) active 2023-06-22 [facility] Mixed anxiety depressive disorder active 2023-06-22 [facility] Controlled type 2 diabetes mellitus without complication, with long-term current use of insulin active 2019-01-10 [facility]Act [facility] Family history of breast cancer active 2023-06-22 [facility] HTN (hypertension) active 2018-03-01 [facility]Act [facility] Orthostatic lightheadedness active 2023-07-24 [facility]Act [facility] Anxiety active 2018-03-28 [facility] GERD (gastroesophageal reflux disease) active 2018-03-01 [facility] Carpal tunnel syndrome, bilateral active 2020-06-27 [facility] Second degree AV block, Mobitz type I active 2017-12-07 [facility] Disorder of iron metabolism active 2023-06-22 [facility]Act [facility] Restless legs syndrome active 2017-12-07 [facility] Fibromyalgia active 2018-03-01 [facility] Asthma active 2023-06-22 ProblemAct [facility] Hyperlipidemia active 2018-01-[address] Sleep paralysis active 2017-12-07 ProblemAct [facility] Encounters Encounter Type Encounter Reason Primary Diagnosis Location Date Ambulatory Essential (primary) hypertension Essential (primary) hypertension [facility] 10/31/2024 Ambulatory Disorder of the autonomic nervous system, unspecified Disorder of the autonomic nervous system, unspecified [facility] 07/04/2024 Ambulatory Dizziness and giddiness Dizziness and giddiness [facility] 04/04/2024 Ambulatory [facility] 02/29/2024 Ambulatory Other abnormalities of heart beat Other abnormalities of heart beat [facility] 02/05/2024 Ambulatory [facility] 09/28/2023 Ambulatory Dizziness and giddiness Dizziness and giddiness [facility] 07/24/2023 Ambulatory [facility] 07/20/2023 Ambulatory [facility] 06/22/2023 Ambulatory Disorder of the autonomic nervous system, unspecified Disorder of the autonomic nervous system, unspecified [facility] 05/29/2023 Ambulatory Other abnormalities of heart beat Other abnormalities of heart beat [facility] 04/04/2023 Care Team Organization Name Specialty Phone Email Start Date End Da jez [facility] Helmet Hat Sweatband Puncher 10/31/2024 11/29/2024 [facility] Primary Care 04/03/20232024 [facility] Primary Care 04/03/20232022
--- OUTSIDE RECORDS SUMMARY | 2025-02-03 16:14 | XMS_ITS | Encounter Summary ---
Author Organization [facility] Address [address] [place] [address] Care Team Providers Care Nude Model Name Role Phone Nallely Estevez PA-C Primary Care Provider Easton Hernandez MD Primary Care Provider [phone] Lisa Post Primary Care Provider Unavailabl Eliezer Pitts MD Primary Care Provider Unavaila ble Reason for Visit * Reason Comments E-prescribe Rx Request Encounter Details Date Type Department Care Team Description 07/08/2018 Refill Adult Med - [place] [address] [place] [address] Nallely Estevez PA-C E-prescribe Rx Request Social [...] encounter Miscellaneous Notes * Telephone Encounter - Cris Georges - 07/09/2018 4:34 PM EST Called patient scheduled follow up with Nallely Estevez PA-C 07-12-18 * Telephone Encounter - Reese Luque M.A. - 07/09/2018 4:16 PM EST Please call and schedule pt for f/u * Telephone Encounter - Amy TompkinsPJairoNJairo - 07/08/2018 3:40 PM EST Last seen Nallely 10 24 18 11 9 18 [facility] Nallely No follow up Refill metformin thanks documented in this encounter Plan of Treatment Not on file documented as of this encounter Visit Diagnoses Not on filedocumented in this encounter Care Teams Nude Model Relationship Specialty Start Date End Date Nallely Estevez PA-C PCP - General Internal Medicine 06/19/18 07/08/18 Easton Connor MD PCP - General Internal Medicine 07/09/18 04/07/20 Lisa Post PCP - General Internal Medicine 04/08/20 04/26/20 Eliezer Carlson MD PCP - General Internal Medicine 04/27/20 documented as of this encounter
--- OUTSIDE RECORDS SUMMARY | 2025-02-03 16:14 | XMS_ITS | Encounter Summary ---
Author Organization [facility] Address [address] [place] [address] Care Team Providers Care Sheet Fed Printer Name Role Phone Easton Connor MD Primary Care Provider [phone] Lisa Post Primary Care Provider Eliezer Patel MD Primary Care Provider Yasir holland Encounter Details Date Type Department Care Team Description 02/13/2020 Pt. Non Urgent Medical Question Internal Medicine - [address], [address] [place] [address] Easton Connor MD [address] [place] [address] Social History Tobacco Use Types Packs/Day Years [...] on filedocumented in this encounter Care Teams Sheet Fed Printer Relationship Specialty Start Date End Date Easton Connor MD PCP - General Internal Medicine 07/09/18 04/07/20 Lisa Post PCP - General Internal Medicine 04/08/20 04/26/20 Eliezer Carlson MD PCP - General Internal Medicine 04/27/20 documented as of this encounter
--- OUTSIDE RECORDS SUMMARY | 2025-02-03 16:14 | XMS_ITS | Encounter Summary ---
Author Organization [facility] Address [address] [place] [address] Care Team Providers Care Accounts Payable Manager Name Role Phone Garland Guerra MD Primary Care Provider Nallely Vasquez PA-C Primary Care Provider Unava ilable Easton Connor MD Primary Care Provider [phone] Lisa Post Primary Care Provider UnavailEliezer Franklin MD Primary Care Provider Unavaila ble Encounter Details Date Type Department Care Team Description 05/16/2018 Transfer Records Medical Records [address] [place] [id number] Abstract, Provider Social History Tobacco Use Types [...] on filedocumented in this encounter Care Teams Accounts Payable Manager Relationship Specialty Start Date End Date Garland [...]
--- OUTSIDE RECORDS SUMMARY | 2025-02-03 16:14 | XMS_ITS | Encounter Summary ---
Author Organization [facility] Address [address] [place] [address] Care Team Providers Care Recording Clerk Name Role Phone Eliezer Carlson MD Primary Care Provider Unavaila ble Encounter Details Date Type Department Care Team Description 11/01/2021 Orders Only [facility] [address] [phone] Leta Henley MD [address] [address] Social History Tobacco Use Types Packs/Day Years [...] on filedocumented in this encounter Care Teams Recording Clerk Relationship Specialty Start Date End Date Eliezer Carlson MD PCP - General Internal Medicine 04/27/20 documented as of this encounter
== END 2025-02-03 16:07 | disposition home or self-care (01) ==
LOC: HO.HSMS 15:00
PROVIDERS: PCP Physician Assistant Medical; Visit Provider Nurse Practitioner Family
DX: G25.81 Restless legs syndrome (principal); R42 Dizziness and giddiness; G43.709 Chronic migraine without aura, not intractable, without status migrainosus
CPT/HCPCS: 99214

== ENCOUNTER → 2025-02-03 14:59 | Outpatient (BNVA) | payer OTHER, SELFPAY | PROVIDERS: PCP Physician Assistant Medical; Visit Provider Nurse Practitioner Family | DX: G25.81 Restless legs syndrome (principal); R42 Dizziness and giddiness; G43.709 Chronic migraine without aura, not intractable, without status migrainosus | CPT/HCPCS: 99212 ==

== ENCOUNTER 2025-02-11 13:01 | Outpatient (AMB) | payer OTHER, SELFPAY ==
[2025-02-11 13:04] VITALS: BP 128/76; PULSE 91; O2SAT 96; BMI 18.5
--- NOTE | 2025-02-11 13:04 | A.OFFVIS_ITS ---
Vital Signs 02/11/25 13:04 Height 5 ft 7 in Weight 118 lb 3 oz BMI 18.5 BP 128/76 Blood Pressure Location Lt brachial Position Sitting Pulse 91 Pulse Source Pulse Oximeter Pulse Oximetry (%) 96 Oxygen Delivery Method Room Air Intake Visit Reasons: Rash,Joint Pain/ MD Approved Intake Note: Patient presents today for rash/joint pain. All[facility]ies [facility] Allergy (Unknown, Verified 02/11/25 13:06) Unknown lisinopril Allergy (Unknown, Verified 02/11/25 13:06) Cough metformin Allergy (Unknown, Verified 02/11/25 13:06) Stomach Upset enviromental Allergy (Mild, Uncoded 02/11/25 13:06) Unknown HPI HPI Rash,Joint Pain/ MD Approved: Details: New patient evaluation JEFFY 1:February. She had a rash 2021 anterior neck +pruritis. No trigger. Rashes recurrent. She has not had a rash in a year. We reviewed photos on her phone. She has tightness in her face when exposed to sun for a long period of time. She changes her skin routine to encorporate benjamin butter. She gets hyperpigmented spots and increase erythema on cheeks and chin. She has pain in her joints with soreness. She is receiving cortisone injections in bilateral hips and knees by orthopedic surgery and was diagnosed with osteoarthritis. Weight fluctuates within 10 lb but overall has been stable. +night sweats. No fevers, migraines, pleurisy, oral ulcers, +intermittent frothy urine. +raynaud's syndrome years. +dry eyes and dry mouth for years. No hx of miscarriages, DVT or PE Asthma is not controlled. She has dyspnea. Hx hysterectomy to treat fibroids 2023. She has history of diabetes with last A1c 6.4 per patient. Medication history and list reviewed. Mother has systemic lupus erythematosus. Sister has discoid lupus. 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 [facility] Medical History Elevated CPK Low serum triiodothyronine (T3) Low phosphate levels Chronic migraine without aura, intractable, without status migrainosus Restless leg syndrome Eczema Psoriasis IBS (irritable bowel syndrome) Carpal tunnel syndrome Mobitz (type) I (Wenckebach's) atrioventricular block Migraines Fibromyalgia Type II diabetes mellitus Anemia Arthritis Asthma HTN (hypertension) GERD (gastroesophageal reflux disease) Osteoporosis Depression Surgical History H/O adenoidectomy History of hysterectomy History of nasal septoplasty Family History Mother Heart disease Lupus Diabetes Father Diabetes Social History Household Members: Family Alcohol intake: never Comment: Pt's discharge date has been extended until 02/11/24. Patient Tobacco Use Status: Former Tobacco user Tobacco use type: Pipe Years Smoked: 15 years ago. Physical Exam Vital Signs: Last Vital Signs Pulse 91 02/11/25 13:04 BP 128/76 02/11/25 13:04 Pulse Ox 96 02/11/25 13:04 Oxygen Delivery Method Room Air 02/11/25 13:04 BMI result Body Mass Index 18.5 Const Other: General: Comfortable CVS: RRR Respiratory: clear to auscultation bilaterally. Good respiratory effort Skin: No lesions seen, discoloration of finger or digital ulcers, skin tightening MSK: Diffuse allodynia of all extremities and back. She has normal range of motion of upper extremities and lower extremities. No synovitis. Results Reviewed Results Reviewed: Labs in expanse reviewed. Assessment & Plan Assessment & Plan (1) Positive JEFFY (antinuclear antibody): Comment: Low titer positive with recurrent anterior neck rash, photosensitivity sicca symptoms, Raynaud's phenomenon and frothy urine. Family history significant for SLE with mother and discoid lupus with sister. She does not have cytopenias, elevated inflammatory markers or kidney dysfunction. I will be further working up for SLE and Sjogren syndrome. She has not had a rash in a year. From the photos that I have reviewed with her, her rash is not typical of cutaneous lupus. I recommend when rash reoccurs that she has dermatology evaluation with consideration of skin biopsy to aid diagnosis and further management. Code(s): R76.8 - Other specified abnormal immunological findings in serum Category: Medical Plan: Labs and urine studies ordered Return to clinic in 1-2 months to review results (2) Raynauds phenomenon: Comment: Not active Code(s): I73.00 - Raynaud's syndrome without gangrene Category: Medical Plan: Monitor clinically (3) Fibromyalgia: Comment: Diffuse allodynia is consistent with fibromyalgia. We discussed management. In the past she has failed monotherapy with gabapentin, amitriptyline, duloxetine and sevella. She has had elevation in CK levels. I will be repeating muscle enzymes this visit Code(s): M79.7 - Fibromyalgia Category: Medical Plan: Aquatic therapy referral given to patient. Consider Albert Chi, which has been shown to be beneficial in helping with pain from fibromyalgia. Recommend follow up with PCP management for consideration of combination treatment for fibromyalgia management. She may benefit from combination of gabapentin/lyrica with duloxetine/sevella +/- muscle relaxer such as cyclobenzaprine. She will further discuss with PCP. Information given to patient. CK and aldolase ordered Orders: Orders Complete Blood Count Auto Diff Today R76.0 - Raised antibody titer Alanine Aminotransferase Today R76.0 - Raised antibody titer C Reactive Protein Today R76.0 - Raised antibody titer Erythrocyte Sedimentation Rate Today R76.0 - Raised antibody titer Complement C3 Today R76.0 - Raised antibody titer Complement C4 Today R76.0 - Raised antibody titer Sjogren's Antibodies Today R76.0 - Raised antibody titer Creatine Kinase Total Today M79.10 - Myalgia, unspecified site UA ClnCatch+Micro w/rflx Cult Today R76.0 - Raised antibody titer Protein Creatinine Ratio, Ur Today R76.0 - Raised antibody titer Aspartate Amino Transferase Today R76.0 - Raised antibody titer Creatinine Today R76.0 - Raised antibody titer Anti DNA DS Antibody Today R76.0 - Raised antibody titer Sm Sm/DIRECTOR STRATEGIC PLANNING Antibodies Today R76.0 - Raised antibody titer Anti-Centromere B Antibodies Today R76.0 - Raised antibody titer SAPNA 1 Antibody Today R76.0 - Raised antibody titer Scleroderma 70 Antibody Today R76.0 - Raised antibody titer Aldolase Today M79.10 - Myalgia, unspecified site Coding Level of Care Code New Pt Level 4 (29277) Diagnoses Positive JEFFY (antinuclear antibody) R76.8 Raynauds phenomenon I73.00 Fibromyalgia M79.7
--- OUTSIDE RECORDS SUMMARY | 2025-02-11 16:00 | XMS_ITS | Clinical Summary ---
Author Organization [facility] Address [address] [place] [address] Care Team Providers Care Finance Advisor Name Role Phone [facility] Primary Care Provider + Derrick Sheriff PA-C Unavailable [phone] Allergies Active Allergy Reactions Criticality Noted Date Comments Liraglutide Hives Medium 04/08/2020 Lisinopril Cough Low 12/07/2017 Metformin GI Intolerance/Nausea/Vomiting Low 05/29 Medications albuterol (PROAIR RESPICLICK) 108 (90 Base) MCG/ACT inhaler Inhale. Active atorvastatin (LIPITOR) 10 MG tablet Take 1 tablet (10 mg total) by mouth daily. 023 Active busPIRone (BUSPAR) 15 MG tablet Take 1 tablet (15 mg total) by mouth 2 (two) times a day. 023 Active D3 Super Strength 50 MCG (2000 UT) Cap capsule Take by mouth daily. 023 Active Continuous Blood Gluc Sensor (FreeStyle Thompson 3 Sensor) Misc USE DIRECTED. CHANGE EVERY 14 DAYS 023 Active docusate sodium (COLACE) 100 MG capsule TAKE 1-2 CAPSULES ORALLY DAILY NEEDED FOR CONSTIPATION FOR 30 DAYS 023 Active diclofenac enteric coated (VOLTAREN) 75 MG EC tablet Take 1 tablet (75 mg total) by mouth 2 (two) times a day. 023 Active estradiol (ESTRACE) 2 MG tablet Take 1 tablet (2 mg total) by mouth every morning. Active famotidine (PEPCID) 10 MG tablet Take 1 tablet (10 mg total) by mouth 2 (two) times a day. Active fexofenadine (BHAVNA) 60 MG tablet Take 1 tablet (60 mg total) by mouth. Active fluconazole (diFLUcan) 100 MG tablet TAKE 1 TABLET BY MOUTH EVERY DAY FOR 5 DAYS Active FREESTYLE LITE strip CHECK BLOOD SUGAR 4 X A DAY Active ibuprofen (MOTRIN) 800 mg tablet Take 1 tablet (800 mg total) by mouth. Active Lantus SoloStar 100 UNIT/ML prefilled pen injection INJECT 40 UNITS SUBCUTANEOUSLY DAILY Active insulin lispro (HumaLOG/ADMELOG) 100 units/mL injection See Instructions, for pump 100 units a day , 3 fials a month, # 3 each, 12 Refills, Maintenance, 03/29/23 11:07:00 EDT, [facility][id number], Partial fill upon patient request if the prescription is for a schedule II opioid drug., 170, cm, 03/13/23 10:2... Active loratadine (CLARITIN) 10 MG tablet Take 1 tablet (10 mg total) by mouth. Active magnesium oxide 400 (240 Mg) MG Tab tablet TAKE 1 TABLET BY MOUTH EVERY DAY BEDTIME FOR 30 DAYS MAY HOLD FOR LOOSE STOOLS Active melatonin 5 MG Tab tablet TAKE 1 TABLET BY MOUTH EVERY DAY NEEDED FOR INSOMNIA Active montelukast (Singulair) 10 MG tablet Take 1 tablet (10 mg total) by mouth. Active Multiple Vitamin (Daily-Devon Multivitamin) Tab Take 1 tablet by mouth daily. Active nitrofurantoin monohydrate (MACROBID) 100 MG capsule Take 1 capsule (100 mg total) by mouth 2 (two) times a day. Active OMEprazole (PriLOSEC) 40 MG capsule Take by mouth daily. Active semaglutide (Ozempic, 0.25 or 0.5 MG/DOSE,) (0.25 mg or 0.5 mg/dose pen) prefilled pen injection See Instructions, 0.25 mg Subcutaneous Injection Every week x 4 wks then .5 wkly x 4 wks, # 1 each, 1 Refills, Maintenance, 02/22/23 15:54:00 EDTBernard, [facility]/pharmacy #[id number], Partial fill upon patient request if the prescription is for a schedule II... Active DentaGel 1.1 % Gel APPLY THIN FILM TO ALL TEETH BEFORE BED. NO EATING OR RINSING FOR 30 MINUTES Active ubrogepant (Ubrelvy) 100 MG tablet Take 0.1 tablets (10 mg total) by mouth. Active Medical Compression StockingsIndicati ons:Autonomic dysfunction Level of Compression: 20-30 mmHg 2 each Active Ventolin HFA 108 (90 Base) MCG/ACT inhaler PLEASE SEE ATTACHED FOR DETAILED DIRECTIONS Active Trulicity 3 MG/0.5ML prefilled pen injection Active Asmanex HFA 50 MCG/ACT Aerosol INHALE 2 PUFFS BY MOUTH TWICE A DAY RINSE MOUTH AND THROAT AFTER USE Active Misc. Devices (Steel Rolling Walker) MiscIndications:P ostural orthostatic tachycardia syndrome (POTS),Syncope and collapse Please administer rolling walker to assist with ambulation. Please measure for appropriate height 1 each Active guanFACINE (INTUNIV) 1 MG 24 hr tabletIndications :Orthostatic lightheadedness Take 1 tablet (1 mg total) by mouth nightly. 90 tablet 3 Active fludrocortisone (FLORINEF) 0.1 MG tabletIndications :Orthostatic lightheadedness Take 1 tablet (0.1 mg total) by mouth daily. 30 tablet 11 025 2025 Active midodrine (ProAmatine) 10 MG tabletIndications :Autonomic dysfunction Take 1 tablet (10 mg total) by mouth 3 (three) times a day. Take during daytime hours. 90 tablet 11 025 2025 Active midodrine (ProAmatine) 5 MG tabletIndications :Orthostatic lightheadedness Take 1 tablet (5 mg total) by mouth 3 (three) times a day. Take during daytime hours. 90 tablet 025 2025 Active propranolol (INDERAL) 40 MG tabletIndications :Orthostatic lightheadedness Take 1 tablet (40 mg total) by mouth 2 (two) times a day. Dose one upon waking then dose 2 after 8 hours 60 tablet 025 2025 Active methylphenidate (RITALIN) 20 MG tabletIndications :Orthostatic lightheadedness Take 1 tablet (20 mg total) by mouth 2 (two) times a day before meals. Max Daily Amount: 40 mg 60 tablet 025 Active metoPROLOL TARTRATE (LOPRESSOR) 25 MG tablet TAKE 0.5 TABLET BY MOUTH 2 TIMES A DAY,X30 DAYS, TAKE A HALF TABLET BY MOUTH TWICE A DAY. 023 2023 Discontinued Active Problems Problem Noted Date Diagnosed Date [...] Encounters Date Type Department Care Team Description 01/02/2025 Orders Only [facility] [place] at [address] [phone] Derrick Sheriff PA-C Orthostatic lightheadedness 12/03/2024 Orders Only [facility] [place] [address], [place] [phone] Derrick Sheriff PA-C Orthostatic lightheadedness 12/02/2024 Refill [facility] [place] [address] [phone] Derrick Sheriff PA-C Medication Refill from Last 3 Months Social History Tobacco Use Types Packs/Day Years Used Date Smoking Tobacco: Never Smokeless Tobacco: Never Tobacco Cessation:Counseling Given: Not Answered Comments Unknown Sex and Gender Information Value Date Recorded Sex Assigned at Female 03/19/2023 3:06 PM EDT Legal Sex Female 10:10 AM EDT Gender Identity Female 03/19/2023 3:06 PM EDT Sexual Orientation Heterosexual (straight) 04/03 10:25 PM EDT Last Filed Vital Signs Vital Sign Reading Time Taken Comments Blood Pressure 136/86 10/31/2024 1:05 PM EDT Pulse 94 10/31/2024 1:05 PM EDT Temperature - - Respiratory Rate - - Oxygen Saturation 97% 10/31/2024 1:05 PM EDT Inhaled Oxygen Concentration - - Weight 123 kg (270 lb 12.8 oz) 10/31/2024 1:05 P M EDT Height 170.2 cm (5' 7 ) 10/31/2024 1:05 PM EDT Body Mass Index 42.41 10/31/2024 1:05 PM EDT Plan of Treatment Upcoming Encounters Date Type Department Care Team (Late st Contact Info) Description 05/05/2025 1:30 PM EST Appointment [facility] [place] at [facility] - Cardiology [address] [place] [address], [place] [phone] Derrick Sheriff PA-C [address] [place] [address] Health Maintenance Due Date Last Done Comments Hepatitis C Virus Screening 1984 Creatinine with GFR 1994 Foot Exam 1994 Hemoglobin A1C 1994 Lipid Panel 1994 Ophthalmology Exam 1994 HIV Screening 1997 Microalbumin/Creatinine Rati o Urine 2002 DTaP/Tdap/Td Vaccines (1 - Tdap) 08/08/2003 Hepatitis B Vaccines (1 of 3 - 19+ 3-dose series) 08/08/2003 Pneumococcal Vaccine: Pediat jay (0-5 Years) and At-Risk Patients (6 to 49 Years) (1 of 2 - PCV) 08/08/2003 Pap Smear (Ages 21-65) 2005 HPV Vaccines (1 - 3-dose SCD M series) 08/08/2011 COVID-19 Vaccine ( - 2023-2 5 season) 2024 11/17/2021, 02/08/2021, 09/13/2020 Mammogram 2024 Influenza Vaccine 01/02/2025 04/26/2022, , 09/15/2021, Additional history exists Insurance [facility] Care Teams Finance Advisor Relationship Specialty Start Date End Date [facility] [address] [place] [id number] PCP - General 03/19/23 Derrick Sheriff PA-C [address] [place] [id number] Physician Placement Manager Cardiac Electrophysiology 09/28/23
--- OUTSIDE RECORDS SUMMARY | 2025-02-11 16:00 | XMS_ITS | Encounter Summary ---
Author Organization [facility] Address [address] [place] [address] Care Team Providers Care Inking Machine Tender Name Role Phone [place], [facility] Care Provider + Derrick Sheriff PA-C Unavailable Reason for Visit * Reason Onset Date Comments Medication Refill 12/02/2024 Encounter Details Date Type Department Care Team (Late st Contact Info) Description 12/02/2024 Refill [facility] Heart & [facility] [place] at [address] [phone] Derrick Sheriff PA-C [address] [place] [address] Medication Refill Social History Tobacco Use Types Packs/Day Years Used Date Smoking Tobacco: Never Smokeless Tobacco: Never Comments Unknown Sex and Gender Information Value Date Recorded Sex Assigned at Female 03/19/2023 3:06 PM EDT Legal Sex Female 10:10 AM EDT Gender Identity Female 03/19/2023 3:06 PM EDT Sexual Orientation Heterosexual (straight) 04/03 10:25 PM EDT documented as of this encounter Plan of Treatment Upcoming Encounters Date Type Department Care Team (Late st Contact Info) Description 05/05/2025 1:30 PM EST Appointment [facility] Heart [facility] [place] at [address] [phone] Derrick Sheriff PA-C [address] [place] [address] documented as of this encounter Visit Diagnoses Diagnosis Orthostatic lightheadedness documented in this encounter Care Teams Inking Machine Tender Relationship Specialty Start Date End Date [facility] [address] [place] [id number] PCP - General 03/19/23 Derrick Sheriff PA-C [address] [place] [address] Physician Waxing Machine Operator Helper Cardiac Electrophysiology 09/28/23 documented as of this encounter
--- OUTSIDE RECORDS SUMMARY | 2025-02-11 16:00 | XMS_ITS | Encounter Summary ---
Author Organization [facility] Address [address] [place] [address] Care Team Providers Care Sliver Machine Operator Name Role Phone Eliezer Carlson MD Primary Care Provider [phone] Encounter Details Date Type Department Care Team (Latest Contact Info) Description 05/27/2024 Lab Requisition [facility] - Main Lab [address] [place] [phone] Becky Le MD [address] [phone] Encounter for gynecological examination (general) (routine) without [...] intraepithelial lesion or malignancy 06/02/2024 8:27 AM [facility] General Categorization Negative 06/02/2024 8:27 AM [facility] Specimen Adequacy Satisfactory for evaluation, endocervical/celis sformation zone component absent 06/02/2024 8:27 AM [facility] Pap Methodology Liquid Based Pap Test 06/02/2024 8:27 AM [facility] Disclaimer The Pap test is a screening test which carries an inherent false negative rate. These test results should be correlated with the patient's clinical findings and history. This Pap test was processed using an automated screening system. Technical cytopathology services provided by [facility], at [address] [place] [id number] (CLIA # [id number]/Genna Bui MD, Assembling Machine Operator.) 06/02/2024 8:27 AM [facility] Console Pap Interpretation Reported 06/02/2024 8:27 AM [facility] Brushing/Spatula Cervix uteri structure / Unknown 05/26/2024 05/27/2024 8:24 AM EST us Becky Le MD LAB CYTOLOGY ORDERABLES Final Result Performing Organization Address City/State/[facility] Co de Phone Number [facility] [address] [place] [address], documented in this encounter Visit Diagnoses Diagnosis Encounter for gynecological examination (general) (routine) without abnormal findings documented in this encounter Care Teams Sliver Machine Operator Relationship Specialty Start Date End Date Eliezer Carlson MD [address] [place] [address] PCP - General Internal Medicine 04/27/20 documented as of this encounter
--- OUTSIDE RECORDS SUMMARY | 2025-02-11 16:00 | XMS_ITS | Clinical Summary ---
Author Organization [address] Address [address] [place] [address] Phone Care Team Providers Care Cereal Miller Name Role Phone Eliezer Carlson MD Primary Care Provider [phone] Surgical History Surgery Date Site/Laterality Comments KNEE SURGERY 2018 Right PROCEDURE: HISTORICAL KNEE SURGERY; COMMENT: Arthroscopy OTHER SURGICAL HISTORY PROCEDURE: HISTORY OTHER; COMMENT: septoplasty NOSE SURGERY PROCEDURE: DC UNLISTED PROCEDURE NOSE; COMMENT: septoplasty and turbinate [...] 05/01/2022 Hypertension/CHF/CAD Annual BMP Blood Test 05/18/2022 Depression Screening 06/04/2024 COVID-19 Vaccine ( season) 2025 09/13/2020 Influenza Vaccine (#1) 2025 03/03/2020 Cervical Cancer [...] lesion or malignancy 06/02/2024 8:27 AM EST [facility] General Categorization Negative 06/02/2024 8:27 AM [facility] Specimen Adequacy Satisfactory for evaluation, endocervical/celis sformation zone component absent 06/02/2024 8:27 AM [facility] Pap Methodology Liquid Based Pap Test 06/02/2024 8:27 AM [facility] Disclaimer The Pap test is a screening test which carries an inherent false negative rate. These test results should be correlated with the patient's clinical findings and history. This Pap test was processed using an automated screening system. Technical cytopathology services provided by [facility], at [address] [place] [address] (CLIA # [id number]/Genna Bui MD, Application Packager.) 06/02/2024 8:27 AM [facility] Console Pap Interpretation Reported 06/02/2024 8:27 AM [facility] Brushing/Spatula Cervix uteri structure / Unknown 05/26/2024 05/27/2024 8:24 AM EST Becky Le MD LAB CYTOLOGY ORDERABLES Final Result [facility] [address] [place] [address], from Last 3 Months or Most Recently Relevant to Health Maintenance Insurance [facility] MEDICAID ADVANTAGE [place] - [place] [facility] Advance Directives Documents on File Type Date Recorded Patient Carton Counter Feeder Expl anation Health Care Decision (hx) 01/29/2021 AD MALDONADO DIRECTIVE Health Care Decision (hx) 01/29/2021 AD MALDONADO DIRECTIVE Health Care Decision (hx) 01/26/2021 AD MALDONADO DIRECTIVE Health Care Decision (hx) 01/26/2021 AD MALDONADO DIRECTIVE Health Care Decision (hx) 01/26/2021 AD MALDONADO DIRECTIVE Care Teams Cereal Miller Relationship Specialty Start Date End Date Eliezer Carlson MD [address] [place] [address] PCP - General Internal Medicine 04/27/20
--- OUTSIDE RECORDS SUMMARY | 2025-02-11 16:00 | XMS_ITS | Clinical Summary ---
Author Organization [facility], Address [address] [place] [address] [place] [address] Phone Care Team Providers Care Casting Technician Name Role Phone Lisa Post PA-C Primary Care Provider [phone] Allergies Active Allergy Reactions Criticality Noted Date [...] Refills, Maintenance, 02/22/23 15:54:00 EDT, [facility], [id number], Partial fill upon patient request if the [...] Refill [facility] [address] [place] [address] Octavio Rangel MD from Last 3 Months [...] 07/31/1996 Insurance [facility] Medicaid Care Teams Casting Technician Relationship Specialty Start Date End Date Lisa Post PA-C [place], [place] PCP - General Physician Carpenter'S Helper 09/12/23
--- OUTSIDE RECORDS SUMMARY | 2025-02-11 16:00 | XMS_ITS | Encounter Summary ---
Author Organization [facility] Address [address] [place] [address] Care Team Providers Care Python Java Developer Name Role Phone Eliezer Carlson MD Primary Care Provider [phone] Encounter Details Date Type Department Care Team (Late st Contact Info) Description 08/21/2024 Lab Requisition [facility] - Main Lab 299 [facility] [place] [phone] Becky Le MD [address] [phone] Urinary tract infection, site not specified; Acute [...] Urine No growth 08/22/2024 10:28 AM EDT [facility] Urine Urine specimen obtained by clean catch procedure / Unknown 08/21/2024 08/21/2024 2:56 PM EDT us Becky Le MD LAB MICROBIOLOGY - GENER AL ORDERABLES Final Result [facility] [address] [place] [address], * (ABNORMAL) Urinalysis with reflex microscopic and culture (08/21/2024 12:00 AM EDT) Pathologist [facility] Specific Powers Urine 1.011 1.003 - 1.030 LAB URINALYSIS - AUTOMATED METHOD 08/21/2024 2:56 PM EDT [facility] pH, Urine 7.5 5.0 - 8.0 pH LAB URINALYSIS - AUTOMATED METHOD 08/21/2024 2:56 PM EDT [facility] Leukocytes, Urine Moderate(A) Negative LAB URINALYSIS - AUTOMATED METHOD 08/21/2024 2:56 PM EDT [facility] Nitrite, Urine Negative Negative LAB URINALYSIS - AUTOMATED METHOD 08/21/2024 2:56 PM EDT [facility] Protein, Urine Negative <=Trace mg/dL LAB URINALYSIS - AUTOMATED METHOD 08/21/2024 2:56 PM [facility] Glucose, Urine Negative Negative mg/dL LAB URINALYSIS - AUTOMATED METHOD 08/21/2024 2:56 PM [facility] Ketones, Urine Negative Negative mg/dL LAB URINALYSIS - AUTOMATED METHOD 08/21/2024 2:56 PM [facility] Urobilinogen , Urine 0.2 0.2 - 1.0 mg/dL LAB URINALYSIS - AUTOMATED METHOD 08/21/2024 2:56 PM [facility] Bilirubin, Urine Negative Negative LAB URINALYSIS - AUTOMATED METHOD 08/21/2024 2:56 PM [facility] Blood, Urine Negative Negative LAB URINALYSIS - AUTOMATED METHOD 08/21/2024 2:56 PM [facility] RBC, Urine 1.8 0 - 4 /HPF LAB URINALYSIS - AUTOMATED METHOD 08/21/2024 2:56 PM [facility] WBC, Urine 2.0 0 - 4 /HPF LAB URINALYSIS - AUTOMATED METHOD 08/21/2024 2:56 PM [facility] Squamous Epithelial, Urine 38 0 - 60 /LPF LAB URINALYSIS - AUTOMATED METHOD 08/21/2024 2:56 PM [facility] Bacteria, Urine Few(A) Negative /HPF LAB URINALYSIS - AUTOMATED METHOD 08/21/2024 2:56 PM [facility] Hyaline Casts, Urine 0.0 0 - 3 /LPF LAB URINALYSIS - AUTOMATED METHOD 08/21/2024 2:56 PM [facility] Urine Urine specimen obtained by clean catch procedure / Unknown 08/21/2024 08/21/2024 2:02 PM EDT us Becky Le MD LAB URINE ORDERABLES Fin al Result Performing Organization Address [facility] Co de Phone Number [facility] [address] [place] [address], [place] [phone] * (ABNORMAL) Vaginitis pathogens molecular study (08/21/2024 12:00 AM EDT) Trichomonas vaginalis Negative Negative 08/22/2024 11:18 AM EDT [facility] Gardnerella vaginalis Negative Negative 08/22/2024 11:18 AM EDT [facility] Alia Species Positive(A) Negative 08/23/19 11:18 AM EDT [facility] Swab Vaginal structure / Unknown 08/21/2024 08/21/2024 2:02 PM EDT us Becky Le MD LAB MICROBIOLOGY - GENER AL ORDERABLES Final Result Performing Organization Address [facility] Co de Phone Number [facility] [address] [place] [address], [place] [phone] * Culture urine (08/21/2024 12:00 AM EDT) Pathologist [facility] Culture, Urine <10,000 CFU/mL gram positive cocci, insignificant count, no further workup 08/22/2024 10:24 AM EDT [facility] Urine Urine specimen obtained by clean catch procedure / Unknown 08/21/2024 08/21/2024 2:02 PM EDT us Becky Le MD LAB MICROBIOLOGY - GENER AL ORDERABLES Final Result Performing Organization Address [facility]/ZIP Co de Phone Number [facility] [address] [place] [address], [place] [phone] documented in this encounter Visit Diagnoses Diagnosis Urinary tract infection, site not specified Acute vaginitis Unspecified vaginitis and vulvovaginitis documented in this encounter Care Teams Python Java Developer Relationship Specialty Start Date End Date Eliezer Carlson MD [address] [facility] PCP - General Internal Medicine 04/27/20 documented as of this encounter
== END 2025-02-11 14:02 | disposition home or self-care (01) ==
LOC: HO.RHES 13:02
PROVIDERS: PCP Physician Assistant Medical; Visit Provider Internal Medicine Rheumatology
DX: R76.8 Other specified abnormal immunological findings in serum (principal); I73.00 Raynaud's syndrome without gangrene; M79.7 Fibromyalgia
CPT/HCPCS: 99204

== ENCOUNTER 2025-02-11 13:01 | Outpatient (REF) | payer OTHER, SELFPAY ==
[2025-02-11 18:15] LABS: MANUAL DIFF FLAG NO
[2025-02-11 18:41] LABS: Hematocrit 38.5 % (37.0-47.0); Hemoglobin 12.6 g/dl (12.0-16.0); Imm Gran Abs Auto 0.04 X10*3/uL (0.00-0.03); Imm Gran Pct Auto 0.4 % (0.0-0.4); Lymphocytes Absolute Auto 2.5 X10*3/uL (1.2-4.9); Mean Corpuscular HGB Conc 32.7 g/dl (31.0-35.0); Mean Corpuscular Hemoglobin 32.3 pg (27.0-33.0); Mean Corpuscular Volume 98.7 fL (80.0-98.0); NRBC Abs Auto 0.000 X10*3/uL (0.0-0.012); NRBC Pct Auto 0.0 /100WBC (0.0-0.2); Platelet Count 347 X10*3/uL (160-400); Red Blood Count 3.90 X10*6/uL (4.20-5.50); White Blood Count 10.3 X10*3/uL (4.8-10.8)
[2025-02-11 18:42] LABS: Alanine Aminotransferase 18 U/L (0-31); Aspartate Amino Transferase 25 U/L (5-31); Estimated Glomerular Filt Rate > 60
[2025-02-12 22:39] LABS: Antibody to SS-A Antigen <1.0 NEG AI (<1.0 NEG); Antibody to SS-B Antigen <1.0 NEG AI (<1.0 NEG); SM/Ribonucleoprotein Ab <1.0 NEG AI (<1.0 NEG); Smith Protein <1.0 NEG AI (<1.0 NEG)
== END 2025-02-11 13:02 | disposition home or self-care (01) ==
LOC: HO.HKASLDS 13:01
PROVIDERS: PCP Physician Assistant Medical; Visit Provider Internal Medicine Rheumatology
DX: I73.00 Raynaud's syndrome without gangrene (principal); R76.8 Other specified abnormal immunological findings in serum; R76.0 Raised antibody titer; M79.7 Fibromyalgia
CPT/HCPCS: 36415; 82085; 82550; 82565; 84450; 84460; 85025; 85652; 86140; 86160; 86225; 86235; 99202

== ENCOUNTER 2025-03-03 14:23 | Outpatient (AMB) | payer OTHER, SELFPAY ==
--- NOTE | 2025-03-03 14:26 | A.OFFVIS_ITS ---
Vital Signs 03/03/25 14:27 Height 5 ft 7 in Weight 263 lb 4 oz BMI 41.2 BP 140/94 H Blood Pressure Location Rt brachial Position Sitting Pulse 100 Pulse Source Pulse Oximeter Pulse Oximetry (%) 99 Oxygen Delivery Method Room Air Intake Visit Reasons: Botox Intake Note: Botox Watch Inspector Required: No Accompanied by: Self / Same As Patient Allergies [facility] Allergy (Unknown, Verified 03/03/25 14:26) Unknown lisinopril Allergy (Unknown, Verified 03/03/25 14:26) Cough metformin Allergy (Unknown, Verified 03/03/25 14:26) Stomach Upset enviromental Allergy (Mild, Uncoded 02/11/25 13:06) Unknown Medication List - Last Reconciled 03/03/25 by Bessie Ramirez MD albuterol sulfate 90 mcg/actuation (Ventolin HFA) 2 puffs inhalation Q6H PRN atorvastatin 10 mg PO BEDTIME blood sugar diagnostic (FreeStyle Lite Strips) As directed buspirone 30 mg PO BID cholecalciferol (vitamin D3) 50 mcg PO DAILY diclofenac sodium 1% 1 - 2 grams topical BID estradiol 1 tab PO QAM fludrocortisone 0.1 mg PO DAILY gabapentin enacarbil ER (Horizant ER) 600 mg PO QPM 30 days ibuprofen 800 mg PO Q8H PRN insulin aspart U-100 Sliding scale TID before meals SQ with maximum 24 units daily. insulin glargine (Lantus Solostar U-100 Insulin) 30 units subcut BEDTIME ketoconazole 2% topical 2XW lancets (FreeStyle Lancets) As directed lidocaine 5% 1 patch topical DAILY PRN loratadine 10 mg PO DAILY magnesium oxide 400 mg PO BEDTIME 30 days melatonin 5 mg PO DAILY PRN methylphenidate HCl (Ritalin) 20 mg PO DAILY midodrine 2.5 mg PO BID mometasone 100 mcg/actuation (Asmanex HFA) 2 puffs inhalation BID montelukast 10 mg PO QPM multivitamin with folic acid 400 mcg (Daily-Devon (with folic acid)) 1 tab PO DAILY omeprazole 40 mg PO DAILY onabotulinumtoxinA (Botox) 155 units IM ONCE 12 weeks propranolol 40 mg PO BID tiotropium bromide (Spiriva with HandiHaler) 1 cap inhalation DAILY tirzepatide (Mounjaro) 2.5 mg subcut QWEEK ubrogepant (Ubrelvy) 50 - 100 mg (0.5 - 1 x 100 mg) PO ONCE PRN 30 days HPI Comments Details: ? 39y/o female comes for treatment of migraines with botox. How many migraine days prior to botox- 20 days How long do the migraines last- 1-2 days Intensity of migraine 5-10/10 ER visits related to migraine - none Effectiveness of botox from last two treatment(s) How many migraine days since receiving treatment: 4-5 days Change? in intensity of migraine?decreased Change in frequency of migraine?decreased Change in use of acute medication for migraine?decreased Change in quality of life?improved ER visits related to migraine? none Have at least three months elapsed since last treatment- yes SHe had a good response after her last treatment with botox. He headaches /migraine shave decreased from daily migraines to 1-4.month and the headaches are less intense and lasts less than 2 hrs ??? Most frequent reported adverse reactions following injection of botox for chronic migraine include neck pain (9%), headache(5%), eyelid ptosis(4%), migraine(4%), muscular weakness(4%), musculuskeletal stiffness(4%), bronchitis(3%), injection site pain (3%), musculoskeletal pain(3%), myalgia(3%), facial paresis(2%), HTN(2%) and muscle spasms(2%) were discussed in detail. ??? Botulinum toxin typeA 200units Lot no [id number] expiration Jul 2027 was diluted with 4 cc of normal saline . ??? Muscles injected- ??? Frontalis 4 sites ??? Procerus 1 site ??? Vice President & General Manager [employer]- 2 sites ??? Temporalis- 8 sites ??? Occipitalis- 6 sites ??? Cervical paraspinals- 4 sites ??? Trapezius- 6 sites- 10 units each ??? 5 units each in 31 site ??? Total use- 185units ??? Discarded-15units [facility] Medical History Elevated CPK Low serum triiodothyronine (T3) Low phosphate levels Chronic migraine without aura, intractable, without status migrainosus Restless leg syndrome Eczema Psoriasis IBS (irritable bowel syndrome) Carpal tunnel syndrome Mobitz (type) I (Wenckebach's) atrioventricular block Migraines Fibromyalgia Type II diabetes mellitus Anemia Arthritis Asthma HTN (hypertension) GERD (gastroesophageal reflux disease) Osteoporosis Depression Surgical History H/O adenoidectomy History of hysterectomy History of nasal septoplasty Family History Mother Heart disease Lupus Diabetes Father Diabetes Social History Household Members: Family Alcohol intake: never Comment: Pt's discharge date has been extended until 02/11/24. Patient Tobacco Use Status: Former Tobacco user Tobacco use type: Pipe Years Smoked: 15 years ago. Physical Exam Vital Signs: Last Vital Signs Pulse 100 03/03/25 14:27 BP 140/94 H 03/03/25 14:27 Pulse Ox 99 03/03/25 14:27 Oxygen Delivery Method Room Air 03/03/25 14:27 BMI result Body Mass Index 41.2 Const General: cooperative and no acute distress Orientation/consciousness: patient oriented x3 Resp Effort & Inspection: normal respiratory effort and able to speak in complete sentences Neuro Other: Bilateral posterior cervical tightness. DTRs dulled, symmetric throughout. General: patient oriented x3 Cranial nerves: Yes CN's II-XII intact bilaterally Cognition (Neuro): normal cognition Coordination: [id number] test normal Romberg Test: Negative Psych Appearance: grossly normal Mental Status: mental status grossly normal Speech and movement: Normal speech and movement present Affect: normal affect Attitude: cooperative Office Procedures Botulinum toxin Injection 88298 - Migraine Procedure code (CPT) selection complete Office Meds onabotulinumtoxinA 200 unit solution for injection Performing Provider: Bessie Ramirez MD Performing Location: [facility] Administered by: Bessie Ramirez MD on 03/03/25 14:56 Dose Route Admin Location Dispensed Lot Number Expiration Date [facility] Crusher Setter 185 unit subcut 200 units [id number] [employer] /BOTOX Total Dispensed Waste 200 units 7.5 % Comments: see HPI Assessment & Plan Assessment & Plan (1) Chronic migraine without aura, intractable, without status migrainosus: Code(s): G43.719 - Chronic migraine without aura, intractable, without status migrainosus Category: Medical Plan Patient is tolerated the procedure well SHe will call with any side effects Orders: Orders AMB Botulinum toxin Injection Today G43.709 - Chronic migraine without aura, not intractable, without status migrainosus Coding Level of Care Code Est Pt Level 1 (81572) Diagnoses Chronic migraine without aura, intractable, without status migrainosus G43.719 CPT Codes Botox Injection - Botox 3: 80532 - Migraine ([id number])
[2025-03-03 14:27] VITALS: BP 140/94; PULSE 100; O2SAT 99; BMI 41.2
--- OUTSIDE RECORDS SUMMARY | 2025-03-03 15:49 | XMS_ITS | Clinical Summary ---
Author Organization [facility], Address [address] [place] [address] [place] [address] Phone Care Team Providers Care Fork Operator Name Role Phone Lisa Post PA-C Primary Care Provider [phone] Allergies Active Allergy Reactions Criticality Noted Date [...] Refills, Maintenance, 02/22/23 15:54:00 EDT, Solution, [id number], Partial fill upon patient request if the [...] Refill [facility] [address] [place] [address] Octavio Rangel MD from Last 3 Months [...] 07/31/1996 Insurance [facility] Medicaid Care Teams Fork Operator Relationship Specialty Start Date End Date Lisa Post PA-C JEVON [place], [place] PCP - General Physician Publishing Agent 09/12/23
--- OUTSIDE RECORDS SUMMARY | 2025-03-03 15:49 | XMS_ITS | Clinical Summary ---
Author Organization [address] Address [address] [place] [address] Phone Care Team Providers Care School Boat Driver Name Role Phone Eliezer Carlson MD Primary Care Provider [phone] Surgical History Surgery Date Site/Laterality Comments KNEE SURGERY 2018 Right PROCEDURE: HISTORICAL KNEE SURGERY; COMMENT: Arthroscopy OTHER SURGICAL HISTORY PROCEDURE: HISTORY OTHER; COMMENT: septoplasty NOSE SURGERY PROCEDURE: NM UNLISTED PROCEDURE NOSE; COMMENT: septoplasty and turbinate [...] 08/08/1995 02/24/1993, 11/30/1986, 06/18/1986, Additional history exists HPV Vaccines (1 - 3-dose SCDM series) 08/08/2011 Cholesterol Screening (Lipid Panel) 05/01/2022 HIV Screening 05/01/2022 Hepatitis C Screening 05/01/2022 Social Influencers of Health Screening 05/01/2022 Hypertension/CHF/CAD Annual BMP Blood Test 05/18/2022 Depression Screening 06/04/2024 COVID-19 Vaccine ( season) 2025 09/13/2020 Influenza Vaccine (#1) 2025 03/03/2020 Cervical Cancer Screening: Pap Smear 05/26/2027 05/26/2024 RSV Immunization Adult Patients (1 - 1-dose 75+ series) 08/08/2059 HIB Vaccines Completed 11/30/1986 IPV Vaccines Completed [...] lesion or malignancy 06/02/2024 8:27 AM EST [facility]) [facility] General Categorization Negative 06/02/2024 8:27 AM [facility] Specimen Adequacy Satisfactory for evaluation, endocervical/celis sformation zone component absent 06/02/2024 8:27 AM [facility] Pap Methodology Liquid Based Pap Test 06/02/2024 8:27 AM [facility] Disclaimer The Pap test is a screening test which carries an inherent false negative rate. These test results should be correlated with the patient's clinical findings and history. This Pap test was processed using an automated screening system. Technical cytopathology services provided by [facility], at [address] [place] [address] (CLIA # [id number]/Genna Bui MD, Programming Development Project Manager.) 06/02/2024 8:27 AM [facility] Console Pap Interpretation Reported 06/02/2024 8:27 AM [facility] Brushing/Spatula Cervix uteri structure / Unknown 05/26/2024 05/27/2024 8:24 AM EST Becky Le MD LAB CYTOLOGY ORDERABLES Final Result [facility] [address] [place] [address], from Last 3 Months or Most Recently Relevant to Health Maintenance Insurance [facility] MEDICAID [place]VANT[place] - [place] [facility] Advance Directives Documents on File Type Date Recorded Patient Pipe Jeeper Expl anation Health Care Decision (hx) 01/29/2021 AD MALDONADO DIRECTIVE Health Care Decision (hx) 01/29/2021 AD MALDONADO DIRECTIVE Health Care Decision (hx) 01/26/2021 AD MALDONADO DIRECTIVE Health Care Decision (hx) 01/26/2021 AD MALDONADO DIRECTIVE Health Care Decision (hx) 01/26/2021 AD MALDONADO DIRECTIVE Care Teams School Boat Driver Relationship Specialty Start Date End Date Eliezer Carlson MD [address] [place] [address] PCP - General Internal Medicine 04/27/20
--- OUTSIDE RECORDS SUMMARY | 2025-03-03 15:49 | XMS_ITS | Clinical Summary ---
Author Organization [facility] Address [address] [place] [address] Care Team Providers Care Ocean Export Coordinator Name Role Phone [facility] Primary Care Provider + Derrick Sheriff PA-C Unavailable [phone] Allergies Active Allergy Reactions Criticality Noted Date [...] each, 12 Refills, Maintenance, 03/29/23 11:07:00 EDT, [facility] #[id number], Partial fill upon patient request if the [...] each, 1 Refills, Maintenance, 02/22/23 15:54:00 EDTBernard, [facility]/pharmacy #[id number], Partial fill upon patient request if the [...] Department Care Team Description 01/02/2025 Orders Only [facility] [place] at [address] [phone] Derrick Sheriff PA-C Orthostatic lightheadedness 12/03/2024 Orders Only [facility] [place] [address], [place] [phone] Derrick Sheriff PA-C Orthostatic lightheadedness 12/02/2024 Refill [facility] [place] [address] [phone] Derrick Sheriff PA-C Medication Refill from Last [...] Info) Description 05/05/2025 1:30 PM EST Appointment [facility] [place] at [facility] - Cardiology [address] [place] [address] Derrick Sheriff PA-C [address] [place] [address] Health Maintenance Due Date Last Done Comments [...] PCV) 08/08/2003 Pap Smear (Ages 21-65) 2005 Mammogram 2024 Influenza Vaccine 01/02/2025 04/26/2022, , 09/15/2021, Additional history exists COVID-19 Vaccine ( - 2024-2 6 season) 2025 11/17/2021, 02/08/2021, 09/13/2020 HPV Vaccines (No Doses Required) Completed Insurance [facility] Care Teams Ocean Export Coordinator Relationship Specialty Start Date End Date [facility] [address] [place] [address] PCP - General 03/19/23 Derrick Sheriff PA-C [address] [place] [address] Physician Package Handler Cardiac Electrophysiology 09/28/23
--- OUTSIDE RECORDS SUMMARY | 2025-03-03 15:49 | XMS_ITS | Encounter Summary ---
Author Organization [facility] Address [address] [place] [address] Care Team Providers Care Tobacco Warehouse Manager Name Role Phone Eliezer Carlson MD Primary Care Provider [phone] Encounter Details Date Type Department Care Team (Latest Contact Info) Description 05/27/2024 Lab Requisition [facility] - Main Lab [address] [place] [phone] Becky Le MD [address] [phone] Encounter for gynecological examination (general) (routine) without [...] intraepithelial lesion or malignancy 06/02/2024 8:[address] [facility] General Categorization Negative 06/02/2024 8:[address] [facility] Specimen Adequacy Satisfactory for evaluation, endocervical/celis sformation zone component absent 06/02/2024 8:[address] [facility] Pap Methodology Liquid Based Pap Test 06/02/2024 8:[address] [facility] Disclaimer The Pap test is a screening test which carries an inherent false negative rate. These test results should be correlated with the patient's clinical findings and history. This Pap test was processed using an automated screening system. Technical cytopathology services provided by [facility], at [address] [place] [address] (CLIA # [id number]/Genna Bui MD, Bank Worker.) 06/02/2024 8:[address] [facility] Console Pap Interpretation Reported 06/02/2024 8:[address] [facility] Brushing/Spatula Cervix uteri structure / Unknown 05/26/2024 05/27/2024 8:24 AM EST us Becky Le MD LAB CYTOLOGY ORDERABLES Final Result Performing Organization Address City/State/[facility] Co de Phone Number [facility] [address] [place] [address], documented in this encounter Visit Diagnoses Diagnosis Encounter for gynecological examination (general) (routine) without abnormal findings documented in this encounter Care Teams Tobacco Warehouse Manager Relationship Specialty Start Date End Date Eliezer Carlson MD [address] [place] [address] PCP - General Internal Medicine 04/27/20 documented as of this encounter
--- OUTSIDE RECORDS SUMMARY | 2025-03-03 15:49 | XMS_ITS | Encounter Summary ---
Author Organization [facility] Address [address] [place] [address] Care Team Providers Care Support Team Member Name Role Phone [place] Care Provider + Derrick Sehriff PA-C Unavailable Reason for Visit * Reason Onset Date Comments Medication Refill 12/02/2024 Encounter Details Date Type Department Care Team (Late st Contact Info) Description 12/02/2024 Refill [facility] [place] at [address] [phone] Derrick Sheriff PA-C [address] [place] [address] Medication Refill Social History Tobacco Use Types [...] Info) Description 05/05/2025 1:30 PM EST Appointment [facility] [place] at [address] [phone] Derrick Sheriff PA-C [address] [place] [address] documented as of this encounter Visit Diagnoses Diagnosis Orthostatic lightheadedness documented in this encounter Care Teams Support Team Member Relationship Specialty Start Date End Date [facility] [address] [place] [address] PCP - General 03/19/23 Derrick Sheriff PA-C [address] [place] [address] Physician Head Char Filter Tank Tender Cardiac Electrophysiology 09/28/23 documented as of this encounter
--- OUTSIDE RECORDS SUMMARY | 2025-03-03 15:49 | XMS_ITS | Encounter Summary ---
Author Organization [facility] Address [address] [place] [address] Care Team Providers Care Armored Car Messenger Name Role Phone Eliezer Carlson MD Primary Care Provider [phone] Encounter Details Date Type Department Care Team (Late st Contact Info) Description 08/21/2024 Lab Requisition [facility] - Main Lab [address] [facility] [place] [phone] Becky Le MD [address] [phone] Urinary tract infection, site not specified; Acute [...] [facility] [address] [place] [address], * (ABNORMAL) Urinalysis with reflex microscopic and culture (08/21/2024 12:00 AM EDT) Pathologist [facility] Specific [place] Urine 1.011 1.003 - 1.030 LAB URINALYSIS [...] URINALYSIS - AUTOMATED METHOD 08/21/2024 2:56 PM [facility] Glucose, Urine Negative Negative mg/dL LAB URINALYSIS - AUTOMATED METHOD 08/21/2024 2:56 PM [facility] Ketones, Urine Negative Negative mg/dL LAB URINALYSIS - AUTOMATED METHOD 08/21/2024 2:56 PM [facility] Urobilinogen , Urine 0.2 0.2 - 1.0 mg/dL LAB URINALYSIS - AUTOMATED METHOD 08/21/2024 2:56 PM [facility] Bilirubin, Urine Negative Negative LAB URINALYSIS - AUTOMATED METHOD 08/21/2024 2:56 PM [facility] Blood, Urine Negative Negative LAB URINALYSIS - AUTOMATED METHOD 08/21/2024 2:56 PM [facility] RBC, Urine 1.8 0 - 4 /HPF LAB URINALYSIS - AUTOMATED METHOD 08/21/2024 2:56 PM [facility] WBC, Urine 2.0 0 - 4 /HPF LAB URINALYSIS - AUTOMATED METHOD 08/21/2024 2:56 PM [facility] Squamous Epithelial, Urine 38 0 - 60 /LPF LAB URINALYSIS - AUTOMATED METHOD 08/21/2024 2:56 PM [facility] Bacteria, Urine Few(A) Negative /HPF LAB URINALYSIS - AUTOMATED METHOD 08/21/2024 2:56 PM [facility] Hyaline Casts, Urine 0.0 0 - 3 /LPF LAB URINALYSIS - AUTOMATED METHOD 08/21/2024 2:56 PM [facility] Urine Urine specimen obtained by clean catch procedure / Unknown 08/21/2024 08/21/2024 2:02 PM EDT us Becky Le MD LAB URINE ORDERABLES Fin al Result Performing Organization Address [facility] Co de Phone Number [facility] [address] [place] [address], [place] [phone] * (ABNORMAL) Vaginitis pathogens molecular study (08/21/2024 [...] AL ORDERABLES Final Result Performing Organization Address [facility] Co de Phone Number [facility] [address] [place] [address], [place] [phone] * Culture urine (08/21/2024 12:00 AM EDT) Pathologist [facility] Culture, Urine <10,000 CFU/mL gram positive cocci, insignificant count, no further workup 08/22/2024 10:24 AM EDT [facility] Urine Urine specimen obtained by clean catch procedure / Unknown 08/21/2024 08/21/2024 2:02 PM EDT us eBcky Le MD LAB MICROBIOLOGY - GENER AL ORDERABLES Final Result Performing Organization Address [facility]/ZIP Co de Phone Number [facility] [address] [place] [address], [place] [phone] documented in this encounter Visit Diagnoses Diagnosis Urinary tract infection, site not specified Acute vaginitis Unspecified vaginitis and vulvovaginitis documented in this encounter Care Teams Armored Car Messenger Relationship Specialty Start Date End Date Eliezer Carlson MD [address] Jan[address] PCP - General Internal Medicine 04/27/20 documented as of this encounter
== END 2025-03-03 14:54 | disposition home or self-care (01) ==
LOC: HO.HSMS 14:24
PROVIDERS: PCP Physician Assistant Medical; Visit Provider Psychiatry & Neurology Neurology
DX: G43.709 Chronic migraine without aura, not intractable, without status migrainosus (principal); G43.719 Chronic migraine without aura, intractable, without status migrainosus
CPT/HCPCS: 64615

== ENCOUNTER → 2025-03-03 14:23 | Outpatient (BNVA) | payer OTHER, SELFPAY | PROVIDERS: PCP Physician Assistant Medical; Visit Provider Psychiatry & Neurology Neurology | DX: G43.719 Chronic migraine without aura, intractable, without status migrainosus (principal) | CPT/HCPCS: 64615; 99211; J0585 ==

== ENCOUNTER 2025-05-07 13:37 | Outpatient (REF) | payer OTHER, SELFPAY | END 2025-05-07 13:38 | disposition home or self-care (01) | LOC: HO.HKASLDS 13:37 | PROVIDERS: PCP Physician Assistant Medical; Visit Provider Internal Medicine Rheumatology | DX: Z01.84 Encounter for antibody response examination (principal); R76.89 Other specified abnormal immunological findings in serum; I73.00 Raynaud's syndrome without gangrene; M79.7 Fibromyalgia; Z79.899 Other long term (current) drug therapy | CPT/HCPCS: 36415; 82085; 82550; 86235; 99212 ==

== ENCOUNTER 2025-05-07 13:37 | Outpatient (AMB) | payer OTHER, SELFPAY ==
--- NOTE | 2025-05-07 13:39 | MHC.OFFVIS ---
Vital Signs 05/07/25 13:40 Height 5 ft 7 in Weight 265 lb 3.457 oz BMI 41.5 BP 130/80 Blood Pressure Location Rt brachial Position Sitting Pulse 105 H Pulse Source Pulse Oximeter Pulse Oximetry (%) 95 Oxygen Delivery Method Room Air Intake Visit Reasons: 3months Intake Note: Patient presents today for rash/joint pain. Accompanied by: Self / Same As Patient Allergies dulaglutide (From [facility]) Allergy (Unknown, Verified 05/07/25 13:40) Unknown lisinopril Allergy (Unknown, Verified 05/07/25 13:40) Cough metformin Allergy (Unknown, Verified 05/07/25 13:40) Stomach Upset enviromental Allergy (Mild, Uncoded 02/11/25 13:06) Unknown HPI HPI 3months: Details: She has been experiencing weakness, which is concerning for her. She continues to have myalgias in her extremities. She is having neck pain. She saw Dermatology who diagnosed her with eczema on biopsy of rash that reappeared on her chest. Rash has now resolved with topical steroid. She saw a pharmaceutical process engineer failure with [facility] who told her that she did not have lupus. [facility] Medical History Elevated CPK Low serum triiodothyronine (T3) Low phosphate levels Chronic migraine without aura, intractable, without status migrainosus Restless leg syndrome Eczema Psoriasis IBS (irritable bowel syndrome) Carpal tunnel syndrome Mobitz (type) I (Wenckebach's) atrioventricular block Migraines Fibromyalgia Type II diabetes mellitus Anemia Arthritis Asthma HTN (hypertension) GERD (gastroesophageal reflux disease) Osteoporosis Depression Surgical History H/O adenoidectomy History of hysterectomy History of nasal septoplasty Family History Mother Heart disease Lupus Diabetes Father Diabetes Social History Household Members: Family Alcohol intake: never Comment: Pt's discharge date has been extended until 02/11/24. Patient Tobacco Use Status: Former Tobacco user Tobacco use type: Pipe Years Smoked: 15 years ago. Physical Exam Vital Signs: Last Vital Signs Pulse 105 H 05/07/25 13:40 BP 130/80 05/07/25 13:40 Pulse Ox 95 05/07/25 13:40 Oxygen Delivery Method Room Air 05/07/25 13:40 BMI result Body Mass Index 41.5 Const Other: General: Comfortable CVS: RRR Respiratory: clear to auscultation bilaterally. Good respiratory effort Skin: No lesions seen, discoloration of finger or digital ulcers, skin tightening MSK: Diffuse allodynia of all extremities and back. She has normal range of motion of upper extremities and lower extremities. No synovitis. 5/5 power upper extremities and lower extremities. Assessment & Plan Assessment & Plan (1) Positive JEFFY (antinuclear antibody): Comment: Low titer positive with photosensitivity, sicca symptoms, Raynaud's phenomenon and frothy urine. Family history significant for mother with SLE and sister with discoid lupus. Workup for connective tissue disease has been unremarkable. She does not meet criteria for systemic lupus erythematosus, Mixed connective tissue disease or Sjogren syndrome. Inflammatory markers are normal. She continues to have mild elevation in CK. Clinical exam is consistent with fibromyalgia but this would not explain the elevation in CK. She has subjective weakness with preserved power on exam. We discussed next steps of evaluation for myalgias and elevated CK with lab testing for anti Sapna 1 antibody and EMG for workup of inflammatory myositis. Patient agrees with plan. Code(s): R76.8 - Other specified abnormal immunological findings in serum Category: Medical Plan: EMG ordered of upper extremities and lower extremities Anti Sapna 1 antibody, CK and aldolase ordered Return to clinic in 3 months (2) Raynauds phenomenon: Comment: Not active Code(s): I73.00 - Raynaud's syndrome without gangrene Category: Medical Plan: Monitor clinically (3) Fibromyalgia: Comment: Diffuse allodynia is consistent with fibromyalgia. We discussed management. In the past she has failed monotherapy with gabapentin, amitriptyline, duloxetine and sevella. Code(s): M79.7 - Fibromyalgia Category: Medical Plan: Aquatic therapy referral given to patient. Consider Albert Chi, which has been shown to be beneficial in helping with pain from fibromyalgia. Recommend follow up with PCP management for consideration of combination treatment for fibromyalgia management. She may benefit from combination of gabapentin/lyrica with duloxetine/sevella +/- muscle relaxer such as cyclobenzaprine. She will further discuss with PCP. Information given to patient. Orders: Orders NE nerve conduction velocity 05/07/25 M.10 - Myalgia, unspecified site Creatine Kinase Total 05/07/25 M.10 - Myalgia, unspecified site Aldolase 05/07/25 M.10 - Myalgia, unspecified site NE electromyogram (EMG) 05/07/25 M.10 - Myalgia, unspecified site SAPNA 1 Antibody 05/07/25.10 - Myalgia, unspecified site Coding Level of Care Code Est Pt Level 4 (50947) Complex visit Add On G2211 Diagnoses Positive JEFFY (antinuclear antibody) R76.8 Raynauds phenomenon I73.00 Fibromyalgia M79.7
[2025-05-07 13:40] VITALS: BP 130/80; PULSE 105; O2SAT 95; BMI 41.5
== END 2025-05-07 14:23 | disposition home or self-care (01) ==
LOC: HO.RHES 13:37
PROVIDERS: PCP Physician Assistant Medical; Visit Provider Internal Medicine Rheumatology
DX: R76.89 Other specified abnormal immunological findings in serum (principal); I73.00 Raynaud's syndrome without gangrene; M79.7 Fibromyalgia
CPT/HCPCS: 99214; G2211